=== PATIENT | female | born 1960 | race Caucasian/White ===

== ENCOUNTER 2022-06-05 22:36 | Outpatient (CLI) | payer MEDICAID, SELFPAY | END 2022-06-05 22:37 | disposition home or self-care (01) | LOC: AMB 06-06 12:00 | PROVIDERS: Visit Provider Emergency Medicine Emergency Medical Services | DX: S99.911A Unspecified injury of right ankle, initial encounter (principal); W01.0XXA Fall on same level from slipping, tripping and stumbling without subsequent striking against object, initial encounter; Y92.046 Garden or yard of boarding-house as the place of occurrence of the external cause | CPT/HCPCS: A0425; A0427 ==

== ENCOUNTER 2022-06-05 23:04 | Day surgery (SDC) | payer MEDICAID, SELFPAY ==
[2022-06-05 23:14] VITALS: BP 76/44; PULSE 55; RESP 16; TEMP 35.7; O2SAT 92; O2SAT 94; BMI 39.9
--- NOTE | 2022-06-05 23:17 | CRLHL7_ITS ---
For Patients: As a result of the Century Cures Act, medical imaging exams and procedure reports are released immediately into your electronic medical record. You may view this report before your referring provider. If you have questions, please contact your health care provider. INDICATION: Injury. COMPARISON: None. FINDINGS/IMPRESSION: Right ankle, three views. Evaluation is moderately limited by suboptimal positioning. There is an acute fracture-dislocation of the right ankle, including a transverse fracture through the medial malleolus and a comminuted fracture of the distal fibula. The distal fibular fracture fragments, medial malleolus fragment, and talus are displaced laterally with respect to the tibia and the fibular shaft. The ankle mortise is disrupted and the tibia is dislocated medially, and likely anteriorly, with respect to the talar head. There is a questionable fracture of the posterior malleolus, as well. Soft tissue swelling is present about the ankle. Dictated by Bryan Trimble MD @ 06/06/2022 12:18:07 AM Dictated by: Bryan Trimble MD @ 06/06/2022 00:18:51 (Electronically Signed)
--- NOTE | 2022-06-05 23:41 | ED_ITS ---
HPI - Extremity Injury (Lower) General Date Seen: 06/05/22 Chief Complaint: Extremity Pain/Injury, Lower Stated Complaint: Fall, ankle injury Time Seen by Provider: 06/05/22 23:16 Source: patient and EMS Mode of arrival: EMS Limitations: no limitations History of Present Illness HPI Narrative: Patient is a 61-year-old woman who presents by EMS for evaluation of her right ankle injury. She says that she stood up from a chair and her ankle just slipped out from under her. There is pain swelling or deformity. She takes oxycodone chronically and took 1 at 8:00 a.m., paramedics gave her an additional 25 mcg of fentanyl. She continues to complain of pain. She does not have numbness in the foot. Related Data Home Medications Medication Instructions Recorded Confirmed amitriptyline 50 mg tablet 50 mg PO QPM 06/05/22 06/05/22 amlodipine 10 mg tablet 10 mg PO DAILY 06/05/22 06/05/22 carbidopa ER 50 mg-levodopa 200 mg 1 tab PO QPM 06/05/22 06/05/22 tablet,extended release carvedilol 25 mg tablet 25 mg PO Q12H 06/05/22 06/06/22 carvedilol 6.25 mg tablet 6.25 mg PO Q12H 06/05/22 06/06/22 cetirizine 10 mg tablet 10 mg PO DAILY PRN allergies 06/05/22 06/05/22 cholecalciferol (vitamin D3) 25 25 mcg PO DAILY 06/05/22 06/05/22 mcg (1,000 unit) tablet cyanocobalamin (vitamin B-12) 1,000 mcg PO DAILY 06/05/22 06/05/22 1,000 mcg tablet ergocalciferol (vitamin D2) 1,250 1,250 mcg PO QWEEK 06/05/22 06/06/22 mcg (50,000 unit) capsule eszopiclone 3 mg tablet 3 mg PO QPM 06/05/22 06/05/22 famotidine 20 mg tablet 20 mg PO DAILY 06/05/22 06/05/22 ferrous sulfate 325 mg (65 mg 325 mg PO Q1D 06/05/22 06/05/22 iron) tablet (FeroSul) furosemide 40 mg tablet 40 mg PO DAILY PRN 06/05/22 06/05/22 guaifenesin 600 mg tablet, 600 mg PO BID 06/05/22 06/05/22 extended release 12 hr (Mucus Relief ER) ipratropium bromide 21 mcg (0.03 2 spray intranasal BID 06/05/22 06/05/22 %) nasal spray latanoprost 0.005 % eye drops 1 drp ophthalmic (eye) QPM 06/05/22 06/05/22 memantine 10 mg tablet 10 mg PO BID 06/05/22 06/05/22 oxycodone 5 mg tablet 7.5 mg PO Q6H PRN pain 06/05/22 06/05/22 oxycodone 5 mg/5 mL oral solution 7.5 mg PO 3XD chronic pain 06/05/22 06/05/22 pantoprazole 40 mg tablet,delayed 40 mg PO DAILY 06/05/22 06/05/22 release prazosin 2 mg capsule 2 mg PO QPM 06/05/22 06/05/22 quetiapine 100 mg tablet 100 mg PO HS 06/05/22 06/06/22 sennosides 8.6 mg-docusate sodium tab PO 06/05/22 50 mg tablet (Stool Softener-Stimulant Laxative) sertraline 100 mg tablet 100 mg PO DAILY 06/05/22 06/06/22 simvastatin 20 mg tablet 20 mg PO QPM 06/05/22 06/05/22 tizanidine 4 mg tablet 4 mg PO Q8H PRN muscle spasm 06/05/22 06/05/22 azelastine-fluticasone 137 mcg-50 1 spray intranasal BID 06/06/22 06/06/22 mcg/spray nasal spray Allergies Allergy/AdvReac Type Severity Reaction Status Date / Time losartan Allergy Severe Angioedema Verified 06/06/22 00:18 duloxetine Allergy Mild Hives, Verified 06/06/22 00:18 Nausea/Vomiting latex Allergy Mild Rash Verified 06/06/22 00:18 lisinopril Allergy Mild Rash Verified 06/06/22 00:18 phenylephrine Allergy Mild Rash, Verified 06/06/22 00:18 Swelling pregabalin Allergy Mild Rash Verified 06/06/22 00:18 tropicamide Allergy Mild Rash, Verified 06/06/22 00:18 Swelling gabapentin AdvReac Mild GI Verified 06/06/22 00:18 Intolerance, Nausea/Vomiting prednisone AdvReac Mild Agitation Verified 06/06/22 00:18 Review of Systems Status of ROS: Reports: 6 or more systems reviewed and unremarkable except as noted in History and below [facility] Medical History (Updated 06/06/22 @ 01:11 by Esperanza Bates MD) Atrial tachycardia, paroxysmal ?I47.1 - Supraventricular tachycardia (ICD-10) B12 deficiency ?E53.8 - Deficiency of other specified B group vitamins (ICD-10) Chronic diastolic (congestive) heart failure ?I50.32 - Chronic diastolic (congestive) heart failure (ICD-10) Chronic kidney disease, stage 3a ?N18.31 - Chronic kidney disease, stage 3a (ICD-10) Chronic pain syndrome ?G89.4 - Chronic pain syndrome (ICD-10) Chronic respiratory failure with hypoxia ?J96.11 - Chronic respiratory failure with hypoxia (ICD-10) Corneal epithelial basement membrane dystrophy ?H18.529 - Epithelial (juvenile) corneal dystrophy, unspecified eye (ICD-10) Dependent personality disorder ?F60.7 - Dependent personality disorder (ICD-10) Depression, major, recurrent, moderate ?F33.1 - Major depressive disorder, recurrent, moderate (ICD-10) Dermatochalasis of both eyelids ?H02.833 - Dermatochalasis of right eye, unspecified eyelid (ICD-10) ?H02.836 - Dermatochalasis of left eye, unspecified eyelid (ICD-10) Elevated serum creatinine ?R79.89 - Other specified abnormal findings of blood chemistry (ICD-10) Fatty liver ?K76.0 - Fatty (change of) liver, not elsewhere classified (ICD-10) SHREE (generalized anxiety disorder) ?F41.1 - Generalized anxiety disorder (ICD-10) GERD (gastroesophageal reflux disease) ?K21.9 - Gastro-esophageal reflux disease without esophagitis (ICD-10) Glaucoma ?H40.9 - Unspecified glaucoma (ICD-10) Globus sensation ?R09.89 - Other specified symptoms and signs involving the circulatory and respiratory systems (ICD-10) Headache, chronic migraine without aura ?G43.709 - Chronic migraine without aura, not intractable, without status migrainosus (ICD-10) History of falling ?Z91.81 - History of falling (ICD-10) Hyperhidrosis ?R61 - Generalized hyperhidrosis (ICD-10) Hyperlipidemia ?E78.5 - Hyperlipidemia, unspecified (ICD-10) Hypertensive heart disease ?I11.9 - Hypertensive heart disease without heart failure (ICD-10) Hypovitaminosis D ?E55.9 - Vitamin D deficiency, unspecified (ICD-10) Irritable bowel syndrome with diarrhea ?K58.0 - Irritable bowel syndrome with diarrhea (ICD-10) Morbid obesity ?E66.01 - Morbid (severe) obesity due to excess calories (ICD-10) Nevus of choroid of right eye ?D31.31 - Benign neoplasm of right choroid (ICD-10) EUGENIA (obstructive sleep apnea) ?G47.33 - Obstructive sleep apnea (adult) (pediatric) (ICD-10) Panic disorder with agoraphobia ?F40.01 - Agoraphobia with panic disorder (ICD-10) Paresthesia of both feet ?R20.2 - Paresthesia of skin (ICD-10) Ptosis of eyelid, bilateral ?H02.403 - Unspecified ptosis of bilateral eyelids (ICD-10) PTSD (post-traumatic stress disorder) ?F43.10 - Post-traumatic stress disorder, unspecified (ICD-10) Rectal bleed ?K62.5 - Hemorrhage of anus and rectum (ICD-10) Restless leg syndrome ?G25.81 - Restless legs syndrome (ICD-10) Rhinitis, chronic ?J31.0 - Chronic rhinitis (ICD-10) Supraventricular tachycardia ?I47.1 - Supraventricular tachycardia (ICD-10) Syncope and collapse ?R55 - Syncope and collapse (ICD-10) Tachycardia, paroxysmal ?I47.9 - Paroxysmal tachycardia, unspecified (ICD-10) Typical atrial flutter ?I48.3 - Typical atrial flutter (ICD-10) Social History How often do you have a drink containing alcohol: never AUDIT-C Alcohol total score: 0 Non-prescribed substance use: denies use Exam Narrative: Exam Narrative: Vital signs as noted above. In general, an alert, nontoxic woman. She appears slightly sedated. Head: Normocephalic, atraumatic. Eyes: Pupils are equal reactive. Extraocular movements are full. Conjunctivae are normal. ENT: Mucous membranes are moist. Throat is normal. Neck: Supple without lymphadenopathy. Heart: Regular rate and rhythm. No murmur or rub. Lungs: Clear bilaterally. No increased work of breathing, crackles or wheezes. Abdomen: Soft and nontender. No organomegaly. Extremities: On the right, the ankle is deformed with some bruising over the medial aspect. Pulses intact, sensation is normal, she is able to wiggle her toes slightly. Neurologic: Patient is alert and oriented to person and place. Speech is fluent. Face is symmetric. Moves all extremities equally. Affect: Normal. Skin: Warm and dry. Well perfused. Skin is intact over the right ankle. Const: Vital Signs, click to edit/add: Vital Signs - 24 hr 06/05/22 23:14 06/05/22 23:14 06/05/22 23:51 Temperature 96.3 F L Pulse Rate Pulse Rate [Pulse Oximeter] 55 L Respiratory Rate 16 Blood Pressure Blood Pressure [Ri ght Upper Arm] 76/44 L Pulse Oximetry 94 92 98 Oxygen Delivery Me thod Nasal Cannula Nasal Cannula Nasal Cannula Oxygen Flow Rate 3 3 06/05/22 23:47 06/06/22 00:05 06/06/22 00:17 Temperature Pulse Rate 57 L 65 60 Pulse Rate [Pulse Oximeter] Respiratory Rate 16 18 18 Blood Pressure 96/52 L 95/54 L 112/67 Blood Pressure [Ri ght Upper Arm] Pulse Oximetry 93 97 96 Oxygen Delivery Me thod Oxygen Flow Rate 06/06/22 00:21 06/06/22 00:27 06/06/22 00:32 Temperature Pulse Rate 65 69 95 Pulse Rate [Pulse Oximeter] Respiratory Rate 16 16 21 Blood Pressure 135/78 149/85 H 128/91 H Blood Pressure [Ri ght Upper Arm] Pulse Oximetry 96 98 97 Oxygen Delivery Me thod Oxygen Flow Rate 06/06/22 00:32 06/06/22 00:37 06/06/22 00:41 Temperature Pulse Rate 65 61 62 Pulse Rate [Pulse Oximeter] Respiratory Rate 21 22 20 Blood Pressure 128/91 H 129/80 129/71 Blood Pressure [Ri ght Upper Arm] Pulse Oximetry 16 L 94 95 Oxygen Delivery Me thod Oxygen Flow Rate 06/06/22 00:46 06/06/22 00:52 Temperature Pulse Rate 64 63 Pulse Rate [Pulse Oximeter] Respiratory Rate 21 18 Blood Pressure 132/80 116/51 L Blood Pressure [Ri ght Upper Arm] Pulse Oximetry 95 93 Oxygen Delivery Me thod Oxygen Flow Rate Course Course Hospital Course: On arrival, patient had x-rays of the right ankle which show a trimalleolar fracture with dislocation by my review. Final radiology report is as follows:FINDINGS/IMPRESSION: Right ankle, three views. Evaluation is moderately limited by suboptimal positioning. There is an acute fracture-dislocation of the right ankle, including a transverse fracture through the medial malleolus and a comminuted fracture of the distal fibula. The distal fibular fracture fragments, medial malleolus fragment, and talus are displaced laterally with respect to the tibia and the fibular shaft. The ankle mortise is disrupted and the tibia is dislocated medially, and likely anteriorly, with respect to the talar head. There is a questionable fracture of the posterior malleolus, as well. Soft tissue swelling is present about the ankle. I recommended sedation to reduce and splint her ankle. We reviewed risks and benefits of sedation as well as reduction and she agreed to proceed. Of note, patient's blood pressure was low on arrival in the 70s. She was not tachycardic. She does take a couple of blood pressure medications in the evening and also pain medications, then she received fentanyl in the ambulance. Unclear whether the combination of medications was responsible for her low blood pressure. She denied any other symptoms and did not have any signs of external bleeding. She is not on anticoagulation. She had a L normal saline. At the time of her sedation her blood pressure was still in the high 90s, so I opted to use ketamine rather than propofol. Procedure note: Dr. William was present to manage sedation. Patient was maintained on oximeter, end-tidal CO2 as well as blood pressure monitoring throughout the procedure. She did well from the standpoint of sedation. The ankle was reduced, splinted with a U splint and posterior splint Corey Alexandre. Initial x-rays showed the mortise to still be malpositioned in the AP. I took everything down, read did it and on subsequent images, the mortise looked good but she was no longer completely reduced anteriorly. Therefore, I did redo it a 3rd time. At this time, the mortise looks reasonably reduced in both AP and lateral views. Distal CMS remains intact. Patient does not feel she will be able to manage at home nonweightbearing on this foot and I would tend to agree with her. As a result, plan will be admission to the hospital. I did talk with Estelita Viramontes who was production drilling machine operator for Orthopedics tonight. Patient will be admitted to [facility]. Vital Signs Vital signs: Initial Vital Signs Temperature 96.3 F L 06/05/22 23:14 Temperature Source Temporal Artery Scan 06/05/22 23:14 Pulse Rate 55 L 06/05/22 23:14 Respiratory Rate 16 06/05/22 23:14 Blood Pressure 76/44 L 06/05/22 23:14 Blood Pressure Mean 54 L 06/05/22 23:14 Pulse Oximetry 94 06/05/22 23:14 Oxygen Delivery Method Nasal Cannula 06/05/22 23:14 Oxygen Flow Rate 3 06/05/22 23:14 Vital Signs Temperature 96.3 F L 06/05/22 23:14 Pulse Rate 55 L 06/05/22 23:14 Respiratory Rate 16 06/05/22 23:14 Blood Pressure 76/44 L 06/05/22 23:14 Pulse Oximetry 94 06/05/22 23:14 Oxygen Delivery Method Nasal Cannula 06/05/22 23:14 Oxygen Flow Rate 3 06/05/22 23:14 Temperature 96.3 F L 06/05/22 23:14 Pulse Rate 63 06/06/22 00:52 Respiratory Rate 18 06/06/22 00:52 Blood Pressure 116/51 L 06/06/22 00:52 Pulse Oximetry 93 06/06/22 00:52 Oxygen Delivery Method Nasal Cannula 06/05/22 23:51 Oxygen Flow Rate 3 06/05/22 23:51 MDM - Extremity Injury (Lower) Lab Data Labs: Lab Results 06/05/22 06/06/22 Range/Units 23:45 00:00 WBC 7.94 (4.50-11.00) K/uL RBC 4.00 (4.00-5.20) m/uL Hgb 11.4 L (12.0-16.0) gm/dL Hct 35.6 (33.0-51.0) % MCV 89 (80-100) fL MCH 29 (26-34) pg MCHC 32 (32-36) gm/dL RDW Coeff of Selina 14.0 (11.5-15.5) % Plt Count 272 (140-440) K/uL Neut % (Auto) 64.9 (42.0-72.0) % Lymph % (Auto) 29.0 (20-44) % Mcintosh % (Auto) 5.0 (0.0-11.0) % Eos % (Auto) 0.6 (0.0-7.0) % Baso % (Auto) 0.4 (0.0-3.0) % Neut # (Auto) 5.15 (1.7-7.0) K/uL Lymph # (Auto) 2.30 (0.90-2.90) K/uL Mcintosh # (Auto) 0.40 (0.00-0.90) K/UL Eos # (Auto) 0.05 (0.00-0.50) K/uL Baso # (Auto) 0.03 (0.00-0.30) K/uL SARS-CoV-2 (PCR) Negative SARS-CoV-2 (Negative) Discharge Plan Discharge Clinical Impression: Closed fracture dislocation of right ankle Patient Disposition: Admitted As Inpatient Condition: Improved
[2022-06-05 23:47] VITALS: BP 96/52; PULSE 57; RESP 16; O2SAT 93
[2022-06-05 23:51] VITALS: O2SAT 98
[2022-06-06] VITALS (52 sets, daily range): BP systolic 90–203; BP diastolic 47–139; PULSE 60–106; RESP 12–24; TEMP 36.2–36.7; O2SAT 90–98; BMI 39.9; BMI 39.8
[2022-06-06] MEDS: 0.9 % SODIUM CHLORIDE 1000 ml 1,000 ML IV (00:10)
[2022-06-06] MEDS: KETAMINE HCL 100 MG/ML inj IVPB (00:17)
--- NOTE | 2022-06-06 00:25 | CRLHL7_ITS ---
For Patients: As a result of the Century Cures Act, medical imaging exams and procedure reports are released immediately into your electronic medical record. You may view this report before your referring provider. If you have questions, please contact your health care provider. Indication: Postreduction Technique: Three views right ankle Comparison: June 05, 2022 at 11:39 p.m.. Findings/Impression: : Interval placing of splinting material obscures fine bony detail. Significant improvement in alignment the tibiotalar joint. Comminuted fracture of the distal fibula. Mildly displaced fractures of the medial malleolus and posterior malleoli. The medial clear space measures 9 mm. Dictated by Ashley Lopez MD @ 06/06/2022 1:21:37 AM (Electronically Signed)
[2022-06-06] MEDS: MIDAZOLAM HCL 1 MG/ML inj IVP ×2 (00:27→09:51)
--- NOTE | 2022-06-06 00:27 | CRLHL7_ITS ---
For Patients: As a result of the Century Cures Act, medical imaging exams and procedure reports are released immediately into your electronic medical record. You may view this report before your referring provider. If you have questions, please contact your health care provider. Indication: Postreduction Technique: Two views right ankle Comparison: June 05, 2022 at 11:39 p.m. Findings/impression: : Overlying splinting material obscures fine bony detail. Improved the tibiotalar joint. Medial clear space measures 6.7 mm. Mildly displaced medial malleolus fracture. Comminuted fracture of the distal fibula. Minimally displaced fracture of the posterior malleolus. There may also be a small nondisplaced intra-articular fracture of the anterior aspect of the distal tibia. Dictated by Ashley Lopez MD @ 06/06/2022 1:23:53 AM (Electronically Signed)
[2022-06-06 00:29] LABS: SARS PCR* Negative SARS-CoV-2 (Negative)
[2022-06-06 01:00] LABS: Basophils Absolute Auto 0.03 K/uL (0.00-0.30); Basophils Percent Auto 0.4 % (0.0-3.0); Eosinophils Absolute Auto 0.05 K/uL (0.00-0.50); Eosinophils Percent Auto 0.6 % (0.0-7.0); Hematocrit 35.6 % (33.0-51.0); Hemoglobin* 11.4 gm/dL (12.0-16.0); Immature Granulocytes Abs Auto 0.01 K/uL (0.00-0.30); Immature Granulocytes Pct Auto 0.1 %; Mean Corpuscular HGB Conc 32 gm/dL (32-36); Mean Corpuscular Hemoglobin 29 pg (26-34); Mean Corpuscular Volume 89 fL (80-100); Neutrophils Absolute Auto 5.15 K/uL (1.7-7.0); Neutrophils Percent Auto 64.9 % (42.0-72.0); Platelet Count* 272 K/uL (140-440); White Blood Count* 7.94 K/uL (4.50-11.00)
[2022-06-06 01:02] LABS: Slide Review Reflex No
[2022-06-06 01:11] LABS: Albumin* 3.5 g/dL (3.3-5.0); Chloride* 105 mmol/L (96-114)
[2022-06-06 01:12] LABS: Potassium* 3.1 mmol/L (3.6-5.1); Sodium* 139 mmol/L (135-149)
[2022-06-06 01:14] LABS: Aspartate Amino Transferase* 16 U/L (12-35); Bilirubin Direct* 0.2 mg/dL (0.0-0.5); Bilirubin Total* 0.3 mg/dL (0.1-1.5); Carbon Dioxide* 28 mmol/L (20-32); Creatinine* 0.9 mg/dL (0.5-1.5); Est. Creatinine Clearance* 48.25; Estimated Glomerular Filt Rate 72 ml/min; Prothrombin Time 13.8 Seconds; Total Protein* 5.9 g/dL (6.0-8.3)
[2022-06-06 01:15] LABS: Alanine Aminotransferase* 12 U/L (4-35); Alkaline Phosphatase* 75 U/L (40-150); Blood Urea Nitrogen* 15 mg/dL (7-30); Calcium* 8.3 mg/dL (8.4-10.6); Glucose* 186 mg/dL (60-115); Partial Thromboplastin Time* 29 Seconds (23-33)
--- NOTE | 2022-06-06 01:17 | ED.NURSE ---
Patient signed informed consent for conscious sedation and closed reduction of the right ankle. Airway cart placed outside of patient's room. Suction and ambu available in patient's room. Patient placed on ETCO2, NIBP q 5 minutes, continuos pulse ox and cardiac monitoring. NS infusing. MD x2 and RN x3 present with patient at time of procedure. Time out performed. 0017: 100mg of ketamine administered IVP 0020: Procedure start time. Closed reduction performed by MD and Splint applied. 0025: procedure end time. Patient tolerated well. 0027: 1 mg Versed administered IVP. 0030: Portable X-Ray performed. MD reviewed. 0032: Splint removed and MD manipulated ankle further. Splint applied. 0035: Portable X-Ray performed 0040: Splint removed and MD manipulated ankle further. Splint applied. 0047: Portable X-Ray performed. CMS intact. Patient awake and alert. Oriented x4. Continuos monitoring remains in place.
[2022-06-06] MEDS: 5 % DEX/0.45 SOD CHL+KCL20 mEq 1,000 ML 75 ML IV (04:51)
[2022-06-06] MEDS: MORPHINE 4 MG/ML INJ 2 MG IVP (04:52)
--- NOTE | 2022-06-06 05:52 | PM.IMCN1 ---
Date of Consult Consult date: 06/06/22 Primary Care Provider: Not a Local Provider Consult Narrative Narrative: Esperanza Cole is a 61 year old female [facility] Medical History (Updated 06/06/22 @ 01:11 by Esperanza Bates MD) Atrial tachycardia, paroxysmal ?I47.1 - Supraventricular tachycardia (ICD-10) B12 deficiency ?E53.8 - Deficiency of other specified B group vitamins (ICD-10) Chronic diastolic (congestive) heart failure ?I50.32 - Chronic diastolic (congestive) heart failure (ICD-10) Chronic kidney disease, stage 3a ?N18.31 - Chronic kidney disease, stage 3a (ICD-10) Chronic pain syndrome ?G89.4 - Chronic pain syndrome (ICD-10) Chronic respiratory failure with hypoxia ?J96.11 - Chronic respiratory failure with hypoxia (ICD-10) Corneal epithelial basement membrane dystrophy ?H18.529 - Epithelial (juvenile) corneal dystrophy, unspecified eye (ICD-10) Dependent personality disorder ?F60.7 - Dependent personality disorder (ICD-10) Depression, major, recurrent, moderate ?F33.1 - Major depressive disorder, recurrent, moderate (ICD-10) Dermatochalasis of both eyelids ?H02.833 - Dermatochalasis of right eye, unspecified eyelid (ICD-10) ?H02.836 - Dermatochalasis of left eye, unspecified eyelid (ICD-10) Elevated serum creatinine ?R79.89 - Other specified abnormal findings of blood chemistry (ICD-10) Fatty liver ?K76.0 - Fatty (change of) liver, not elsewhere classified (ICD-10) SHREE (generalized anxiety disorder) ?F41.1 - Generalized anxiety disorder (ICD-10) GERD (gastroesophageal reflux disease) ?K21.9 - Gastro-esophageal reflux disease without esophagitis (ICD-10) Glaucoma ?H40.9 - Unspecified glaucoma (ICD-10) Globus sensation ?R09.89 - Other specified symptoms and signs involving the circulatory and respiratory systems (ICD-10) Headache, chronic migraine without aura ?G43.709 - Chronic migraine without aura, not intractable, without status migrainosus (ICD-10) History of falling ?Z91.81 - History of falling (ICD-10) Hyperhidrosis ?R61 - Generalized hyperhidrosis (ICD-10) Hyperlipidemia ?E78.5 - Hyperlipidemia, unspecified (ICD-10) Hypertensive heart disease ?I11.9 - Hypertensive heart disease without heart failure (ICD-10) Hypovitaminosis D ?E55.9 - Vitamin D deficiency, unspecified (ICD-10) Irritable bowel syndrome with diarrhea ?K58.0 - Irritable bowel syndrome with diarrhea (ICD-10) Morbid obesity ?E66.01 - Morbid (severe) obesity due to excess calories (ICD-10) Nevus of choroid of right eye ?D31.31 - Benign neoplasm of right choroid (ICD-10) EUGENIA (obstructive sleep apnea) ?G47.33 - Obstructive sleep apnea (adult) (pediatric) (ICD-10) Panic disorder with agoraphobia ?F40.01 - Agoraphobia with panic disorder (ICD-10) Paresthesia of both feet ?R20.2 - Paresthesia of skin (ICD-10) Ptosis of eyelid, bilateral ?H02.403 - Unspecified ptosis of bilateral eyelids (ICD-10) PTSD (post-traumatic stress disorder) ?F43.10 - Post-traumatic stress disorder, unspecified (ICD-10) Rectal bleed ?K62.5 - Hemorrhage of anus and rectum (ICD-10) Restless leg syndrome ?G25.81 - Restless legs syndrome (ICD-10) Rhinitis, chronic ?J31.0 - Chronic rhinitis (ICD-10) Supraventricular tachycardia ?I47.1 - Supraventricular tachycardia (ICD-10) Syncope and collapse ?R55 - Syncope and collapse (ICD-10) Tachycardia, paroxysmal ?I47.9 - Paroxysmal tachycardia, unspecified (ICD-10) Typical atrial flutter ?I48.3 - Typical atrial flutter (ICD-10) Social History Highest level of school completed/degree received: high school graduate Smoking Status: Never smoker How often do you have a drink containing alcohol: never AUDIT-C Alcohol total score: 0 Non-prescribed substance use: denies use Caffeine: No Do you think of yourself as: straight/heterosexual Gender Identity: female service: No Meds Home Medications and Allergies Home Medications Medication Instructions Recorded Confirmed Type amitriptyline 50 mg tablet 50 mg PO QPM 06/05/22 06/05/22 History amlodipine 10 mg tablet 10 mg PO DAILY 06/05/22 06/05/22 History carbidopa ER 50 mg-levodopa 200 mg 1 tab PO QPM 06/05/22 06/05/22 History tablet,extended release carvedilol 25 mg tablet 25 mg PO Q12H 06/05/22 06/06/22 History carvedilol 6.25 mg tablet 6.25 mg PO Q12H 06/05/22 06/06/22 History cetirizine 10 mg tablet 10 mg PO DAILY PRN allergies 06/05/22 06/05/22 History cholecalciferol (vitamin D3) 25 25 mcg PO DAILY 06/05/22 06/05/22 History mcg (1,000 unit) tablet cyanocobalamin (vitamin B-12) 1,000 mcg PO DAILY 06/05/22 06/05/22 History 1,000 mcg tablet ergocalciferol (vitamin D2) 1,250 1,250 mcg PO QWEEK 06/05/22 06/06/22 History mcg (50,000 unit) capsule eszopiclone 3 mg tablet 3 mg PO QPM 06/05/22 06/05/22 History famotidine 20 mg tablet 20 mg PO DAILY 06/05/22 06/05/22 History ferrous sulfate 325 mg (65 mg 325 mg PO Q1D 06/05/22 06/05/22 History iron) tablet (FeroSul) furosemide 40 mg tablet 40 mg PO DAILY PRN 06/05/22 06/05/22 History guaifenesin 600 mg tablet, 600 mg PO BID 06/05/22 06/05/22 History extended release 12 hr (Mucus Relief ER) ipratropium bromide 21 mcg (0.03 2 spray intranasal BID 06/05/22 06/05/22 History %) nasal spray latanoprost 0.005 % eye drops 1 drp ophthalmic (eye) QPM 06/05/22 06/05/22 History memantine 10 mg tablet 10 mg PO BID 06/05/22 06/05/22 History oxycodone 5 mg tablet 7.5 mg PO Q6H PRN pain 06/05/22 06/05/22 History oxycodone 5 mg/5 mL oral solution 7.5 mg PO 3XD chronic pain 06/05/22 06/05/22 History pantoprazole 40 mg tablet,delayed 40 mg PO DAILY 06/05/22 06/05/22 History release prazosin 2 mg capsule 2 mg PO QPM 06/05/22 06/05/22 History quetiapine 100 mg tablet 100 mg PO HS 06/05/22 06/06/22 History sennosides 8.6 mg-docusate sodium tab PO 06/05/22 History 50 mg tablet (Stool Softener-Stimulant Laxative) sertraline 100 mg tablet 100 mg PO DAILY 06/05/22 06/06/22 History simvastatin 20 mg tablet 20 mg PO QPM 06/05/22 06/05/22 History tizanidine 4 mg tablet 4 mg PO Q8H PRN muscle spasm 06/05/22 06/05/22 History azelastine-fluticasone 137 mcg-50 1 spray intranasal BID 06/06/22 06/06/22 History mcg/spray nasal spray Allergies Allergy/AdvReac Type Severity Reaction Status Date / Time losartan Allergy Severe Angioedema Verified 06/06/22 00:18 duloxetine Allergy Mild Hives, Verified 06/06/22 00:18 Nausea/Vomiting latex Allergy Mild Rash Verified 06/06/22 00:18 lisinopril Allergy Mild Rash Verified 06/06/22 00:18 phenylephrine Allergy Mild Rash, Verified 06/06/22 00:18 Swelling pregabalin Allergy Mild Rash Verified 06/06/22 00:18 tropicamide Allergy Mild Rash, Verified 06/06/22 00:18 Swelling gabapentin AdvReac Mild GI Verified 06/06/22 00:18 Intolerance, Nausea/Vomiting prednisone AdvReac Mild Agitation Verified 06/06/22 00:18 Exam Const: Vital Signs, click to edit/add: Vital Signs - 24 hr 06/05/22 23:14 06/05/22 23:14 06/05/22 23:51 Temperature 96.3 F L Pulse Rate Pulse Rate [Pulse Oximeter] 55 L Respiratory Rate 16 Blood Pressure Blood Pressure [Le ft Arm] Blood Pressure [Ri ght Upper Arm] 76/44 L Pulse Oximetry 94 92 98 Oxygen Delivery Me thod Nasal Cannula Nasal Cannula Nasal Cannula Oxygen Flow Rate 3 3 06/05/22 23:47 06/06/22 00:05 06/06/22 00:17 Temperature Pulse Rate 57 L 65 60 Pulse Rate [Pulse Oximeter] Respiratory Rate 16 18 18 Blood Pressure 96/52 L 95/54 L 112/67 Blood Pressure [Le ft Arm] Blood Pressure [Ri ght Upper Arm] Pulse Oximetry 93 97 96 Oxygen Delivery Me thod Oxygen Flow Rate 06/06/22 00:21 06/06/22 00:27 06/06/22 00:32 Temperature Pulse Rate 65 69 95 Pulse Rate [Pulse Oximeter] Respiratory Rate 16 16 21 Blood Pressure 135/78 149/85 H 128/91 H Blood Pressure [Le ft Arm] Blood Pressure [Ri ght Upper Arm] Pulse Oximetry 96 98 97 Oxygen Delivery Me thod Oxygen Flow Rate 06/06/22 00:32 06/06/22 00:37 06/06/22 00:41 Temperature Pulse Rate 65 61 62 Pulse Rate [Pulse Oximeter] Respiratory Rate 21 22 20 Blood Pressure 128/91 H 129/80 129/71 Blood Pressure [Le ft Arm] Blood Pressure [Ri ght Upper Arm] Pulse Oximetry 97 94 95 Oxygen Delivery Me thod Oxygen Flow Rate 06/06/22 00:46 06/06/22 00:52 06/06/22 01:11 Temperature Pulse Rate 64 63 Pulse Rate [Pulse Oximeter] 69 Respiratory Rate 21 18 16 Blood Pressure 132/80 116/51 L Blood Pressure [Le ft Arm] Blood Pressure [Ri ght Upper Arm] 129/81 Pulse Oximetry 95 93 94 Oxygen Delivery Me thod Nasal Cannula Oxygen Flow Rate 3 06/06/22 00:21 06/06/22 00:27 06/06/22 01:33 Temperature 98.0 F Pulse Rate Pulse Rate [Pulse Oximeter] 65 69 71 Respiratory Rate 16 16 20 Blood Pressure Blood Pressure [Le ft Arm] Blood Pressure [Ri ght Upper Arm] 135/78 149/85 H 140/87 H Pulse Oximetry 98 98 96 Oxygen Delivery Me thod Nasal Cannula Nasal Cannula Nasal Cannula Oxygen Flow Rate 3 3 3 06/06/22 00:56 06/06/22 01:01 06/06/22 01:06 Temperature Pulse Rate 64 66 67 Pulse Rate [Pulse Oximeter] Respiratory Rate 17 17 16 Blood Pressure 127/83 136/83 132/84 Blood Pressure [Le ft Arm] Blood Pressure [Ri ght Upper Arm] Pulse Oximetry 95 95 94 Oxygen Delivery Me thod Oxygen Flow Rate 06/06/22 01:11 06/06/22 00:32 06/06/22 00:37 Temperature Pulse Rate 69 Pulse Rate [Pulse Oximeter] 95 61 Respiratory Rate 16 16 16 Blood Pressure 129/81 Blood Pressure [Le ft Arm] Blood Pressure [Ri ght Upper Arm] 128/91 H 129/50 L Pulse Oximetry 94 97 98 Oxygen Delivery Me thod Nasal Cannula Nasal Cannula Oxygen Flow Rate 3 3 06/06/22 01:11 06/06/22 01:17 06/06/22 01:21 Temperature Pulse Rate 68 70 Pulse Rate [Pulse Oximeter] 69 Respiratory Rate 16 19 17 Blood Pressure 137/76 140/75 H Blood Pressure [Le ft Arm] Blood Pressure [Ri ght Upper Arm] 129/81 Pulse Oximetry 94 95 96 Oxygen Delivery Me thod Nasal Cannula Oxygen Flow Rate 3 06/06/22 01:26 06/06/22 01:31 06/06/22 01:36 Temperature Pulse Rate 72 71 71 Pulse Rate [Pulse Oximeter] Respiratory Rate 17 19 14 Blood Pressure 146/83 H 140/87 H 140/82 H Blood Pressure [Le ft Arm] Blood Pressure [Ri ght Upper Arm] Pulse Oximetry 97 96 96 Oxygen Delivery Me thod Oxygen Flow Rate 06/06/22 01:41 06/06/22 01:46 06/06/22 01:51 Temperature Pulse Rate 72 73 73 Pulse Rate [Pulse Oximeter] Respiratory Rate 15 16 16 Blood Pressure 140/82 H 134/74 134/82 Blood Pressure [Le ft Arm] Blood Pressure [Ri ght Upper Arm] Pulse Oximetry 96 96 96 Oxygen Delivery Me thod Oxygen Flow Rate 06/06/22 02:01 06/06/22 02:10 06/06/22 03:49 Temperature 98.0 F 97.8 F Pulse Rate 80 Pulse Rate [Pulse Oximeter] 71 77 Respiratory Rate 18 18 12 Blood Pressure 135/80 Blood Pressure [Le ft Arm] 130/82 Blood Pressure [Ri ght Upper Arm] 140/87 H Pulse Oximetry 97 Oxygen Delivery Me thod Nasal Cannula Oxygen Flow Rate 3 06/06/22 03:49 06/06/22 04:09 Temperature 97.8 F Pulse Rate Pulse Rate [Pulse Oximeter] 77 Respiratory Rate 12 12 Blood Pressure Blood Pressure [Le ft Arm] 130/82 Blood Pressure [Ri ght Upper Arm] Pulse Oximetry 92 Oxygen Delivery Me thod Nasal Cannula Nasal Cannula Oxygen Flow Rate 3 3 Labs Labs: Short CBC 04/21/23 Range/Units 00:00 WBC 7.94 (4.50-11.00) K/uL Hgb 11.4 L (12.0-16.0) gm/dL Hct 35.6 (33.0-51.0) % Plt Count 272 (140-440) K/uL BMP 06/06/22 00:00 Sodium 139 Potassium 3.1 L Chloride 105 Carbon Dioxide 28 BUN 15 Creatinine 0.9 Glucose 186 H Calcium 8.3 L Liver Function 06/06/22 Range/Units 00:00 Total Bilirubin 0.3 (0.1-1.5) mg/dL Direct Bilirubin 0.2 (0.0-0.5) mg/dL AST 16 (12-35) U/L ALT 12 (4-35) U/L Alkaline Phosphatase 75 (40-150) U/L Albumin 3.5 (3.3-5.0) g/dL Assessment and Plan Assessment and plan (1) Closed fracture dislocation of right ankle: Status: [facility] with request of consultation for patient presenting with closed right ankle fracture History of present illness: The patient is a morbidly obese 61-year-old woman with a past medical history of chronic hypoxic respiratory failure on home oxygen 2 to 3 L/min, chronic diastolic heart failure, history of atrial tachycardia with multiple ablations, CKD stage IIIa, hypertension, depression and anxiety disorder who presents for right ankle fracture she states that she stood up from a chair and her ankle just slipped out from underneath her. There was pain, swelling and deformity of the right ankle. She denies any numbness in the foot. X-ray showed right ankle trimalleolar fracture with dislocation. The patient underwent close reduction with splinting by ER physician. The patient does not feel that she is able to manage at home not bearing on this foot given her obesity, limited ambulation and comorbid conditions. Therefore the patient was admitted for pain control and evaluation by orthopedics for possible surgery as well as PT OT. When I saw the patient on video she was relatively comfortable and rated the pain in the right ankle 5-6 out of 10. When she had first presented to the emergency room she did have some transient hypotension which resolved with hydration. Home Medications: see EMR Pertinent Medical History: Per HPI Pertinent Social History: Limited mobility and support at home Exam (performed via interactive video with assistance of bedside nurse): Afebrile pressure 140/87 mmHg heart rate 71 respirations 18 O2 sat 96% on oxygen 3 L/min General: alert, cooperative, appears in mild discomfort HEENT: oral mucosa pink and moist without erythema Lungs: clear to auscultation bilaterally without crackle or wheeze CV: regular rate and rhythm without loud murmur rub or gallop Abd: denies tenderness and does not exhibit signs of pain with palpation done by bedside nurse Ext: Right ankle noted in bandage and splint Skin: no rashes, bruises or lesions appreciated on gross visualization of exposed skin Neuro:[alert, oriented x 3. facial muscles grossly intact, moves all extremities without any significant focal deficit appreciated by nurse Pertinent labs and imaging WBC 7.94, hemoglobin 11.4, INR 1 potassium 3.1, BUN 15, creatinine 0.9, calcium 8.3 Initial x-ray of the right ankle shows acute fracture-dislocation of the right ankle, including a transverse fracture to the medial malleolus and a comminuted fracture of the distal fibula. Assessment and Plan: The patient is admitted for displaced and comminuted right ankle tibiofibular fracture s/p mechanical fall with closed reduction and splinting by ER provider. She is to be evaluated by orthopedic surgeon for possible surgery today. Labs are remarkable for mild hypokalemia. -IV acetaminophen for mild to moderate pain and IV morphine for more severe pain -N.p.o. for now. D5 half NS at 75 cc/h with 20 mEq of KCl per liter of fluids. -Give KCl 20 mEq p.o. x1 dose with sips of water. Monitor potassium and magnesium in the morning -As needed Zofran for nausea vomiting -SCDs for DVT prophylaxis -Orthopedic evaluation for ankle surgery -Any other essential oral medications can be reconciled in the morning Thank you for including Maurizio Candelario in the patients care. This service is available for further assistance as requested by your care team by calling [phone].
--- NOTE | 2022-06-06 06:07 | PC.NURSE ---
Patient up to floor from ED at 0210. She is alert and oriented x 4, vss, on 3L O2 via nc at baseline. Per Maurizio GUERRA she will remain NPO until seen by ortho doctors today. She is voiding using bedside commode and is able to stand and pivot with walker to the commode, as she is NWB on her right leg. When she arrived on the floor she rated her pain at 10/10. Following visit with Maurizio GUERRA she was prescribed IV morphine and IV acetaminophen for pain. 2mg IV morphine given around 0430. Patients leg was splinted in the ER. D5W 1/2NS + K+Cl ordered by off site running at 75l/hr.
[2022-06-06 07:00] LABS: Chloride* 108 mmol/L (96-114); Sodium* 141 mmol/L (135-149)
[2022-06-06 07:01] LABS: Potassium* 3.9 mmol/L (3.6-5.1)
[2022-06-06 07:03] LABS: Blood Urea Nitrogen* 12 mg/dL (7-30); Carbon Dioxide* 30 mmol/L (20-32); Creatinine* 0.8 mg/dL (0.5-1.5); Est. Creatinine Clearance* 48.25; Estimated Glomerular Filt Rate 83 ml/min
[2022-06-06 07:04] LABS: Calcium* 7.9 mg/dL (8.4-10.6); Glucose* 132 mg/dL (60-115)
[2022-06-06] MEDS: LACTATED RINGERS 1000 ML 1,000 ML 125 ML IV ×2 (08:10→10:58)
[2022-06-06] MEDS: fentaNYL 100 MCG/2 ML inj IVP (09:51)
--- NOTE | 2022-06-06 09:51 | SUR.PREOP ---
TIME?OUT:? PT/RN/MDA?VERIFICATION?OF?SURGICAL?SITE,?PROCEDURE,?AND?CONSENT OBTAINED?PRIOR?TO?INVASIVE?PROCEDURE.
--- NOTE | 2022-06-06 09:52 | SUR.PREOP ---
TIME?OUT:?09:50 PT/RN/MDA?VERIFICATION?OF?SURGICAL?SITE,?PROCEDURE,?AND?CONSENT OBTAINED?PRIOR?TO?INVASIVE?PROCEDURE.
--- NOTE | 2022-06-06 10:04 | REH.PT ---
Hold PT today due to pt having ORIF of ankle.
--- NOTE | 2022-06-06 10:45 | CRLHL7_ITS ---
For Patients: As a result of the Cures Act, medical imaging exams and procedure reports are released immediately into your electronic medical record. You may view this report before your referring provider. If you have questions, please contact your health care provider. Indication: INTRA OP RT ANKLE ORIF Technique: Three fluoroscopic images of the right ankle. Fluoroscopic time 185.4 seconds. IMPRESSION: Fluoroscopic guidance for open reduction internal fixation fibular fracture and distal tibial fracture. Dictated by Gaurang Gill MD @ 06/06/2022 12:44:58 PM (Electronically Signed)
[2022-06-06] MEDS: CEFAZOLIN 2 GM INJ IVP (10:55)
--- NOTE | 2022-06-06 11:34 | P.NB_ITS ---
Nerve Block Nerve Block Time Seen by Provider: 09:58 Date Seen: 06/06/22 Type of block requested by surgeon for post-operative analgesia: popliteal Side: right Time out performed: Yes Verification of patient name: Yes Verification of date of : Yes Site marking: site marked Name of person performing procedure: James Continuous monitoring Was continuous monitoring of O2 sat, B/P, assessment expert, recorded every 15 minutes?: Yes Procedure Checklist: sterile prep, needles and gloves Ultrasound guided. Images saved: Yes Medications given in 5ml increments after negative aspiration: Ropivicaine %: 0.5 mL: 20 Needle gauge: 22 Patient tolerated procedure well: Yes Additional comments: Needle noted adjacent to nerve Block Charges Block Charge (with Pro Fee): Sciatic Nerve Use of Ultrasound Machine for Block: Yes- US Guidance/pain block
--- NOTE | 2022-06-06 11:34 | P.NB_ITS ---
Nerve Block Nerve Block Time Seen by Provider: 09:58 Date Seen: 06/06/22 Type of block requested by surgeon for post-operative analgesia: femoral Side: right Time out performed: Yes Verification of patient name: Yes Verification of date of : Yes Site marking: site marked Name of person performing procedure: James Continuous monitoring Was continuous monitoring of O2 sat, B/P, environmental monitoring technician, recorded every 15 minutes?: Yes Procedure Checklist: sterile prep, needles and gloves Ultrasound guided. Images saved: Yes Medications given in 5ml increments after negative aspiration: Ropivicaine %: 0.5 mL: 20 Needle gauge: 20 Patient tolerated procedure well: Yes Additional comments: Needle noted adjacent to nerve Block Charges Block Charge (with Pro Fee): Sciatic Nerve Use of Ultrasound Machine for Block: Yes- US Guidance/pain block
--- NOTE | 2022-06-06 11:34 | W.ANESCHARGE ---
Anesthesia Charges Start Date/Time Anesthesia Start Date: 06/06/22 Anesthesia Start Time: 10:35 Stop Date/Time Anesthesia Stop Date: 06/06/22 Anesthesia Stop Time: 12:55
--- NOTE | 2022-06-06 12:27 | P.ORCN_ITS ---
History of Present Illness HPI Date Seen: 06/06/22 Requesting physician: Esperanza Bates Chief complaint: Fall, ankle injury Narrative: Dr. Bates has requested orthopedic consultation for right ankle fracture dislocation. Patient is a 61-year-old community ambulator without assist. She stood from a chair and got her ankle caught under her, sustaining a trimalleolar ankle fracture. She was admitted for treatment. She has never injured this ankle or had surgery previously. Review of Systems Narrative: The patient denies: Fever, night sweats, shaking chills, nausea, vomiting, diarrhea, chest pain, chest pressure, shortness of breath, no rash, no change in hearing or vision, no issues with bleeding or clotting [facility] Medical History Atrial tachycardia, paroxysmal ?I47.1 - Supraventricular tachycardia (ICD-10) B12 deficiency ?E53.8 - Deficiency of other specified B group vitamins (ICD-10) Chronic diastolic (congestive) heart failure ?I50.32 - Chronic diastolic (congestive) heart failure (ICD-10) Chronic kidney disease, stage 3a ?N18.31 - Chronic kidney disease, stage 3a (ICD-10) Chronic pain syndrome ?G89.4 - Chronic pain syndrome (ICD-10) Chronic respiratory failure with hypoxia ?J96.11 - Chronic respiratory failure with hypoxia (ICD-10) Corneal epithelial basement membrane dystrophy ?H18.529 - Epithelial (juvenile) corneal dystrophy, unspecified eye (ICD-10) Dependent personality disorder ?F60.7 - Dependent personality disorder (ICD-10) Depression, major, recurrent, moderate ?F33.1 - Major depressive disorder, recurrent, moderate (ICD-10) Dermatochalasis of both eyelids ?H02.833 - Dermatochalasis of right eye, unspecified eyelid (ICD-10) ?H02.836 - Dermatochalasis of left eye, unspecified eyelid (ICD-10) Elevated serum creatinine ?R79.89 - Other specified abnormal findings of blood chemistry (ICD-10) Fatty liver ?K76.0 - Fatty (change of) liver, not elsewhere classified (ICD-10) SHREE (generalized anxiety disorder) ?F41.1 - Generalized anxiety disorder (ICD-10) GERD (gastroesophageal reflux disease) ?K21.9 - Gastro-esophageal reflux disease without esophagitis (ICD-10) Glaucoma ?H40.9 - Unspecified glaucoma (ICD-10) Globus sensation ?R09.89 - Other specified symptoms and signs involving the circulatory and respiratory systems (ICD-10) Headache, chronic migraine without aura ?G43.709 - Chronic migraine without aura, not intractable, without status mi grainosus (ICD-10) History of falling ?Z91.81 - History of falling (ICD-10) Hyperhidrosis ?R61 - Generalized hyperhidrosis (ICD-10) Hyperlipidemia ?E78.5 - Hyperlipidemia, unspecified (ICD-10) Hypertensive heart disease ?I11.9 - Hypertensive heart disease without heart failure (ICD-10) Hypovitaminosis D ?E55.9 - Vitamin D deficiency, unspecified (ICD-10) Irritable bowel syndrome with diarrhea ?K58.0 - Irritable bowel syndrome with diarrhea (ICD-10) Morbid obesity ?E66.01 - Morbid (severe) obesity due to excess calories (ICD-10) Nevus of choroid of right eye ?D31.31 - Benign neoplasm of right choroid (ICD-10) EUGENIA (obstructive sleep apnea) ?G47.33 - Obstructive sleep apnea (adult) (pediatric) (ICD-10) Panic disorder with agoraphobia ?F40.01 - Agoraphobia with panic disorder (ICD-10) Paresthesia of both feet ?R20.2 - Paresthesia of skin (ICD-10) Ptosis of eyelid, bilateral ?H02.403 - Unspecified ptosis of bilateral eyelids (ICD-10) PTSD (post-traumatic stress disorder) ?F43.10 - Post-traumatic stress disorder, unspecified (ICD-10) Rectal bleed ?K62.5 - Hemorrhage of anus and rectum (ICD-10) Restless leg syndrome ?G25.81 - Restless legs syndrome (ICD-10) Rhinitis, chronic ?J31.0 - Chronic rhinitis (ICD-10) Supraventricular tachycardia ?I47.1 - Supraventricular tachycardia (ICD-10) Syncope and collapse ?R55 - Syncope and collapse (ICD-10) Tachycardia, paroxysmal ?I47.9 - Paroxysmal tachycardia, unspecified (ICD-10) Typical atrial flutter ?I48.3 - Typical atrial flutter (ICD-10) Social History Highest level of school completed/degree received: high school graduate Smoking Status: Never smoker How often do you have a drink containing alcohol: never AUDIT-C Alcohol total score: 0 Non-prescribed substance use: denies use Caffeine: No Do you think of yourself as: straight/heterosexual Gender Identity: female service: No Meds Home Medications and Allergies Home Medications Medication Instructions Recorded Confirmed Type amitriptyline 50 mg tablet 50 mg PO QPM 06/05/22 06/05/22 History amlodipine 10 mg tablet 10 mg PO DAILY 06/05/22 06/05/22 History carbidopa ER 50 mg-levodopa 200 mg 1 tab PO QPM 06/05/22 06/05/22 History tablet,extended release carvedilol 25 mg tablet 25 mg PO Q12H 06/05/22 06/06/22 History carvedilol 6.25 mg tablet 6.25 mg PO Q12H 06/05/22 06/06/22 History cetirizine 10 mg tablet 10 mg PO DAILY PRN allergies 06/05/22 06/05/22 History cholecalciferol (vitamin D3) 25 25 mcg PO DAILY 06/05/22 06/05/22 History mcg (1,000 unit) tablet cyanocobalamin (vitamin B-12) 1,000 mcg PO DAILY 06/05/22 06/05/22 History 1,000 mcg tablet eszopiclone 3 mg tablet 3 mg PO QPM 06/05/22 06/05/22 History famotidine 20 mg tablet 20 mg PO DAILY 06/05/22 06/05/22 History ferrous sulfate 325 mg (65 mg 325 mg PO Q1D 06/05/22 06/05/22 History iron) tablet (FeroSul) furosemide 40 mg tablet 40 mg PO DAILY PRN 06/05/22 06/05/22 History guaifenesin 600 mg tablet, 600 mg PO BID 06/05/22 06/05/22 History extended release 12 hr (Mucus Relief ER) ipratropium bromide 21 mcg (0.03 2 spray intranasal BID 06/05/22 06/05/22 History %) nasal spray latanoprost 0.005 % eye drops 1 drp ophthalmic (eye) QPM 06/05/22 06/05/22 History memantine 10 mg tablet 10 mg PO BID 06/05/22 06/05/22 History oxycodone 5 mg tablet 7.5 mg PO Q6H PRN pain 06/05/22 06/05/22 History oxycodone 5 mg/5 mL oral solution 7.5 mg PO 3XD chronic pain 06/05/22 06/05/22 History pantoprazole 40 mg tablet,delayed 40 mg PO DAILY 06/05/22 06/05/22 History release prazosin 2 mg capsule 2 mg PO QPM 06/05/22 06/05/22 History quetiapine 100 mg tablet 100 mg PO HS 06/05/22 06/06/22 History sennosides 8.6 mg-docusate sodium tab PO 06/05/22 History 50 mg tablet (Stool Softener-Stimulant Laxative) sertraline 100 mg tablet 100 mg PO DAILY 06/05/22 06/06/22 History simvastatin 20 mg tablet 20 mg PO QPM 06/05/22 06/05/22 History tizanidine 4 mg tablet 4 mg PO Q8H PRN muscle spasm 06/05/22 06/05/22 History azelastine-fluticasone 137 mcg-50 1 spray intranasal BID 06/06/22 06/06/22 History mcg/spray nasal spray Allergies Allergy/AdvReac Type Severity Reaction Status Date / Time losartan Allergy Severe Angioedema Verified 06/06/22 00:18 duloxetine Allergy Mild Hives, Verified 06/06/22 00:18 Nausea/Vomiting latex Allergy Mild Rash Verified 06/06/22 00:18 lisinopril Allergy Mild Rash Verified 06/06/22 00:18 phenylephrine Allergy Mild Rash, Verified 06/06/22 00:18 Swelling pregabalin Allergy Mild Rash Verified 06/06/22 00:18 tropicamide Allergy Mild Rash, Verified 06/06/22 00:18 Swelling gabapentin AdvReac Mild GI Verified 06/06/22 00:18 Intolerance, Nausea/Vomiting prednisone AdvReac Mild Agitation Verified 06/06/22 00:18 Ortho Exam Narrative Exam Narrative: The patient is alert and oriented x3, in no acute distress, they are able to converse in a normal speaking voice without obvious hearing loss and with nonlabored breathing. The patient is examined supine in the hospital bed. There is a well applied short leg Corey Alexandre splint to the right lower extremity. CMS to the toes appears intact. Const Vital Signs, click to edit/add: Vital Signs - 24 hr 06/05/22 23:14 06/05/22 23:14 06/05/22 23:51 Temperature 96.3 F L Pulse Rate Pulse Rate [Pulse Oximeter] 55 L Respiratory Rate 16 Blood Pressure Blood Pressure [Left Arm] Blood Pressure [Right Upper Arm] 76/44 L Pulse Oximetry 94 92 98 Oxygen Delivery Method Nasal Cannula Nasal Cannula Nasal Cannula Oxygen Flow Rate 3 3 06/05/22 23:47 06/06/22 00:05 06/06/22 00:17 Temperature Pulse Rate 57 L 65 60 Pulse Rate [Pulse Oximeter] Respiratory Rate 16 18 18 Blood Pressure 96/52 L 95/54 L 112/67 Blood Pressure [Left Arm] Blood Pressure [Right Upper Arm] Pulse Oximetry 93 97 96 Oxygen Delivery Method Oxygen Flow Rate 06/06/22 00:21 06/06/22 00:27 06/06/22 00:32 Temperature Pulse Rate 65 69 95 Pulse Rate [Pulse Oximeter] Respiratory Rate 16 16 21 Blood Pressure 135/78 149/85 H 128/91 H Blood Pressure [Left Arm] Blood Pressure [Right Upper Arm] Pulse Oximetry 96 98 97 Oxygen Delivery Method Oxygen Flow Rate 06/06/22 00:32 06/06/22 00:37 06/06/22 00:41 Temperature Pulse Rate 65 61 62 Pulse Rate [Pulse Oximeter] Respiratory Rate 21 22 20 Blood Pressure 128/91 H 129/80 129/71 Blood Pressure [Left Arm] Blood Pressure [Right Upper Arm] Pulse Oximetry 97 94 95 Oxygen Delivery Method Oxygen Flow Rate 06/06/22 00:46 06/06/22 00:52 06/06/22 01:11 Temperature Pulse Rate 64 63 Pulse Rate [Pulse Oximeter] 69 Respiratory Rate 21 18 16 Blood Pressure 132/80 116/51 L Blood Pressure [Left Arm] Blood Pressure [Right Upper Arm] 129/81 Pulse Oximetry 95 93 94 Oxygen Delivery Method Nasal Cannula Oxygen Flow Rate 3 06/06/22 00:21 06/06/22 00:27 06/06/22 01:33 Temperature 98.0 F Pulse Rate Pulse Rate [Pulse Oximeter] 65 69 71 Respiratory Rate 16 16 20 Blood Pressure Blood Pressure [Left Arm] Blood Pressure [Right Upper Arm] 135/78 149/85 H 140/87 H Pulse Oximetry 98 98 96 Oxygen Delivery Method Nasal Cannula Nasal Cannula Nasal Cannula Oxygen Flow Rate 3 3 3 06/06/22 00:56 06/06/22 01:01 06/06/22 01:06 Temperature Pulse Rate 64 66 67 Pulse Rate [Pulse Oximeter] Respiratory Rate 17 17 16 Blood Pressure 127/83 136/83 132/84 Blood Pressure [Left Arm] Blood Pressure [Right Upper Arm] Pulse Oximetry 95 95 94 Oxygen Delivery Method Oxygen Flow Rate 06/06/22 01:11 06/06/22 00:32 06/06/22 00:37 Temperature Pulse Rate 69 Pulse Rate [Pulse Oximeter] 95 61 Respiratory Rate 16 16 16 Blood Pressure 129/81 Blood Pressure [Left Arm] Blood Pressure [Right Upper Arm] 128/91 H 129/50 L Pulse Oximetry 94 97 98 Oxygen Delivery Method Nasal Cannula Nasal Cannula Oxygen Flow Rate 3 3 06/06/22 01:11 06/06/22 01:17 06/06/22 01:21 Temperature Pulse Rate 68 70 Pulse Rate [Pulse Oximeter] 69 Respiratory Rate 16 19 17 Blood Pressure 137/76 140/75 H Blood Pressure [Left Arm] Blood Pressure [Right Upper Arm] 129/81 Pulse Oximetry 94 95 96 Oxygen Delivery Method Nasal Cannula Oxygen Flow Rate 3 06/06/22 01:26 06/06/22 01:31 06/06/22 01:36 Temperature Pulse Rate 72 71 71 Pulse Rate [Pulse Oximeter] Respiratory Rate 17 19 14 Blood Pressure 146/83 H 140/87 H 140/82 H Blood Pressure [Left Arm] Blood Pressure [Right Upper Arm] Pulse Oximetry 97 96 96 Oxygen Delivery Method Oxygen Flow Rate 06/06/22 01:41 06/06/22 01:46 06/06/22 01:51 Temperature Pulse Rate 72 73 73 Pulse Rate [Pulse Oximeter] Respiratory Rate 15 16 16 Blood Pressure 140/82 H 134/74 134/82 Blood Pressure [Left Arm] Blood Pressure [Right Upper Arm] Pulse Oximetry 96 96 96 Oxygen Delivery Method Oxygen Flow Rate 06/06/22 02:01 06/06/22 02:10 06/06/22 03:49 Temperature 98.0 F 97.8 F Pulse Rate 80 Pulse Rate [Pulse Oximeter] 71 77 Respiratory Rate 18 18 12 Blood Pressure 135/80 Blood Pressure [Left Arm] 130/82 Blood Pressure [Right Upper Arm] 140/87 H Pulse Oximetry 97 Oxygen Delivery Method Nasal Cannula Oxygen Flow Rate 3 06/06/22 03:49 06/06/22 04:09 06/06/22 09:35 Temperature 97.8 F Pulse Rate 83 Pulse Rate [Pulse Oximeter] 77 Respiratory Rate 12 12 12 Blood Pressure 154/101 H Blood Pressure [Left Arm] 130/82 Blood Pressure [Right Upper Arm] Pulse Oximetry 92 96 Oxygen Delivery Method Nasal Cannula Nasal Cannula Nasal Cannula Oxygen Flow Rate 3 3 3 06/06/22 07:45 06/06/22 08:00 06/06/22 09:52 Temperature 97.9 F Pulse Rate 82 Pulse Rate [Pulse Oximeter] 78 Respiratory Rate 24 22 12 Blood Pressure 195/92 H Blood Pressure [Left Arm] 154/88 H Blood Pressure [Right Upper Arm] Pulse Oximetry 98 95 Oxygen Delivery Method Nasal Cannula Oxygen Flow Rate 3 06/06/22 09:57 06/06/22 10:00 Temperature Pulse Rate 79 79 Pulse Rate [Pulse Oximeter] Respiratory Rate 12 12 Blood Pressure 112/87 169/97 H Blood Pressure [Left Arm] Blood Pressure [Right Upper Arm] Pulse Oximetry 94 96 Oxygen Delivery Method Oxygen Flow Rate Results Labs Labs: Laboratory Results - last 48 hr 06/05/22 06/06/22 06/06/22 23:45 00:00 06:01 WBC 7.94 RBC 4.00 Hgb 11.4 L Hct 35.6 MCV 89 MCH 29 MCHC 32 RDW Coeff of Selina 14.0 Plt Count 272 Neut % (Auto) 64.9 Lymph % (Auto) 29.0 [place] % (Auto) 5.0 Eos % (Auto) 0.6 Baso % (Auto) 0.4 Neut # (Auto) 5.15 Lymph # (Auto) 2.30 [place] # (Auto) 0.40 Eos # (Auto) 0.05 Baso # (Auto) 0.03 INR 1.00 APTT 29 Sodium 139 141 Potassium 3.1 L 3.9 Chloride 105 108 Carbon Dioxide 28 30 BUN 15 12 Creatinine 0.9 0.8 Estimated Creat Clear 48.25 48.25 Estimated GFR 72 83 Glucose 186 H 132 H Calcium 8.3 L 7.9 L Magnesium 2.0 Total Bilirubin 0.3 Direct Bilirubin 0.2 AST 16 ALT 12 Alkaline Phosphatase 75 Total Protein 5.9 L Albumin 3.5 SARS-CoV-2 (PCR) Negative SARS-CoV-2 Diagnostic results Additional Comments: Three views of the ankle show a Meyer B trimalleolar ankle fracture dislocation. Postreduction films show the talus is nicely reduced under the tibia. Assessment and Plan Assessment and plan (1) Closed fracture dislocation of right ankle: Status: Acute Total time spent: Total time spent is greater than 50% in coordination of care (as documented) at patient's floor/unit and/or counseling patient: Plan Assessment: Meyer B trimalleolar ankle fracture dislocation right lower extremity Plan: I told the patient her injury is best treated with ORIF. She has been medically cleared for surgery. Therefore, we will plan to take her to the operating room today.
--- NOTE | 2022-06-06 12:30 | P.ORPRC_ITS ---
Procedure Note Date of procedure: 06/06/22 Procedure: PREOPERATIVE DIAGNOSIS: Right ankle Meyer B trimalleolar fracture dislocation POSTOPERATIVE DIAGNOSIS: Right ankle Meyer B trimalleolar fracture dislocation NAME OF OPERATION: ORIF SURGEON: Yeison Newberry MD PLASTER APPLICATOR: TAYA Rick ANESTHESIA: Spinal plus popliteal block ESTIMATED BLOOD LOSS: 0 mL COMPLICATIONS: None SPECIMENS: None DRAINS: None PREOPERATIVE ANTIBIOTICS: Ancef 2 g INDICATIONS: The patient is a 61-year-old who sustained a right ankle fracture. ORIF was recommended. The risks, benefits and expected outcomes were discussed in detail. These included but were not limited to: Infection, bleeding, injury to blood vessel or nerve, venous thromboembolism. All questions were answered to their satisfaction. Use of an assistant professor of english was necessary throughout the case for patient positioning and safety, soft tissue retraction and closure. PROCEDURE: A popliteal block was placed by anesthesia. Spinal anesthesia was administered. The lower extremity was prepped and draped in the usual sterile fashion. A guide pin was placed in the center of the distal fragment of the fibula, percutaneously. Its placement was confirmed with the image intensifier in multiple views. A stab incision was made around the guide pin. A percutaneous incision was placed over the anterior and posterior aspect of the distal fragment. A Meyer reduction clamp was placed. Longitudinal traction and anterior force was placed on the distal fragment to obtain an excellent reduction. The opening reamer was used. The 3.2 mm and 4.0 mm reamer were used in the proximal fragment. We placed the Arthrex 3.8 mm x 130 mm intramedullary nail. The talons were deployed. We placed 2 screws in the distal fragment. [Attention then turned to the medial side. A guide pin was placed percutaneously in the distal fragment, driven across the fracture site into the proximal fragment. Second guide pin was placed more posteriorly. Their placement was confirmed with the image intensifier. A stab incision was made around each guide pin. A 4.0 mm x 44 mm cannulated screw was placed x2. This compressed the fracture nicely. It was felt that there was still some widening through the syndesmosis. Therefore, we placed a tight rope times to through the fibula lock insertion guide. The medial buttons were confirmed flipped on the tibia. Syndesmotic reduction clamp was placed and the tight ropes were tightened. This nicely improves the widening through the syndesmosis. Implants were imaged in the AP, mortise and lateral views and were felt to be well placed with an excellent reduction. The talus is nicely reduced under the tibial plafond. The wounds were irrigated with normal saline. The assistant professor of english closed the skin with a 4-0 Vicryl in a subcuticular fashion. Glue was used to seal the skin. The assistant professor of english placed a dry dressing and short leg Corey Alexandre splint. Sponge and needle counts were correct x 2. The patient tolerated the procedure well. There were no apparent complications. They were carefully transferred to the hospital bed and taken to the postanesthesia care unit in satisfactory condition. PLAN: The patient will be discharged to home. They will remain strict nonweightbearing on the lower extremity. They will continue to work on ice and elevation. They will follow up in the office in 2 weeks for a wound check and three views of the ankle out of the splint, prior to being seen, in preparation for a short-leg nonweightbearing cast for a total of 6 weeks. We will then likely allow weight-bearing in a Cam Walker for another 6 weeks.
--- NOTE | 2022-06-06 13:00 | W.ANESCHARGE ---
Anesthesia Charges Start Date/Time Anesthesia Start Date: 06/06/22 Anesthesia Start Time: 10:35 Stop Date/Time Anesthesia Stop Date: 06/06/22 Anesthesia Stop Time: 12:55
--- NOTE | 2022-06-06 14:56 | PM.IMHP1 ---
Hospitalist- H&P: HPI History of Present Illness Date Seen: 06/06/22 Chief complaint: Fall, ankle injury Narrative: Esperanza Cole is a 61 year old female admitted to the hospital with a right ankle injury after a fall at home. The patient is a morbidly obese 61-year-old woman with a past medical history of chronic hypoxic respiratory failure on home oxygen 2 to 3 L/min, chronic diastolic heart failure, history of atrial tachycardia with multiple ablations, CKD stage IIIa, hypertension, depression and anxiety disorder who presents for right ankle fracture she states that she stood up from a chair and her ankle just slipped out from underneath her.? There was pain, swelling and deformity of the right ankle.? She denies any numbness in the foot.? X-ray showed right ankle trimalleolar fracture with dislocation.? The patient underwent close reduction with splinting by ER physician.? The patient does not feel that she is able to manage at home not bearing on this foot given her obesity, limited ambulation and comorbid conditions.? Therefore the patient was admitted for pain control and evaluation by orthopedics for possible surgery as well as PT OT. Patient reports no loss of consciousness. She did not hit her head or have any other injury. She has not been ill recently. In reviewing her records from [facility] over the past year or 2 she has had significant cardiology evaluation for frequent falls, syncope, SVT. This evaluation was quite normal. She does have a history of ablation for SVT x2 in the past. Review of Systems Narrative: No other recent illness or injury. No previous history of problems with anesthesia, bleeding or clotting disorder. [facility] Medical History (Updated 06/06/22 @ 15:14 by Balbir Pryor MD) Atrial tachycardia, paroxysmal ?I47.1 - Supraventricular tachycardia (ICD-10) B12 deficiency ?E53.8 - Deficiency of other specified B group vitamins (ICD-10) Chronic diastolic (congestive) heart failure ?I50.32 - Chronic diastolic (congestive) heart failure (ICD-10) Chronic kidney disease, stage 3a ?N18.31 - Chronic kidney disease, stage 3a (ICD-10) Chronic pain syndrome ?G89.4 - Chronic pain syndrome (ICD-10) Chronic respiratory failure with hypoxia ?J96.11 - Chronic respiratory failure with hypoxia (ICD-10) Corneal epithelial basement membrane dystrophy ?H18.529 - Epithelial (juvenile) corneal dystrophy, unspecified eye (ICD-10) Dependent personality disorder ?F60.7 - Dependent personality disorder (ICD-10) Depression, major, recurrent, moderate ?F33.1 - Major depressive disorder, recurrent, moderate (ICD-10) Dermatochalasis of both eyelids ?H02.833 - Dermatochalasis of right eye, unspecified eyelid (ICD-10) ?H02.836 - Dermatochalasis of left eye, unspecified eyelid (ICD-10) Elevated serum creatinine ?R79.89 - Other specified abnormal findings of blood chemistry (ICD-10) Fatty liver ?K76.0 - Fatty (change of) liver, not elsewhere classified (ICD-10) Frequent falls ?R29.6 - Repeated falls (ICD-10) SHREE (generalized anxiety disorder) ?F41.1 - Generalized anxiety disorder (ICD-10) GERD (gastroesophageal reflux disease) ?K21.9 - Gastro-esophageal reflux disease without esophagitis (ICD-10) Glaucoma ?H40.9 - Unspecified glaucoma (ICD-10) Globus sensation ?R09.89 - Other specified symptoms and signs involving the circulatory and respiratory systems (ICD-10) Headache, chronic migraine without aura ?G43.709 - Chronic migraine without aura, not intractable, without status migrainosus (ICD-10) History of falling ?Z91.81 - History of falling (ICD-10) Hyperhidrosis ?R61 - Generalized hyperhidrosis (ICD-10) Hyperlipidemia ?E78.5 - Hyperlipidemia, unspecified (ICD-10) Hypertensive heart disease ?I11.9 - Hypertensive heart disease without heart failure (ICD-10) Hypovitaminosis D ?E55.9 - Vitamin D deficiency, unspecified (ICD-10) Irritable bowel syndrome with diarrhea ?K58.0 - Irritable bowel syndrome with diarrhea (ICD-10) Morbid obesity ?E66.01 - Morbid (severe) obesity due to excess calories (ICD-10) Nevus of choroid of right eye ?D31.31 - Benign neoplasm of right choroid (ICD-10) EUGENIA (obstructive sleep apnea) ?G47.33 - Obstructive sleep apnea (adult) (pediatric) (ICD-10) Panic disorder with agoraphobia ?F40.01 - Agoraphobia with panic disorder (ICD-10) Paresthesia of both feet ?R20.2 - Paresthesia of skin (ICD-10) Ptosis of eyelid, bilateral ?H02.403 - Unspecified ptosis of bilateral eyelids (ICD-10) PTSD (post-traumatic stress disorder) ?F43.10 - Post-traumatic stress disorder, unspecified (ICD-10) Rectal bleed ?K62.5 - Hemorrhage of anus and rectum (ICD-10) Restless leg syndrome ?G25.81 - Restless legs syndrome (ICD-10) Rhinitis, chronic ?J31.0 - Chronic rhinitis (ICD-10) Supraventricular tachycardia ?I47.1 - Supraventricular tachycardia (ICD-10) Syncope and collapse ?R55 - Syncope and collapse (ICD-10) Tachycardia, paroxysmal ?I47.9 - Paroxysmal tachycardia, unspecified (ICD-10) Typical atrial flutter ?I48.3 - Typical atrial flutter (ICD-10) Social History (Updated 06/06/22 @ 15:10 by Balbir Pryor MD) Narrative: She lives at the [facility]. She lives alone. She does not have to climb stairs. She believes her facility has available wheelchair for her to use along with crutches or a walker to be nonweightbearing on her right lower extremity. She does not smoke. She does not drink alcohol. She occasionally uses cannabis. Code status is full. Her father is healthcare power of commercial attorney. Highest level of school completed/degree received: high school graduate Smoking Status: Never smoker How often do you have a drink containing alcohol: never AUDIT-C Alcohol total score: 0 Non-prescribed substance use: denies use Caffeine: No Do you think of yourself as: straight/heterosexual Gender Identity: female service: No Meds Home Medications and Allergies Home Medications Medication Instructions Recorded Confirmed Type amitriptyline 50 mg tablet 50 mg PO QPM 06/05/22 06/05/22 History amlodipine 10 mg tablet 10 mg PO DAILY 06/05/22 06/05/22 History carbidopa ER 50 mg-levodopa 200 mg 1 tab PO QPM 06/05/22 06/05/22 History tablet,extended release carvedilol 25 mg tablet 25 mg PO Q12H 06/05/22 06/06/22 History carvedilol 6.25 mg tablet 6.25 mg PO Q12H 06/05/22 06/06/22 History cetirizine 10 mg tablet 10 mg PO DAILY PRN allergies 06/05/22 06/05/22 History cholecalciferol (vitamin D3) 25 25 mcg PO DAILY 06/05/22 06/05/22 History mcg (1,000 unit) tablet cyanocobalamin (vitamin B-12) 1,000 mcg PO DAILY 06/05/22 06/05/22 History 1,000 mcg tablet eszopiclone 3 mg tablet 3 mg PO QPM 06/05/22 06/05/22 History famotidine 20 mg tablet 20 mg PO DAILY 06/05/22 06/05/22 History ferrous sulfate 325 mg (65 mg 325 mg PO Q1D 06/05/22 06/05/22 History iron) tablet (FeroSul) furosemide 40 mg tablet 40 mg PO DAILY PRN 06/05/22 06/05/22 History guaifenesin 600 mg tablet, 600 mg PO BID 06/05/22 06/05/22 History extended release 12 hr (Mucus Relief ER) ipratropium bromide 21 mcg (0.03 2 spray intranasal BID 06/05/22 06/05/22 History %) nasal spray latanoprost 0.005 % eye drops 1 drp ophthalmic (eye) QPM 06/05/22 06/05/22 History memantine 10 mg tablet 10 mg PO BID 06/05/22 06/05/22 History oxycodone 5 mg tablet 7.5 mg PO Q6H PRN pain 06/05/22 06/05/22 History oxycodone 5 mg/5 mL oral solution 7.5 mg PO 3XD chronic pain 06/05/22 06/05/22 History pantoprazole 40 mg tablet,delayed 40 mg PO DAILY 06/05/22 06/05/22 History release prazosin 2 mg capsule 2 mg PO QPM 06/05/22 06/05/22 History quetiapine 100 mg tablet 100 mg PO HS 06/05/22 06/06/22 History sennosides 8.6 mg-docusate sodium tab PO 06/05/22 History 50 mg tablet (Stool Softener-Stimulant Laxative) sertraline 100 mg tablet 100 mg PO DAILY 06/05/22 06/06/22 History simvastatin 20 mg tablet 20 mg PO QPM 06/05/22 06/05/22 History tizanidine 4 mg tablet 4 mg PO Q8H PRN muscle spasm 06/05/22 06/05/22 History azelastine-fluticasone 137 mcg-50 1 spray intranasal BID 06/06/22 06/06/22 History mcg/spray nasal spray Allergies Allergy/AdvReac Type Severity Reaction Status Date / Time losartan Allergy Severe Angioedema Verified 06/06/22 00:18 duloxetine Allergy Mild Hives, Verified 06/06/22 00:18 Nausea/Vomiting latex Allergy Mild Rash Verified 06/06/22 00:18 lisinopril Allergy Mild Rash Verified 06/06/22 00:18 phenylephrine Allergy Mild Rash, Verified 06/06/22 00:18 Swelling pregabalin Allergy Mild Rash Verified 06/06/22 00:18 tropicamide Allergy Mild Rash, Verified 06/06/22 00:18 Swelling gabapentin AdvReac Mild GI Verified 06/06/22 00:18 Intolerance, Nausea/Vomiting prednisone AdvReac Mild Agitation Verified 06/06/22 00:18 Exam Narrative: Exam Narrative: She is alert and appears in no distress. She is oriented to her circumstances and gives her own history. Oropharynx with small airway. Neck is supple without mass or adenopathy. Respirations are clear to auscultation. Cardiovascular: S1, S2, regular rate and rhythm. No murmur gallop or rub. Abdomen: Bowel sounds are present abdomen is soft without tenderness. Right lower extremity is in a well-padded bulky cast. She has intact sensation and good capillary refill in her toes. Left lower extremity is normal. No other signs of trauma. Const: Vital Signs, click to edit/add: Vital Signs - 24 hr 06/05/22 23:14 06/05/22 23:14 06/05/22 23:51 Temperature 96.3 F L Pulse Rate Pulse Rate [Pulse Oximeter] 55 L Respiratory Rate 16 Blood Pressure Blood Pressure [Le ft Arm] Blood Pressure [Ri ght Arm] Blood Pressure [Ri ght Upper Arm] 76/44 L Pulse Oximetry 94 92 98 Oxygen Delivery Me thod Nasal Cannula Nasal Cannula Nasal Cannula Oxygen Flow Rate 3 3 06/05/22 23:47 06/06/22 00:05 06/06/22 00:17 Temperature Pulse Rate 57 L 65 60 Pulse Rate [Pulse Oximeter] Respiratory Rate 16 18 18 Blood Pressure 96/52 L 95/54 L 112/67 Blood Pressure [Le ft Arm] Blood Pressure [Ri ght Arm] Blood Pressure [Ri ght Upper Arm] Pulse Oximetry 93 97 96 Oxygen Delivery Me thod Oxygen Flow Rate 06/06/22 00:21 06/06/22 00:27 06/06/22 00:32 Temperature Pulse Rate 65 69 95 Pulse Rate [Pulse Oximeter] Respiratory Rate 16 16 21 Blood Pressure 135/78 149/85 H 128/91 H Blood Pressure [Le ft Arm] Blood Pressure [Ri ght Arm] Blood Pressure [Ri ght Upper Arm] Pulse Oximetry 96 98 97 Oxygen Delivery Me thod Oxygen Flow Rate 06/06/22 00:32 06/06/22 00:37 06/06/22 00:41 Temperature Pulse Rate 65 61 62 Pulse Rate [Pulse Oximeter] Respiratory Rate 21 22 20 Blood Pressure 128/91 H 129/80 129/71 Blood Pressure [Le ft Arm] Blood Pressure [Ri ght Arm] Blood Pressure [Ri ght Upper Arm] Pulse Oximetry 97 94 95 Oxygen Delivery Me thod Oxygen Flow Rate 06/06/22 00:46 06/06/22 00:52 06/06/22 01:11 Temperature Pulse Rate 64 63 Pulse Rate [Pulse Oximeter] 69 Respiratory Rate 21 18 16 Blood Pressure 132/80 116/51 L Blood Pressure [Le ft Arm] Blood Pressure [Ri ght Arm] Blood Pressure [Ri ght Upper Arm] 129/81 Pulse Oximetry 95 93 94 Oxygen Delivery Me thod Nasal Cannula Oxygen Flow Rate 3 06/06/22 00:21 06/06/22 00:27 06/06/22 01:33 Temperature 98.0 F Pulse Rate Pulse Rate [Pulse Oximeter] 65 69 71 Respiratory Rate 16 16 20 Blood Pressure Blood Pressure [Le ft Arm] Blood Pressure [Ri ght Arm] Blood Pressure [Ri ght Upper Arm] 135/78 149/85 H 140/87 H Pulse Oximetry 98 98 96 Oxygen Delivery Me thod Nasal Cannula Nasal Cannula Nasal Cannula Oxygen Flow Rate 3 3 3 06/06/22 00:56 06/06/22 01:01 06/06/22 01:06 Temperature Pulse Rate 64 66 67 Pulse Rate [Pulse Oximeter] Respiratory Rate 17 17 16 Blood Pressure 127/83 136/83 132/84 Blood Pressure [Le ft Arm] Blood Pressure [Ri ght Arm] Blood Pressure [Ri ght Upper Arm] Pulse Oximetry 95 95 94 Oxygen Delivery Me thod Oxygen Flow Rate 06/06/22 01:11 06/06/22 00:32 06/06/22 00:37 Temperature Pulse Rate 69 Pulse Rate [Pulse Oximeter] 95 61 Respiratory Rate 16 16 16 Blood Pressure 129/81 Blood Pressure [Le ft Arm] Blood Pressure [Ri ght Arm] Blood Pressure [Ri ght Upper Arm] 128/91 H 129/50 L Pulse Oximetry 94 97 98 Oxygen Delivery Me thod Nasal Cannula Nasal Cannula Oxygen Flow Rate 3 3 06/06/22 01:11 06/06/22 01:17 06/06/22 01:21 Temperature Pulse Rate 68 70 Pulse Rate [Pulse Oximeter] 69 Respiratory Rate 16 19 17 Blood Pressure 137/76 140/75 H Blood Pressure [Le ft Arm] Blood Pressure [Ri ght Arm] Blood Pressure [Ri ght Upper Arm] 129/81 Pulse Oximetry 94 95 96 Oxygen Delivery Me thod Nasal Cannula Oxygen Flow Rate 3 06/06/22 01:26 06/06/22 01:31 06/06/22 01:36 Temperature Pulse Rate 72 71 71 Pulse Rate [Pulse Oximeter] Respiratory Rate 17 19 14 Blood Pressure 146/83 H 140/87 H 140/82 H Blood Pressure [Le ft Arm] Blood Pressure [Ri ght Arm] Blood Pressure [Ri ght Upper Arm] Pulse Oximetry 97 96 96 Oxygen Delivery Me thod Oxygen Flow Rate 06/06/22 01:41 06/06/22 01:46 06/06/22 01:51 Temperature Pulse Rate 72 73 73 Pulse Rate [Pulse Oximeter] Respiratory Rate 15 16 16 Blood Pressure 140/82 H 134/74 134/82 Blood Pressure [Le ft Arm] Blood Pressure [Ri ght Arm] Blood Pressure [Ri ght Upper Arm] Pulse Oximetry 96 96 96 Oxygen Delivery Me thod Oxygen Flow Rate 06/06/22 02:01 06/06/22 02:10 06/06/22 03:49 Temperature 98.0 F 97.8 F Pulse Rate 80 Pulse Rate [Pulse Oximeter] 71 77 Respiratory Rate 18 18 12 Blood Pressure 135/80 Blood Pressure [Le ft Arm] 130/82 Blood Pressure [Ri ght Arm] Blood Pressure [Ri ght Upper Arm] 140/87 H Pulse Oximetry 97 Oxygen Delivery Me thod Nasal Cannula Oxygen Flow Rate 3 06/06/22 03:49 06/06/22 04:09 06/06/22 09:35 Temperature 97.8 F Pulse Rate 83 Pulse Rate [Pulse Oximeter] 77 Respiratory Rate 12 12 12 Blood Pressure 154/101 H Blood Pressure [Le ft Arm] 130/82 Blood Pressure [Ri ght Arm] Blood Pressure [Ri ght Upper Arm] Pulse Oximetry 92 96 Oxygen Delivery Me thod Nasal Cannula Nasal Cannula Nasal Cannula Oxygen Flow Rate 3 3 3 06/06/22 07:45 06/06/22 08:00 06/06/22 09:52 Temperature 97.9 F Pulse Rate 82 Pulse Rate [Pulse Oximeter] 78 Respiratory Rate 24 22 12 Blood Pressure 195/92 H Blood Pressure [Le ft Arm] 154/88 H Blood Pressure [Ri ght Arm] Blood Pressure [Ri ght Upper Arm] Pulse Oximetry 98 95 Oxygen Delivery Me thod Nasal Cannula Oxygen Flow Rate 3 06/06/22 09:57 06/06/22 10:00 06/06/22 12:55 Temperature 97.2 F L Pulse Rate 79 79 83 Pulse Rate [Pulse Oximeter] Respiratory Rate 12 12 12 Blood Pressure 112/87 169/97 H 117/74 Blood Pressure [Le ft Arm] Blood Pressure [Ri ght Arm] Blood Pressure [Ri ght Upper Arm] Pulse Oximetry 94 96 90 Oxygen Delivery Me thod Room Air Oxygen Flow Rate 06/06/22 13:00 06/06/22 13:05 06/06/22 13:10 Temperature Pulse Rate 84 84 85 Pulse Rate [Pulse Oximeter] Respiratory Rate 12 14 14 Blood Pressure 126/70 135/91 H 121/47 L Blood Pressure [Le ft Arm] Blood Pressure [Ri ght Arm] Blood Pressure [Ri ght Upper Arm] Pulse Oximetry 96 96 93 Oxygen Delivery Me thod Nasal Cannula Room Air Room Air Oxygen Flow Rate 2 2 2 06/06/22 13:15 06/06/22 13:20 06/06/22 13:25 Temperature 97.8 F Pulse Rate 90 87 89 Pulse Rate [Pulse Oximeter] Respiratory Rate 14 14 14 Blood Pressure 90/55 L 155/100 H 140/95 H Blood Pressure [Le ft Arm] Blood Pressure [Ri ght Arm] Blood Pressure [Ri ght Upper Arm] Pulse Oximetry 96 95 96 Oxygen Delivery Me thod Room Air Room Air Room Air Oxygen Flow Rate 2 2 2 06/06/22 13:35 06/06/22 14:34 Temperature 97.8 F Pulse Rate 93 90 Pulse Rate [Pulse Oximeter] Respiratory Rate 18 Blood Pressure Blood Pressure [Le ft Arm] Blood Pressure [Ri ght Arm] 162/139 H Blood Pressure [Ri ght Upper Arm] Pulse Oximetry Oxygen Delivery Me thod Nasal Cannula Oxygen Flow Rate 3 Documenting provider has reviewed patient's vital signs: yes Hospitalist - H&P: Result Labs Labs: Short CBC 06/06/22 Range/Units 00:00 WBC 7.94 (4.50-11.00) K/uL Hgb 11.4 L (12.0-16.0) gm/dL Hct 35.6 (33.0-51.0) % Plt Count 272 (140-440) K/uL BMP 06/06/22 06/06/22 00:00 06:01 Sodium 139 141 Potassium 3.1 L 3.9 Chloride 105 108 Carbon Dioxide 28 30 BUN 15 12 Creatinine 0.9 0.8 Glucose 186 H 132 H Calcium 8.3 L 7.9 L Liver Function 06/06/22 Range/Units 00:00 Total Bilirubin 0.3 (0.1-1.5) mg/dL Direct Bilirubin 0.2 (0.0-0.5) mg/dL AST 16 (12-35) U/L ALT 12 (4-35) U/L Alkaline Phosphatase 75 (40-150) U/L Albumin 3.5 (3.3-5.0) g/dL Assessment and Plan Assessment and plan (1) Closed fracture dislocation of right ankle: Status: Acute (2) Frequent falls: Status: Acute Plan Patient be admitted for surgical repair/ORIF of her trimalleolar fracture under the care of Dr. Newberry. Postoperatively physical therapy to assess mobility with nonweightbearing status. Patient is at a history of falls prior to this injury. She is at risk for difficulties managing at home, nonweightbearing on her right lower extremity. Plan of care discussed with the patient. Total time spent today is 80 minutes, 55 minutes in coordination of care and discussing with patient other providers ongoing evaluation management of surgery, immobility and disability, chronic medical problems.
--- NOTE | 2022-06-06 15:24 | PM.DS1 ---
DS: Providers Provider Date Seen: 06/06/22 Date of admission: 06/06/22 02:00 Primary care physician: Not a Local Provider Admitting Clinician: Yeison Newberry MD Consults: Attending Physician on discharge: Yeison Newberry MD Date of Discharge: 06/06/22 DS: Diagnosis Discharge Diagnosis (1) Closed fracture dislocation of right ankle: Status: Acute (2) Frequent falls: Status: Acute DS: Summary Hospital Course Hospital Course: 61-year-old female had an accidental fall at home sustaining a right trimalleolar ankle fracture. See admission H and P for other details of presentation to the hospital and recent history. Status at Discharge Functional status at discharge: wheelchair bound (Nonweightbearing right lower extremity) Overall status at discharge: patient is progressing back to baseline Time Spent with Patient Time attestation: Total time spent providing and/or coordinating discharge services: Time spent: Greater than 30 minutes Exam Narrative: Exam Narrative: Patient doing well after surgery. See admission H&P for other details of exam Const: Vital Signs, click to edit/add: Vital Signs - 24 hr 06/05/22 23:14 06/05/22 23:14 06/05/22 23:51 Temperature 96.3 F L Pulse Rate Pulse Rate [Pulse Oximeter] 55 L Respiratory Rate 16 Blood Pressure Blood Pressure [Le ft Arm] Blood Pressure [Ri ght Arm] Blood Pressure [Ri ght Upper Arm] 76/44 L Pulse Oximetry 94 92 98 Oxygen Delivery Me thod Nasal Cannula Nasal Cannula Nasal Cannula Oxygen Flow Rate 3 3 06/05/22 23:47 06/06/22 00:05 06/06/22 00:17 Temperature Pulse Rate 57 L 65 60 Pulse Rate [Pulse Oximeter] Respiratory Rate 16 18 18 Blood Pressure 96/52 L 95/54 L 112/67 Blood Pressure [Le ft Arm] Blood Pressure [Ri ght Arm] Blood Pressure [Ri ght Upper Arm] Pulse Oximetry 93 97 96 Oxygen Delivery Me thod Oxygen Flow Rate 06/06/22 00:21 06/06/22 00:27 06/06/22 00:32 Temperature Pulse Rate 65 69 95 Pulse Rate [Pulse Oximeter] Respiratory Rate 16 16 21 Blood Pressure 135/78 149/85 H 128/91 H Blood Pressure [Le ft Arm] Blood Pressure [Ri ght Arm] Blood Pressure [Ri ght Upper Arm] Pulse Oximetry 96 98 97 Oxygen Delivery Me thod Oxygen Flow Rate 06/06/22 00:32 06/06/22 00:37 06/06/22 00:41 Temperature Pulse Rate 65 61 62 Pulse Rate [Pulse Oximeter] Respiratory Rate 21 22 20 Blood Pressure 128/91 H 129/80 129/71 Blood Pressure [Le ft Arm] Blood Pressure [Ri ght Arm] Blood Pressure [Ri ght Upper Arm] Pulse Oximetry 97 94 95 Oxygen Delivery Me thod Oxygen Flow Rate 06/06/22 00:46 06/06/22 00:52 06/06/22 01:11 Temperature Pulse Rate 64 63 Pulse Rate [Pulse Oximeter] 69 Respiratory Rate 21 18 16 Blood Pressure 132/80 116/51 L Blood Pressure [Le ft Arm] Blood Pressure [Ri ght Arm] Blood Pressure [Ri ght Upper Arm] 129/81 Pulse Oximetry 95 93 94 Oxygen Delivery Me thod Nasal Cannula Oxygen Flow Rate 3 06/06/22 00:21 06/06/22 00:27 06/06/22 01:33 Temperature 98.0 F Pulse Rate Pulse Rate [Pulse Oximeter] 65 69 71 Respiratory Rate 16 16 20 Blood Pressure Blood Pressure [Le ft Arm] Blood Pressure [Ri ght Arm] Blood Pressure [Ri ght Upper Arm] 135/78 149/85 H 140/87 H Pulse Oximetry 98 98 96 Oxygen Delivery Me thod Nasal Cannula Nasal Cannula Nasal Cannula Oxygen Flow Rate 3 3 3 06/06/22 00:56 06/06/22 01:01 06/06/22 01:06 Temperature Pulse Rate 64 66 67 Pulse Rate [Pulse Oximeter] Respiratory Rate 17 17 16 Blood Pressure 127/83 136/83 132/84 Blood Pressure [Le ft Arm] Blood Pressure [Ri ght Arm] Blood Pressure [Ri ght Upper Arm] Pulse Oximetry 95 95 94 Oxygen Delivery Me thod Oxygen Flow Rate 06/06/22 01:11 06/06/22 00:32 06/06/22 00:37 Temperature Pulse Rate 69 Pulse Rate [Pulse Oximeter] 95 61 Respiratory Rate 16 16 16 Blood Pressure 129/81 Blood Pressure [Le ft Arm] Blood Pressure [Ri ght Arm] Blood Pressure [Ri ght Upper Arm] 128/91 H 129/50 L Pulse Oximetry 94 97 98 Oxygen Delivery Me thod Nasal Cannula Nasal Cannula Oxygen Flow Rate 3 3 06/06/22 01:11 06/06/22 01:17 06/06/22 01:21 Temperature Pulse Rate 68 70 Pulse Rate [Pulse Oximeter] 69 Respiratory Rate 16 19 17 Blood Pressure 137/76 140/75 H Blood Pressure [Le ft Arm] Blood Pressure [Ri ght Arm] Blood Pressure [Ri ght Upper Arm] 129/81 Pulse Oximetry 94 95 96 Oxygen Delivery Me thod Nasal Cannula Oxygen Flow Rate 3 06/06/22 01:26 06/06/22 01:31 06/06/22 01:36 Temperature Pulse Rate 72 71 71 Pulse Rate [Pulse Oximeter] Respiratory Rate 17 19 14 Blood Pressure 146/83 H 140/87 H 140/82 H Blood Pressure [Le ft Arm] Blood Pressure [Ri ght Arm] Blood Pressure [Ri ght Upper Arm] Pulse Oximetry 97 96 96 Oxygen Delivery Me thod Oxygen Flow Rate 06/06/22 01:41 06/06/22 01:46 06/06/22 01:51 Temperature Pulse Rate 72 73 73 Pulse Rate [Pulse Oximeter] Respiratory Rate 15 16 16 Blood Pressure 140/82 H 134/74 134/82 Blood Pressure [Le ft Arm] Blood Pressure [Ri ght Arm] Blood Pressure [Ri ght Upper Arm] Pulse Oximetry 96 96 96 Oxygen Delivery Me thod Oxygen Flow Rate 06/06/22 02:01 06/06/22 02:10 06/06/22 03:49 Temperature 98.0 F 97.8 F Pulse Rate 80 Pulse Rate [Pulse Oximeter] 71 77 Respiratory Rate 18 18 12 Blood Pressure 135/80 Blood Pressure [Le ft Arm] 130/82 Blood Pressure [Ri ght Arm] Blood Pressure [Ri ght Upper Arm] 140/87 H Pulse Oximetry 97 Oxygen Delivery Me thod Nasal Cannula Oxygen Flow Rate 3 06/06/22 03:49 06/06/22 04:09 06/06/22 09:35 Temperature 97.8 F Pulse Rate 83 Pulse Rate [Pulse Oximeter] 77 Respiratory Rate 12 12 12 Blood Pressure 154/101 H Blood Pressure [Le ft Arm] 130/82 Blood Pressure [Ri ght Arm] Blood Pressure [Ri ght Upper Arm] Pulse Oximetry 92 96 Oxygen Delivery Me thod Nasal Cannula Nasal Cannula Nasal Cannula Oxygen Flow Rate 3 3 3 06/06/22 07:45 06/06/22 08:00 06/06/22 09:52 Temperature 97.9 F Pulse Rate 82 Pulse Rate [Pulse Oximeter] 78 Respiratory Rate 24 22 12 Blood Pressure 195/92 H Blood Pressure [Le ft Arm] 154/88 H Blood Pressure [Ri ght Arm] Blood Pressure [Ri ght Upper Arm] Pulse Oximetry 98 95 Oxygen Delivery Me thod Nasal Cannula Oxygen Flow Rate 3 06/06/22 09:57 06/06/22 10:00 06/06/22 12:55 Temperature 97.2 F L Pulse Rate 79 79 83 Pulse Rate [Pulse Oximeter] Respiratory Rate 12 12 12 Blood Pressure 112/87 169/97 H 117/74 Blood Pressure [Le ft Arm] Blood Pressure [Ri ght Arm] Blood Pressure [Ri ght Upper Arm] Pulse Oximetry 94 96 90 Oxygen Delivery Me thod Room Air Oxygen Flow Rate 06/06/22 13:00 06/06/22 13:05 06/06/22 13:10 Temperature Pulse Rate 84 84 85 Pulse Rate [Pulse Oximeter] Respiratory Rate 12 14 14 Blood Pressure 126/70 135/91 H 121/47 L Blood Pressure [Le ft Arm] Blood Pressure [Ri ght Arm] Blood Pressure [Ri ght Upper Arm] Pulse Oximetry 96 96 93 Oxygen Delivery Me thod Nasal Cannula Room Air Room Air Oxygen Flow Rate 2 2 2 06/06/22 13:15 06/06/22 13:20 06/06/22 13:25 Temperature 97.8 F Pulse Rate 90 87 89 Pulse Rate [Pulse Oximeter] Respiratory Rate 14 14 14 Blood Pressure 90/55 L 155/100 H 140/95 H Blood Pressure [Le ft Arm] Blood Pressure [Ri ght Arm] Blood Pressure [Ri ght Upper Arm] Pulse Oximetry 96 95 96 Oxygen Delivery Me thod Room Air Room Air Room Air Oxygen Flow Rate 2 2 2 06/06/22 13:35 06/06/22 14:34 Temperature 97.8 F Pulse Rate 93 90 Pulse Rate [Pulse Oximeter] Respiratory Rate 18 Blood Pressure Blood Pressure [Le ft Arm] Blood Pressure [Ri ght Arm] 162/139 H Blood Pressure [Ri ght Upper Arm] Pulse Oximetry Oxygen Delivery Me thod Nasal Cannula Oxygen Flow Rate 3 DS: Data Data Completed and Pending Labs on day of discharge: Labs from last 24 hours 04/21/23 04/21/23 04/20/23 06:01 00:00 23:45 WBC 7.94 RBC 4.00 Hgb 11.4 L Hct 35.6 MCV 89 MCH 29 MCHC 32 RDW Coeff of Selina 14.0 Plt Count 272 Neut % (Auto) 64.9 Lymph % (Auto) 29.0 [place] % (Auto) 5.0 Eos % (Auto) 0.6 Baso % (Auto) 0.4 Neut # (Auto) 5.15 Lymph # (Auto) 2.30 [place] # (Auto) 0.40 Eos # (Auto) 0.05 Baso # (Auto) 0.03 INR 1.00 APTT 29 Sodium 141 139 Potassium 3.9 3.1 L Chloride 108 105 Carbon Dioxide 30 28 BUN 12 15 Creatinine 0.8 0.9 Estimated Creat Clear 48.25 48.25 Estimated GFR 83 72 Glucose 132 H 186 H Calcium 7.9 L 8.3 L Magnesium 2.0 Total Bilirubin 0.3 Direct Bilirubin 0.2 AST 16 ALT 12 Alkaline Phosphatase 75 Total Protein 5.9 L Albumin 3.5 SARS-CoV-2 (PCR) Negative SARS-CoV-2 Discharge Plan Discharge Disposition: Home, Self-Care Date of Admission: 06/06/22 02:00 Attending Provider on Discharge: Balbir Pryor Consulting Providers: Yeison Newberry Primary Care Provider: Provider,Not a Local Condition: Improved Anticipated Discharge Date/Time: 06/06/22 18:00 Discharge Medications: Continued furosemide 40 mg tablet 40 mg PO DAILY PRN latanoprost 0.005 % drops 1 drp ophthalmic (eye) QPM carvedilol 25 mg tablet 25 mg PO Q12H Patient Comments: take 2 tablets by mouth twice a day carvedilol 6.25 mg tablet 6.25 mg PO Q12H Patient Comments: take 2 tabs by mouth twice a day cetirizine 10 mg tablet 10 mg PO DAILY PRN (Reason: allergies) tizanidine 4 mg tablet 4 mg PO Q8H PRN (Reason: muscle spasm) carbidopa-levodopa 50-200 mg tablet extended release 1 tab PO QPM sennosides-docusate sodium [Stool Softener-Stimulant Laxat] 8.6-50 mg tablet PO sertraline 100 mg tablet 100 mg PO DAILY Patient Comments: take 2 tabs by mouth daily cyanocobalamin (vitamin B-12) 1,000 mcg tablet 1,000 mcg PO DAILY oxycodone 5 mg/5 mL solution 7.5 mg PO 3XD quetiapine 100 mg tablet 100 mg PO HS Patient Comments: take 3 tabs by mouth at bedtime amitriptyline 50 mg tablet 50 mg PO QPM famotidine 20 mg tablet 20 mg PO DAILY amlodipine 10 mg tablet 10 mg PO DAILY pantoprazole 40 mg tablet,delayed release (DR/EC) 40 mg PO DAILY simvastatin 20 mg tablet 20 mg PO QPM ferrous sulfate [FeroSul] 325 mg (65 mg iron) tablet 325 mg PO Q1D ipratropium bromide 21 mcg (0.03 %) spray,non-aerosol 2 spray INTRANASAL BID prazosin 2 mg capsule 2 mg PO QPM oxycodone 5 mg tablet 7.5 mg PO Q6H PRN (Reason: pain) memantine 10 mg tablet 10 mg PO BID eszopiclone 3 mg tablet 3 mg PO QPM cholecalciferol (vitamin D3) 25 mcg (1,000 unit) tablet 25 mcg PO DAILY guaifenesin [Mucus Relief ER] 600 mg tablet extended release 12hr 600 mg PO BID azelastine-fluticasone 137-50 mcg/spray spray,non-aerosol 1 spray INTRANASAL BID Discharge Orders: Discharge Order (Routine); Ordered 06/06/22 Ordered By: Balbir Pryor Patient Education: Crutch Instructions (DC), Deep Sedation (DC), Peripheral Nerve Block (DC), ORIF of an Ankle Fracture (DC) Activity Level: No Weight Bearing Activity Detail: Ice and elevate right ankle. No weight-bearing right lower extremity. Keep splint clean, dry and intact. Discharge Diet: Regular Follow Up Appointments: Yeison Newberry MD [Staff Physician] - (Follow-up with Kayli HERNANDEZ in 2 weeks) Provider,Not a Local [Primary Care Provider] - Forms: [employer] Info Instructions
--- NOTE | 2022-06-06 16:34 | REH.OT ---
Initially patient not seen in am with ORIF ankle scheduled for today. Patient did not return to floor until later afternoon and PT evaluated patient, addressed transfers and DME with patient to dc, reports has DME for home use and no OT needs.
--- NOTE | 2022-06-06 16:55 | PC.SOCIAL ---
Discharge plan: RN requested social services analyst meet with pt as pt has stated she wants a group home facility for placement at discharge. Pt states she lives at the [facility] by herself and that she has been told by the doctor she can not go home without someone to help her at home, so she wants to go to a prison. Discussed that patients need to have a skilled need for prison to have insurance coverage of prison stay and to be accepted to a group home facility. Pt states she believes she has a medical need and will have insurance coverage. Informed pt there are no group home facilities in or around [place] with available beds today. Pt states she won;t go to a prison outside of [place] but believes that the [facility] will accept her on Thursday because she is at an apartment on their campus. Attempted to call [facility], but it is late in the day and was unable to reach any staff who could provide information on expectations for bed availability for next week.
--- NOTE | 2022-06-06 19:47 | PC.NURSE ---
shift note: pt to OR @ 0830 and returned from pacu @ 1355 via bed. Pt a&o x3. pt SBA/walker pivots to recliner & bsc. pt denies pain in rt l/e. cap refill intact rt toes. rt l/e elevated on 3 pillows. IV patent Lt hand. vss stable. Social svc contacted for consult. Ortho called with update on pt status. Dr. Pryor updated on pt's status.
[2022-06-06] MEDS: LATANOPROST 0.005% OPHTH 1 DROP EYE-BOTH (20:40)
[2022-06-06] MEDS: AMITRIPTYLINE 25 MG TABLET 50 MG PO (20:41)
[2022-06-06] MEDS: QUETIAPINE 100 MG TABLET PO (20:41)
[2022-06-06] MEDS: carvediloL 6.25 MG TABLET PO (20:41)
[2022-06-06] MEDS: carvediloL 25 MG TABLET PO (20:41)
[2022-06-06] MEDS: guaiFENesin 600 MG TAB.ER.12H PO (20:41)
[2022-06-06] MEDS: MEMANTINE HCL 10 MG TABLET PO (20:42)
[2022-06-06] MEDS: SIMVASTATIN 20 MG TABLET PO (20:42)
[2022-06-06] MEDS: PRAZOSIN HCL 1 MG CAPSULE 2 MG PO (20:42)
[2022-06-06] MEDS: OXYCODONE 1 MG/ML ORAL SOLN 7.5 MG PO (20:43)
--- NOTE | 2022-06-06 22:33 | PC.NURSE ---
[id number]: Patient cooperative with cares. Rates pain 03/28. Scheduled pain medications adequate at this time. NWB to R. foot. SBA w/walker. Tolerates well. CMS intact. Dressing/Lamont wrap C/D/I. Eating and voiding.
[2022-06-07 03:00] VITALS: BP 132/64; PULSE 78; RESP 20; TEMP 36.6; O2SAT 95
[2022-06-07] MEDS: OXYCODONE 5 MG TABLET 7.5 MG PO ×3 (03:04→11:44)
[2022-06-07 07:00] VITALS: BP 126/72; PULSE 73; PULSE 78; RESP 18; TEMP 36.9; O2SAT 94; O2SAT 96
--- NOTE | 2022-06-07 07:21 | PC.NURSE ---
Pt pleasaant and cooperative. Up with 1 A and walker with gait belt. Does well. Pain controlled with oxycodone 7.5mg PO.
[2022-06-07] MEDS: OMEPRAZOLE 20 MG CAPSULE DR 40 MG PO (07:55)
--- NOTE | 2022-06-07 08:10 | PM.ORPN ---
Subjective Subjective Time Seen by Provider: 08:11 Date Seen: 06/07/22 Principal diagnosis: Right ankle open reduction internal fixation, 06/06/2022 Interval history: Esperanza is comfortable this morning. She feels her block may be starting to wear off. She is able to wiggle her toes. She has some discomfort on the medial side of her ankle that she now feels. She has been moving about very well with physical therapy. She is nonweightbearing on the right lower extremity. He has a cat at home. She does not qualify for custodial and does not wish to pay for residential facility on her own. Her father will assist her as he can, however he must take care of his at his own home with dementia. She is not interested in going to her mother and father's home due to having a cat at home. Ortho Exam Narrative Exam Narrative: Alert and oriented x3. Patient is in no acute distress. Converses without labored breathing. Hearing is grossly intact. Ambulates with a walker. Examination of the right lower extremity shows splint is in place. Her toes are warm. She can wiggle her toes. Thigh is soft and nontender. She is able to range her knee. Cap refill less than 2 seconds. Const Vital Signs, click to edit/add: Vital Signs - 24 hr 06/06/22 09:35 06/06/22 09:52 06/06/22 09:57 Temperature Pulse Rate 83 82 79 Pulse Rate [Pulse Oximeter] Respiratory Rate 12 12 12 Blood Pressure 154/101 H 195/92 H 112/87 Blood Pressure [Left Arm] Blood Pressure [Right Arm] Pulse Oximetry 96 95 94 Oxygen Delivery Method Nasal Cannula Oxygen Flow Rate 3 06/06/22 10:00 06/06/22 12:55 06/06/22 13:00 Temperature 97.2 F L Pulse Rate 79 83 84 Pulse Rate [Pulse Oximeter] Respiratory Rate 12 12 12 Blood Pressure 169/97 H 117/74 126/70 Blood Pressure [Left Arm] Blood Pressure [Right Arm] Pulse Oximetry 96 90 96 Oxygen Delivery Method Room Air Nasal Cannula Oxygen Flow Rate 2 06/06/22 13:05 06/06/22 13:10 06/06/22 13:15 Temperature Pulse Rate 84 85 90 Pulse Rate [Pulse Oximeter] Respiratory Rate 14 14 14 Blood Pressure 135/91 H 121/47 L 90/55 L Blood Pressure [Left Arm] Blood Pressure [Right Arm] Pulse Oximetry 96 93 96 Oxygen Delivery Method Room Air Room Air Room Air Oxygen Flow Rate 2 2 2 06/06/22 13:20 06/06/22 13:25 06/06/22 13:35 Temperature 97.8 F 97.8 F Pulse Rate 87 89 93 Pulse Rate [Pulse Oximeter] Respiratory Rate 14 14 18 Blood Pressure 155/100 H 140/95 H Blood Pressure [Left Arm] Blood Pressure [Right Arm] 162/139 H Pulse Oximetry 95 96 Oxygen Delivery Method Room Air Room Air Nasal Cannula Oxygen Flow Rate 2 2 3 06/06/22 14:34 06/06/22 16:00 06/06/22 15:00 Temperature 97.9 F Pulse Rate 90 90 Pulse Rate [Pulse Oximeter] 78 Respiratory Rate 18 Blood Pressure Blood Pressure [Left Arm] Blood Pressure [Right Arm] 136/78 Pulse Oximetry 96 Oxygen Delivery Method Nasal Cannula Oxygen Flow Rate 3 06/06/22 13:55 06/06/22 14:10 06/06/22 14:25 Temperature 97.6 F 97.9 F 97.9 F Pulse Rate Pulse Rate [Pulse Oximeter] 93 89 88 Respiratory Rate 18 20 20 Blood Pressure Blood Pressure [Left Arm] Blood Pressure [Right Arm] 162/139 H 171/109 H 188/82 H Pulse Oximetry 98 95 96 Oxygen Delivery Method Nasal Cannula Nasal Cannula Nasal Cannula Oxygen Flow Rate 3 3 3 06/06/22 14:40 06/06/22 15:49 06/06/22 16:10 Temperature 97.9 F 97.5 F L 97.9 F Pulse Rate Pulse Rate [Pulse Oximeter] 74 95 82 Respiratory Rate 18 20 18 Blood Pressure Blood Pressure [Left Arm] Blood Pressure [Right Arm] 152/78 H 203/107 H 129/78 Pulse Oximetry 96 98 96 Oxygen Delivery Method Nasal Cannula Nasal Cannula Nasal Cannula Oxygen Flow Rate 3 3 3 06/06/22 17:00 06/06/22 19:24 06/06/22 23:31 Temperature 97.9 F 98.1 F Pulse Rate 85 Pulse Rate [Pulse Oximeter] 82 92 Respiratory Rate 18 20 Blood Pressure Blood Pressure [Left Arm] 185/67 H Blood Pressure [Right Arm] 124/72 Pulse Oximetry 97 96 Oxygen Delivery Method Nasal Cannula Room Air Oxygen Flow Rate 3 06/06/22 23:31 06/06/22 23:31 06/06/22 23:31 Temperature 97.8 F Pulse Rate Pulse Rate [Pulse Oximeter] 106 H Respiratory Rate 20 20 20 Blood Pressure Blood Pressure [Left Arm] Blood Pressure [Right Arm] 185/92 H Pulse Oximetry 96 96 Oxygen Delivery Method Nasal Cannula Room Air Oxygen Flow Rate 3 06/07/22 03:00 Temperature 97.8 F Pulse Rate Pulse Rate [Pulse Oximeter] 78 Respiratory Rate 20 Blood Pressure Blood Pressure [Left Arm] Blood Pressure [Right Arm] 132/64 Pulse Oximetry 95 Oxygen Delivery Method Room Air Oxygen Flow Rate 3 Assessment and Plan Assessment and plan (1) Closed fracture dislocation of right ankle: Problem details: Open reduction internal fixation right ankle 06/06/2022 Status: Acute Assessment and Plan: Plan for discharge is today to home . Physical therapy and nursing states she moves well with a walker. She asks about a motorized scooter. She and I spoke that I would like her to keep her strength up and using her muscle with a walker or knee scooter would be best. She is on oxygen fo sleep apnea, however she wears oxygen daily. She is not able to wear a CPAP machine. Return to clinic in 2 weeks for a wound check Return to clinic in [address] Newberry Patient has a pain contract, on chronic oxycodone. She states she does not need prescription for oxycodone for she has some at home. She does not need senna she states. I have sent prescription for Tylenol to her pharmacy. Nonweightbearing right lower extremity. use assistive device walker or knee scooter if able to maneuver a scooter safely. She may or may not qualify for home health assistance. A form is filled out. Ice and elevate the operative extremity. No restriction on ice. Occupational therapy to assess prior to discharge. (2) Frequent falls: Status: Acute
[2022-06-07] MEDS: guaiFENesin 600 MG TAB.ER.12H PO (08:44)
[2022-06-07] MEDS: FAMOTIDINE 20 MG TABLET PO (08:46)
[2022-06-07] MEDS: FERROUS SULFATE 325 MG TABLET PO (08:46)
[2022-06-07] MEDS: CYANOCOBALAMIN (VITAMIN B-12) 500 MCG TABLET 1000 MCG PO (08:48)
[2022-06-07] MEDS: AMLODIPINE 10 MG TABLET PO (08:48)
[2022-06-07] MEDS: carvediloL 25 MG TABLET PO (08:48)
[2022-06-07] MEDS: MEMANTINE HCL 10 MG TABLET PO (08:48)
[2022-06-07] MEDS: carvediloL 6.25 MG TABLET PO (08:49)
[2022-06-07] MEDS: SERTRALINE 100 MG TABLET PO (08:49)
--- NOTE | 2022-06-07 19:30 | PC.NURSE ---
shift note: vss stable. pt recieved oxycodone x1 for prn due to 4-5/10 rt foot throbbing. IV dc'd intact lt hand. pt sba/walker with nwb to rt l/e. toes to rt foot swollen but cap refill <3 seconds. pt able to wiggle toes. Dc instructions sent with pt at dc. Belonings reviewed and sent with pt at dc.
== END 2022-06-07 14:30 | disposition home or self-care (01) ==
LOC: ED 06-06 01:53 → MEDSURG 06-06 02:06 → SS 06-06 16:55 → MEDSURG 06-06 16:57
PROVIDERS: Internal Medicine; Emergency Provider Emergency Medicine; Visit Provider Orthopaedic Surgery
PROC: (CPT 27822; principal; 2022-06-06 10:45)
DX: S82.851A Displaced trimalleolar fracture of right lower leg, initial encounter for closed fracture (principal); E87.6 Hypokalemia; W01.0XXA Fall on same level from slipping, tripping and stumbling without subsequent striking against object, initial encounter; G89.4 Chronic pain syndrome; I13.0 Hypertensive heart and chronic kidney disease with heart failure and stage 1 through stage 4 chronic kidney disease, or unspecified chronic kidney disease; I50.32 Chronic diastolic (congestive) heart failure; N18.31 Chronic kidney disease, stage 3a; G47.33 Obstructive sleep apnea (adult) (pediatric); E66.01 Morbid (severe) obesity due to excess calories; F32.A Depression, unspecified; F41.9 Anxiety disorder, unspecified; J96.11 Chronic respiratory failure with hypoxia; Z99.81 Dependence on supplemental oxygen; Z79.891 Long term (current) use of opiate analgesic; Z68.39 Body mass index [BMI] 39.0-39.9, adult
CPT/HCPCS: 27822; 01480; 27788; 36415; 73600; 73610; 76000; 76942; 80048; 80076; 83735; 85025; 85610; 85730; 87635; 93005; 97116; 97161; 97165; 97530; 97535; 99284; 99291; G0378; A9270; C1713; J0690; J1100; J2250; J2270; J2405; J2704; J2795; J3010; J3480; J3490; J7030; J7120

== ENCOUNTER 2022-06-09 13:20 | Outpatient (RCR) | payer MEDICAID, SELFPAY ==
--- NOTE | 2022-06-12 12:41 | OT.HSE ---
OT Home Safety Eval OT Home Safety Eval Start: 06/09/22 19:56 Freq: Status: Active Protocol: Document 06/09/22 19:57 ALEJANDRO (Rec: 06/09/22 19:58 ALEJANDRO [id number]) E-signed By Dinora Nguyen OTR/L OT Outpatient Evaluation Details Type Type Eval Complexity Low Insurance Information Insurance Information Insurance Information Medicaid OT Home Safety History/Precautions Medical/Functional History Medical History Reviewed Yes Prior Level of Function/Mobility Pt. lives alone in senior apartment. She has been independent in ADLs and IADLs until now. She has a PMHx of Tachycardia, Depression, Anxiety, personality disorder, CKD, frequent falls, and most recently fall w/ fracture of R ankle which underwent ORIF. She is now NWB on R LE for 6- 8 weeks w/ soft cast. Current Condition Treatment Diagnosis R ORIF of ankle Date of Onset 06/05/22 Physician Authorized Visits 1 Insurance Authorized Visits 1 Recertification Due 09/08/22 Social History Type of Dwelling Apartment Number of Floors (Floors) 1 Number of Stairs to Enter (Stairs) 0 Lives With: Alone Physical Barriers in Home Environment Level, No Step Employment Status Disabled Oriented Patient Orientation Person,Place,Time,Situation Vision Vision Pt. wears glasses Upper Extremity Function Upper Extremity Function WNL Precautions General Precautions NWB R LE, impaired balance OT Home Safety Evaluation Entrance Indoor Door (Apartment) Entrance Description Stanton Lock,Elevator,Level, No Step Foyer Entrance Carpeted,Light Accessible Entrance Comments Low knap carpeting throughout apartment w/ exception of bathroom and kitchen Bathroom Main Level Toilet Accessibility Standard Toilet,Left Grab Bar Level of Assist To/From Toilet Independent Level of Assist For Clothing Management Independent Level of Assist For [facility] Independent Tub/Shower Accessibility Shower Only,Non Skid Mat/ Strips,Non Slip Rug,Standard Built In Seat,Front Vertical Grab Bar,Side Wall Horizontal Bar Level of Assist To/From Tub/Shower Independent Sink Accessible Yes Bathroom Comments Pt is completing sponge baths at this time d/t soft casting. small cupboard is blocking access to the sink. This is recommended to be moved near shower that is not currently being used. Bedroom Bedroom Accessibility Accessible Closet,Accessible Drawers,Accessible Light, Accessible Clock,Accessible Phone,Accessible Night Light, Carpeted,Double Bed,Cluttered Floor Surface Bedroom Comments Pt.'s bed is too low for safe transfers at this time. Pt. is sleeping in recliner in the living room. Bedroom is being used for clothing storage only. Living Area Favorite Chair/Couch Recliner Favorite Chair/Couch Comments oversized power recliner Living Room Access Accessible Remote Control, Accessible Light,Accessible Phone,Carpeted,Clear Floor Surface Living Area Comments Furniture has been move to the exterior of the room to provide clear pathways. O2 generator is behind furniture w/ hoses out of way to prevent fall hazard. Kitchen Table Access No: Pt. eats in recliner Captain Chair Present No Able to Access Freezer Entrees Yes Able to Access Low Refrigerator Items Yes: from seated position on 4WW Able to Reach Mid-Height Refrigerator Yes Items Kitchen Sink Accessible Yes Stove Controls Accessible Yes: Pt. not using stove. Able to Operate Controls Safely Yes Able to Open/Close Oven Yes: Pt. not using oven Microwave Available Yes: Pt. uses air fryer or microwave to heat all food. Cupboard Accessibility Able to Slide Items Level of Meal Preparation Cold Meal Preparation, Microwave Entr?e/Warming Kitchen Comments Pt. is having neighbor assist with transporting meals from kitchen to living room. All food, dishes, and utensils are at midrange where pt. is able to access them safely in standing or sitting. If items are out of reach, pt. is having neighbor's assistance. Transfer Recliner Transfer Technique Ambulatory Transfer Level of Assist Independent Transfer Comments Pt. is using pivot transfers to/from recliner/toilet/walker . She is able to maintain NWB w/ use of 4ww for ambulation but prefers to ride on 4WW backwards throughout her apartment. It was recommended to her that she walk w/ 4WW for safety since 4WW is not designed to be used as a wheelchair. Pt. declines to change this transportation method at the Independent Living Skills Able to Manage Laundry No Able to Take Out Garbage No Able to Safely Access Mail Yes Able to Shop Without Assistance No Independent Living Skills Comments Pt. needs family/neighbor assistance with all IADLs and long distance mobility. manual w/c is used for long distance mobility within her apartment building an out in the community. Safety & Quality of ADL/S Uses LifeLanguage Learning Class No Working Fire/Smoke Detector Yes ADL Safety (PASS) 2 Quality of ADL Task (PASS) 2 Safety Comments Pt. is using 4WW as a wheelchair within her apartment to conserve energy. Pt. does not want to change this method at this time. Services Used/Recommended Discharge Services Recommended Assist w/Garbage,Assist w/ Laundry,Assist w/Mail,Assist w /Shopping,[employer] Bathing Assist, Homemaking Assist, Transportation Assist Services Used Comments Pt. is setting up meals through living facility to be delivered to her apartment ready to eat. She is setting up home aid care through [facility] for bathing and homemaking assistance. Recommendations Bedroom Recommendations Remove Clutter,Sturdy Chair w/ Arms,Raise Bed Height Kitchen Recommendations Microwave Entree Only Specifications Pt. is obtaining walker tray for transporting food from kitchen to living room. Scatter rugs were removed from the bathroom floor to increase safety in transfers. Other Recommendations Assist w/Housekeeping Treatment Minutes Untimed Treatment Minutes 30 Timed Treatment Minutes 15 Total Timed & Untimed Treatment Minutes 45 I Certify That: I Certify That: Therapy Services Provided, Therapy Plan Established, Therapy Plan Reviewed Home Safety Eval Billing Units Billing Units Self Care/Home Management 1
== END 2022-06-17 16:01 | disposition home or self-care (01) ==
PROVIDERS: Visit Provider Orthopaedic Surgery
DX: M25.571 Pain in right ankle and joints of right foot (principal); Z98.890 Other specified postprocedural states; Z51.89 Encounter for other specified aftercare
CPT/HCPCS: 97165; 97535

== ENCOUNTER 2022-12-06 21:24 | Outpatient (CLI) | payer MEDICAID, SELFPAY | END 2022-12-06 21:25 | disposition home or self-care (01) | LOC: AMB 12-13 13:43 | PROVIDERS: Visit Provider Family Medicine | DX: R55 Syncope and collapse (principal) | CPT/HCPCS: A0425; A0427 ==

== ENCOUNTER 2022-12-06 22:00 | Emergency (ER) | payer MEDICAID, SELFPAY ==
[2022-12-06] VITALS (15 sets, daily range): BP systolic 85–123; BP diastolic 32–82; PULSE 59–75; RESP 18; TEMP 36.6; O2SAT 94–97; BMI 35.4
--- NOTE | 2022-12-06 22:09 | CRLHL7_ITS ---
For Patients: As a result of the Century Cures Act, medical imaging exams and procedure reports are released immediately into your electronic medical record. You may view this report before your referring provider. If you have questions, please contact your health care provider. Indication: Syncope Technique: Chest 1 view Comparison: August 12, 2019 Findings/Impression: Cardiomegaly. Mild pulmonary cephalization. Elevated left hemidiaphragm. No effusion or pneumothorax. No acute osseous abnormality. Dictated by Ashley Lopez MD @ 12/07/2022 1:54:38 AM (Electronically Signed)
--- NOTE | 2022-12-06 22:15 | ED_ITS ---
HPI - General Adult General Time Seen by Provider: 22:15 Date Seen: 12/06/22 Chief complaint: Hypotension Stated complaint: syncope, hypotension Time Seen by Provider: 12/06/22 22:07 Source: patient, EMS and RN notes reviewed Mode of arrival: EMS Limitations: no limitations History of Present Illness HPI narrative: Patient is a 62-year-old female brought in from assisted living at the [facility] for hypotension/syncope. She was brought in by EMS as a [facility]. EMS found her in her recliner awake/alert/appropiate but got blood pressures 60 palpable systolic. Patient at this time on arrival states that she is feeling fine. Denies any chest pain or shortness of breath. States she has been feeling a bit fatigued and tired but has no specific symptoms of any illness. She has not had any fevers. No cold symptoms, no chest symptomatology such as chest pain, palpitations or irregular heartbeat. She states this is the 2nd time she passed out today. Both times she was getting up from the recliner, 1 time she had sense that she was going to the other time it just happen. She states this is been happening since May for sure, maybe longer than that. She states she goes to [facility], they just her medicines and send her back out. She states they are aware that she is having these syncopal episodes. No associated GI symptoms such as nausea or vomiting, no diarrhea, no urinary symptoms. These were witnessed today, her friends talked to her and talked her into coming in. There was no reported seizure activity, she is merely out seconds. She denies any trauma, nothing hurts or is injured that she can tell. Both episodes happened on attempting to stand from a seated position. EMS did note that she had thready faint pulse. Related Data Home Medications Medication Instructions Recorded Confirmed amitriptyline 50 mg tablet 50 mg PO QPM 06/05/22 12/06/22 amlodipine 10 mg tablet 10 mg PO DAILY 06/05/22 12/06/22 carbidopa ER 50 mg-levodopa 200 mg 1 tab PO QPM 06/05/22 12/06/22 tablet,extended release carvedilol 25 mg tablet 25 mg PO Q12H 06/05/22 12/06/22 cetirizine 10 mg tablet 10 mg PO DAILY PRN allergies 06/05/22 12/06/22 cholecalciferol (vitamin D3) 25 25 mcg PO DAILY 06/05/22 12/06/22 mcg (1,000 unit) tablet cyanocobalamin (vitamin B-12) 1,000 mcg PO DAILY 06/05/22 12/06/22 1,000 mcg tablet eszopiclone 3 mg tablet 3 mg PO QPM 06/05/22 12/06/22 famotidine 20 mg tablet 20 mg PO DAILY 06/05/22 12/06/22 ferrous sulfate 325 mg (65 mg 325 mg PO Q1D 06/05/22 12/06/22 iron) tablet (FeroSul) furosemide 40 mg tablet 40 mg PO DAILY PRN 06/05/22 12/06/22 ipratropium bromide 21 mcg (0.03 2 spray intranasal BID 06/05/22 12/06/22 %) nasal spray latanoprost 0.005 % eye drops 1 drp ophthalmic (eye) QPM 06/05/22 12/06/22 memantine 10 mg tablet 10 mg PO BID 06/05/22 12/06/22 oxycodone 5 mg tablet 7.5 mg PO Q6H PRN pain 06/05/22 12/06/22 pantoprazole 40 mg tablet,delayed 40 mg PO DAILY 06/05/22 12/06/22 release prazosin 2 mg capsule 2 mg PO QPM 06/05/22 09/01/22 quetiapine 100 mg tablet 100 mg PO HS 06/05/22 12/06/22 sennosides 8.6 mg-docusate sodium 1 tab-cap PO PRN 06/05/22 09/01/22 50 mg tablet (Stool Softener-Stimulant Laxative) sertraline 100 mg tablet 100 mg PO DAILY 06/05/22 12/06/22 simvastatin 20 mg tablet 20 mg PO QPM 06/05/22 12/06/22 tizanidine 4 mg tablet 4 mg PO Q8H PRN muscle spasm 06/05/22 12/06/22 Allergies Allergy/AdvReac Type Severity Reaction Status Date / Time losartan Allergy Severe Angioedema Verified 09/01/22 14:25 duloxetine Allergy Mild Hives, Verified 09/01/22 14:25 Nausea/Vomiting latex Allergy Mild Rash Verified 09/01/22 14:25 lisinopril Allergy Mild Rash Verified 09/01/22 14:25 phenylephrine Allergy Mild Rash, Verified 09/01/22 14:25 Swelling pregabalin Allergy Mild Rash Verified 09/01/22 14:25 tropicamide Allergy Mild Rash, Verified 09/01/22 14:25 Swelling gabapentin AdvReac Mild GI Verified 09/01/22 14:25 Intolerance, Nausea/Vomiting prednisone AdvReac Mild Agitation Verified 09/01/22 14:25 Review of Systems Status of ROS: Reports: 6 or more systems reviewed and unremarkable except as noted in History and below [facility] Medical History Frequent falls ?R29.6 - Repeated falls (ICD-10) Hypertensive heart disease ?I11.9 - Hypertensive heart disease without heart failure (ICD-10) SHREE (generalized anxiety disorder) ?F41.1 - Generalized anxiety disorder (ICD-10) PTSD (post-traumatic stress disorder) ?F43.10 - Post-traumatic stress disorder, unspecified (ICD-10) Depression, major, recurrent, moderate ?F33.1 - Major depressive disorder, recurrent, moderate (ICD-10) Morbid obesity ?E66.01 - Morbid (severe) obesity due to excess calories (ICD-10) Tachycardia, paroxysmal ?I47.9 - Paroxysmal tachycardia, unspecified (ICD-10) Chronic pain syndrome ?G89.4 - Chronic pain syndrome (ICD-10) Dependent personality disorder ?F60.7 - Dependent personality disorder (ICD-10) Panic disorder with agoraphobia ?F40.01 - Agoraphobia with panic disorder (ICD-10) EUGENIA (obstructive sleep apnea) ?G47.33 - Obstructive sleep apnea (adult) (pediatric) (ICD-10) Headache, chronic migraine without aura ?G43.709 - Chronic migraine without aura, not intractable, without status migrainosus (ICD-10) Chronic respiratory failure with hypoxia ?J96.11 - Chronic respiratory failure with hypoxia (ICD-10) History of falling ?Z91.81 - History of falling (ICD-10) Irritable bowel syndrome with diarrhea ?K58.0 - Irritable bowel syndrome with diarrhea (ICD-10) B12 deficiency ?E53.8 - Deficiency of other specified B group vitamins (ICD-10) Hypovitaminosis D ?E55.9 - Vitamin D deficiency, unspecified (ICD-10) Chronic diastolic (congestive) heart failure ?I50.32 - Chronic diastolic (congestive) heart failure (ICD-10) Restless leg syndrome ?G25.81 - Restless legs syndrome (ICD-10) Glaucoma ?H40.9 - Unspecified glaucoma (ICD-10) Nevus of choroid of right eye ?D31.31 - Benign neoplasm of right choroid (ICD-10) Corneal epithelial basement membrane dystrophy ?H18.529 - Epithelial (juvenile) corneal dystrophy, unspecified eye (ICD-10) Dermatochalasis of both eyelids ?H02.833 - Dermatochalasis of right eye, unspecified eyelid (ICD-10) ?H02.836 - Dermatochalasis of left eye, unspecified eyelid (ICD-10) Ptosis of eyelid, bilateral ?H02.403 - Unspecified ptosis of bilateral eyelids (ICD-10) Fatty liver ?K76.0 - Fatty (change of) liver, not elsewhere classified (ICD-10) Supraventricular tachycardia ?I47.1 - Supraventricular tachycardia (ICD-10) Atrial tachycardia, paroxysmal ?I47.1 - Supraventricular tachycardia (ICD-10) Typical atrial flutter ?I48.3 - Typical atrial flutter (ICD-10) Elevated serum creatinine ?R79.89 - Other specified abnormal findings of blood chemistry (ICD-10) Hyperlipidemia ?E78.5 - Hyperlipidemia, unspecified (ICD-10) GERD (gastroesophageal reflux disease) ?K21.9 - Gastro-esophageal reflux disease without esophagitis (ICD-10) Paresthesia of both feet ?R20.2 - Paresthesia of skin (ICD-10) Rectal bleed ?K62.5 - Hemorrhage of anus and rectum (ICD-10) Globus sensation ?R09.89 - Other specified symptoms and signs involving the circulatory and respiratory systems (ICD-10) Rhinitis, chronic ?J31.0 - Chronic rhinitis (ICD-10) Hyperhidrosis ?R61 - Generalized hyperhidrosis (ICD-10) Syncope and collapse ?R55 - Syncope and collapse (ICD-10) Chronic kidney disease, stage 3a ?N18.31 - Chronic kidney disease, stage 3a (ICD-10) Surgical History Status post open reduction with internal fixation (ORIF) of fracture of ankle (06/06/22) ?Z98.890 - Other specified postprocedural states (ICD-10) ?Z87.81 - Personal history of (healed) traumatic fracture (ICD-10) Social History Narrative: She lives at the [facility]. She lives alone. She does not have to climb stairs. She believes her facility has available wheelchair for her to use along with crutches or a walker to be nonweightbearing on her right lower extremity. She does not smoke. She does not drink alcohol. She occasionally uses cannabis. Code status is full. Her father is healthcare power of health care attorney. Highest level of school completed/degree received: high school graduate Smoking Status: Never smoker How often do you have a drink containing alcohol: never AUDIT-C Alcohol total score: 0 Non-prescribed substance use: denies use Caffeine: No Do you think of yourself as: straight/heterosexual Gender Identity: female service: No Exam Const: Vital Signs, click to edit/add: Vital Signs - 24 hr 12/06/22 22:09 12/06/22 22:12 12/06/22 22:29 Temperature 97.9 F Pulse Rate 64 Pulse Rate [Right Pulse Oximeter] 75 Pulse Rate [orthos tatic lying Pulse Oximeter] Pulse Rate [orthos tatic sitting Puls e Oximeter] Pulse Rate [orthos tatic standing Pul se Oximeter] Respiratory Rate 18 Blood Pressure Blood Pressure [Ri ght Upper Arm] 106/82 Blood Pressure [or thostatic lying Le ft Arm] Blood Pressure [or thostatic sitting Left Arm] Blood Pressure [or thostatic standing Left Arm] Pulse Oximetry 94 96 94 Oxygen Delivery Me thod Nasal Cannula Oxygen Flow Rate 2 12/06/22 22:30 12/06/22 22:32 12/06/22 22:45 Temperature Pulse Rate 65 63 61 Pulse Rate [Right Pulse Oximeter] Pulse Rate [orthos tatic lying Pulse Oximeter] Pulse Rate [orthos tatic sitting Puls e Oximeter] Pulse Rate [orthos tatic standing Pul se Oximeter] Respiratory Rate Blood Pressure 102/62 Blood Pressure [Ri ght Upper Arm] Blood Pressure [or thostatic lying Le ft Arm] Blood Pressure [or thostatic sitting Left Arm] Blood Pressure [or thostatic standing Left Arm] Pulse Oximetry 94 95 95 Oxygen Delivery Me thod Oxygen Flow Rate 12/06/22 23:00 12/06/22 23:03 12/06/22 23:15 Temperature Pulse Rate 61 59 L 59 L Pulse Rate [Right Pulse Oximeter] Pulse Rate [orthos tatic lying Pulse Oximeter] Pulse Rate [orthos tatic sitting Puls e Oximeter] Pulse Rate [orthos tatic standing Pul se Oximeter] Respiratory Rate Blood Pressure 93/42 L Blood Pressure [Ri ght Upper Arm] Blood Pressure [or thostatic lying Le ft Arm] Blood Pressure [or thostatic sitting Left Arm] Blood Pressure [or thostatic standing Left Arm] Pulse Oximetry 95 95 96 Oxygen Delivery Me thod Oxygen Flow Rate 12/06/22 23:30 12/06/22 23:32 12/06/22 23:56 Temperature Pulse Rate 60 60 Pulse Rate [Right Pulse Oximeter] Pulse Rate [orthos tatic lying Pulse Oximeter] 61 Pulse Rate [orthos tatic sitting Puls e Oximeter] Pulse Rate [orthos tatic standing Pul se Oximeter] Respiratory Rate Blood Pressure 85/32 L Blood Pressure [Ri ght Upper Arm] Blood Pressure [or thostatic lying Le ft Arm] 123/66 Blood Pressure [or thostatic sitting Left Arm] Blood Pressure [or thostatic standing Left Arm] Pulse Oximetry 96 96 Oxygen Delivery Me thod Oxygen Flow Rate 12/07/22 00:00 12/07/22 00:04 Temperature Pulse Rate Pulse Rate [Right Pulse Oximeter] Pulse Rate [orthos tatic lying Pulse Oximeter] Pulse Rate [orthos tatic sitting Puls e Oximeter] 63 Pulse Rate [orthos tatic standing Pul se Oximeter] 65 Respiratory Rate Blood Pressure Blood Pressure [Ri ght Upper Arm] Blood Pressure [or thostatic lying Le ft Arm] Blood Pressure [or thostatic sitting Left Arm] 119/62 Blood Pressure [or thostatic standing Left Arm] 114/72 Pulse Oximetry Oxygen Delivery Me thod Oxygen Flow Rate Esperanza is a 62-year-old female that is brought in by EMS, she is alert, interactive, no apparent distress. Coloration looks good, she is conversive. Pupils equal round reactive, sclera clear, extraocular muscles intact, symmetrical facial function, speech normal. Neck without any noted jugular venous distension, no masses, no cervical adenopathy, no thyromegaly masses or nodules. Lungs are clear, good air entry, no wheezing crackles. CV is regular, sounds have normal sinus rhythm on auscultation, no murmurs, normal S1 and S2. Abdomen is soft, nontender, nondistended, no masses organomegaly. She has thickened lower extremities but no pitting edema. She is moving all extremities, no focal deficit noted. Skin visualized without rash. Initial blood pressure was 106 systolic I believe, follow-up blood pressure was 82, recheck right after that was again in the low 100s. No intervention was done in between then other than the patient was still receiving 500 mL from EMS. Documenting provider has reviewed patient's vital signs: yes Course Course ED Course: Patient will be on cardiac monitoring, pulse oximetry. This certainly sounds like orthostatic or vasovagal type syncope. She otherwise is asymptomatic. Appropriate labs will be done including troponin. Do not feel she needs a head CT, does not seem to be consistent with any type of cerebrovascular disease such as stroke. She denies any trauma. Will be monitored here, will get EKG. Will see if there is further history in her chart or may need to contact [facility]. Will obtain portable chest x-ray. Will complete the 500 mL normal saline bag from EMS and then initiate 1 L normal saline here. Will do orthostatic vitals. Reevaluation(s) Time of Reevaluation #1: 00:15 Reevaluation #1: Patient is requesting to go home, orthostatic vitals were normal. I did review with her that her QT is prolonged on her current EKG. We did discuss the arrhythmia potential for this. She certainly could be on medicines. Did review with her that [place] retail seasonal specialist I spoke with recommended observation overnight, looking at medicines. She would prefer to go home and follow up with her primary care provider outpatient. I highly doubt that the prolonged QT caused arrhythmia for her symptoms. The orthostatic hypotension/syncope is well documented prior. She does states she will follow-up. Will send a copy of her EKG with her to take to her primary care provider. Consultations Consultation #1: Did speak with Michael DAILEY at [facility]. He is going to page Cardiology on her. She is known to have a long history of syncope. Was hospitalized in September of 2022, thought to be polypharmacy and orthostatic hypotension. We will talk to Cardiology due to her QT interval this evening, will fax this EKG to them. I do wonder if the QT changes are medication mediated. Right now her labs are reassuring. 11:55 p.m. did speak with the Cardiology triage officer. Reviewed the case. At that time we did get a reading of a blood pressure of 85/32 but it was found that patient was texting on her phone arm was bent during that. Repeat blood pressures have all been normal. She is not orthostatic. Her lying blood pressure was 123/66 with a pulse of 61, sitting 119/62 with a pulse of 63, standing 114/72 with a pulse of 65. Nursing staff tells me patient is reques ting to go home. Will go talk to her about Cardiology recommendations. Time: 23:28 Vital Signs Vital signs: Initial Vital Signs Pulse Oximetry 94 12/06/22 22:09 Vital Signs Pulse Oximetry 94 12/06/22 22:09 Temperature 97.9 F 12/06/22 22:12 Pulse Rate 65 12/07/22 00:04 Respiratory Rate 18 12/06/22 22:12 Blood Pressure 114/72 12/07/22 00:04 Pulse Oximetry 96 12/06/22 23:32 Oxygen Delivery Method Nasal Cannula 12/06/22 22:12 Oxygen Flow Rate 2 12/06/22 22:12 Medical Decision Making Lab Data Labs: Lab Results 12/06/22 12/06/22 12/06/22 Range/Units 22:11 22:19 22:25 WBC 9.34 (4.50-11.00) K/uL RBC 4.32 (4.00-5.20) m/uL Hgb 12.4 (12.0-16.0) gm/dL Hct 38.3 (33.0-51.0) % MCV 89 (80-100) fL MCH 29 (26-34) pg MCHC 32 (32-36) gm/dL RDW Coeff of Selina 14.2 (11.5-15.5) % Plt Count 289 (140-440) K/uL Neut % (Auto) 63.5 (42.0-72.0) % Lymph % (Auto) 27.8 (20-44) % [place] % (Auto) 7.0 (0.0-11.0) % Eos % (Auto) 0.4 (0.0-7.0) % Baso % (Auto) 0.3 (0.0-3.0) % Neut # (Auto) 5.93 (1.7-7.0) K/uL Lymph # (Auto) 2.60 (0.90-2.90) K/uL [place] # (Auto) 0.70 (0.00-0.90) K/UL Eos # (Auto) 0.04 (0.00-0.50) K/uL Baso # (Auto) 0.03 (0.00-0.30) K/uL Abs Immat Gran (auto) 0.09 (0.00-0.30) K/uL Imm/Tot Granulo (auto) 1.0 % Sodium 137 (135-149) mmol/L Potassium 3.7 (3.6-5.1) mmol/L Chloride 109 (96-114) mmol/L Carbon Dioxide 20 (20-32) mmol/L Anion Gap 8 (7-15) mEq/L BUN 15 (7-30) mg/dL Creatinine 1.0 (0.5-1.5) mg/dL Estimated Creat Clear 47.63 Estimated GFR 63 ml/min Glucose 82 (60-115) mg/dL Lactate 1.8 (0.5-1.9) mmol/L Calcium 8.4 (8.4-10.6) mg/dL Magnesium 2.2 (1.5-2.6) mg/dL Total Bilirubin 0.4 (0.1-1.5) mg/dL AST 46 H (12-35) U/L ALT 14 (4-35) U/L Alkaline Phosphatase 72 (40-150) U/L C-Reactive Protein < 0.5 L (0.5-1.0) mg/dL NT-Pro-B Natriuret Pep 415 pg/mL Total Protein 6.6 (6.0-8.3) g/dL Albumin 3.8 (3.3-5.0) g/dL Ethyl Alcohol < 0.01 L (0.01-0.03) % SARS-CoV-2 (PCR) Negative SARS-CoV-2 (Negative) Influenza Type A (PCR) Negative PCR FLU A (Negative) Influenza Type B (PCR) Negative PCR FLU B (Negative) RSV (PCR) Negative PCR RSV (Negative) Lab Acknowledgement Test Added POC Troponin I (0.01-0.04) ng/ml 12/06/22 Range/Units 22:30 WBC (4.50-11.00) K/uL RBC (4.00-5.20) m/uL Hgb (12.0-16.0) gm/dL Hct (33.0-51.0) % MCV (80-100) fL MCH (26-34) pg MCHC (32-36) gm/dL RDW Coeff of Selina (11.5-15.5) % Plt Count (140-440) K/uL Neut % (Auto) (42.0-72.0) % Lymph % (Auto) (20-44) % [place] % (Auto) (0.0-11.0) % Eos % (Auto) (0.0-7.0) % Baso % (Auto) (0.0-3.0) % Neut # (Auto) (1.7-7.0) K/uL Lymph # (Auto) (0.90-2.90) K/uL [place] # (Auto) (0.00-0.90) K/UL Eos # (Auto) (0.00-0.50) K/uL Baso # (Auto) (0.00-0.30) K/uL Abs Immat Gran (auto) (0.00-0.30) K/uL Imm/Tot Granulo (auto) % Sodium (135-149) mmol/L Potassium (3.6-5.1) mmol/L Chloride (96-114) mmol/L Carbon Dioxide (20-32) mmol/L Anion Gap (7-15) mEq/L BUN (7-30) mg/dL Creatinine (0.5-1.5) mg/dL Estimated Creat Clear Estimated GFR ml/min Glucose (60-115) mg/dL Lactate (0.5-1.9) mmol/L Calcium (8.4-10.6) mg/dL Magnesium (1.5-2.6) mg/dL Total Bilirubin (0.1-1.5) mg/dL AST (12-35) U/L ALT (4-35) U/L Alkaline Phosphatase (40-150) U/L C-Reactive Protein (0.5-1.0) mg/dL NT-Pro-B Natriuret Pep pg/mL Total Protein (6.0-8.3) g/dL Albumin (3.3-5.0) g/dL Ethyl Alcohol (0.01-0.03) % SARS-CoV-2 (PCR) (Negative) Influenza Type A (PCR) (Negative) Influenza Type B (PCR) (Negative) RSV (PCR) (Negative) Lab Acknowledgement POC Troponin I 0.00 L (0.01-0.04) ng/ml Imaging Data Chest x-ray: Attestation: I have reviewed the pertinent imaging results. ECG Data Attestation: I personally reviewed and interpreted this ECG as follows: (Normal sinus rhythm, nonspecific T-wave changes. QT corrected 614 milliseconds. Note EKG from 06/06/2022 had QT interval of 437 milliseconds.) Prior ECG tracings: available for review Discharge Plan Discharge Clinical Impression: Prolonged Q-T interval on ECG, Syncope Patient Disposition: Home, Self-Care Condition: Stable Instructions: Syncope (ED) Additional Instructions: Need to drink adequate fluids during the day. Take position changes very slowly to help prevent syncopal episodes. You need to follow-up with your primary care provider this next week, take the copy of the EKG that shows the prolonged QT to this visit. I would recommend an EKG be redone at your next visit and if the QT interval does remain elevated, do need to look at medications that can be potentiate in this. Activity Level: Activity as Tolerated Prescriptions: No Action furosemide 40 mg tablet 40 mg PO DAILY PRN latanoprost 0.005 % drops 1 drp ophthalmic (eye) QPM carvedilol 25 mg tablet 25 mg PO Q12H Patient Comments: take 2 tablets by mouth twice a day cetirizine 10 mg tablet 10 mg PO DAILY PRN (Reason: allergies) tizanidine 4 mg tablet 4 mg PO Q8H PRN (Reason: muscle spasm) carbidopa-levodopa 50-200 mg tablet extended release 1 tab PO QPM sennosides-docusate sodium [Stool Softener-Stimulant Laxat] 8.6-50 mg tablet 1 tab-cap PO PRN sertraline 100 mg tablet 100 mg PO DAILY Patient Comments: take 2 tabs by mouth daily cyanocobalamin (vitamin B-12) 1,000 mcg tablet 1,000 mcg PO DAILY quetiapine 100 mg tablet 100 mg PO HS Patient Comments: take 3 tabs by mouth at bedtime amitriptyline 50 mg tablet 50 mg PO QPM famotidine 20 mg tablet 20 mg PO DAILY amlodipine 10 mg tablet 10 mg PO DAILY pantoprazole 40 mg tablet,delayed release (DR/EC) 40 mg PO DAILY simvastatin 20 mg tablet 20 mg PO QPM ferrous sulfate [FeroSul] 325 mg (65 mg iron) tablet 325 mg PO Q1D ipratropium bromide 21 mcg (0.03 %) spray,non-aerosol 2 spray INTRANASAL BID prazosin 2 mg capsule 2 mg PO QPM oxycodone 5 mg tablet 7.5 mg PO Q6H PRN (Reason: pain) memantine 10 mg tablet 10 mg PO BID eszopiclone 3 mg tablet 3 mg PO QPM cholecalciferol (vitamin D3) 25 mcg (1,000 unit) tablet 25 mcg PO DAILY Follow Up/Referrals: Provider,Not a Local [Primary Care Provider] - Stand Alone Forms: [facility] Info Instructions
[2022-12-06 22:30] LABS: Lactate* 1.8 mmol/L (0.5-1.9)
[2022-12-06] MEDS: 0.9 % SODIUM CHLORIDE 1000 ml 1,000 ML IV (22:50)
[2022-12-06 22:54] LABS: Albumin* 3.8 g/dL (3.3-5.0); Chloride* 109 mmol/L (96-114)
[2022-12-06 22:55] LABS: Potassium* 3.7 mmol/L (3.6-5.1); Sodium* 137 mmol/L (135-149)
[2022-12-06 22:57] LABS: Est. Creatinine Clearance* 47.63; Estimated Glomerular Filt Rate 63 ml/min
[2022-12-06 22:58] LABS: Alanine Aminotransferase* 14 U/L (4-35); Alkaline Phosphatase* 72 U/L (40-150); Anion Gap 8 mEq/L (7-15); Aspartate Amino Transferase* 46 U/L (12-35); Bilirubin Total* 0.4 mg/dL (0.1-1.5); Blood Urea Nitrogen* 15 mg/dL (7-30); Calcium* 8.4 mg/dL (8.4-10.6); Carbon Dioxide* 20 mmol/L (20-32); Glucose* 82 mg/dL (60-115); Total Protein* 6.6 g/dL (6.0-8.3)
[2022-12-06 23:07] LABS: C Reactive Protein* < 0.5 mg/dL (0.5-1.0); Ethanol* < 0.01 % (0.01-0.03); NT Pro B Type NatriureticPept* 415 pg/mL
[2022-12-06 23:08] LABS: PCR FLU A Negative PCR FLU A (Negative); PCR FLU B Negative PCR FLU B (Negative); PCR RSV Negative PCR RSV (Negative)
[2022-12-06 23:15] LABS: SARS PCR* Negative SARS-CoV-2 (Negative)
[2022-12-06 23:17] LABS: Magnesium* 2.2 mg/dL (1.5-2.6)
[2022-12-06 23:19] LABS: Basophils Absolute Auto 0.03 K/uL (0.00-0.30); Basophils Percent Auto 0.3 % (0.0-3.0); Eosinophils Absolute Auto 0.04 K/uL (0.00-0.50); Eosinophils Percent Auto 0.4 % (0.0-7.0); Hematocrit 38.3 % (33.0-51.0); Hemoglobin* 12.4 gm/dL (12.0-16.0); Immature Granulocytes Abs Auto 0.09 K/uL (0.00-0.30); Lymphocytes Percent Auto 27.8 % (20-44); Mean Corpuscular HGB Conc 32 gm/dL (32-36); Mean Corpuscular Hemoglobin 29 pg (26-34); Mean Corpuscular Volume 89 fL (80-100); Neutrophils Absolute Auto 5.93 K/uL (1.7-7.0); Neutrophils Percent Auto 63.5 % (42.0-72.0); Platelet Count* 289 K/uL (140-440); RDW Coefficient of Variation % 14.2 % (11.5-15.5); Red Blood Count 4.32 m/uL (4.00-5.20); Slide Review Reflex No; White Blood Count* 9.34 K/uL (4.50-11.00)
[2022-12-07] VITALS: BP 119/62; PULSE 62; PULSE 63; O2SAT 97
[2022-12-07 00:02] VITALS: BP 119/62; PULSE 64; O2SAT 96
[2022-12-07 00:04] VITALS: BP 114/72; PULSE 65
[2022-12-07 00:06] VITALS: BP 114/72; PULSE 66; O2SAT 96
[2022-12-07 00:15] VITALS: PULSE 65; O2SAT 97
== END 2022-12-07 00:29 | disposition home or self-care (01) ==
PROVIDERS: Emergency Provider Family Medicine
DX: R94.31 Abnormal electrocardiogram [ECG] [EKG] (principal); R55 Syncope and collapse
CPT/HCPCS: 36415; 71045; 80053; 80306; 82077; 83605; 83735; 83880; 84484; 85025; 86140; 87631; 93005; 94761; 96360; 99284; 99285; J7030

== ENCOUNTER 2023-05-22 23:40 | Outpatient (CLI) | payer MEDICAID, SELFPAY ==
--- OUTSIDE RECORDS SUMMARY | 2023-05-28 06:40 | XMS_ITS | Clinical Summary ---
Author Name Unknown Organization [facility] Address [place], [place] [address] Care Team Providers Care Systems Design Engineer Name Role Phone Neymar Noyola MD Unavailable [...] age 21-65 10/17/2018 6 (Completed outside of [facility]), 10/08/2009 Mammogram for age 45-75 05/18/2019 05/18/19 19 (Completed outside of [facility]), 02/19/2015 (Completed outside of [facility]), 12/31/2011 (Completed outside of [facility]), Additional history exists Depression screening for age 12+ 06/08/2019 06/07/2018, 06/07/2018, 11/17/2017, Additional history exists Colonoscopy through age 75 09/12/2020 09/12/2010, Lipids for age 45-75 10/17/2020 10/18/2015 [facility] 11/06/2010, 10/08/2010, Additional history exists BMI (ht [...] Routine 09/10/2010 1:40 PM CDT Screening mammogram [employer]PORATE RECRU[employer] THIN PREP PAP SCREEN IMAGED Routine 10/08/2009 2:27 PM CDT Screening for malignant neoplasm of the cervix from Last 3 Months or Most Recently Relevant to Health Maintenance Results * (ABNORMAL) LIPID PANEL W REFLEX MEASURED LDL (11/06/2010 9:12 AM CDT) CHOLESTEROL,TOTAL 132 110 - 199 mg/dL [facility] TRIGLYCERIDES 241(H) <150 mg/dL [facility] HDL CHOLESTEROL 45 >40 mg/dL [facility] CHOL/HDL RATIO 2.93 <4.51 [facility] LDL CHOLESTEROL 39 <131 mg/dL [facility] PATIENT STATUS Fasting [facility] Blood specimen (specimen) BLOOD SPECIMEN / Unknown 11/06/2010 9:12 AM CDT 11/06/2010 9:10 AM CDT Luisa De La Cruzbasiagael CHEMISTRY [facility] [address] [place] [address] * XR MAMMO BILAT SCREEN FFDM (09/10/2010 [...] pap screening (10/08/2009 2:27 PM CDT) Pathologist [facility] CYTOLOGY CYTOPATHOLOGY REPORT [facility] Status: Final Status ?[id number] CLINICAL INFORMATION Last Date of LMP ? :09/16/2009 Last Pap Date ?:unknown Last Pap Result ?:NIL ABN [place]/Bx Past 5 YRS :None Hormone Usage ?:None Menstrual Status ? :Postmenopausal [place]/Bx done today ? :No Additional Information :None given HPV Request ?:HPV if ASCUS SPECIMEN SOURCE ?:Cervical/vagina l ThinPrep Vial, screening SPECIMEN ADEQUACY ?:Satisfactory for evaluation Endocervical component ? present. INTERPRETATION/RES ULT Negative for intraepithelial lesion or malignancy (NIL) Non-Neoplastic Findings Parakeratosis Cytology 1st Screener ??:sag Signed by ?: ??Kirti Godfrey M.D. Interpreted at [facility] This specimen was screened by [...] COLLECTED:10/08/09 ? ACCESSIONED: ??10/09/09 ?? SIGNED: ??10/16/09 [facility] PAP [place] CODE NIL [facility] Cervical/Vaginal (Cervical/Vagina l) 10/08/2009 2:27 PM CDT 10/08/2009 2:[address] [facility] - 10/16/2009 9:23 AM CDT Interpreted at [facility] Luisa Harman PATHOLOGY/CYTOL OGY [facility] [place]NAL ZIP [id number] [address] from Last 3 Months or Most Recently Relevant to Health Maintenance Advance Directives * Full Code (Latest Code Status on File) Date Activated Date Inactivated Comments 05/01/2010 9:58 AM 05/01/2010 7:04 PM Care Teams Systems Design Engineer Relationship Specialty Start Date End Date Pcp, No . PCP - General 12/16/22 Neymar Noyola MD SPECIAL TECHNICAL OPERATIONS OFFICER Obstetrics and Gynecology 02/21/11
== END 2023-05-22 23:41 | disposition home or self-care (01) ==
LOC: AMB 05-28 06:37
PROVIDERS: Visit Provider Family Medicine
DX: S09.90XA Unspecified injury of head, initial encounter (principal); W18.30XA Fall on same level, unspecified, initial encounter; Y92.009 Unspecified place in unspecified non-institutional (private) residence as the place of occurrence of the external cause
CPT/HCPCS: A0425; A0427

== ENCOUNTER 2023-05-23 00:22 | Emergency (ER) | payer MEDICAID, SELFPAY ==
[2023-05-23] VITALS (16 sets, daily range): BP systolic 72–106; BP diastolic 37–90; PULSE 51–64; RESP 16–18; TEMP 36.6; O2SAT 93–98
--- NOTE | 2023-05-23 00:28 | ED.GENADULT ---
HPI - General Adult General Time Seen by Provider: 00:29 Date Seen: 05/23/23 Chief complaint: Hypotension Stated complaint: low blood pressure Time Seen by Provider: 05/23/23 00:28 Source: patient, EMS, RN notes reviewed and old records reviewed History of Present Illness HPI narrative: 62-year-old female who comes in today with syncope. Patient got up to go to the bathroom this evening and passed out, hit her head. No preceding chest pain or shortness of breath. Patient reports history of syncope in the past, says she was at [facility] and they adjusted her carvedilol from 25mg BID to 12.5mg BID Current medications Amlodipine 2.5 mg daily Carbidopa levodopa 50-200 q.h.s. Carvedilol 12.5 mg twice a day Zyrtec 5 mg twice a day Lunesta 3 mg at bedtime as needed Pepcid 20 mg daily Lasix 40 mg daily as needed Namendia 10 mg twice a day Oxycodone 7.5 mg 3 times a day as needed Protonix 40 mg twice a day Seroquel 200 mg at bedtime Zoloft 200 mg daily Zocor 20 mg daily Zanaflex 4 mg every 8 hours as needed Related Data Home Medications Medication Instructions Recorded Confirmed amitriptyline 50 mg tablet 50 mg PO QPM 06/05/22 12/24/22 amlodipine 10 mg tablet 10 mg PO DAILY 06/05/22 12/24/22 carbidopa ER 50 mg-levodopa 200 mg 1 tab PO QPM 06/05/22 12/24/22 tablet,extended release carvedilol 25 mg tablet 25 mg PO Q12H 06/05/22 12/24/22 cetirizine 10 mg tablet 10 mg PO DAILY PRN allergies 06/05/22 12/24/22 cholecalciferol (vitamin D3) 25 25 mcg PO DAILY 06/05/22 12/24/22 mcg (1,000 unit) tablet cyanocobalamin (vitamin B-12) 1,000 mcg PO DAILY 06/05/22 12/24/22 1,000 mcg tablet eszopiclone 3 mg tablet 3 mg PO QPM 06/05/22 12/24/22 famotidine 20 mg tablet 20 mg PO DAILY 06/05/22 12/24/22 ferrous sulfate 325 mg (65 mg 325 mg PO Q1D 06/05/22 12/24/22 iron) tablet (FeroSul) furosemide 40 mg tablet 40 mg PO DAILY PRN 06/05/22 12/24/22 ipratropium bromide 21 mcg (0.03 2 spray intranasal BID 06/05/22 12/24/22 %) nasal spray latanoprost 0.005 % eye drops 1 drp ophthalmic (eye) QPM 06/05/22 12/24/22 memantine 10 mg tablet 10 mg PO BID 06/05/22 12/24/22 oxycodone 5 mg tablet 7.5 mg PO Q6H PRN pain 06/05/22 12/24/22 pantoprazole 40 mg tablet,delayed 40 mg PO DAILY 06/05/22 12/24/22 release prazosin 2 mg capsule 2 mg PO QPM 06/05/22 12/24/22 quetiapine 100 mg tablet 100 mg PO HS 06/05/22 12/24/22 sennosides 8.6 mg-docusate sodium 1 tab-cap PO PRN 06/05/22 12/24/22 50 mg tablet (Stool Softener-Stimulant Laxative) sertraline 100 mg tablet 100 mg PO DAILY 06/05/22 12/24/22 simvastatin 20 mg tablet 20 mg PO QPM 06/05/22 12/24/22 tizanidine 4 mg tablet 4 mg PO Q8H PRN muscle spasm 06/05/22 12/24/22 Allergies Allergy/AdvReac Type Severity Reaction Status Date / Time losartan Allergy Severe Angioedema Verified 12/24/22 10:51 duloxetine Allergy Mild Hives, Verified 12/24/22 10:51 Nausea/Vomiting latex Allergy Mild Rash Verified 12/24/22 10:51 lisinopril Allergy Mild Rash Verified 12/24/22 10:51 phenylephrine Allergy Mild Rash, Verified 12/24/22 10:51 Swelling pregabalin Allergy Mild Rash Verified 12/24/22 10:51 tropicamide Allergy Mild Rash, Verified 12/24/22 10:51 Swelling gabapentin AdvReac Mild GI Verified 12/24/22 10:51 Intolerance, Nausea/Vomiting prednisone AdvReac Mild Agitation Verified 12/24/22 10:51 PFSH PFSH Medical History Frequent falls ?R29.6 - Repeated falls (ICD-10) Hypertensive heart disease ?I11.9 - Hypertensive heart disease without heart failure (ICD-10) SHREE (generalized anxiety disorder) ?F41.1 - Generalized anxiety disorder (ICD-10) PTSD (post-traumatic stress disorder) ?F43.10 - Post-traumatic stress disorder, unspecified (ICD-10) Depression, major, recurrent, moderate ?F33.1 - Major depressive disorder, recurrent, moderate (ICD-10) Morbid obesity ?E66.01 - Morbid (severe) obesity due to excess calories (ICD-10) Tachycardia, paroxysmal ?I47.9 - Paroxysmal tachycardia, unspecified (ICD-10) Chronic pain syndrome ?G89.4 - Chronic pain syndrome (ICD-10) Dependent personality disorder ?F60.7 - Dependent personality disorder (ICD-10) Panic disorder with agoraphobia ?F40.01 - Agoraphobia with panic disorder (ICD-10) EUGENIA (obstructive sleep apnea) ?G47.33 - Obstructive sleep apnea (adult) (pediatric) (ICD-10) Headache, chronic migraine without aura ?G43.709 - Chronic migraine without aura, not intractable, without status migrainosus (ICD-10) Chronic respiratory failure with hypoxia ?J96.11 - Chronic respiratory failure with hypoxia (ICD-10) History of falling ?Z91.81 - History of falling (ICD-10) Irritable bowel syndrome with diarrhea ?K58.0 - Irritable bowel syndrome with diarrhea (ICD-10) B12 deficiency ?E53.8 - Deficiency of other specified B group vitamins (ICD-10) Hypovitaminosis D ?E55.9 - Vitamin D deficiency, unspecified (ICD-10) Chronic diastolic (congestive) heart failure ?I50.32 - Chronic diastolic (congestive) heart failure (ICD-10) Restless leg syndrome ?G25.81 - Restless legs syndrome (ICD-10) Glaucoma ?H40.9 - Unspecified glaucoma (ICD-10) Nevus of choroid of right eye ?D31.31 - Benign neoplasm of right choroid (ICD-10) Corneal epithelial basement membrane dystrophy ?H18.529 - Epithelial (juvenile) corneal dystrophy, unspecified eye (ICD-10) Dermatochalasis of both eyelids ?H02.833 - Dermatochalasis of right eye, unspecified eyelid (ICD-10) ?H02.836 - Dermatochalasis of left eye, unspecified eyelid (ICD-10) Ptosis of eyelid, bilateral ?H02.403 - Unspecified ptosis of bilateral eyelids (ICD-10) Fatty liver ?K76.0 - Fatty (change of) liver, not elsewhere classified (ICD-10) Supraventricular tachycardia ?I47.1 - Supraventricular tachycardia (ICD-10) Atrial tachycardia, paroxysmal ?I47.1 - Supraventricular tachycardia (ICD-10) Typical atrial flutter ?I48.3 - Typical atrial flutter (ICD-10) Elevated serum creatinine ?R79.89 - Other specified abnormal findings of blood chemistry (ICD-10) Hyperlipidemia ?E78.5 - Hyperlipidemia, unspecified (ICD-10) GERD (gastroesophageal reflux disease) ?K21.9 - Gastro-esophageal reflux disease without esophagitis (ICD-10) Paresthesia of both feet ?R20.2 - Paresthesia of skin (ICD-10) Rectal bleed ?K62.5 - Hemorrhage of anus and rectum (ICD-10) Globus sensation ?R09.89 - Other specified symptoms and signs involving the circulatory and respiratory systems (ICD-10) Rhinitis, chronic ?J31.0 - Chronic rhinitis (ICD-10) Hyperhidrosis ?R61 - Generalized hyperhidrosis (ICD-10) Syncope and collapse ?R55 - Syncope and collapse (ICD-10) Chronic kidney disease, stage 3a ?N18.31 - Chronic kidney disease, stage 3a (ICD-10) Surgical History Status post open reduction with internal fixation (ORIF) of fracture of ankle (06/06/22) ?Z98.890 - Other specified postprocedural states (ICD-10) ?Z87.81 - Personal history of (healed) traumatic fracture (ICD-10) Social History Narrative: She lives at the [facility]. She lives alone. She does not have to climb stairs. She believes her facility has available wheelchair for her to use along with crutches or a walker to be nonweightbearing on her right lower extremity. She does not smoke. She does not drink alcohol. She occasionally uses cannabis. Code status is full. Her father is healthcare power of owner [employer]. Highest level of school completed/degree received: high school graduate Smoking Status: Never smoker How often do you have a drink containing alcohol: never AUDIT-C Alcohol total score: 0 Non-prescribed substance use: denies use Caffeine: No Do you think of yourself as: straight/heterosexual Gender Identity: female service: No Exam Narrative: Exam Narrative: General: Well-developed and well-nourished, no acute distress Head: Contusion and swelling of the forehead Eyes: Pupils are equal reactive, extraocular motions intact, conjunctiva clear ENT: External nose and ears are normal, posterior pharynx without erythema or exudate Neck: No midline cervical tenderness, full spontaneous range of motion the neck, trachea midline, no adenopathy Heart: Regular rate and rhythm no murmurs or thrills Lungs: Clear to auscultation bilaterally without wheezes or crackles Abdomen: Soft, nontender, nondistended with active bowel sounds Musculoskeletal: No tenderness, deformity, or edema Neurologic: Awake, alert, and oriented x3, no gross focal neurologic deficits, cranial nerves intact as tested Psych: Mood and affect are appropriate Skin: No rashes Const: Vital Signs, click to edit/add: Vital Signs - 24 hr 05/23/23 00:38 05/23/23 00:40 05/23/23 00:42 Temperature 97.8 F Pulse Rate 55 L 56 L Pulse Rate [Pulse Oximeter] 51 L Respiratory Rate 18 Blood Pressure 106/37 L Blood Pressure [Ri ght Upper Arm] 72/38 L Pulse Oximetry 95 96 95 Oxygen Delivery Me thod Room Air Oxygen Flow Rate 05/23/23 00:45 05/23/23 00:52 05/23/23 01:12 Temperature Pulse Rate 57 L 60 Pulse Rate [Pulse Oximeter] Respiratory Rate Blood Pressure 89/55 L Blood Pressure [Ri ght Upper Arm] Pulse Oximetry 96 93 Oxygen Delivery Me thod Oxygen Flow Rate 05/23/23 01:15 05/23/23 01:16 05/23/23 01:21 Temperature Pulse Rate 61 61 60 Pulse Rate [Pulse Oximeter] Respiratory Rate Blood Pressure 85/44 L 95/45 L Blood Pressure [Ri ght Upper Arm] Pulse Oximetry 95 95 95 Oxygen Delivery Me thod Oxygen Flow Rate 05/23/23 01:24 05/23/23 01:24 05/23/23 01:30 Temperature Pulse Rate 58 L Pulse Rate [Pulse Oximeter] Respiratory Rate Blood Pressure Blood Pressure [Ri ght Upper Arm] Pulse Oximetry 96 96 96 Oxygen Delivery Me thod Nasal Cannula Oxygen Flow Rate 2 05/23/23 01:31 05/23/23 01:42 05/23/23 01:52 Temperature Pulse Rate 59 L 61 63 Pulse Rate [Pulse Oximeter] Respiratory Rate Blood Pressure 92/52 L 84/51 L 99/56 L Blood Pressure [Ri ght Upper Arm] Pulse Oximetry 95 96 97 Oxygen Delivery Me thod Oxygen Flow Rate 05/23/23 02:02 Temperature Pulse Rate 62 Pulse Rate [Pulse Oximeter] Respiratory Rate 16 Blood Pressure 99/53 L Blood Pressure [Ri ght Upper Arm] Pulse Oximetry 97 Oxygen Delivery Me thod Oxygen Flow Rate Course Course ED Course: Patient seen and examined, reviewed most recent emergency department visit from 12/08/2022 when patient was seen with a syncopal episode, negative evaluation other than prolonged QT syndrome, and was discharged. Patient presents today with a syncopal episode, no preceding symptoms. She did here head and head CT is ordered. No midline neck pain in full spontaneous range of the neck, no indication for cervical spine CT at this time. Labs ordered, EKG demonstrates sinus rhythm a normal intervals. Reevaluation(s) Time of Reevaluation #1: 01:06 Reevaluation #1: Labs ordered and independently interpreted by me with mild anemia which is been seen previously for the patient, negative troponin. Time of Reevaluation #2: 02:07 Reevaluation #2: Head CT independently interpreted by me negative for acute findings. Basic metabolic panel with mild hypokalemia which is replaced orally, lactate slightly elevated at 2 which likely represents hypoperfusion from with medication induced hypotension and not sepsis. Blood pressure a little bit better after fluids. I reviewed patient's blood pressures from prior episode of syncope which were also in the 80-120/50-60, although it subsequent urgent care visit she was quite hypertensive. Time of Reevaluation #3: 02:16 Reevaluation #3: Patient recheck, pressure is a little bit better, patient feels better. Discussed findings of evaluation with no acute abnormalities other than hypokalemia. Discussed admission for medication adjustments versus discharge. Patient would prefer to go home, friend who is with her can keep an eye on your. Will have her stop her amlodipine and follow-up with [facility] next week. Vital Signs Vital signs: Initial Vital Signs Pulse Rate 55 L 05/23/23 00:38 Pulse Oximetry 95 05/23/23 00:38 Vital Signs Pulse Rate 55 L 05/23/23 00:38 Pulse Oximetry 95 05/23/23 00:38 Temperature 97.8 F 05/23/23 00:40 Pulse Rate 62 05/23/23 02:02 Respiratory Rate 16 05/23/23 02:02 Blood Pressure 99/53 L 05/23/23 02:02 Pulse Oximetry 97 05/23/23 02:02 Oxygen Delivery Method Nasal Cannula 05/23/23 01:24 Oxygen Flow Rate 2 05/23/23 01:24 Medications Administered Medications: Generic Name Dose Route Start Last Admin Trade Name Freq PRN Reason Stop Dose Admin Potassium Bicarbonate 25 meq 05/23/23 01:25 05/23/23 02:09 Potassium Bicarb 25 Meq Effervescent Tab PO 05/23/23 01:26 25 meq ONCE ONE Administration Discontinued Medications Generic Name Dose Route Start Last Admin Trade Name Freq PRN Reason Stop Dose Admin Sodium Chloride 1,000 mls @ 1,000 mls/hr 05/23/23 00:45 05/23/23 01:23 0.9 % Sodium Chloride 1000 Ml IV 05/23/23 01:44 Infused .Q1H NANCI Infusion Medical Decision Making Lab Data Labs: Lab Results 05/23/23 Range/Units 00:30 WBC 8.56 (4.50-11.00) K/uL RBC 3.97 L (4.00-5.20) m/uL Hgb 11.7 L (12.0-16.0) gm/dL Hct 36.0 (33.0-51.0) % MCV 91 (80-100) fL MCH 30 (26-34) pg MCHC 33 (32-36) gm/dL RDW Coeff of Selina 13.6 (11.5-15.5) % Plt Count 261 (140-440) K/uL Neut % (Auto) 65.0 (42.0-72.0) % Lymph % (Auto) 26.3 (20-44) % [place] % (Auto) 7.8 (0.0-11.0) % Eos % (Auto) 0.7 (0.0-7.0) % Baso % (Auto) 0.1 (0.0-3.0) % Neut # (Auto) 5.56 (1.7-7.0) K/uL Lymph # (Auto) 2.25 (0.90-2.90) K/uL [place] # (Auto) 0.70 (0.00-0.90) K/UL Eos # (Auto) 0.06 (0.00-0.50) K/uL Baso # (Auto) 0.01 (0.00-0.30) K/uL Abs Immat Gran (auto) 0.01 (0.00-0.30) K/uL Imm/Tot Granulo (auto) 0.1 % Sodium 137 (135-149) mmol/L Potassium 3.2 L (3.6-5.1) mmol/L Chloride 107 (96-114) mmol/L Carbon Dioxide 23 (20-32) mmol/L Anion Gap 7 (7-15) mEq/L BUN 22 (7-30) mg/dL Creatinine 1.4 (0.5-1.5) mg/dL Estimated GFR 42 ml/min Glucose 136 H (60-115) mg/dL Lactate 2.0 H (0.5-1.9) mmol/L Calcium 8.5 (8.4-10.6) mg/dL Magnesium 1.9 (1.5-2.6) mg/dL POC Troponin I 0.01 (0.01-0.04) ng/ml ECG Data Attestation: I personally reviewed and interpreted this ECG as follows: Prior ECG tracings: not available for review Interpretation: EKG ordered in panel interpreted by me performed at 12:45 a.m. demonstrates sinus bradycardia rate 56, ST depression and T-wave inversion in 2, 3, AVF, V2 through V6, normal axis, QTC 463, DC 140. Compared to prior of November 2022 T-wave inversions in V2 through V6 are more prominent Discharge Plan Discharge Clinical Impression: Autonomic instability, Traumatic hematoma of forehead, Syncope, Hypotension Patient Disposition: Home w/ Parent or Adult Condition: Stable Instructions: Syncope (DC), Hypotension (DC), Hematoma (ED) Additional Instructions: Stopped taking amlodipine for now Follow-up with [facility] Activity Level: Activity as Tolerated Prescriptions: No Action furosemide 40 mg tablet 40 mg PO DAILY PRN latanoprost 0.005 % drops 1 drp ophthalmic (eye) QPM carvedilol 25 mg tablet 25 mg PO Q12H Patient Comments: take 2 tablets by mouth twice a day cetirizine 10 mg tablet 10 mg PO DAILY PRN (Reason: allergies) tizanidine 4 mg tablet 4 mg PO Q8H PRN (Reason: muscle spasm) carbidopa-levodopa 50-200 mg tablet extended release 1 tab PO QPM sennosides-docusate sodium [Stool Softener-Stimulant Laxat] 8.6-50 mg tablet 1 tab-cap PO PRN sertraline 100 mg tablet 100 mg PO DAILY Patient Comments: take 2 tabs by mouth daily cyanocobalamin (vitamin B-12) 1,000 mcg tablet 1,000 mcg PO DAILY quetiapine 100 mg tablet 100 mg PO HS Patient Comments: take 3 tabs by mouth at bedtime amitriptyline 50 mg tablet 50 mg PO QPM famotidine 20 mg tablet 20 mg PO DAILY amlodipine 10 mg tablet 10 mg PO DAILY pantoprazole 40 mg tablet,delayed release (DR/EC) 40 mg PO DAILY simvastatin 20 mg tablet 20 mg PO QPM ferrous sulfate [FeroSul] 325 mg (65 mg iron) tablet 325 mg PO Q1D ipratropium bromide 21 mcg (0.03 %) spray,non-aerosol 2 spray INTRANASAL BID prazosin 2 mg capsule 2 mg PO QPM oxycodone 5 mg tablet 7.5 mg PO Q6H PRN (Reason: pain) memantine 10 mg tablet 10 mg PO BID eszopiclone 3 mg tablet 3 mg PO QPM cholecalciferol (vitamin D3) 25 mcg (1,000 unit) tablet 25 mcg PO DAILY Follow Up/Referrals: Provider,Not a Local [Primary Care Provider] - Stand Alone Forms: [facility] Info Instructions
[2023-05-23] MEDS: 0.9 % SODIUM CHLORIDE 1000 ml 1,000 ML IV (00:30)
--- NOTE | 2023-05-23 00:41 | CT_ITS ---
Patient: PAOLA BLACKWELL Facility:?[facility] Patient ID:?[id number] Site Patient ID:?[id number] Site :?[id number] Study:?CT-Head W/O-05/23/2023 1:13:15 AM Ordering Physician:TOM Final Report: INDICATION: SYNCOPE, FALL HEAD TRAUMA. TECHNIQUE: CT head without contrast. COMPARISON: 11/11/2018. FINDINGS: CSF spaces: Within normal limits for age. Brain parenchyma and extra-axial spaces: The brandt-white differentiation is normal. No sign of mass, hemorrhage, or midline shift. No extra-axial fluid collection. Skull base and calvarium: The visualized paranasal sinuses and mastoid air cells demonstrate no acute or significant findings. The visualized orbits are grossly unremarkable. No skull fractures. Small left frontal scalp contusion. IMPRESSION: No intracranial hemorrhage identified. No skull fractures. Please note that all CT scans at this facility use dose modulation, iterative reconstruction, and/or weight-based dosing when appropriate to reduce radiation dose to as low as reasonably achievable. Dictated by Yvonne Ervin MD @ 05/23/2023 2:03:16 AM Signed by:?Yvonne Ervin MD @05/23/2023 2:03:16 AM (Electronic Signature)
[2023-05-23 00:52] LABS: Basophils Absolute Auto 0.01 K/uL (0.00-0.30); Basophils Percent Auto 0.1 % (0.0-3.0); Eosinophils Absolute Auto 0.06 K/uL (0.00-0.50); Eosinophils Percent Auto 0.7 % (0.0-7.0); Hemoglobin* 11.7 gm/dL (12.0-16.0); Immature Granulocytes Abs Auto 0.01 K/uL (0.00-0.30); Immature Granulocytes Pct Auto 0.1 %; Lymphocytes Absolute Auto 2.25 K/uL (0.90-2.90); Lymphocytes Percent Auto 26.3 % (20-44); Mean Corpuscular HGB Conc 33 gm/dL (32-36); Mean Corpuscular Hemoglobin 30 pg (26-34); Mean Corpuscular Volume 91 fL (80-100); Monocytes Percent Auto 7.8 % (0.0-11.0); Neutrophils Absolute Auto 5.56 K/uL (1.7-7.0); Platelet Count* 261 K/uL (140-440); RDW Coefficient of Variation % 13.6 % (11.5-15.5); Red Blood Count 3.97 m/uL (4.00-5.20); White Blood Count* 8.56 K/uL (4.50-11.00)
[2023-05-23 00:57] LABS: Troponin, Point-of-Care* 0.01 ng/ml (0.01-0.04)
[2023-05-23 01:02] LABS: Slide Review Reflex No
[2023-05-23 01:11] LABS: Chloride* 107 mmol/L (96-114); Sodium* 137 mmol/L (135-149)
[2023-05-23 01:12] LABS: Potassium* 3.2 mmol/L (3.6-5.1)
[2023-05-23 01:14] LABS: Creatinine* 1.4 mg/dL (0.5-1.5); Estimated Glomerular Filt Rate 42 ml/min
[2023-05-23 01:15] LABS: Anion Gap 7 mEq/L (7-15); Blood Urea Nitrogen* 22 mg/dL (7-30); Calcium* 8.5 mg/dL (8.4-10.6); Carbon Dioxide* 23 mmol/L (20-32); Glucose* 136 mg/dL (60-115); Magnesium* 1.9 mg/dL (1.5-2.6)
--- OUTSIDE RECORDS SUMMARY | 2023-05-23 01:33 | XMS_ITS | Clinical Summary ---
Author Name Unknown Organization [facility] Address [place], [place] [address] Care Team Providers Care Filling Station Laborer Name Role Phone Neymar Noyola MD Unavailable Unavailable Pcp, No Primary Care Provider Unavailabl e Allergies Active Allergy Reactions Criticality Noted Date Comments Adhesive Rash 07/28/2013 Duloxetine Nausea And Vomiting 03/05/2010 Nausea and vomiting, hives (Cymbalta) Gabapentin Nausea And Vomiting 07/07/2012 Lisinopril Rash 11/16/2017 Losartan Shortness Of Breath High 11/16/2017 Pregabalin Rash 02/01/2016 Prednisone Other - Describe In Comment Field 02/22/2016 agitation Medications Medication Sig Dispensed Refills Start Date End Date Status ketoconazole 2% topical (NIZORAL) 2 % creamIndications:Chavez h and other nonspecific skin eruption Apply topically to affected area(s) once daily. 1 Tube 1 03/07/2011 Active eszopiclone (LUNESTA) 3 mg tablet Take 1 tablet by mouth at bedtime. 0 07/07/2012 Active clonazePAM (KLONOPIN) 1 mg tablet Take 1 tablet by mouth 2 times daily if needed. 0 12/24/2012 Active simvastatin (ZOCOR) 40 mg tablet Take 1 tablet by mouth at bedtime. 0 07/04/2013 Active carbidopa-levodopa controlled release, 50-200 mg, (SINEMET CR 50-200) 50-200 mg tablet Take 1 tablet by mouth at bedtime. 3 09/16/2017 Active latanoprost (XALATAN) 0.005 % ophthalmic solution ADMINISTER 1 DROP INTO BOTH EYES AT BEDTIME. 3 08/31/2017 Active SUMAtriptan (IMITREX) 50 mg tabletIndications:Mi graine syndrome Take one upon onset of migraine. Then another in 2 hours. Max Dose: 200mg per 24hrs. 30 tablet 06/03/2018 Active tiZANidine (ZANAFLEX) 2 mg tablet Take 2 mg by mouth. 05/25/2018 Active sertraline (ZOLOFT) 50 mg tabletIndications:Dy sthymic disorder Take 3 tablets by mouth every morning. 0 06/09/2018 Active furosemide (LASIX) 40 mg tabletIndications:He art failure with preserved ejection fraction, unspecified HF chronicity (HC) TAKE ONE TABLET BY MOUTH DAILY 90 tablet 3 09/08/2019 Active amLODIPine (NORVASC) 5 mg tablet 09/05/2019 Active amitriptyline (ELAVIL) 50 mg tablet 09/05/2019 Active acetaminophen-caffei ne-butalbital (FIORICET) 325-40-50 mg tablet 09/05/2019 Active memantine (NAMENDA) 10 mg tablet 09/05/2019 Active carvediloL (COREG) 25 mg tablet TAKE 1 AND ONE-HALF TABLETS BY MOUTH 2 (TWO) TIMES A DAY WITH MEALS. 11/02/2020 Active QUEtiapine (SEROqueL) 200 mg tablet Take 1 Tablet (200 mg) by mouth 2 times daily. 0 11/15/2020 Active cyclobenzaprine (FLEXERIL) 5 mg tabletIndications:Sa cral back pain Take 1 Tablet (5 mg) by mouth 3 times daily. 30 Tablet 11/15/2020 Active oxyCODONE (ROXICODONE) 5 mg immediate release tabletIndications:Sa cral back pain Take 1 Tablet (5 mg) by mouth every 4 hours if needed for Pain. 10 Tablet 11/15/2020 Active Active Problems Problem Noted Date Diagnosed Date Heart failure with preserved ejection fraction 0 08/23/2019 Palpitations 08/23/2019 Atypical chest pain 08/23/2019 Adjustment disorder with mixed anxiety and depre ssed mood 09/30/2011 S/P prosthetic total arthroplasty of the hip 05/2011 Pain medication agreement 04/27/2011 Overview: Controlled substance contract signed 12/06/2010, see scanned document VANESSA MULLINS RN 04/27/2011 4:57 AM Spondylolisthesis of lumbar region 04/02/2011 Overview: Moderate L4-5 degenerative disease on mri 01/2011 DJD (degenerative joint disease) of hip 04/02/19 12 Overview: Left hip Vitamin B12 deficiency 04/02/2011 Obesity, unspecified 09/06/2010 IBS (irritable bowel syndrome) 10/08/2009 Esophageal reflux 10/08/2009 Restless legs syndrome (RLS) 05/22/2007 Dysthymic disorder 05/22/2007 Unspecified essential hypertension 05/21/2007 Resolved Problems Problem Noted Date Diagnosed Date Resolved Date Adjustment disorder with mix ed anxiety and depressed mood 10/28/2010 01/08/2011 Knee pain 09/06/2010 11/06/2010 Ulnar nerve neuropathy 03/07/201011/06 Type II or unspecified type diabetes mellitus without mention of complication, not stated as uncontrolled 05/21/2007 09/17/2009 Immunizations Name Administration Dates Next Due AMB Influenza, IIV3 (Age >=3 years)(Flu Clinic Only) 12/04/2010 Hep B (Hepatitis B (Adult) R ecombinant Adjuvanted) 11/07/2019,08/03/2019 Influenza Virus, Unspecified 11/16/2017,12/23/19 17 Influenza, High-dose Inactivated 12/01/2018 Influenza, IIV3 (Age >=3 years) 11/17/2015,02/05 Influenza, IIV4 12/03/2016,12/12/2015,12/13/2014 Influenza,CCIIV4 PRESERV FREE 12/03/2017 Pneumococcal Poly,23-Valent (Pneumovax) 01/27/20 12 Tdap 10/24/2020,10/03/2011,05/21/2007 Tuberculin (PPD) 09/12/2009,09/10/2009 Zoster (Shingrix-RZV, recombinant) 09/07/2017, Zoster (Zostavax-ZVL, live) 04/29/2012 Social History Tobacco Use Types Packs/Day Years Used Date Smoking Tobacco: Never Cigarettes Qu it: 02/16/1979 Smokeless Tobacco: Never Tobacco Cessation:Counseling Given: Yes Alcohol Use Standard Drinks/Week Comments No 0 (1 standard drink = 0.6 oz pur e alcohol) PHQ-2 Answer Date Recorded PHQ-2 Score 5 06/07/2018 Social Connections Answer Date Recorded Frequency of Communication with Friends and Fami ly Not on file 02/12/2021 Financial Resource Strain Answer Date R ecorded Difficulty of Paying Living Expenses Not on file 02/12/2021 Difficulty of Paying Living Expenses Not on file 02/12/2021 Sex and Gender Information Value Date Recorded Sex Assigned at Not on file Gender Identity Not on file Sexual Orientation Not on file Obstetrics History Para Term AB IAB SAB Ectopic Multiple Livin g Live Births 2 1 0 0 1 1 0 0 0 1 1 Date Outcome GA Total Labor Labor/2nd/3rd Weight Sex Delivery Anes PTL Kasia A1 A5 Name Cl in Para Rosanne ng IAB Last Filed Vital Signs Vital Sign Reading Time Taken Comments Blood Pressure 148/85 11/15/2020 12:56 PM CDT Pulse 90 11/15/2020 12:56 PM CDT Temperature 37.6 ??C (99.6 ??F) 11/15/2020 1 2:56 PM CDT Respiratory Rate 20 09/20/2019 10:0 5 AM CDT Oxygen Saturation 94% 11/15/2020 12: 56 PM CDT Inhaled Oxygen Concentration - - Weight 116.2 kg (256 lb 3.2 oz) 021 12:56 PM CDT Height 158.4 cm (5' 2.36) 11/15/2020 1 2:56 PM CDT Body Mass Index 46.32 11/15/2020 12:56 PM CDT Plan of Treatment Health Maintenance Due Date Last Done Comments HIV for age 15-65 06/15/1974 Hepatitis C screening for age 18-79 06/15/1977 Pap test for age 21-65 10/17/2018 6 (Completed outside of [facility]), 10/08/2009 Mammogram for age 45-75 05/18/2019 05/18/19 19 (Completed outside of [facility]), 02/19/2015 (Completed outside of [facility]), 12/31/2011 (Completed outside of [facility]), Additional history exists Depression screening for age 12+ 06/08/2019 06/07/2018, 06/07/2018, 11/17/2017, Additional history exists Colonoscopy through age 75 09/12/2020 09/12/2010, Lipids for age 45-75 10/17/2020 10/18/2015 ([facility] 11/06/2010, 10/08/2010, Additional history exists BMI (ht and wt on same day) for age 18+ 11/15/2021 11/15/2020, 09/26/2019, 08/23/2019, Additional history exists COVID-19 vaccine series (2022-24 season) 2022 11/15/2021, 06/05/2020, 05/02/2020 Influenza for age 50-64 10/18/2023 12/04/19 18, 11/16/2017, 12/22/2016, Additional history exists Tetanus booster 10/24/2030 10/24/2020, 09/16, 05/21/2007 Pneumococcal series for age 6-64 Aged Out 01/27/2012 No longer eligible based on patient's age to complete this topic Zoster (shingles) series for age 50+ Completed 09/07/2017, 07/07/2017, 04/29/2012 Tdap Completed 10/24/2020, 09/16, 05/21/2007 Procedures Procedure Name Priority Date/Time Associated Diagnosis Comments LIPID PANEL W REFLEX MEASURED LDL Routine 11/06/2010 9:12 AM CDT Mixed hyperlipidemia XR MAMMO BILAT SCREEN FFDM (IA) Routine 09/10/2010 1:40 PM CDT Screening mammogram HIDE CURER THIN PREP PAP SCREEN IMAGED Routine 10/08/2009 2:27 PM CDT Screening for malignant neoplasm of the cervix from Last 3 Months or Most Recently Relevant to Health Maintenance Results * (ABNORMAL) LIPID PANEL W REFLEX MEASURED LDL (11/06/2010 9:12 AM CDT) CHOLESTEROL,TOTAL 132 110 - 199 mg/dL [facility] TRIGLYCERIDES 241(H) <150 mg/dL [facility] HDL CHOLESTEROL 45 >40 mg/dL [facility] CHOL/HDL RATIO 2.93 <[address].51 [facility] LDL CHOLESTEROL 39 <131 mg/dL [facility] PATIENT STATUS Fasting [facility] Blood specimen (specimen) BLOOD SPECIMEN / Unknown 11/06/2010 9:12 AM CDT 11/06/2010 9:10 AM CDT Luisa De La Cruzbasiagael CHEMISTRY [facility] [address] [place] [address] * XR MAMMO BILAT SCREEN FFDM (09/10/2010 1:40 PM CDT) Anatomical Region Laterality Modality BREASTS, Breast Left, Breast Right Bilateral Mammography Impressions 09/17/2010 12:20 PM CDT ??There is no radiographic evidence for malignancy. ??Recommend annual mammograms. A lay language report of this examination will be provided to the patient. MAMMOGRAM ASSESSMENT: ??ACR 2 Benign Narrative 09/17/2010 12:20 PM CDT XR MAMMO BILAT SCREEN FFDM [G0202.0] CLINICAL HISTORY: ??This is an asymptomatic 50 y.o. patient. INDICATION FOR EXAM: Mammogram Screening. TECHNIQUE: CC & MLO views were obtained. ??This digital study was evaluated with the assistance of Computer-Aided Detection. ?? COMPARISON FILMS: Yes 01/03/03 OTHER FACILITY FINDINGS: ??Mammographically, the breast tissue has scattered fibroglandular densities (approximately 25% - 50% glandular). ??No suspicious masses or microcalcifications. ??Benign appearing mass(es) within left breast. Procedure Note Adonay Scott DO - 09/17/2010 XR MAMMO BILAT SCREEN FFDM [G0202.0] CLINICAL HISTORY: This is an asymptomatic 50 y.o. patient. INDICATION FOR EXAM: Mammogram Screening. TECHNIQUE: CC & MLO views were obtained. This digital study was evaluatedwith the assistance of Computer-Aided Detection. COMPARISON FILMS: Yes 01/03/03 OTHER FACILITY FINDINGS: Mammographically, the breast tissue has scatteredfibroglandular densities (approximately 25% - 50% glandular). Nosuspicious masses or microcalcifications. Benign appearing mass(es)within left breast. IMPRESSION: There is no radiographic evidence for malignancy. Recommendannual mammograms. A lay language report of this examination will be provided to the patient. MAMMOGRAM ASSESSMENT: ACR 2 Benign Luisa Harman MAMMO * pap screening (10/08/2009 2:27 PM CDT) Pathologist [facility] CYTOLOGY CYTOPATHOLOGY REPORT [facility] Status: Final Status ?[id number] CLINICAL INFORMATION Last Date of LMP ? :09/16/2009 Last Pap Date ?:unknown Last Pap Result ?:NIL ABN [place]/Bx Past 5 YRS :None Hormone Usage ?:None Menstrual Status ? :Postmenopausal [place]/Bx done today ? :No Additional Information :None given HPV Request ?:HPV if ASCUS SPECIMEN SOURCE ?:Cervical/vagina l ThinPrep Vial, screening SPECIMEN ADEQUACY ?:Satisfactory for evaluation Endocervical component ? present. INTERPRETATION/RES ULT Negative for intraepithelial lesion or malignancy (NIL) Non-Neoplastic Findings Parakeratosis Cytology 1st Screener ??:sag Signed by ?: ??Kirti Godfrey M.D. Interpreted at [facility] This specimen was screened by the FDA approved ThinPrep Imaging System and manually reviewed. NOTE: ??The Pap test is a screening technique, not a diagnostic procedure. ??It is used ??primarily to screen for squamous cancers and precursor lesions. ??Published studies have shown that it is subject to both false negative and false positive results. ??The pap test should not be used as the sole means to diagnose or exclude pre-malignant and malignant lesions. COLLECTED:10/08/09 ? ACCESSIONED: ??10/09/09 ?? SIGNED: ??10/16/09 [facility] PAP [place] CODE NIL [facility] Cervical/Vaginal (Cervical/Vagina l) 10/08/2009 2:27 PM CDT 10/08/2009 2:23 PM CDT Narrative [facility] - 10/16/2009 9:23 AM CDT Interpreted at [facility] Luisa Harman PATHOLOGY/CYTOL OGY [facility] [place] ZIP [id number] [address] from Last 3 Months or Most Recently Relevant to Health Maintenance Advance Directives * Full Code (Latest Code Status on File) Date Activated Date Inactivated Comments 05/01/2010 9:58 AM 05/01/2010 7:04 PM Care Teams Filling Station Laborer Relationship Specialty Start Date End Date Pcp, No . PCP - General 12/16/22 Neymar Noyola MD LINK TRAINER TEACHER Obstetrics and Gynecology 02/21/11
[2023-05-23] MEDS: POTASSIUM BICARB 25 MEQ EFFERVESCENT TAB PO (02:09)
== END 2023-05-23 02:35 | disposition home or self-care (01) ==
PROVIDERS: Emergency Provider Family Medicine
DX: G90.8 Other disorders of autonomic nervous system (principal); S00.83XA Contusion of other part of head, initial encounter; R55 Syncope and collapse; I95.9 Hypotension, unspecified
CPT/HCPCS: 36415; 70450; 80048; 81001; 83605; 83735; 84484; 85025; 93005; 94761; 99284; 99285; A9270; J7030

== ENCOUNTER 2023-10-06 10:40 | Outpatient (CLI) | payer MEDICAID, SELFPAY ==
--- NOTE | 2023-10-06 11:00 | CRLHL7_ITS ---
For Patients: As a result of the Century Cures Act, medical imaging exams and procedure reports are released immediately into your electronic medical record. You may view this report before your referring provider. If you have questions, please contact your health care provider. Indication: PAIN IN LEFT FOOT. PROXIMAL 4TH/5TH Technique: Noncontrast CT left foot Please note that all CT scans at this facility use dose modulation, iterative reconstruction, and/or weight-based dosing when appropriate to reduce radiation dose to as low as reasonably achievable. Comparison: X-rays 09/23/2023 Findings: Linear lucency through the volar base of the lateral cuneiform. Mildly displaced fractures involving the lateral aspect of lateral 2nd metatarsal base. Additional mildly displaced fractures associated with the lateral aspect of the medial cuneiform at the plantar aspect. Small densities are located adjacent to the 5th tarsometatarsal joint which appear to represent chronic ossicles. Subcutaneous edema noted and there is a focal collection of probable blood within the dorsal soft tissues measuring 12 millimeters. Displaced intra-articular fractures involving the proximal phalanges of the 4th toe and 5th toe again noted. The remaining phalanges are intact. Impression: Displaced intra-articular fractures involving the bases of the 4th and 5th toe proximal phalanges extending to the 4th and 5th MTP joints. The fractures are present at the medial aspects. Additional fractures including a nondisplaced fracture of the lateral cuneiform at the plantar aspect, fracture at the lateral base of the 2nd metatarsal and fracture at the lateral basilar medial cuneiform. No midfoot subluxation. Subcutaneous edema with probable dorsal subcutaneous hematoma measuring 12 millimeters. Please note that all CT scans at this facility use dose modulation, iterative reconstruction, and/or weight-based dosing when appropriate to reduce radiation dose to as low as reasonably achievable. Dictated by Gaurang Gill MD @ 10/06/2023 12:00:52 PM (Electronically Signed)
== END 2023-10-06 10:41 | disposition home or self-care (01) ==
LOC: CT 10:41
PROVIDERS: Visit Provider Physician Assistant
DX: M79.672 Pain in left foot (principal); S92.912A Unspecified fracture of left toe(s), initial encounter for closed fracture; S92.222A Displaced fracture of lateral cuneiform of left foot, initial encounter for closed fracture; S92.322A Displaced fracture of second metatarsal bone, left foot, initial encounter for closed fracture; S99.922A Unspecified injury of left foot, initial encounter
CPT/HCPCS: 73700

== ENCOUNTER 2024-07-06 00:49 | Outpatient (CLI) | payer MEDICAID, SELFPAY | END 2024-07-06 00:50 | disposition home or self-care (01) | LOC: AMB 07-07 11:04 | PROVIDERS: Visit Provider Family Medicine | DX: R53.1 Weakness (principal); R20.0 Anesthesia of skin | CPT/HCPCS: A0425; A0427 ==

== ENCOUNTER 2024-07-06 01:15 | Emergency (ER) | payer OTHER, SELFPAY ==
[2024-07-06 01:27] VITALS: BP 113/93; PULSE 60; RESP 16; TEMP 35.9; O2SAT 91; BMI 36.6
--- NOTE | 2024-07-06 01:27 | CRLHL7_ITS ---
For Patients: As a result of the Century Cures Act, medical imaging exams and procedure reports are released immediately into your electronic medical record. You may view this report before your referring provider. If you have questions, please contact your health care provider. INDICATION: Fall, back pain. TECHNIQUE: CT thoracic spine without contrast. COMPARISON: None. FINDINGS: Vertebrae: Alignment is normal. No acute fracture or traumatic subluxation. T9 hemangioma.. Discs and facet joints: Mild degenerative changes of the disc spaces from T6-T10. Mild multilevel bilateral facet arthrosis. No significant osseous spinal canal or neural narrowing visualized. Extraspinal findings: Mild dependent lower lobe atelectasis. Possible cardiomegaly. 3 mm nonobstructing right nephrolith IMPRESSION: No evidence of an acute bony abnormality within the thoracic spine. Please note that all CT scans at this facility use dose modulation, iterative reconstruction, and/or weight-based dosing when appropriate to reduce radiation dose to as low as reasonably achievable. Dictated by Gerald Lee MD @ 07/06/2024 1:56:52 AM (Electronically Signed)
--- NOTE | 2024-07-06 02:09 | ED.GENADULT ---
HPI - General Adult General Chief complaint: Weakness Stated complaint: Weakness Time Seen by Provider: 07/06/24 01:16 Source: patient and EMS Mode of arrival: EMS History of Present Illness HPI narrative: 64-year-old female arrives from assisted living facility reporting generalized malaise for the past 4 days. Had a fall on Thursday which is 4 days ago, not uncommon for her. She reports that she is prone to orthostatic hypotension and position changes causing fairly frequent falls. She states that she gets these about monthly. No specific fever or localizing symptoms of illness. No shortness of breath, no chest pain, no vomiting, no diarrhea. She reports 3/10 thoracic back pain since the fall and she did hit the back of her head. She has no history of seizures. No fall tonight. She just has continued to feel malaise and calls EMS for assistance. No focal weakness, it is global and diffuse. Denies injury to other parts of the body. No recent primary care visits. Reports that she gets most of her care through [facility]. No hip or knee pain. No open skin or sores. Symptoms are quite vague. EMS did not have any additional information either. Symptoms were reported is quite vague to them as well. Denies history of coronary artery disease, arrhythmias or heart problems. No anticoagulation. But admittedly, she does not or medications nor can she lists her medical problems for me. Review of the records shows that she has a history of chronic pain disorder, hypertension and Parkinson's disease. Does take chronic narcotics, sleep medications, medications for dementia, mental health, muscle relaxants. Many medications that could be contributing to global weakness, falls and also underlying conditions that would worsen this as well. Reports that she has a walker that she does not regularly use. Denies any specific chest pain, severe shortness of breath or prodromal symptoms prior to her fall on Thursday but does reassure me that this is quite common for her. Denies tobacco or alcohol intake, illicit drug use. No recent surgery. ROS is notable for the global symptoms and back pain as stated above, otherwise denies times 12 systems. Related Data Home Medications ?Medication ?Instructions ?Recorded ?Confirmed amitriptyline 50 mg tablet 50 mg PO QPM 06/05/22 06/16/24 amlodipine 10 mg tablet 10 mg PO DAILY 06/05/22 06/16/24 carbidopa ER 50 mg-levodopa 200 mg 1 tab PO QPM 06/05/22 06/16/24 tablet,extended release carvedilol 25 mg tablet 25 mg PO Q12H 06/05/22 06/16/24 cetirizine 10 mg tablet 10 mg PO DAILY PRN allergies 06/05/22 06/16/24 cholecalciferol (vitamin D3) 25 25 mcg PO DAILY 06/05/22 06/16/24 mcg (1,000 unit) tablet cyanocobalamin (vitamin B-12) 1,000 mcg PO DAILY 06/05/22 06/16/24 1,000 mcg tablet eszopiclone 3 mg tablet 3 mg PO QPM 06/05/22 06/16/24 famotidine 20 mg tablet 20 mg PO DAILY 06/05/22 06/16/24 ferrous sulfate 325 mg (65 mg 325 mg PO Q1D 06/05/22 06/16/24 iron) tablet (FeroSul) furosemide 40 mg tablet 40 mg PO DAILY PRN 06/05/22 06/16/24 ipratropium bromide 21 mcg (0.03 2 spray intranasal BID 06/05/22 06/16/24 %) nasal spray latanoprost 0.005 % eye drops 1 drp ophthalmic (eye) QPM 06/05/22 06/16/24 memantine 10 mg tablet 10 mg PO BID 06/05/22 06/16/24 oxycodone 5 mg tablet 7.5 mg PO Q6H PRN pain 06/05/22 06/16/24 pantoprazole 40 mg tablet,delayed 40 mg PO DAILY 06/05/22 06/16/24 release prazosin 2 mg capsule 2 mg PO QPM 06/05/22 06/16/24 quetiapine 100 mg tablet 100 mg PO HS 06/05/22 06/16/24 sennosides 8.6 mg-docusate sodium 1 tab-cap PO PRN 06/05/22 06/16/24 50 mg tablet (Stool Softener-Stimulant Laxative) sertraline 100 mg tablet 100 mg PO DAILY 06/05/22 06/16/24 simvastatin 20 mg tablet 20 mg PO QPM 06/05/22 06/16/24 tizanidine 4 mg tablet 4 mg PO Q8H PRN muscle spasm 06/05/22 06/16/24 Previous Rx's ?Medication ?Instructions ?Recorded pregabalin 50 mg capsule (Lyrica) 50 mg PO TID #90 caps 12/23/23 ciprofloxacin HCl 250 mg tablet 250 mg PO BID #6 tabs 07/06/24 Allergies Allergy/AdvReac Type Severity Reaction Status Date / Time losartan Allergy Severe Angioedema Verified 06/16/24 16:00 duloxetine Allergy Mild Hives, Verified 06/16/24 16:00 Nausea/Vomiting latex Allergy Mild Rash Verified 06/16/24 16:00 lisinopril Allergy Mild Rash Verified 06/16/24 16:00 phenylephrine Allergy Mild Rash, Verified 06/16/24 16:00 Swelling pregabalin Allergy Mild Rash Verified 06/16/24 16:00 tropicamide Allergy Mild Rash, Verified 06/16/24 16:00 Swelling gabapentin AdvReac Mild GI Verified 06/16/24 16:00 Intolerance, Nausea/Vomiting prednisone AdvReac Mild Agitation Verified 06/16/24 16:00 [facility] Medical History Frequent falls ?R29.6 - Repeated falls (ICD-10) Hypertensive heart disease ?I11.9 - Hypertensive heart disease without heart failure (ICD-10) SHREE (generalized anxiety disorder) ?F41.1 - Generalized anxiety disorder (ICD-10) PTSD (post-traumatic stress disorder) ?F43.10 - Post-traumatic stress disorder, unspecified (ICD-10) Depression, major, recurrent, moderate ?F33.1 - Major depressive disorder, recurrent, moderate (ICD-10) Morbid obesity ?E66.01 - Morbid (severe) obesity due to excess calories (ICD-10) Tachycardia, paroxysmal ?I47.9 - Paroxysmal tachycardia, unspecified (ICD-10) Chronic pain syndrome ?G89.4 - Chronic pain syndrome (ICD-10) Dependent personality disorder ?F60.7 - Dependent personality disorder (ICD-10) Panic disorder with agoraphobia ?F40.01 - Agoraphobia with panic disorder (ICD-10) EUGENIA (obstructive sleep apnea) ?G47.33 - Obstructive sleep apnea (adult) (pediatric) (ICD-10) Headache, chronic migraine without aura ?G43.709 - Chronic migraine without aura, not intractable, without status migrainosus (ICD-10) Chronic respiratory failure with hypoxia ?J96.11 - Chronic respiratory failure with hypoxia (ICD-10) History of falling ?Z91.81 - History of falling (ICD-10) Irritable bowel syndrome with diarrhea ?K58.0 - Irritable bowel syndrome with diarrhea (ICD-10) B12 deficiency ?E53.8 - Deficiency of other specified B group vitamins (ICD-10) Hypovitaminosis D ?E55.9 - Vitamin D deficiency, unspecified (ICD-10) Chronic diastolic (congestive) heart failure ?I50.32 - Chronic diastolic (congestive) heart failure (ICD-10) Restless leg syndrome ?G25.81 - Restless legs syndrome (ICD-10) Glaucoma ?H40.9 - Unspecified glaucoma (ICD-10) Nevus of choroid of right eye ?D31.31 - Benign neoplasm of right choroid (ICD-10) Corneal epithelial basement membrane dystrophy ?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 - Epithelial (juvenile) corneal dystrophy, unspecified eye (ICD-10) Dermatochalasis of both eyelids ?H02.833 - Dermatochalasis of right eye, unspecified eyelid (ICD-10) ?H02.836 - Dermatochalasis of left eye, unspecified eyelid (ICD-10) Ptosis of eyelid, bilateral ?H02.403 - Unspecified ptosis of bilateral eyelids (ICD-10) Fatty liver ?K76.0 - Fatty (change of) liver, not elsewhere classified (ICD-10) Supraventricular tachycardia ?I47.1 - Supraventricular tachycardia (ICD-10) Atrial tachycardia, paroxysmal ?I47.1 - Supraventricular tachycardia (ICD-10) Typical atrial flutter ?I48.3 - Typical atrial flutter (ICD-10) Elevated serum creatinine ?R79.89 - Other specified abnormal findings of blood chemistry (ICD-10) Hyperlipidemia ?E78.5 - Hyperlipidemia, unspecified (ICD-10) GERD (gastroesophageal reflux disease) ?K21.9 - Gastro-esophageal reflux disease without esophagitis (ICD-10) Paresthesia of both feet ?R20.2 - Paresthesia of skin (ICD-10) Rectal bleed ?K62.5 - Hemorrhage of anus and rectum (ICD-10) Globus sensation ?R09.89 - Other specified symptoms and signs involving the circulatory and respiratory systems (ICD-10) Rhinitis, chronic ?J31.0 - Chronic rhinitis (ICD-10) Hyperhidrosis ?R61 - Generalized hyperhidrosis (ICD-10) Syncope and collapse ?R55 - Syncope and collapse (ICD-10) Chronic kidney disease, stage 3a ?N18.31 - Chronic kidney disease, stage 3a (ICD-10) Surgical History Status post open reduction with internal fixation (ORIF) of fracture of ankle (06/06/22) ?Z98.890 - Other specified postprocedural states (ICD-10) ?Z87.81 - Personal history of (healed) traumatic fracture (ICD-10) Social History Narrative: She lives at the [facility]. She lives alone. She does not have to climb stairs. She believes her facility has available wheelchair for her to use along with crutches or a walker to be nonweightbearing on her right lower extremity. She does not smoke. She does not drink alcohol. She occasionally uses cannabis. Code status is full. Her father is healthcare power of environmental attorney. Highest level of school completed/degree received: high school graduate Smoking Status: Never smoker Do you use any of these nicotine containing products: None Second hand tobacco smoke exposure: No How often do you have a drink containing alcohol: monthly or less How many standard drinks containing alcohol do you have on a typical day: 1 or 2 AUDIT-C Alcohol total score: 1 Non-prescribed substance use: denies use Caffeine: No Do you think of yourself as: straight/heterosexual Gender Identity: female service: No Exam Const: Vital Signs, click to edit/add: Vital Signs - 24 hr 07/06/24 01:27 Temperature 96.6 F L Pulse Rate [Right Pulse Oximeter] 60 Respiratory Rate 16 Blood Pressure [Le ft Upper Arm] 113/93 H Pulse Oximetry 91 Oxygen Delivery Me thod Room Air Documenting provider has reviewed patient's vital signs: yes Common normals: no apparent distress General appearance: cooperative and comfortable Other: Moderate historian at best. Fair insight. HENMT: Common normals: normocephalic, moist oral mucous membranes, oropharynx normal and dentition normal Head and scalp: normocephalic Mouth: oral and palatal mucosa normal Eye: Common normals: conjunctivae normal General eye: normal appearance of both eyes Conjunctiva: conjunctiva(e) normal Neck & C-Spine: Common normals: full ROM and no lymphadenopathy Resp: Common normals: normal respiratory effort, no use of accessory muscles and clear to auscultation bilaterally Effort & inspection: able to speak in complete sentences Auscultation: clear to auscultation bilaterally Cardio: Common normals: regular rate, regular rhythm, S1 normal heart sound, S2 normal heart sound and no murmurs Rate: regular rate Rhythm: regular rhythm Heart sounds: S1 normal and S2 normal GI: Common normals: Normal to inspection, nondistended, normoactive bowel sounds present, soft to palpation, non-tender, no hepatosplenomegaly and no masses Palpation: soft and no hepatosplenomegaly Back & Pelvis: Other: Thoracolumbar spine with chronic appearing kyphosis, tenderness to palpation in the T8/T9 area. No obvious deformity. Extremity: Common normals: normal to inspection and normal capillary refill Other: No tenderness to palpation of knees, hips or ankles today. No deformity. Neuro: Common normals: moves all extremities and no focal motor deficits Speech: speech normal Motor exam: strength 5/5 throughout Psych: Appearance: grossly normal Attitude: calm Insight: fair Judgement: fair Skin: Common normals: no rashes or lesions noted Narrative: Small abrasion on bridge of nose, 1 small bruise on right knee area. All at least a few days old, no active bleeding. General skin exam: no rashes or lesions noted Course Course ED Course: 64-year-old female with a history of frequent falls presenting 5 days after a fall with back pain and generalized global weakness. No obvious signs of stroke or focal change. She is mildly bradycardic but does take carvedilol. Review of the record shows that this does tend to be fairly consistent for her. I think the patient is probably near her baseline. Will order chest x-ray, CT of the thoracic spine, basic labs. Re-evaluate once those are available, consider trial of ambulation. Reevaluation(s) Time of Reevaluation #1: 02:50 Reevaluation #1: Counseled patient on the lab, imaging findings. Mild bladder infection seems to be present. Culture pending. Will start ciprofloxacin 500 mg p.o. x1 in the ED and then continue on 250 b.i.d. for 3 days. Counseled patient that I am not certain that this is contributing to her symptoms but does warrant treatment. I do think that the generalized weakness that she has is multifactorial. I unfortunately do think that this will be chronic for her. She has underlying neuromuscular conditions that will make her fall more likely, have poor balance and weak in general and she is on many medications that will contribute to this. I do not think that the bradycardia is symptomatic. I do think it is safe for her to continue her beta-anita. I stressed the importance of use of her walker. Recommend primary care follow-up at least every 6 months to re-evaluate safety verses efficacy of her medications. Alarm symptoms reviewed that would warrant ED presentation. Written instructions provided. Vital Signs Vital signs: Initial Vital Signs Temperature 96.6 F L 07/06/24 01:27 Temperature Source Temporal Artery Scan 07/06/24 01:27 Pulse Rate 60 07/06/24 01:27 Respiratory Rate 16 07/06/24 01:27 Blood Pressure 113/93 H 07/06/24 01:27 Blood Pressure Mean 99 07/06/24 01:27 Blood Pressure Position Semi-Fowlers 07/06/24 01:27 Pulse Oximetry 91 07/06/24 01:27 Oxygen Delivery Method Room Air 07/06/24 01:27 Vital Signs Temperature 96.6 F L 07/06/24 01:27 Pulse Rate 60 07/06/24 01:27 Respiratory Rate 16 07/06/24 01:27 Blood Pressure 113/93 H 07/06/24 01:27 Pulse Oximetry 91 07/06/24 01:27 Oxygen Delivery Method Room Air 07/06/24 01:27 Temperature 96.6 F L 07/06/24 01:27 Pulse Rate 60 07/06/24 01:27 Respiratory Rate 16 07/06/24 01:27 Blood Pressure 113/93 H 07/06/24 01:27 Pulse Oximetry 91 07/06/24 01:27 Oxygen Delivery Method Room Air 07/06/24 01:27 Medical Decision Making Lab Data Lab results reviewed: Yes I reviewed the patient's lab results Lab results narrative: Urinalysis is suspicious for urinary tract infection, remainder of labs are quite reassuring. There are no signs of sepsis, cardiac process, electrolyte abnormality, renal failure, severe anemia or other abnormality. Labs: Lab Results 07/06/24 07/06/24 07/06/24 Range/Units 01:15 02:00 02:20 WBC 6.88 (4.50-11.00) K/uL RBC 4.20 (4.00-5.20) m/uL Hgb 12.2 (12.0-16.0) gm/dL Hct 38.1 (33.0-51.0) % MCV 91 (80-100) fL MCH 29 (26-34) pg MCHC 32 (32-36) gm/dL RDW Coeff of Selina 14.4 (11.5-15.5) % Plt Count 237 (140-440) K/uL Neut % (Auto) 64.9 (42.0-72.0) % Lymph % (Auto) 25.9 (20-44) % [place] % (Auto) 8.0 (0.0-11.0) % Eos % (Auto) 0.7 (0.0-7.0) % Baso % (Auto) 0.4 (0.0-3.0) % Neut # (Auto) 4.46 (1.7-7.0) K/uL Lymph # (Auto) 1.78 (0.90-2.90) K/uL [place] # (Auto) 0.60 (0.00-0.90) K/UL Eos # (Auto) 0.05 (0.00-0.50) K/uL Baso # (Auto) 0.03 (0.00-0.30) K/uL Abs Immat Gran (auto) 0.01 (0.00-0.30) K/uL Imm/Tot Granulo (auto) 0.1 % Sodium 143 (135-149) mmol/L Potassium 3.9 (3.6-5.1) mmol/L Chloride 110 (96-114) mmol/L Carbon Dioxide 26 (20-32) mmol/L Anion Gap 7 (7-15) mEq/L BUN 13 (7-30) mg/dL Creatinine 1.0 (0.5-1.5) mg/dL Estimated Creat Clear 44.36 Estimated GFR 63 ml/min Glucose 86 (60-115) mg/dL Calcium 8.7 (8.4-10.6) mg/dL Magnesium 2.1 (1.5-2.6) mg/dL Total Bilirubin 0.3 (0.1-1.5) mg/dL AST 18 (12-35) U/L ALT 14 (4-35) U/L Alkaline Phosphatase 101 (40-150) U/L C-Reactive Protein < 0.5 L (0.5-1.0) mg/dL NT-Pro-B Natriuret Pep 471 pg/mL Total Protein 6.2 (6.0-8.3) g/dL Albumin 3.6 (3.3-5.0) g/dL Urine Color Yellow (Yellow) Urine Appearance Slightly Cloudy A (Clear) Urine pH 6.0 (5.0-8.5) Ur Specific [place] 1.020 (1.000-1.030) Urine Protein 1+ A (Negative) Urine Glucose (UA) 2+ A (Negative) Urine Ketones Negative (Negative) Urine Blood Negative (Negative) Urine Nitrite Negative (Negative) Urine Bilirubin Negative (Negative) Urine Urobilinogen 0.2 (0.2-1.0) Ur Leukocyte Esterase 1+ A (Negative) Urine RBC 0-2 (0-2) Urine WBC 10-25 A (0-5) Ur Squamous Epith Cells Moderate A (None-Few) Urine Bacteria Moderate A (None) Urine Opiates Screen Negative (Negative) Ur Oxycodone Screen POSITIVE A (Negative) Urine Methadone Screen Negative (Negative) Ur Barbiturates Screen Negative (Negative) U Tricyclic Antidepress POSITIVE A (Negative) Ur Phencyclidine Scrn Negative (Negative) Ur Amphetamines Screen Negative (Negative) U Methamphetamines Scrn Negative (Negative) U Benzodiazepines Scrn Negative (Negative) Urine Cocaine Screen Negative (Negative) U Marijuana (THC) Screen Negative (Negative) Ur Drug Screen Comment See Note SARS-CoV-2 (PCR) Negative SARS-CoV-2 (Negative) Influenza Type A (PCR) Negative PCR FLU A (Negative) Influenza Type B (PCR) Negative PCR FLU B (Negative) RSV (PCR) Negative PCR RSV (Negative) POC Troponin I 0.00 L (0.01-0.04) ng/ml Imaging Data CT thoracic spine: Attestation: I have reviewed the pertinent imaging results. My impression: Degenerative changes but no acute fracture. Visualized chest does not show any signs of infiltrate, pleural effusion or other abnormality. Radiologist's impression: IMPRESSION: No evidence of an acute bony abnormality within the thoracic spine. Please note that all CT scans at this facility use dose modulation, iterative reconstruction, and/or weight-based dosing when appropriate to reduce radiation dose to as low as reasonably achievable. Dictated by Gerald Lee MD @ 07/06/2024 1:56:52 AM ECG Data Attestation: I personally reviewed and interpreted this ECG as follows: Prior ECG tracings: available for review (Comparison EKG 05/23/2023) Interpretation: Sinus rhythm with a rate of 56. T-waves are fairly flattened and a little inverted in the lateral leads which is unchanged from 05/23/2023. Otherwise normal intervals and axis. Stable EKG. Discharge Plan Discharge Clinical Impression: Urinary tract infection, Generalized weakness, Frequent falls Patient Disposition: Home w/ Parent or Adult Condition: Stable Instructions: Urinary Tract Infection in Older Adults (ED) Additional Instructions: As we discussed, your tests do not show any major infections, inflammatory conditions, heart abnormalities or problems with the other organs today. Your urine test does show a mild infection which certainly could be contributing to your weakness. I do recommend that we treat this and see if that helps you feel better. You were started on ciprofloxacin here in the emergency department. This will count as your Thursday morning dose. Will continue taking 1 pill 2 times daily for 3 days. Unfortunately, as we discussed, you are on many medications and have underlying musculoskeletal conditions which do make you more likely to fall. Unfortunately because of your chronic pain you are not moving as much as someone who needs to build strength and improve their balance. Therefore you are continuing to weak in. I trust the judgment of your primary care doctor that your medicines are more beneficial than harmful, but many of then do contribute to fatigue, balance issues and weakness. I would recommend you follow-up at least every 6 months to check in with your provider regarding these medications in terms of safety versus benefit. I do think that the generalized weakness, numbness in your legs and other symptoms are going to continue. Because of this I think it is important that you continue use of your walker and take all safety measures necessary to help prevent dangerous falls. Activity Level: Activity as Tolerated and Use Walker Discharge Diet: Regular Prescriptions: New ciprofloxacin HCl 250 mg tablet 250 mg PO BID Qty: 6 0RF No Action furosemide 40 mg tablet 40 mg PO DAILY PRN latanoprost 0.005 % drops 1 drp ophthalmic (eye) QPM carvedilol 25 mg tablet 25 mg PO Q12H Patient Comments: take 2 tablets by mouth twice a day cetirizine 10 mg tablet 10 mg PO DAILY PRN (Reason: allergies) tizanidine 4 mg tablet 4 mg PO Q8H PRN (Reason: muscle spasm) carbidopa-levodopa 50-200 mg tablet extended release 1 tab PO QPM sennosides-docusate sodium [Stool Softener-Stimulant Laxat] 8.6-50 mg tablet 1 tab-cap PO PRN sertraline 100 mg tablet 100 mg PO DAILY Patient Comments: take 2 tabs by mouth daily cyanocobalamin (vitamin B-12) 1,000 mcg tablet 1,000 mcg PO DAILY quetiapine 100 mg tablet 100 mg PO HS Patient Comments: take 3 tabs by mouth at bedtime amitriptyline 50 mg tablet 50 mg PO QPM famotidine 20 mg tablet 20 mg PO DAILY amlodipine 10 mg tablet 10 mg PO DAILY pantoprazole 40 mg tablet,delayed release (DR/EC) 40 mg PO DAILY simvastatin 20 mg tablet 20 mg PO QPM ferrous sulfate [FeroSul] 325 mg (65 mg iron) tablet 325 mg PO Q1D ipratropium bromide 21 mcg (0.03 %) spray,non-aerosol 2 spray INTRANASAL BID prazosin 2 mg capsule 2 mg PO QPM oxycodone 5 mg tablet 7.5 mg PO Q6H PRN (Reason: pain) memantine 10 mg tablet 10 mg PO BID eszopiclone 3 mg tablet 3 mg PO QPM cholecalciferol (vitamin D3) 25 mcg (1,000 unit) tablet 25 mcg PO DAILY pregabalin [Lyrica] 50 mg capsule 50 mg PO TID Qty: 90 2RF Rx Instructions: Listed as a current allergy, however patient would like to retry this Rx. Take one capsule by mouth three times a day. Follow Up/Referrals: Provider,Not a Local [Primary Care Provider, Family Practice] Stand Alone Forms: [facility] Info Instructions
--- OUTSIDE RECORDS SUMMARY | 2024-07-06 02:09 | XMS_ITS | Encounter Summary ---
Author Organization [facility] Address [address] [place] [address] Care Team Providers Care Identification Officer Name Role Phone Susana Rowe M.D. Primary Care Provider Encounter Details Date Type Department Care Team (Late st Contact Info) Description 03/26/2016 Historical Ophthalmology RST OPH Beba Trotter O.D. 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 - 03/26/2016 12:25 PM CST Eye General CHIEF COMPLAINT Blurred vision HISTORY OF PRESENT ILLNESS Patient is here today for an updated eye exam. Patient has noticed a gradual decrease in near, intermediate and distance vision in both eyes most of the time. When wearing her glasses, her vision is better. Patient states she will get a headache after wearing her glasses. To note patient had an allergy test on February 06 in which she was off all of her normal medications for 5 days prior. She states when off her medications her vision was blurry and her body was out of control. She was put back on her medications that same day. The same day patient was given 15shots of Botox for migraines. She states her eyelids went droopy after that. Patient states her eyelids are starting to be less droopy, the past couple of days have been the best. Denies pain, flashes, and new floaters. Denies diplopia. IMPRESSION / REPORT / PLAN #1 Refractive error (hyperopic astigmatism, presbyopia). Plan: spectacle prescription (Refraction 1) given. #2 Choroidal nevus, right eye stable undilated exam due to past reaction to dilation drops discussed DIAGNOSIS #1 Refractive error (hyperopic astigmatism, presbyopia). #2 Choroidal nevus, right eye CDM Reports - EYEGEN Id: [id number] Status: Fnl documented in this encounter Plan of Treatment Upcoming Encounters Date Type Department Care Team (Late st Contact Info) Description 07/18/2024 1:30 PM CDT Appointment Department of Neurology in [address] [phone] Stiven Zavaleta M.D. [address] [place] [phone] Geovanna Navarrete M.D. [address] [place] [phone] Discharge Disposition: Home or Self Care 08/15/2024 1:00 PM CDT Office Visit Department of Neurology in [place], [place] [address] [place] [phone] Ashley Webster APRN, C.N.P., M.S.N. 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 [address] [place] [phone] PCP - General Internal Medicine 08/21/23 documented as of this encounter
--- OUTSIDE RECORDS SUMMARY | 2024-07-06 02:09 | XMS_ITS | Encounter Summary ---
Author Organization [facility] Address [address] [place] [address] Care Team Providers Care Char Filter Tank Tender Name Role Phone Susana Rowe M.D. Primary Care Provider [phone] Encounter Details Date Type Department Care Team (Late st Contact Info) Description 01/31/2014 Historical Ophthalmology RST OPH Dion Bridges O.D. 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 - 01/31/2014 1:18 PM CST Eye General CHIEF COMPLAINT blurry vision HISTORY OF PRESENT ILLNESS Blurry vision; past 6 months;consistent; both eyes;moderate; both near and distance. Photophobic; over the past year; especially with approaching cars at night; both eyes. Headaches; past 2-3 months; come and go; moderate; no pattern noted. Denies flashing lights,change in floaters, diplopia, or eye pain. IMPRESSION / REPORT / PLAN #1 Refractive error (hyperopic astigmatism, presbyopia). Plan: spectacle prescription (Refraction 1) given. #2 Choroidal nevus, right eye Plan: monitor, get baseline photos Return every 1 year for vision, tonometry, and dilation. DIAGNOSIS #1 Refractive error (hyperopic astigmatism, presbyopia). #2 Choroidal nevus, right eye CDM Reports - EYEGEN Id: [id number] Status: Fnl documented in this encounter Plan of Treatment Upcoming Encounters Date Type Department Care Team (Late st Contact Info) Description 07/18/2024 1:30 PM CDT Appointment Department of Neurology in [place], [place] [address] [place] [phone] Stiven Zavaleta M.D. [address] [place] [phone] Geovanna Navarrete M.D. [address] [place] [phone] Discharge Disposition: Home or Self Care 08/15/2024 1:00 PM CDT Office Visit Department of Neurology in [place], [place] [address] [place] [phone] Ashley Webster APRN, C.N.P., M.S.N. [address] [place] [phone] documented as of this encounter Visit Diagnoses Not on filedocumented in this encounter Additional Health Concerns Infection Onset Date Last Indicated Resolved Time COVID19 Pending 12/20/2019 12/20/2019 12/21/2019 8 :08 AM MACHINE TOOL MECHANIC COVID19 Pending 02/24/2020 02/24/2020 02/24/2020 6 :13 PM MACHINE TOOL MECHANIC COVID19 Pending 04/09/2020 04/09/202004/0904/09/2020 9 :39 PM MACHINE TOOL MECHANIC COVID19 Pending 05/26/2020 05/26/2020 05/26/2020 1 0:01 PM CDT COVID19 Pending 10/14/2022 10/14/2022 10/14/2022 3 :44 PM CDT COVID19 Pending 10/14/2022 10/14/2022 10/14/2022 6 :55 PM CDT COVID19 Pending 10/14/2022 10/14/2022 10/14/2022 8 :02 PM CDT Assessment Noted Time PHQ-9 Depression Total Score: 25 014 2:48 PM MACHINE TOOL MECHANIC documented as of this encounter Care Teams Char Filter Tank Tender Relationship Specialty Start Date End Date Susana Rowe M.D. [address] [place] [phone] PCP - General Internal Medicine 08/21/23 documented as of this encounter
--- OUTSIDE RECORDS SUMMARY | 2024-07-06 02:09 | XMS_ITS | Clinical Summary ---
Author Organization [facility] Address [address] [place] [id number] Care Team Providers Care Concrete Layer Name Role Phone Neymar Noyola MD Unavailable Unavailable Pcp, No Primary Care Provider Unavailabl e Allergies Active Allergy Reactions Criticality Noted Date Comments Adhesive Rash 07/28/2013 Duloxetine Nausea And Vomiting 03/05/2010 Nausea and vomiting, hives (Cymbalta) Gabapentin Nausea And Vomiting 07/07/2012 Lisinopril Rash 11/16/2017 Losartan Shortness Of Breath High 11/16/2017 Pregabalin Rash 02/01/2016 Prednisone Other - Describe In Comment Field 02/22/2016 agitation Medications ketoconazole 2% topical (NIZORAL) 2 % creamIndications :Rash and other nonspecific skin eruption Apply topically to affected area(s) once daily. 1 Tube 1 2 Active eszopiclone (LUNESTA) 3 mg tablet Take 1 tablet by mouth at bedtime. 0 3 Active clonazePAM (KLONOPIN) 1 mg tablet Take 1 tablet by mouth 2 times daily if needed. 0 3 Active simvastatin (ZOCOR) 40 mg tablet Take 1 tablet by mouth at bedtime. 0 4 Active carbidopa-levodo pa controlled release, 50-200 mg, (SINEMET CR 50-200) 50-200 mg tablet Take 1 tablet by mouth at bedtime. 3 8 Active latanoprost (XALATAN) 0.005 % ophthalmic solution ADMINISTER 1 DROP INTO BOTH EYES AT BEDTIME. 3 8 Active SUMAtriptan (IMITREX) 50 mg tabletIndication s:Migraine syndrome Take one upon onset of migraine. Then another in 2 hours. Max Dose: 200mg per 24hrs. 30 tablet 9 Active tiZANidine (ZANAFLEX) 2 mg tablet Take 2 mg by mouth. 9 Active sertraline (ZOLOFT) 50 mg tabletIndication s:Dysthymic disorder Take 3 tablets by mouth every morning. 0 9 Active furosemide (LASIX) 40 mg tabletIndication s:Heart failure with preserved ejection fraction, unspecified HF chronicity (HC) TAKE ONE TABLET BY MOUTH DAILY 90 tablet 3 0 Active amLODIPine (NORVASC) 5 mg tablet 0 Active amitriptyline (ELAVIL) 50 mg tablet 0 Active acetaminophen-ca ffeine-butalbita l (FIORICET) 325-40-50 mg tablet 0 Active memantine (NAMENDA) 10 mg tablet 0 Active carvediloL (COREG) 25 mg tablet TAKE 1 AND ONE-HALF TABLETS BY MOUTH 2 (TWO) TIMES A DAY WITH MEALS. 1 Active QUEtiapine (SEROqueL) 200 mg tablet Take 1 Tablet (200 mg) by mouth 2 times daily. 0 1 Active cyclobenzaprine (FLEXERIL) 5 mg tabletIndication s:Sacral back pain Take 1 Tablet (5 mg) by mouth 3 times daily. 30 Tablet 1 Active oxyCODONE (ROXICODONE) 5 mg immediate release tabletIndication s:Sacral back pain Take 1 Tablet (5 mg) by mouth every 4 hours if needed for Pain. 10 Tablet 1 Active Active Problems Problem Noted Date Diagnosed Date Heart failure with preserved ejection fraction 0 08/23/2019 Palpitations 08/23/2019 Atypical chest pain 08/23/2019 Adjustment disorder with mixed anxiety and depre ssed mood 09/30/2011 S/P prosthetic total arthroplasty of the hip 05/2011 Pain medication agreement 04/27/2011 Overview (04/27/2011): Controlled substance contract signed 12/06/2010, see scanned document NG, BABAK, RN 04/27/2011 4:57 AM Spondylolisthesis of lumbar region 04/02/2011 Overview (04/02/2011): Moderate L4-5 degenerative disease on mri 01/2011 DJD (degenerative joint disease) of hip 04/02/19 12 Overview (04/02/2011): Left hip Vitamin B12 deficiency 04/02/2011 Obesity, [...] not stated as uncontrolled 05/21/2007 09/17/2009 Immunizations Immunization Administration Dates Next Due AMB Influenza, IIV3 [...] Paying Living Expenses Not on file 02/12/2021 Comments No Sex and Gender Information Value Date Recorded Sex Assigned at Not on file 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 Gender Identity Not on file Sexual Orientation Not on file Obstetrics History Para Term AB IAB SAB Ectopic Multiple Livin g Live Births 2 1 0 0 1 1 0 0 0 1 1 Date Outcome GA Total Labor Labor/2nd/3rd Weight Sex Type Anes PTL Kasia A1 A5 Name Clin Para Living IAB Last Filed Vital Signs Vital Sign Reading Time Taken Comments Blood Pressure 148/85 11/15/2020 12:56 PM CDT Pulse 90 11/15/2020 12:56 PM CDT Temperature 37.6 C (99.6 F) 11/15/2020 12:56 PM CDT Respiratory Rate 20 09/20/2019 10:0 5 AM CDT Oxygen Saturation 94% 11/15/2020 12: 56 PM CDT Inhaled Oxygen Concentration - - Weight 116.2 kg (256 lb 3.2 oz) 021 12:56 PM CDT Height 158.4 cm (5' 2.36) 11/15/2020 1 2:56 PM CDT Body Mass Index 46.32 11/15/2020 12:56 PM CDT Plan of Treatment Health Maintenance Due Date Last Done Comments Depression screening for age 12+ 1971 HIV for age 15-65 06/15/1974 Hepatitis C screening for ag e 18-79 06/15/1977 Pneumococcal series for age 50+ (2 of 2 - PCV) 01/26/2013 01/27/2012 Pap test for age 21-65 10/17/2018 6 (Completed outside of [facility]), 10/08/2009 Mammogram for age 45-75 05/18/2019 05/18/19 19 (Completed outside of [facility]), 02/19/2015 (Completed outside of [facility]), 12/31/2011 (Completed outside of [facility]?), Additional history exists Colonoscopy through age 75 09/12/2020 09/12/2010, Lipids for age 45-75 10/17/2020 10/18/2015 (Completed outside of [facility]), 11/06/2010, 10/08/2010, Additional history exists BMI (ht and wt on same day) for age 18+ 11/15/2021 11/15/2020, 09/26/2019, 08/23/2019, Additional history exists COVID-19 vaccine series ( season) 2023 11/15/2021, 06/05/2020, 05/02/2020 DEXA/DXA scan for age 65+ 06/15/2024 Influenza Vaccine (Season Ended) 2024 12/01/2018, 12/03/2017, 11/16/2017, Additional history exists Tetanus booster 10/24/2030 10/24/2020, 09/16, 05/21/2007 RSV vaccine for adults or (1 - 1-dose 75+ series) 06/15/2034 Zoster (shingles) series for age 50+ Completed 09/07/2017, 07/07/2017, 04/29/2012 Tdap Completed 10/24/2020, 09/16, 05/21/2007 Procedures Procedure Name Priority Date/Time Associated Diagnosis Comments LIPID PANEL W REFLEX MEASURED LDL Routine 11/06/2010 9:12 AM CDT Mixed hyperlipidemia XR MAMMO BILAT SCREEN FFDM (IA) Routine 09/10/2010 1:40 PM CDT Screening mammogram 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 TRIGLYCERIDES 241(H) <150 mg/dL [facility] HDL CHOLESTEROL 45 >40 mg/dL [facility] CHOL/HDL RATIO 2.93 <4.51 [facility] LDL CHOLESTEROL 39 <131 mg/dL [facility] PATIENT STATUS Fasting [facility] Blood specimen (specimen) BLOOD SPECIMEN / Unknown 11/06/2010 9:12 AM CDT 11/06/2010 9:10 AM CDT us Luisa Harman CHEMISTRY Final R esult [facility] [address] [place] [address] * XR MAMMO BILAT SCREEN FFDM (09/10/2010 1:40 PM CDT) Anatomical Region Laterality Modality BREASTS, Breast Left, Breast Right Bilateral Mammography Impressions 09/17/2010 12:20 PM CDT There is no radiographic evidence for malignancy. Recommend annual mammograms. A lay language report of this examination will be provided to the patient. MAMMOGRAM ASSESSMENT: ACR 2 Benign Narrative 09/17/2010 12:20 PM CDT XR MAMMO BILAT SCREEN FFDM [G0202.0] CLINICAL HISTORY: This is an asymptomatic 50 y.o. patient. INDICATION FOR EXAM: Mammogram Screening. TECHNIQUE: CC & MLO views were obtained. This digital study was evaluated with the assistance of Computer-Aided Detection. COMPARISON FILMS: Yes 01/03/03 OTHER FACILITY FINDINGS: Mammographically, the breast tissue has scattered fibroglandular densities (approximately 25% - 50% glandular). No suspicious masses or microcalcifications. Benign appearing mass(es) within left breast. Procedure Note [...] ASSESSMENT: ACR 2 Benign Luisa Harman MAMMO Final R esult * pap screening (10/08/2009 2:27 PM CDT) CYTOLOGY CYTOPATHOLOGY REPORT [facility] Status: Final Status [id number] CLINICAL INFORMATION Last Date of LMP :09/16/2009 Last Pap Date :unknown Last Pap Result :NIL ABN [place]/Bx Past 5 YRS :None Hormone Usage :None Menstrual Status :Postmenopausal [place]/Bx done today :No Additional Information :None given HPV Request :HPV if ASCUS SPECIMEN SOURCE :Cervical/vaginal ThinPrep Vial, screening SPECIMEN ADEQUACY :Satisfactory for evaluation Endocervical component present. INTERPRETATION/RES ULT Negative for intraepithelial lesion or malignancy (NIL) Non-Neoplastic Findings Parakeratosis Cytology 1st Screener :sag Signed by : Kirti Godfrey M.D. Interpreted at [facility] This specimen was screened by the FDA approved ThinPrep Imaging System and manually reviewed. NOTE: The Pap test is a screening technique, not a diagnostic procedure. It is used primarily to screen for squamous cancers and precursor lesions. Published studies have shown that it is subject to both false negative and false positive results. The pap test should not be used as the sole means to diagnose or exclude pre-malignant and malignant lesions. COLLECTED:10/08/09 ACCESSIONED: 10/09/09 SIGNED: 10/16/09 [facility] PAP [place] CODE NIL [facility] Cervical/Vaginal (Cervical/Vagina l) 10/08/2009 2:27 PM CDT 10/08/2009 2:23 PM CDT Narrative [facility] - 10/16/2009 9:23 AM CDT Interpreted at [facility] Luisa Harman PATHOLOGY/CYTOLOGY Ashlie l Result [facility] [place]IP [phone] [phone] from Last 3 Months or Most Recently Relevant to Health Maintenance Insurance [facility] Advance Directives * Full Code (Latest Code Status on File) Date Activated Date Inactivated Comments 05/01/2010 9:58 AM 05/01/2010 7:04 PM Care Teams Concrete Layer Relationship Specialty Start Date End Date Pcp, No . PCP - General 12/16/22 eNymar Noyola MD PUTTY REMOVER Obstetrics and Gynecology 02/21/11
--- OUTSIDE RECORDS SUMMARY | 2024-07-06 02:09 | XMS_ITS | Encounter Summary ---
Author Organization [facility] Address [address] [place] [address] Care Team Providers Care Correspondent Name Role Phone Susana Rowe M.D. Primary Care Provider Encounter Details Date Type Department Care Team (Late st Contact Info) Description 02/03/2014 Historical Ophthalmology RST OPH Dion Bridges O.D. 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 - 02/03/2014 8:57 AM CST Eye Subsequent Visit HISTORY OF PRESENT ILLNESS Patient is here for photos only. Patient noted swelling, redness, irritation and itching of her eyes after her visit on 01/31. Allergies: Medication : CYMBALTA - Hives; GABAPENTIN - GI Upset Other : ADHESIVE TAPE - Rash; BAND-AID - Rash IMPRESSION / REPORT / PLAN #1 Choroidal nevus, right eye Photo Interpretation: Photos confirm and document clinical findings of diagnosis and are of sufficient quality to permit their use to follow disease progression. Plan: monitor annually DIAGNOSIS #1 Choroidal nevus, right eye CDM Reports - EYESV Id: [id number] Status: Fnl documented in this encounter Plan of Treatment Upcoming Encounters Date Type Department Care Team (Late st Contact Info) Description 07/18/2024 1:30 PM CDT Appointment Department of Neurology in [place], [place] [address] [place] [phone] Stiven Zavaleta M.D. [address] [place] [phone] Geovanna Navarrete M.D. [address] [place] [phone] Discharge Disposition: Home or Self Care 08/15/2024 1:00 PM CDT Office Visit Department of Neurology in [place], [place] [address] [place] [phone] Ashley Webster APRN, C.N.P., M.S.N. 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 COVID19 Pending 02/24/2020 02/24/2020 02/24/2020 6 :13 PM MANAGER PROGRESSIVE CARE COVID19 Pending 04/09/2020 04/09/2020 04/09/2020 9 :39 PM MANAGER PROGRESSIVE CARE COVID19 Pending 05/26/2020 05/26/2020 05/26/2020 1 0:01 PM CDT COVID19 Pending 10/14/2022 10/14/2022 10/14/2022 3 :44 PM CDT COVID19 Pending 10/14/2022 10/14/2022 10/14/2022 6 :55 PM CDT COVID19 Pending 10/14/2022 10/14/2022 10/14/2022 8 :02 PM CDT Assessment Noted Time PHQ-9 Depression Total Score: 25 014 2:48 PM MANAGER PROGRESSIVE CARE documented as of this encounter Care Teams Correspondent Relationship Specialty Start Date End Date Susana Rowe M.D. [address] [place] [phone] PCP - General Internal Medicine 08/21/23 documented as of this encounter
--- OUTSIDE RECORDS SUMMARY | 2024-07-06 02:10 | XMS_ITS | Encounter Summary ---
Author Organization [facility] Address [address] [place] [id number] Care Team Providers Care Hcc Coders Name Role Phone Susana Rowe M.D. Primary Care Provider Reason for Visit * Reason Onset Date Comments Med Refill 06/26/2024 Encounter Details Date Type Department Care Team (Late st Contact Info) Description 06/26/2024 Refill Division of Community Internal Medicine, [facility] in [place], [place] [address] [place] [phone] Susana Rowe M.D. [address] [place] [phone] Med Refill Social History Tobacco Use Types Packs/Day Years Used Date Smoking Tobacco: Never Passive Smoke Exposure: Past Smokeless Tobacco: Never Alcohol Use Standard Drinks/Week Comments No 0 (1 standard drink = 0.6 oz pur e alcohol) [facility] Utilities Answer Date Recorded In the past 12 months has e electric, gas, oil, or water company threatened to shut off services in your home? No 03/10/2023 Humiliation, Afraid, Rape, and Kick questionnair e Answer Date Recorded Within the last year, have y ou been afraid of your partner or ex-partner? No 02/11/2022 Within the last year, have y ou been humiliated or emotionally abused in other ways by your partner or ex-partner? No Within the last year, have y ou been kicked, hit, slapped, or otherwise physically hurt by your partner or ex-partner? No 02/11/2022 Within the last year, have y ou been raped or forced to have any kind of sexual activity by your partner or ex-partner? No 02/11/2022 Social Connection and Isolat ion Panel [NHANES] Answer Date Recorded In a typical week, how many times do you talk on the phone with family, friends, or neighbors? More than three times a week 02/11/2022 How often do you get togethe r with friends or relatives? Three times a week 02/11/2022 How often do you attend chur or pentecostalism services? Never 02/11/2022 Do you belong to any clubs o r organizations such as muslim groups, unions, fraternal or athletic groups, or school groups? No 02/11/2022 How often do you attend meet ings of the clubs or organizations you belong to? Patient declined 02/11/2022 Are you , , di vorced, , never , or living with a partner? 02/11/2022 AUDIT-C Answer Date Recorded Q1: How often do you have a drink containing alc ohol? Never 02/11/2022 Average Number of Drinks Not on file 022 Frequency of Binge Drinking Not on file 01/17 Overall Financial Resource Strain (CARDIA) Answe r Date Recorded How hard is it for you to pa y for the very basics like food, housing, medical care, and heating? Somewhat hard 02/11/2022 PHQ-2 Answer Date Recorded PHQ-2 Score 2 04/19/2024 [facility] [place] [facility] - Occupational Stress Questionnaire Answer Date Recorded Do you feel stress - tense, restless, nervous, or anxious, or unable to sleep at night because your mind is troubled all the time - these days? To some extent 02/11/2022 Exercise Vital Sign Answer Date Recorde d On average, how many days pe r week do you engage in moderate to strenuous exercise (like a brisk walk)? 0 days 03/09/2023 On average, how many minutes do you engage in exercise at this level? 0 min 03/09/2023 Hunger Vital Sign Answer Date Recorded Within the past 12 months, y ou worried that your food would run out before you got the money to buy more. Often true 03/10/19 24 Within the past 12 months, t he food you bought just didn't last and you didn't have money to get more. Often true 03/10/2023 PRAPARE - Transportation Answer Date Re corded In the past 12 months, has l ack of transportation kept you from medical appointments or from getting medications? No 02/17 In the past 12 months, has l ack of transportation kept you from meetings, work, or from getting things needed for daily living? No 03/10/2023 Depression Answer Date Recor ded PHQ-9 Total Score (max 27) 6 04/19 Nutrition Answer Date Recorded On average, how many serving s of fruits and vegetables do you eat per day (serving size is equal to 1 cup or approximately the size of a tennis ball)? 0-2 03/09/2023 Dental Answer Date Recorded Dental: Regular Dentist Yes 04/06/19 Employment Answer Date Recorded Employment status Permanently disabled Housing Stability Answer Date Recorded What is your living situation today? I have a [facility] place to live 03/10/2023 Education Answer Date Recorded What is the highest level of school you have completed or the highest degree you have received? 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 - 06/30/2024 8:40 AM CDT Controlled substance renewal for Oxycodone IR 5 mg: No nursing alert. Renewal is pended per the controlled substance prescribing plan located in Synopsis Controlled Substances Date last prescribed (First fill date if included in last Rx): 06/08/2024 Last provider visit: care team 04/19/2024 Urine Drug Screen last resulted on: 08/06/2023; Next due: 08/02/[address] Screenings due: current Next provider visit due: 10/20/2024 Controlled substance agreement last reviewed/signed 01/19/2024 This prescription may be filled on 07/06/2024, and next renewal may be on or after 08/03/2024 * Telephone Encounter - Elizabeth Blake - 06/27/2024 6:50 AM CDT Needs Review: Med Refill Team is unable to forward request to provider. Controlled Substance Primary Provider: Agata Rowe M.D. Requested Prescriptions Pending Prescriptions Disp Refills oxyCODONE (Roxicodone) 5 mg immediate release tablet 126 tablet 0 Sig: Take 1.5 tablets (7.5 mg total) by mouth 3 (three) times a day as needed for pain Indication: Chronic Pain/Nonacute Pain. documented in this encounter Plan of Treatment Upcoming Encounters Date Type Department Care Team (Late st Contact Info) Description 07/18/2024 1:30 PM CDT Appointment Department of Neurology in [place], [place] [address] [place] [phone] Stiven Zavaleta M.D. [address] [place] [phone] Geovanna Navarrete M.D. [address] [place] [phone] Discharge Disposition: Home or Self Care 08/15/2024 1:00 PM CDT Office Visit Department of Neurology in [place], [place] [address] [place] [phone] Ashley Webster APRN CJhonNJhonP., M.S.N. 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 [address] [place] [phone] PCP - General Internal Medicine 08/21/23 documented as of this encounter
--- OUTSIDE RECORDS SUMMARY | 2024-07-06 02:10 | XMS_ITS | Clinical Summary ---
Author Organization [facility] Address [address] [place] [address] Care Team Providers Care Home Care Specialist Name Role Phone Susana Rowe M.D. Primary Care Provider [phone] Source Comments Patient records contain information from all sites at [facility]. For routine questions regarding patient records, call [phone] during business hours, M-F 8:00 AM - 5:00 PM Central Time. Record requests for emergency care only can be directed to [phone] at any time.[facility] Allergies Active Allergy Reactions Criticality Noted Date Comments Adhesive Rash 07/28/2013 Adhesive Tape-Silicones Rash 05/24/2013 Duloxetine Hives (Reselect Reaction),Nausea And Vomiting 03/05/2010 Nausea and vomiting, hives (Cymbalta) Gabapentin GI intolerance,Nausea And Vomiting 06/10/2012 Latex Rash 07/27/2015 Escitalopram Oxalate Shortness of breath (Reselect Reaction),Itching,Ra sh High 11/15/2021 Lisinopril Other (see comments),Rash 02/07/2016 facial angioedema told to stop lamont inhib Losartan Angioedema (Reselect Reaction),Shortness of breath (Reselect Reaction) High 11/02/2017 Phenylephrine Other (see comments) 02/06/2014 Drops-BURNING, SWELLING EYELIDS, RASH Prednisone Other (see comments) 02/22/2016 agitation Pregabalin Other (see comments),Rash 03/06/2015 Tropicamide Other (see comments) 02/06/2014 Drops-BURNING, SWELLING OF EYELIDS, RASH Medications * This document contains information received from the source organization and may not represent a complete record from that organization. dorzolamide-gonzález oloL (COSOPT) 22.3-6.8 mg/mL ophthalmic solution Administer 1 drop into both eyes 2 (two) times a day. 10 mL 5 02/13/20 22 Active naloxone (NARCAN) 4 mg/actuation nasal spray Administer 1 spray (4 mg total) into one nostril as needed for reversal. Use 1 spray in 1 nostril. Repeat with second device in other nostril after 2-3 minutes if no or minimal response. 2 each 11/15/19 23 Active clotrimazole (LOTRIMIN) 1 % cream Apply 1 Application topically 2 (two) times a day. Apply to affected areas. 30 g 1 12/11/19 23 Active latanoprost (Xalatan) 0.005 % ophthalmic solution instill 1 drop in both eyes at bedtime 2.5 mL 11 10/28/19 24 Active simvastatin (Zocor) 20 mg tablet TAKE ONE TABLET (20MG) BY MOUTH AT BEDTIME 90 tablet 3 11/23/19 24 Active DME OxygenIndicatio ns:Chronic Respiratory Failure With Hypoxia (HCC) DME Order - for details see Order Report 1 each 01/19/20 24 Active cholecalciferol , vitamin D3, 25 mcg (1,000 Unit) tablet Take 1 tablet (25 mcg total) by mouth daily. 90 tablet 3 01/19/20 24 Active lidocaine (LMX) 4 % cream Apply 1 Application topically 3 (three) times a day as needed for pain. Apply to back. 30 g 3 01/19/20 24 Active Additional Information Patient not taking.Reported on 04/19/2024 amLODIPine (Norvasc) 10 mg tablet Take 1 tablet (10 mg total) by mouth daily. 30 tablet 5 01/19/20 24 Active cetirizine (ZyrTEC) 10 mg tablet Take 1 tablet (10 mg total) by mouth daily as needed for allergies. 30 tablet 11 01/19/20 24 Active cyanocobalamin (Vitamin B-12) 1,000 mcg tablet Take 1 tablet (1,000 mcg total) by mouth daily. 30 tablet 11 01/20/20 24 2024 Active sennosides (senna) 8.6 mg tablet Take 1 tablet (8.6 mg total) by mouth daily. 90 tablet 3 01/26/20 24 Active Additional Information Patient taking differently:8.6 mg oralAs needed, constipation, Informant: Self, Reported on 04/19/2024 polyethylene glycol (Miralax) 17 gram powder packetIndicatio ns:Drug Induced Constipation Take 1 packet (17 g total) by mouth 3 (three) times a day. Dissolve each 17 g dose in 240 mLs (8 ounces) of beverage. 270 packet 3 01/26/20 24 Active tirzepatide (Zepbound) 2.5 mg/0.5 mL injection penIndications: Morbid Obesity Body Mass Index 40.0-44.9 Adult (HCC) Inject 2.5 mg under the skin every 7 (seven) days. 2 mL 02/14/20 24 Active Additional Information Patient not taking.Reported on 04/19/2024 tirzepatide (Zepbound) 5 mg/0.5 mL injection penIndications: Morbid Obesity Body Mass Index 40.0-44.9 Adult (HCC) Inject 5 mg under the skin every 7 (seven) days. 2 mL 02/14/20 24 Active Additional Information Patient not taking.Reported on 04/19/2024 tirzepatide (Zepbound) 7.5 mg/0.5 mL injection penIndications: Morbid Obesity Body Mass Index 40.0-44.9 Adult (HCC) Inject 7.5 mg under the skin every 7 (seven) days. 2 mL 02/14/20 24 Active Additional Information Patient not taking.Reported on 04/19/2024 memantine (Namenda) 10 mg tablet TAKE ONE TABLET (10MG) BY MOUTH TWICE A DAY 180 tablet 3 02/21/19 25 Active semaglutide (Wegovy) 0.25 mg/0.5 mL pen injector injectionIndica tions:Morbid Obesity Body Mass Index 40.0-44.9 Adult (HCC) Inject 0.25 mg under the skin every 7 (seven) days. 2 mL 02/19/19 25 Active semaglutide (Wegovy) 0.5 mg/0.5 mL pen injector injectionIndica tions:Morbid Obesity Body Mass Index 40.0-44.9 Adult (HCC) Inject 0.5 mg under the skin every 7 (seven) days. 2 mL 02/19/19 25 Active semaglutide (Wegovy) 1 mg/0.5 mL pen injector injectionIndica tions:Morbid Obesity Body Mass Index 40.0-44.9 Adult (HCC) Inject 1 mg under the skin every 7 (seven) days. 2 mL 02/19/19 25 Active vitamin B-12 1,000 mcg tablet Take 1,000 mcg by mouth daily. 02/18/19 25 Active Vitamin D3 25 mcg (1,000 unit) capsule Take 25 mcg by mouth daily. 02/18/19 25 Active sertraline (Zoloft) 100 mg tablet Take 2 tablets (200 mg total) by mouth daily. 90 tablet 3 03/09/19 25 Active furosemide (Lasix) 40 mg tablet Take 1 tablet (40 mg total) by mouth daily. 90 tablet 1 03/14/19 25 Active Additional Information Patient taking differently:40 mg oralAs needed, Informant: Self, Reported on 04/19/2024 vitamin B-12 1,000 mcg tablet Take 1 tablet by mouth daily. 03/22/19 25 Active Vitamin D3 25 mcg (1,000 unit) capsule Take 1 tablet by mouth daily. 03/22/19 25 Active azelastine (Astepro) 205.5 mcg/spray (0.15 %) nasal spray Administer 1 spray into each nostril 2 (two) times a day. 4 mL 1 04/20/19 25 Active eszopiclone (Lunesta) 3 mg tablet Take 1 tablet (3 mg total) by mouth at bedtime. 30 tablet 5 04/23/19 25 Active carbidopa-levod opa (Sinemet CR) 50-200 mg per ER tablet Take 1 tablet by mouth at bedtime. 90 tablet 3 04/23/19 25 Active ipratropium (Atrovent) 42 mcg (0.06 %) nasal sprayIndication s:Rhinitis Chronic Administer 2 sprays into each nostril 2 (two) times a day. 30 mL 3 04/23/19 25 Active Farxiga 10 mg tablet TAKE 1 TABLET (10 MG TOTAL) BY MOUTH DAILY. 30 tablet 4 05/17/19 25 Active QUEtiapine (SEROqueL) 200 mg tablet TAKE 1 TABLET (200 MG TOTAL) BY MOUTH AT BEDTIME. 30 tablet 3 5 12:19 PM CDT 05/21/19 25 Active tiZANidine (Zanaflex) 4 mg tablet TAKE 1 TABLET (4 MG) BY MOUTH EVERY 8 HOURS NEEDED FOR MUSCLE SPASMS. 90 tablet 3 5 5:11 PM CDT 06/22/19 25 Active pregabalin (Lyrica) 75 mg capsule TAKE 1 CAPSULE (75 MG) BY MOUTH 3 TIMES A DAY. 90 capsule 3 5 5:09 PM CDT 06/22/19 25 Active oxyCODONE (Roxicodone) 5 mg immediate release tabletIndicatio ns:Chronic Pain/Nonacute Pain Take 1.5 tablets (7.5 mg total) by mouth 3 (three) times a day as needed for pain Indication: Chronic Pain/Nonacute Pain. 126 tablet 07/07/19 25 Active tiZANidine (Zanaflex) 4 mg tablet TAKE 1 TABLET (4 MG) BY MOUTH EVERY 8 HOURS NEEDED FOR MUSCLE SPASMS. 90 tablet 2 03/17/19 25 2024 Discontinued pregabalin (Lyrica) 75 mg capsule Take 1 capsule (75 mg total) by mouth 3 (three) times a day. 90 capsule 2 04/20/19 25 2024 Discontinued oxyCODONE (Roxicodone) 5 mg immediate release tabletIndicatio ns:Chronic Pain/Nonacute Pain Take 1.5 tablets (7.5 mg total) by mouth 3 (three) times a day as needed for pain Indication: Chronic Pain/Nonacute Pain. 126 tablet 5 9:43 AM CDT 06/09/19 25 2024 Discontinued(R stacy) Active Problems Problem Noted Date Diagnosed Date Dizziness 04/19/2024 Overview (04/21/2024): Patient reports episodes of vertigo/dizziness over the last 1-2 months. These occur primarily when she goes from laying down to sitting up, and occasionally when she turns her head fast. Denies having dizziness or vertigo when she rolls in bed. Symptoms feel different from her syncopal episodes. No hearing changes or ringing in ears. Assessment & Plan (04/21/2024 10:21 AM DOOR MACHINE OPERATOR): Symptoms sound consistent with orthostatic hypotension. Patient was started on Farxiga in January which could be contributing. Offered to check orthostatic vitals however patient had car appointment after this visit and did not have time to wait. Recommended she trial knee high compression stockings to see if this helps with symptoms. Also counseled her that she could try decreasing her furosemide dose from 40 mg to 20 mg as needed (patient is taking this intermittently, on average twice a week) PreDiabetes 01/19/2024 Hypotension Orthostatic 02/03/2023 Overview (02/03/2023): See hypertension Polypharmacy 09/22/2022 Overview (01/19/2024): She has significant polypharmacy, that has likely contributed to her fall risk. Previous medication changes since 2022 due to polypharmacy: Discontinued amitriptyline Decreased SEROquel from 300mg to 200mg daily Discontinued prazosin Discontinued carvedilol Discontinued famotidine Decreased tizandine Potential options for further changes: Decrease SEROquel Switch to buprenorphine Assessment & Plan (02/03/2023 9:58 PM DOOR MACHINE OPERATOR): She continues to have polypharmacy and we have made very minimal progress due to her multitude of symptoms which seem to be exacerbated by any medication taper. Fortunately, we have been able to come off of the amitriptyline as this was a significant contributing to her orthostatic hypotension resulting in multiple falls over the past 12 months. We will plan to continue to discuss polypharmacy and further follow-up visits and will discontinue medications as possible pending her symptomatic evaluation with multispecialty individuals including hypertension and chronic rhinitis clinic. Fracture Lower Leg Closed [place] bsequent With Routine Healing Right 09/16/2022 Overview (09/16/2022): May 2022, fell during syncopal event in fractured right ankle. Status post open reduction internal fixation at outside hospital. X-ray (09/16) with good bony apposition and hardware in place. Currently utilizing brace for swelling with pain which has improved since the fracture. Assessment & Plan (09/16/2022 5:29 PM CDT): Today, we discussed the patient's fracture with x-ray demonstrates hardware appropriately in place. I recommended continuing to use the brace as instructed by her surgeon with a plan to follow-up with physical therapy. She is recently had difficulty bending her toes to pain of the right foot, but is hopeful this will improve. With regards to the ankle injury, there was concern this may be a pathologic fracture with possible osteoporosis in the setting of fall from standing height. However, given this was a syncopal event with no recollection of the fall or the subsequent events, it is unclear whether this technically qualifies for a pathologic fracture. She certainly warrants getting a DEXA scan in the future, however I would be extremely hesitant to initiate bisphosphonate therapy at this time due to her recent difficulty with globus sensation and the high-risk of esophagitis from bisphosphonate therapy. Following are completed workup for syncope, it would be reasonable to obtain DEXA scan and consider bisphosphonate therapy (likely was zoledronic acid). Plan: - continue to follow with physical therapy and treat conservatively Syncope And Collapse 06/04/2022 Overview (03/14/2024): Timeline of symptoms Initial syncope events noted July 2021, was asymptomatic thereafter until April 2022. April 2022, recurrent syncope. May 2022, syncope complicated by broken ankle resulting in surgical repair of right ankle. May-July 2022, several episodes of syncope without complications. August 2022, 4 episodes of syncope, 1 observed. Observed syncope described as flaccid body collapse with word slurring and confusion upon return of consciousness (< 30 minutes). No eye rolling, no urinary/fecal incontinence. Intermittent lower lip bite moreno without tongue lesions. Returned to normal within 30 minutes. No prodromal symptoms. Syncopal events have always occurred in the afternoon and evening while ambulating or while rising from a sitting position. Never has occurred while driving. Hospital 09/18/22-09/22/2022: Cardiac monitoring without evidence of arrhythmia. Concern for orthostatic hypotension with weaning antihypertensives. Cardiology consult suspected polypharmacy as underlying etiology. Heart monitor discharge with follow-up EEG and brain MRI. [facility] (09/30/2022): No further episodes of syncope with significant reduction in dizziness after reduction in carvedilol, amlodipine, and amitriptyline. Plan to discontinue amitriptyline today. Encouraged to monitor her blood pressure at home. [facility] (02/03/2023): Since last visit, the patient has discontinued amitriptyline with no further episodes of syncope. On 2 occasions she experienced orthostatic symptoms of lightheadedness while attempting to stand. These symptoms improved with sitting in are better if she changes positions slowly. She continues to hydrate well in his currently taking Lasix 40 mg p.r.n. based upon feeling bloated as a proxy of volume overload. [facility] 03/12/2023: Had 3 additional syncopal episodes which were all preceded by standing up. She had trivial lightheadedness with each of these events. Agreeable to having autonomic screen performed. [facility] (04/20/2023) telephone visit: Additional episodes of syncope shortly after standing. One episode witnessed by neighbor and patient did not have recollection of event. Described with lightheadedness, dizziness, vision changes after taking several steps. [facility] (01/19/2024): Went 8 months without any episodes. Week prior to appointment, had 4 syncopal episodes. One episode involved fall with trauma to head and abdomen. [facility] (03/14/2024): On KHADAR, has another episode. Was in the bathroom and passed out without any prodromal symptoms or symptoms after. Hit her head on the sink and broke her glasses. No episodes since Previous Workup: - Some positive orthostatic blood pressures during hospitalization (2022) - Holter monitor 11/2021, 01/2022, 09/2022 with no significant arhythmia - Echo 09/2022 with limited windows, no dynamic LVOT obstruction or significant valvular heart disease. Focal area of apical hypokinesis - Tilt table 03/2023 negative for orthostasis; done while patient on beta anita - thermoregulatory sweat testing ordered, not completed - CTA head and neck 09/2022 with no concerning findings - MRI 11/2022 with no findings to explain syncope - Short term EEG 11/2022 with no significant findings - Orthostatics 01/2024 Negative Assessment Prior, her symptoms were felt to be orthostatic hypotension. However, she often has episodes where she passes out with no prodromal symptoms and recent orthostatics negative in clinic. Alternative differentials for syncope would include arrhythmia, seizure, and drop spells. Given the absence of incontinence, tongue biting, and tonic-clonic movement I have low suspicion for seizure activity. Additionally, given the presence of injury with ankle fracture and recurrent head injury with falls, drop spells are less likely. Assessment & Plan (04/21/2024 10:12 AM DOOR MACHINE OPERATOR): Patient was prescribed a Holter monitor at last visit 1 month ago, however she has been unable to pick this up and expresses some concern about the feasibility of wearing the Holter monitor for the entire 30 days. Given that she has gone multiple months in between syncopal episodes in the past, and prior Holter monitors have failed to capture these episodes, I think it would be helpful to have her revisit with cardiology to discuss loop recorder implantation. Patient is open to this, and says she will schedule [facility] cardiology return visit when able. Patient does have her neurology follow up appointment scheduled next month where they discuss need for EEG +/- other testing Assessment & Plan (03/14/2024 6:08 PM DOOR MACHINE OPERATOR): Continue appropriate precautions; she does not take baths or swimming unsupervised. She has friends with access to her apartment and has a fall detector. She has significant complications of these neurologic spells, with often no preceding symptoms and multiple injuries, including hitting her head multiple times. Repeat cardiac monitoring as she has a history of ablation with prolonged monitoring; plan to obtain a 30 day Holter which hopefully will capture a spell. Discussed with patient if not affordable, to reach out Neurology consultation to ensure she does not need further EEG testing or any other neurologic testing Continue to monitor for polypharmacy Assessment & Plan (01/19/2024 1:58 PM DOOR MACHINE OPERATOR): Neurologic exam reassuring. Gave return precautions for ED evaluation if any concerning symptoms develop CXR to evaluate for rib fracture Orthostatics: Lying 162/105, Stand one minute 145/86, Stand 3 min 163/103. Overall, exact etiology of syncopal episodes with falls still felt to be most likely orthostatic with polypharmacy contributing to autonomic dysfunction. She does need better BP control, and we will continue to slowly uptitrate/initiate appropriate pharmacology Assessment & Plan (04/20/2023 12:43 PM DOOR MACHINE OPERATOR): Etiology of the patient's recurrent syncope is currently unclear. We have done an extensive previous workup including multiple Holter monitors over the past 24 months which have always been negative for arrhythmia. Cardiology most recently evaluated the patient in fall 2022 and did not feel it arrhythmia was contributing to the patient's syncope and felt that it may be related to orthostatic hypotension and polypharmacy. Additionally, I had directly admitted the patient to [facility] in September 2022 for further evaluation where she was, again, found to have orthostatic hypotension on evaluation. Recently, however, the patient has blood pressures have remained significantly elevated with systolic blood pressure> 190 and tilt-table testing was negative for orthostatic hypotension. Tilt-table testing did, however, note chronotropic incontinence (consistent with carvedilol dosing). Her syncopal episodes are intermittently described as without prodromal symptoms and with prodromal symptoms of lightheadedness, dizziness, and vision changes that are consistent with orthostatic hypotension. However, I find difficult to believe that the patient has significant orthostatic hypotension when blood pressures are consistently > 190. If she does have orthostatic hypotension, she has some sort of medication or central autonomic dysregulation which would be incongruent with her tilt-table testing. Alternative differentials for syncope would include arrhythmia, seizure, and drop spells. Given the absence of incontinence, tongue biting, and tonic-clonic movement I have low suspicion for seizure activity. Additionally, given the presence of injury with ankle fracture and recurrent head injury with falls, drop spells are less likely. Notably, we have never directly observe the patient's cardiac rhythm during a episode of syncope and all previous Holter monitors had demonstrated no arrhythmia, but we will without syncope. I believe it is essential that we are able to observe a syncopal event and compared this to cardiac rhythm at the time event. Although orthostatic hypotension fits her presentation, I do not fully understand why this is become such a permanent concern over the past several months. I wonder whether or not the patient's increased dose of carvedilol has contributing to her syncopal episodes due to chronotropic incompetence. As such, we will plan to slightly decrease her carvedilol to 25 mg b.i.d. and will plan to start hydrochlorothiazide 12.5 mg daily. If the patient tolerates hydrochlorothiazide without increased episodes of syncope/presyncope, then I would consider transition to chlorothiazide for increased blood pressure management. Given the prolonged duration of hypertension, movement to be very careful with the speed at which would decreased blood pressure as her cardiovascular system has likely compensated for chronic hypertension. In summary, I believe the patient requires further evaluation with repeat Holter monitoring and will plan to discuss the case with [facility] Cardiology to determine whether or not an implantable physician non invasive cardiologist x3 months would be a more appropriate next step. Additionally, we will work on blood pressure management by starting hydrochlorothiazide 12.5, decreasing Coreg to 25 mg b.i.d., and will obtain a BMP in 1 week for further evaluation. I will plan to have the patient follow-up in clinic for further discussion of hypertension management and syncope. We also discussed behavioral modifications which could alleviate risk of syncope and head trauma. I have provided a prescription for a wheeled walker with a chair so the patient can stop and sit should she experience any of her presyncopal symptoms. I have also encouraged her to sit on the ground at 1st sign of presyncope to decrease the risk of head trauma. We reviewed standing technique and the patient is staining slowly and waiting several seconds before taking her 1st step. Plan: - start hydrochlorothiazide 12.5 mg - decreased carvedilol to 25 mg b.i.d. - BMP in 1 week - cardiac event monitor Assessment & Plan (03/12/2023 5:25 PM DOOR MACHINE OPERATOR): Anabell was agreeable to have any autonomic screen performed. Unfortunately, she has had significant cardiology and Neurology workup which has not been remarkable. It has been felt that polypharmacy and possibly an autonomic cause may be responsible. We will schedule autonomic testing which has been previously ordered and she will perform this. Additionally, she is having some pain in her lumbar spine and her left knee for which we will obtain x-rays which she will have completed when she returns to [place] next week. I will communicate with her PCP and have her follow up with him after the autonomic screen is completed. I do have concerns that additional polypharmacy may be contributing to these episodes. She remains on multiple medications that could continue to be responsible for these episodes and possible orthostasis. It may be beneficial to have a meeting with the pharmacist to determine which she is actually taking consistently and which medications may be peeled off for additional benefit and decrease of orthostasis. She does note that she has a mild headache related to her syncopal episode on Thursday. She noted 1 episode of nausea on Thursday and continued headache since then, however [place] rule indicating that she does not need further CT imaging of her head at this time. Discussed that if her symptoms were to worsen, we would want to have her let us know and would schedule likely head CT at that time. She is agreeable with this plan. Assessment & Plan (02/03/2023 10:02 PM DOOR MACHINE OPERATOR): More recently, the patient's symptoms are most consistent with orthostatic hypotension including prodrome of dizziness which resolves with sitting. I suspect that amitriptyline was a significant contributor to the patient's orthostatic hypotension result in syncope. This has since been discontinued with resolution of syncopal episodes. If she has recurrent episodes of syncope, we will discuss in further detail. In the meantime, we will plan to optimize her blood pressure management and reduce likelihood of orthostatic symptoms in the future. These efforts will likely include reducing polypharmacy. Please see hypertension for further discussion of orthostatic symptoms. Plan: - continue to reduce polypharmacy as able Assessment & Plan (12/10/2022 1:44 PM CDT): Ms. Cole continues to experience episodes of syncope. Extensive evaluation to date has been unrevealing for any arrhythmogenic or neurologic explanation for the spells. Interestingly, her QTC during this recent episode was found to be elevated near 600, and we will seek to update this today with an EKG. Her description of these most recent episodes would suggest an orthostatic syncope, but her home blood pressure measurements and measurement in clinic today actually show predominant hypertension. She has been gradually titrated up on carvedilol in recent months. We will try to arrange a 24 hour ambulatory blood pressure monitor study to see if she truly is hypertensive. Another possibility to consider would be autonomic dysfunction. She is on several medications that could cause this, chief among them being amitriptyline. On review of her prior Psychiatry notes and Neurology notes, recommendations have been given to discontinue amitriptyline, and Ms. Cole is open to this. We discussed starting a slow taper today by 1st decreasing her current dose of amitriptyline to 12.5 mg daily. She will then be following up with her PCP next month, at which time that could discuss further taper to 10 mg, then 5 mg, then off as tolerated. I do think autonomic reflex testing could be of use, but the validity of this test may be questionable should she remain on amitriptyline. I have also ordered serum cortisol and metanephrine levels as suggested by her PCP, which we will try to arrange prior to her next visit. Assessment & Plan (09/30/2022 8:25 PM CDT): Ms. Cole was recently hospitalized for rapid assessment of syncope resulting in injury p.r.n. during hospitalization, she remained on a physician non invasive cardiologist with no further episodes of syncope and signs of orthostatic hypotension while hospitalized. Her blood pressure medications were decreased and she was ultimately discharged with plans to follow up with PCP, EEG, brain MRI, and Holter monitor. After she was discharge, we spoke on the phone regarding persistent dizziness with ambulation and decreased her amitriptyline from 50 mg to 25 mg. She subsequently quickly decreased her medication to 12.5 mg. Today, she reports no further episodes of syncope and since our reduction in amitriptyline, she has only had 1 single episode of dizziness with no concerns for fall. She is not currently checking her blood pressures at home but feels significantly improved from hospital presentation. Plan: - discontinue amitriptyline - finish Holter monitor - follow-up with cardiology - EEG and brain MRI (11/18/2022) Assessment & Plan (09/16/2022 1:40 PM CDT): At this time, I am severely worried about the patient's syncope of unknown etiology. Several of her falls have resulted in significant injury including fracture of her right ankle. Differential diagnosis includes cardiogenic versus neurologic syncope. Her symptoms of confusion upon waking with slurred speech and lip biting his concerning for possible seizure etiology. However, her confusion last <30 minutes with a rapid returned to normal sensorium. Additionally, the flaccid etiology of her collapse is less consistent with seizure. I will request a Neurology consultation for further assistance with evaluating her syncopal episodes and determining whether or not EEG would be of benefit. She has a history of paroxysmal atrial tachycardia and had several episodes of SVT on event monitoring in fall 2021 with no evidence of arrhythmia. Cardiology previously evaluated with low suspicion for underlying arrhythmic event. However, given the flaccid collapse, rapid returned to normal sensorium, lack of prodromal symptoms, and history of arrhythmias I am most concerned about cardiac arrhythmia. At this time, I would recommend the patient return to Cardiology for further evaluation and start a continuous monitoring device. If she has a recurrent syncopal episode, we can rapidly review the monitoring device to evaluate for arrhythmia. If arrhythmia is present, she may require presentation to the hospital for rapid pacemaker placement. One additional possibility would be conversion syncope. She has a history of globus sensation which has spontaneously resolved over the past several months and significant anxiety without ability to obtain CBT due to cost barriers. As such, if workup of cardiogenic and neurologic etiology is nonrevealing and she continues to have syncopal episodes, she may benefit from further psychiatric evaluation in the future. Plan: - cardiac event monitor - return to Cardiology for follow-up - neurology consultation for assistance with syncope and consideration of EEG Assessment & Plan (06/04/2022 3:30 PM CDT): This has been a recurrent issue for the patient. She is had extensive workup with Cardiology is currently followed by Dr. Blackman with the. She had an unremarkable 30 day event recorder. I do think that getting a updated EKG may not be a bad way to go to see if anything has changed. She does have an appointment with Cardiology that was scheduled at the end of last year for follow-up on this issue, but the patient did not scheduled due to her feeling unwell. I will have her schedule a follow-up appointment with Cardiology in for the soonest available appointment. The patient reports that her blood pressure has been elevated when she would wake up from these syncopal episodes. She reported that her blood pressure was 200/100 with her most recent syncope and collapse episode on Thursday this weekend. I think that in the absence of chest pain, acute visual disruptions, and that this is an incorrect blood pressure reading. Regardless, I will get a 6 hour blood pressure monitor to see if there is any blood pressure lability. Offered other laboratory work such as checking a glucose level, but the patient defers further laboratory testing as she and her father have other appointments that the need to attend to. I reached out to her primary care provider, Dr. Sears, to discuss this and he agreed. Hyperhidrosis 04/22/2022 Overview (04/22/2022): 61 yo female with multiple comorbidities is here for hyperhidrosis. She is excessively sweating all the time. She finds that at least 5-6 times a day she is sweating and soaking her clothes. This has been happening for a couple months. She hasn't anything that triggers it. She has no other associated symptoms, no changes in bowel habits. She says she has intentionally lost 30 pounds in the past couple months by changing her diet and not eating any sweets and only eating if she is hungry. She has been told the hyperhidrosis could be from polypharmacy. She says she has had a hysterectomy but still has ovaries. She doesn't feel more anxious. She feels like she is losing so much water that she needs to drink a lot more water. Assessment & Plan (04/22/2022 3:59 PM DOOR MACHINE OPERATOR): I will do a generalized workup for hyperhidrosis. Less likely due to menopause given that she is 61 although she has her ovaries in tact. We will start with CBC, TSH, UA, HIV, TB, CRP, LFTs, blood cultures to see if anything comes as abnormal. I have a suspicion that this could be polypharmacy related she is taking lots of medications that could cause sweating. Although she reports that she hasn't had any new medications added in the past couple months. We will schedule a pharmacy appointment for polypharmacy. Rhinitis Chronic 01/07/2022 Overview (03/14/2024): CIM (02/03/2023): Multiple months of persistent chronic rhinitis described as chronic runny nose and postnasal drip. This has been refractory to nasal steroids, ipratropium, Neti pot, and antihistamine therapy. Allergy (03/10/2023): Recommended starting ipratropium 0.6% b.i.d. and continuing cetirizine. Plan for IgE antibody testing given the lack of tolerance for skin testing. CIM (04/20/2023): Persistent rhinitis despite trial of ipratropium 0.6 % b.i.d.. Currently using cetirizine 30 mg t.i.d. compared to prescribed 5 mg b.i.d.. Current regimen: - Cetrizine 10mg daily - Benadryl at night - Brandy pot - ipratropium nasal spray Assessment & Plan (04/21/2024 10:13 AM DOOR MACHINE OPERATOR): Will trial Astepro nasal spray (prescription provided) Assessment & Plan (03/14/2024 6:04 PM DOOR MACHINE OPERATOR): Offered returning to allergy clinic; she is not interested at this time Her current living environment is full of mold and dust, with little cleaning by the company running the building. Discussed this is likely contributing, as her symptoms started after moving into her current building. Information about dust mite and mold allergies provided Assessment & Plan (04/20/2023 12:46 PM DOOR MACHINE OPERATOR): I have counseled the patient regarding the danger of such a dosing of cetirizine with side effect noted to be headache, sedation, somnolence, and xerostomia. Given the concern for medication overuse, I will plan to transition to loratadine 10 mg daily to trial alternative therapy and evaluate whether or not this has improved control of her chronic rhinitis symptoms. Plan: - discontinue cetirizine - start loratadine 10 mg daily Assessment & Plan (02/03/2023 9:59 PM DOOR MACHINE OPERATOR): Due to her persistent concerns about chronic rhinitis which has been refractory to multimodal therapy including steroids, anti muscular neck therapy, Neti pot, and antihistamines it would be reasonable to refer the patient to the chronic rhinitis clinic. I have placed a consultation with allergies chronic rhinitis clinic, but have chosen not to order skin testing due to cost related concerns. If allergy believes that skin testing will add additional benefit for concerns of chronic rhinitis, I would leave this up to their expertise for ordering the appropriate skin testing panel. Plan: - chronic rhinitis Clinic consult Assessment & Plan (01/07/2022 10:19 AM DOOR MACHINE OPERATOR): Please see globus sensation. Bleeding Rectal 11/15/2021 Overview (01/07/2022): CIM (11/15/2021): 5 days of bleeding mixed with stool and on toilet paper associated with painful white being, associated with constipation. Physical exam with evidence of skin tag but no evidence of bleeding. CIM (12/03/2021): Constipation has improved with MiraLax and senna b.i.d. currently 1 bowel movement every 1-2 days. Continued rectal bleeding with sharp pains during wiping. No blood present with stool or in toilet bowl; bleeding limited to toilet paper. CIM (01/07/2022): Constipation continues to be improved and has resolved. Assessment & Plan (03/10/2022 4:16 PM DOOR MACHINE OPERATOR): Today, she reports that her rectal bleeding has been completely resolve for several months with no recurrence. She had previously planned on performing a colonoscopy at the time of her EGD, but she was unable to tolerate the prep due to her sensation of choking. As such, she would like to complete her workup for the esophageal concerns prior to further workup and management with colonoscopy. I have reinforced the importance of colonoscopy given the history of rectal bleeding and the lack of colon cancer screening during the appropriate follow-up time and the patient is willing to perform colonoscopy as soon as her esophageal symptoms have improved. Plan: - colonoscopy when patient is able to tolerate prep Assessment & Plan (01/07/2022 10:07 AM DOOR MACHINE OPERATOR): Since her last visit, the patient has had resolution of her rectal bleeding. At this time, she is more concerned about the phlegm than her history of rectal bleeding and prefer to continue working up the cause of her globus sensation and phlegm production. We will plan to schedule colonoscopy when she has her EGD performed. Plan: - colonoscopy with EGD Assessment & Plan (12/03/2021 6:21 PM CDT): Given the finding of skin tag on previous physical exam and symptoms of pain with wiping and blood present on toilet paper, suspect this is likely an anal fissure versus skin tag with superficial bleeding. However, the patient is overdue for a colonoscopy and plans to schedule this as soon as she can. She does not wish to schedule a colonoscopy until after she has finalized her cardiology workup. Plan: - continue monitor - schedule colonoscopy - if colonoscopy negative, could consider surgical consult for skin tag removal. Paresthesias Feet 07/12/2021 Overview (04/21/2024): Lower extremity paresthesias developed spring 2021. June 2021 EMG negative 12/03/2021: Continued paresthesias x6 weeks with no focal neurologic deficits. 01/07/2022: Continue paresthesias of feet (left worse than right) with difficulty feeling items in her toes and radiating pins and needles electrical shock sensation up her legs with contact. 01/19/2024: Continued sensation in feet. Normal sensory foot exam 04/21/2024: Patient continues to aching plus tingling in her feet bilaterally Medications: Lyrica 75 mg TID Oxycodone 7.5 mg TID Lab Results Component Value Date HGBA1C 5.4 01/19/2024 [id number] 680 04/19/2024 TSH 1.4 06/04/2022 ELPIMPRESS 02/03/2023 No apparent monoclonal protein on serum electrophoresis. See Isotype. AST 15 01/19/2024 ALT <7 (L) 01/19/2024 ALKPHOS 118 (H) 01/19/2024 Assessment & Plan (04/21/2024 10:01 AM DOOR MACHINE OPERATOR): Lab work and prior EMG has been unrevealing for cause of paresthesias. Her vitamin B12 has been low in the past, but most recent check is in normal range after she was started on B12 oral tablets. She reports some relief with the Lyrica so we will trial increasing her dose form 50 mg TID to 75 mg TID. She has an appointment with neurology next month so will defer further testing such as repeat EMG at this time. Assessment & Plan (03/14/2024 5:57 PM DOOR MACHINE OPERATOR): Obtain outside health records of prior broken feet Plan for dedicated visit to discuss paraesthesias further. Limited foot exam without any skin breakdown or ulceration Assessment & Plan (01/19/2024 1:51 PM DOOR MACHINE OPERATOR): Continue lyrica Continue lidocaine Discuss options such as capscain or triple cream for local pain control Assessment & Plan (03/10/2022 4:40 PM DOOR MACHINE OPERATOR): Today, the patient's paresthesias in her feet are similar to baseline. Her primary concern is regarding the dysphagia and globus sensation. We will plan to follow up paresthesias in the future and plan to recheck her hemoglobin A1c to ensure absence of diabetes. Assessment & Plan (01/07/2022 10:11 AM DOOR MACHINE OPERATOR): At this time, the paresthesias have persisted, but appear to be stable. EMG was negative in June 2021 and would likely have no significant change since that time, therefore we will not repeat. Fortunately, her symptoms have been constant without rapid progression. Differential diagnosis include small fiber neuropathy versus large fiber neuropathy which has not fully become appreciated on EMG. She has no evidence of vitamin B12 deficiency or alcohol use which would contribute to neuropathy. At this time, we would recommend could continue observing we evaluate her globus sensation and phlegm production. Plan: - continue to monitor symptoms - no repeat EMG Assessment & Plan (12/03/2021 6:03 PM CDT): Given the normal EMG in June 2021 with similar symptoms experienced in spring 2021, I am not concerned for acute neuropathy at this time. She does have a history of restless leg syndrome which is currently being well treated with Sinemet, however this can also be associated with subjective paresthesias in the lower extremities. At this time, I think it would be reasonable to continue to monitor for 1 month as her symptoms spontaneously resolved earlier this year. Everted symptoms have persisted or have worsened over the course of the next month to 6 weeks, it would be reasonable to follow-up her ferritin and consider a repeat EMG to assess for neuropathy. Fortunately, physical exam is without any objective evidence of focal neurologic deficit or decreased sensation at this time. Prior to her next visit in 1 month, I will plan to obtain a ferritin to ensure appropriate treatment of restless leg syndrome. Her other symptoms of restless legs including bilateral leg cramping are currently well controlled on Sinemet. Plan: - ferritin in 1 month - clinic follow-up in 1 month Assessment & Plan (07/12/2021 6:14 PM CDT): She has had a several month history of paresthesias. She was seen here in our clinic last month for this. She also presented to a local emergency department after there was concern about lack of pulses. If she does not have dorsalis pedis pulses but she clearly has well-perfused extremities. I suspect the paresthesias likely represent a small fiber neuropathy. However, I would not recommend any workup for this such as with autonomic reflex can unless things began worsening. Certainly, some additional workup could be considered such as celiac testing, SPEP, etcetera. We did not have time to do a deep dive on this so this should be revisited at a future visit Gastroesophageal Reflux Disease 07/12/2021 Overview (03/10/2022): Meds: Pantoprazole 40 mg, famotidine 20 mg 01/07/2022: Patient currently taking pantoprazole 3 times daily, once in the morning for breakfast and then before meals. She denies any concern of heartburn or reflux symptoms, but has persistent globus sensation and phlegm protection. EGD (03/03/2022): Mild stenosis found at the cricopharyngeus with subsequent dilation. Evidence of gastritis. Biopsies: Mild reactive gastropathy of stomach with antral reactive foveolar hyperplasia and negative inflammation. Negative H pylori. Indicate chemical injury such as NSAID and bile reflux. No abnormalities of the esophagus. Assessment & Plan (03/10/2022 4:31 PM DOOR MACHINE OPERATOR): Today, we discussed the patient's finding of gastritis which is concerning for chemical injury such as NSAID in bile reflux. She has been on long-term PPI for gastroesophageal reflux disease and we have previously discussed dosing of PPI. Unfortunately, she has been taking the pantoprazole at night before bed and taking her famotidine in the morning. We discussed the utility of pantoprazole in the morning 30 minutes prior to any food or drink and she was agreeable to transitioning her pantoprazole to a.m. and famotidine to p.m.. Overall, the patient denies any reflux symptoms concerning for active reflux disease, but biopsies were concerning for chemical injury. In the absence of NSAID use (she is not taking any NSAIDs), suspect that she may have slightly insufficient maintenance of her reflux given the accidental ineffective medication use. Plan: - take pantoprazole 40 mg in the morning 30 minutes before breakfast - take famotidine before bed for symptoms Assessment & Plan (01/07/2022 10:09 AM DOOR MACHINE OPERATOR): The patient was started on pantoprazole in June 2021 with rapid resolution of her heartburn symptoms. Her most recent EGD was in 2018 which demonstrated no evidence of gastritis at that time. There is no comment regarding a possible hiatal hernia at that time either. At this time, I do not believe she has active GERD symptoms as her heartburn has resolved, however the persistent globus sensation could be secondary to persistent GERD or secondary to a pathology such as hiatal hernia. Given she has persistent symptoms despite being on PPI for 6 months, it would be appropriate to pursue an EGD for evaluation. We will also add famotidine 20 mg daily to her medication regimen to assist with symptoms of globus sensation. She was encouraged to decrease her pantoprazole usage from 3 times daily to twice daily. She is a follow-up with ENT (see globus sensation). Plan: - pantoprazole b.i.d. - start famotidine 20 mg daily - EGD with colonoscopy Assessment & Plan (12/03/2021 6:10 PM CDT): Today, the patient reports significant improvement in her GERD symptoms and she does not have any concerns regarding heartburn. We will continue her pantoprazole at this time, but will plan to discuss a taper at her next visit. Plan: - continue pantoprazole 40 mg daily Assessment & Plan (07/12/2021 6:16 PM CDT): 1-2 times per week at bedtime she will have some GERD. We will do an 8 week trial the PPI. I explained that if her symptoms recur afterwards, we should consider an EGD Hyperlipidemia 08/08/2020 Overview (09/26/2020): Last T cholesterol 272 with LDL 148. On simvastatin, tolerating well. Assessment & Plan (08/08/2020 2:09 PM CDT): Simvastatin 20mg was stopped previously, unclear why. I have restarted this medicine and she will let us know if she is having issues tolerating it. Elevated Creatinine 06/07/2020 Overview (06/07/2020): While in the hospital creatinine elevated slightly. Assessment & Plan (06/07/2020 4:42 PM CDT): We are going to repeat BMP as this was elevated in the setting of hospitalization and her catheter ablation. Her electrolytes including calcium and phos were abnormal. If this continues, we will need to initiate a workup for chronic kidney disease. Typical Atrial Flutter 05/29/2020 Overview (05/29/2020): Status post ablation performed by Dr. Torres on 05/29/2020 Assessment & Plan (03/10/2022 4:46 PM DOOR MACHINE OPERATOR): Per paroxysmal atrial tachycardia. Tachycardia Atrial Paroxysmal 02/28/2020 Overview (02/28/2020): Status post catheter ablation, February 2020 Supraventricular Tachycardia, Unspecified 2020 Overview (05/29/2020): Status post repeat catheter ablation for AVNRT on 05/29/[address] Torres Status post catheter ablation, February 2020 Assessment & Plan (03/10/2022 4:46 PM DOOR MACHINE OPERATOR): The patient had Holter workup that demonstrated evidence of supraventricular tachycardia and has a follow-up appointment with Cardiology in March 2022. Fortunately, the patient has no further episodes of syncope since this summer with no recorded episodes of dangerous heart rhythm on Holter monitoring x2 last fall. I am very reassured by the cardiology workup done thus far and in clinic today, she denies any cardiac symptoms and has had no further episodes of syncope. Plan: - follow-up with cardiology Assessment & Plan (12/03/2021 6:16 PM CDT): Earlier today, she had a stress test which is normal and she has started her Holter monitor. She met with cardiology who by no evidence of ischemic etiology for the patient's chest pains, but are concerned about a possible a rhythmic given the underlying her syncopal episodes. She continues to endorse multiple episodes of syncope with no clear trigger and no postictal symptoms. She has previously undergone multiple ablations and the cardiology service will evaluate her Holter monitor will consider a repeat intervention if warranted. If there is nothing on the Holter monitor, they will also consider placing a loop recorder for better evaluation of her possible arrhythmias. Plan: - follow-up Holter monitor Fatty Liver 01/03/2020 Overview (01/19/2024): Diagnosed incidentally on ultrasound 12/2019 Assessment & Plan (01/19/2024 1:45 PM DOOR MACHINE OPERATOR): Monitor LFTs today Assessment & Plan (01/03/2020 3:10 PM DOOR MACHINE OPERATOR): As above, weight loss may help with this. 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 Assessment & Plan (01/07/2022 10:13 AM DOOR MACHINE OPERATOR): Today, the patient's ferritin was in the 70s and could be supplemented for further assistance with restless leg syndrome. We will plan to start iron supplementation every other day in the morning in attempt to improve her restless leg symptoms. Plan: - start iron supplementation every other day (taking care to take iron in the morning as to not interfere with Sinemet in the evening) Chronic Diastolic (Congestive) Heart Failure 11/2019 Overview (09/30/2022): Lasix 40mg QD M/W/. Cardiac PET (12/03/2021): Normal perfusion imaging with LVEF 73%, no regional, and normal myocardial flow reserve TTE (09/19/2022): LVEF 64% with very small focal hypokinesis of uncertain significance with unchanged respirophasic septal shift likely due to increased respiratory effort, mildly enlarged RV with borderline and move large IVC with reduced inspiratory collapse. Assessment & Plan (09/30/2022 8:39 PM CDT): Today, the patient inquired regarding the focal area of hypokinesis identified on echocardiogram from her most recent hospitalization. Etiology of the hypokinesis is currently unclear as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 her move has improved greatly. She has been on the 200mg for a few weeks Follow-up as planned with psychiatry Assessment & Plan (01/19/2024 2:03 PM DOOR MACHINE OPERATOR): Appointment with psychiatry 02/23/2024 Last PHQ9 07/2023 11 and SHREE-7 11 Continue to discuss polypharmacy and optimization of medications at next appointment Assessment & Plan (09/30/2022 8:44 PM CDT): Today, the patient met with Dr. Leon for the 1st time with Psychiatry and plans to follow-up with Psychiatry on a regular basis. I am very grateful for this psychiatry reducing the patient's current burden of polypharmacy as we are reducing her Seroquel to 200 mg daily and discontinuing the prazosin given lack of efficacy. I will plan to follow up with the patient during her next visit to ensure symptoms are improving after his medication changes. Plan: - per psychiatry: Seroquel 200 mg daily, discontinue prazosin Assessment & Plan (03/10/2022 4:23 PM DOOR MACHINE OPERATOR): Overall, the patient's depression appears to be at baseline with recent worsening of her PTSD. She has been in communication with her psychiatrist here at [facility] and has recently restarted the prazosin which she reports a minimal improvement in her nightmares. I think would be beneficial to have a follow-up with her and proximally 6 weeks to further discuss her anxiety and depression and she would benefit from ongoing psychiatric care for optimization of her medications as she did not tolerate transition from sertraline to escitalopram. Plan: - follow up with Psychiatry April 2022 - prazosin per her Dr. Mary Assessment & Plan (06/07/2020 4:41 PM CDT): We are going to decrease her Prazosin to 5mg QD from 10mg QD. Ms. Cole is in agreement with this plan Posttraumatic Stress Disorder Prolonged 11/27/19 12 Anxiety Generalized Disorder 07/22/2011 Overview (02/03/2023): - bupropion SR up to 200 mg twice daily - ineffective. - bupropion augmented with quetiapine - ineffective - fluoxetine in 2017 for a few months up to 30 mg daily - ineffective - escitalopram up to 5 mg daily unknown duration - ineffective - venlafaxine up to 225 mg daily for a few months - ineffective - duloxetine - caused hives, nausea, and vomiting - mirtazapine up to 45 mg for mood- ineffective. - prazosin up to 15 mg daily at bedtime for PTSD related nightmares - ineffective - citalopram 20 mg unknown duration - brief trial with side effects of leg cramping, facial swelling, and sleep walking. - clonazepam on off with multiple medication regimens - partial benefit for anxiety. - nortriptyline - caused QTC prolongation and dizziness and was discontinued. - gabapentin and pregabalin; GI intolerance, nausea, vomiting - amitriptyline 50 mg daily: Currently taking - managed by Neurology for migraine prevention. - Escitalopram 5 mg; GI and neurology intolerance Meds: Seroquel 100 b.i.d., sertraline 200 daily, amitriptyline 50 mg at bedtime - Clonazepam discontinued March 2021 Psychiatry (August 2021): No clonazepam in the setting of obesity hypoventilation/untreated EUGENIA. Recommended CBT at [facility]. Consider switch from sertraline to escitalopram. Psychiatry (10/10/2021): Plan to cost taper off of sertraline and start escitalopram. Consider referral to mood clinic for neuromodulation. Recommend follow-up in 4-6 weeks (none currently scheduled). CIM (10/11/2021): Pruritus, pins and needles sensation and sweating which began last night after taking her 1st dose of 5 mg Lexapro. Lexapro discontinued. CIM (02/03/2023): Concerned about insufficient coverage of anxiety with the current regimen. Does not want to follow up with her [facility] psychiatrist. Assessment & Plan (02/03/2023 9:46 PM DOOR MACHINE OPERATOR): Today we do not have an in-depth discussion regarding the patient's psychiatric history due to conversations regarding blood pressure syncope, and sinus concerns. However, she did note that her anxiety has been all-consuming over the past several months related to her medical illness and social factors including her son being arrested and currently in rehab and a sister who does not get along well with the patient. She is uninterested in meeting with the psychiatrist she had previously seen at [facility]. As such, I have encouraged her to seek care within the community using Psychology today as a means of finding a local provider which would be approved by her insurance. Plan: - continue current regimen which includes sertraline 200 mg and quetiapine 200 mg at bedtime - seek a community psychiatrist for further medication optimization Assessment & Plan (03/10/2022 4:20 PM DOOR MACHINE OPERATOR): Today, the patient continues on Seroquel 100 b.i.d., sertraline 200 daily, and amitriptyline 50 mg at bedtime. PHQ-9 today was 24 points and the patient's subjectively reports that she feels extremely anxious and with depression, however her depression and anxiety is at her subjective baseline with no acute decompensation at this time. She does not have any active suicidal ideation and reports limited passive suicidal ideation when she has her panic attacks of feeling like she is choking. We have previously tried switching to escitalopram in 2021 with significant side effects that precluded this transition and she remains on sertraline. She is a follow-up planned with Psychiatry in April of this year and will plan to have a clinic appointment following this visit to discuss her ongoing antidepressants and anxiety medications. Unfortunately, she would likely benefit from CBT but she is unable to afford this intervention would not be able to drive to [facility] on a daily basis. Her insurance would only pay for CBT in the setting of inpatient care which she does not yet have a qualifying diagnosis for this. In the future, I think it would be beneficial to consider a referral to the mood Clinic for possible ECT versus [facility]. Plan: - continue sertraline 200, Seroquel 100 b.i.d., amitriptyline 50 - follow-up with psychiatry in April - consider follow-up in mood clinic Assessment & Plan (12/03/2021 6:06 PM CDT): Today, the patient reports her depression/anxiety symptoms are fairly well controlled on current regimen of sertraline, Seroquel, sertraline she recently failed to transition attempt to escitalopram due to pruritus, pins and needle sensation, and diaphoresis. She is hoping to follow-up with her psychiatrist in the future, but plans to complete her cardiac and gastrointestinal workup prior to establishing this visit. At this time, I would not recommend any changes to her medical therapy. Plan: - continue current care with sertraline to 100, Seroquel 100 b.i.d., amitriptyline 50 Hypertensive Heart Disease With Heart Failure Overview (03/14/2024): Medications: simvastatin 20 mg daily, amlodipine 10 mg daily, Lasix 40 mg daily, and dapagliflozin 10mg. Carvedilol stopped 05/2023 due to syncopal episodes Workup: Most recent physician non invasive cardiologist with PVC <1% and PAC 2.86%. 33 runs of supraventricular tachycardia PET-CT cardiac perfusion study 11/2021: Normal findings. LVEF 73%. No regionals. Echo 09/2022: EF 64%, very small and focal area of apical hypokinesis Renal artery ultrasound (01/03/2020): No significant stenosis Hypertension: Complicated history of recurrent syncope requiring hospitalization September 2022 with positive orthostatics. Multiple changes have occurred to hypertensive regimen. However, outpatient ambulatory blood pressure monitoring with notable hypertension (SBP often >170). BP cuff prescribed 01/2024; with readings recently closer to 130s/80s Assessment & Plan (03/14/2024 5:54 PM DOOR MACHINE OPERATOR): With our change at last visit increasing amlodipine slightly and starting SGLT2, she has had symptomatic improvement in addition to much better control of her BP at home. I am happy with her BP in 130s/80s, especially as she is at risk for orthostatic hypotension. She has also increased her exercise greatly, going from 500 steps per day to 2,000 since we last talked. She is planning on swimming soon (with supervision as she does have blackout spells) Assessment & Plan (01/19/2024 2:01 PM DOOR MACHINE OPERATOR): She last saw [facility] cardiology 10/2022 and recommended to work on BP control, weight loss and sleep apnea treatment. At that time did not feel as if she needed further arrhythmia workup. Today she continues to have uncontrolled hypertension. This is complicated by previous intolerance to anti-hypertensive, with angioedema with losartan and syncopal episodes with carvedilol and HCTZ. Managing her BP is of high importance, but we will need to make small changes to medicines at a time. Will increase amLODIPine from 7.5mg to 10mg today. Will also prescribe DME BP cuff so she can do at home monitoring. I also think she would benefit from starting an SGLT2 inhibitor. I encouraged her to reschedule her nephrology visit. Treatment of obesity outlined below. Discussed EUGENIA today and its likely contribution; she does not wish for any type of CPAP/BiPAP due to previous history of intolerance. Follow-up in 1-2 months to touch base on BP and make further adjustments as tolerated. Assessment & Plan (03/12/2023 5:27 PM DOOR MACHINE OPERATOR): Hypertensive on exam today. Unfortunately, given her previous experiences she has not interested in any treatment for obstructive sleep apnea which is known. This is likely contributing significantly to her underlying hypertension. She does have a follow up visit with Nephrology for possible further hypertension control. It will likely be challenging to control her hypertension without treating her underlying sleep apnea. Assessment & Plan (02/03/2023 10:13 PM DOOR MACHINE OPERATOR): Managing her hypertension has been extremely challenging over the past 6 months. Given her recurrent syncope with suspected orthostatic hypotension as underlying etiology, we have tried to reduce her polypharmacy to reduce likelihood of recurrent orthostasis. However, our antihypertensive medications have been limited due to this orthostatic hypotension. She is currently on carvedilol 50 mg b.i.d. and amlodipine 2.5 mg daily. On this regimen, her blood pressure has been drastically under treated with systolic blood pressures remaining> 200 at times. Previous antihypertensive workup included a normal renin in 2011 and normal renal artery ultrasound in 2019. Unfortunately, she has intolerance to Lamont/Arb due to a history of angioedema (reported) to both Lamont, Arb, and spironolactone. As such, we have been limited in our antihypertensive regimens to beta-blockers, calcium channel blockers, and (possibly in the future) nitrates, thiazides, or hydralazine. However, I am significantly concerned about starting any of these afterload reducing medications given the patient's current orthostatic burden with recurrent syncope. Differential diagnosis includes pulmonary artery stenosis, elevated renin/angiotensin, autonomic dysfunction, pheochromocytoma, or adrenal insufficiency. Based on cortisol testing this morning which was normal, adrenal insufficiency is highly unlikely. Based on absence of symptoms and the consistent elevated blood pressure, pheochromocytoma is highly unlikely. To further evaluate her hypertensive trend, it would be reasonable to obtain a 24 hour blood pressure monitor which will give an average blood pressure and will evaluate for trends while sleeping. If evidence of nocturnal hypertension, this would indicate a significant pathologic explanation for persistent hypertension despite dual therapy. I also think she would greatly benefit from discussion with a dedicated hypertension expert to optimize blood pressure control without sacrificing orthostatic hypotension. As such, I have placed a consult with our hypertension Clinic. I have also recheck renin/aldosterone to evaluate for any changes over the past 10 years. Will also increase her amlodipine to 5 mg daily. Plan: - hypertension Clinic consult - 24 hour blood pressure monitor - renin/aldosterone level - BMP - increase amlodipine to 5 mg daily Assessment & Plan (03/10/2022 4:39 PM DOOR MACHINE OPERATOR): Today, the patient's blood pressure is slightly elevated at 148/86 and she reports taking all of her medications appropriately. Today, she has a significant amount of pain and is feeling extremely anxious regarding her sensation of choking which likely explain the worsened hypertension. I would not make any changes to the patient's hypertension management based on this office visit due to her pain and anxiety at this time. I would, however, recommend repeating blood pressure at next office visit in approximately 1 month to evaluate for continued hypertensive. If the patient has worsened hypertension, we would consider additional antihypertensive medications. Of note, she is currently on Lasix 40 mg daily for heart failure and may benefit from a thiazide diuretic for the dual effect of blood pressure and diuresis. Plan: - recheck blood pressure at next office visit - no changes to medication at this time Assessment & Plan (12/03/2021 6:18 PM CDT): During the patient's episodes of palpitations and syncope, she takes her blood pressure notes that her blood pressure is consistently elevated. Today in clinic, her blood pressure was 139/85. After speaking with Cardiology, she may benefit from additional blood pressure control and they recommend trial of spironolactone given her history of HFpEF. For further evaluation, we will plan to obtain a ambulatory blood pressure monitor after she completes the current Holter monitor. We will also consider initiation of spironolactone and her blood pressures remained elevated on ambulatory blood pressure monitor. Plan: - ambulatory blood pressure monitor following completion of Holter - medication changes at this time, we will consider spironolactone in the future. Assessment & Plan (07/12/2021 6:11 PM CDT): Blood pressure very high today, it even higher than it was a month ago. She says this is similar to what it was at home. She is under a lot of stress. She is agreeable to increasing amlodipine to 10 mg. She has follow-up in 3 weeks here Assessment & Plan (09/26/2020 4:27 PM CDT): Increase Coreg to 25mg BID, currently on 12.5mg BID and still has high pulse rate and BP at home > 160 systolic. Will have her check her blood pressures after the increase and let me know if they are still high, could continue to increase beyond 25mg BID after that. Assessment & Plan (08/08/2020 2:05 PM CDT): 24 hour BP monitor performed (was only 6 hours due to intolerance) which demonstrated average BP 168/97 (max 208/124) while on metoprolol 200 and Amlodipine 10. I changed her BP meds from metoprolol to Coreg and continued her Amlodipine. She is on 6.25mg BID Coreg and continues to have high pulse rates and blood pressures. I will increase her Coreg to 12.5mg BID and she will call within one week with her blood pressures and heart rates and we can make adjustments from there. Assessment & Plan (06/07/2020 4:37 PM CDT): Mrs. Cole says her blood pressures have been high at home in the SBP 180s. However, her BP here have not been this high. I encourage her to get the 24 hour blood pressure monitor but she has been unable to do this because of how far away she lives. I told her this is very important to get this done before making adjustments to her blood pressure medications given her multiple medication intolerances and difficulty with medication changes. I told her if she cannot do it here with [facility] she could consider seeing another physician closer to home to have this done as this is essential for treatment of her hypertension. Assessment & Plan (01/03/2020 12:39 PM DOOR MACHINE OPERATOR): Her metoprolol is now at 200mg BID per cardiology. She is on amlodipine 10. She continues to have elevated blood pressures despite an aggressive regimen. Renal ultrasound was largely unremarkable except for mild thinning of the parenchyma. No renal artery stenosis. She had slightly elevated normetanephrines at 1.5, although this likely due to her Elavil. Untreated EUGENIA could also lead to that. Assessment & Plan (10/28/2019 3:17 PM CDT): She brought in an extensive blood pressure record that showed systolic pressures ranging from 200's down to 80's. She is seeing cardiology who is titrating her metoprolol. Although this does not have as much blood pressure effect. I would wonder about starting carvedilol as her blood pressures are quite high. Resolved Problems Problem Noted Date Diagnosed Date Resolved Date Syncope 09/18/2022 09/30/2022 Chronic Kidney Disease (CKD) , Stage 3a Glomerular Filtration Rate (GFR) 45 To 59 06/04/2022 10/29/2022 Assessment & Plan (06/04/2022 3:23 PM CDT): Most recent blood pressures taking the office today are acceptable. We will continue current blood pressure regimen. 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 ENT (09/06/2021): Consider increase pantoprazole for possible GERD sensation. Alternatively, could consider a CT sinogram and video swallow. CIM (01/07/2022): Globus sensation is currently her primary concern with progression from previous visit. Currently she feels like food is stuck in her throat and has lost weight as a result of food avoidance for fear of choking. She finds drinking beverages to help reduce the phlegm, but any solid food seems to increase her phlegm and difficulty with globus sensation. At night, she frequently wakes up feeling like she was choking and over the past 4 days has experienced blood streaking in her sputum and phlegm production as result of frequent coughing. She currently has an oxygen concentrator with a humidifiers she uses every other day and her phlegm is described as clear to light green color. She currently takes cetirizine t.i.d. and had started using her pantoprazole t.i.d. (from prescribed daily dosing) in attempts to reduce the phlegm production. She continues to use a Neti pot and flonase daily which has not helped with her symptoms. ENT (01/07/2022): Flexible laryngoscopy with no findings to explain dysphagia and globus sensation. 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 Esophagram (02/24/2022): Normal esophagus with no stricture, intact peristalsis, no hernia, no reflux witnessed, prominent cricopharyngeus muscle narrowing the lumen proximally 50%. Overall normal esophagram. 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 Mildly prominent cricopharyngeus of questionable significance. ENT patient message (02/26/2022): Consider GI consult and possible soils engineer EGD (03/03/2022): Mild stenosis at the cricopharyngeus, proceeded with dilation. Biopsies of lower esophagus, duodenum, and stomach. Biopsies: Mild reactive gastropathy of stomach with antral reactive foveolar hyperplasia and negative inflammation. Negative H pylori. Indicate chemical injury such as NSAID and bile reflux. No abnormalities of the esophagus. Recommended esophageal clinic follow-up CIM (09/16/2022): Resolution of globus sensation with normal swallowing. Continues to cut food into small, biceps basis. No sensation of choking. Assessment & Plan (09/16/2022 1:41 PM CDT): Today, globus sensation has almost entirely resolved and she is currently chewing solid foods (with cutting into small pieces). No for the sensation of choking. Plan: - continue to monitor Assessment & Plan (03/10/2022 4:45 PM DOOR MACHINE OPERATOR): Today, the patient reports that her symptoms had slightly improved after her dilation during the EGD but have since returned to her baseline with significant globus sensation. She is afraid to eat any solid foods due to feeling of them being stuck in her throat. Sensation is at the level of the sternal notch and therefore his distal to the cricopharyngeus and the larynx. At this time, she eats a primarily liquid and soft diet and reports subjective weight loss due to food avoidance. She is sleeping upright in bed and reports intermittent difficulty swallowing her medications. Upon reviewing the patient's recent workup, there is no evidence of dysphagia on swallow study and EGD was without any evidence of diverticulum or achalasia and esophagram demonstrated normal esophageal muscle function. Taken together, this testing is all very reassuring that the patient does not have a structural abnormality resulting in an elevated risk of choking. I suspect there is a large component of food avoidance and illness driven anxiety underlying the patient's food hesitancy. However, there was note of an enlarged cricopharyngeus muscle which could be contributing the patient's subjective globus sensation. Additionally, the slight improvement after dilation of the esophagus could be the result of pathologic improvement versus placebo effect from intervention. I believe she would benefit from evaluation with our colleagues in GI for further discussion regarding the role of cricopharyngeal muscle in the patient's dysphagia and other online etiologies that could present as a choking sensation versus dysphagia. If our colleagues in Gastroenterology are unable to determine exact pathology for the patient's dysphagia, globus sensation, and subjective anxiety regarding possible choking, then I we will plan to pursue a psychogenic approach to result in the patient's symptoms. Prior to attributing dysphagia and globus sensation to a psychiatric etiology, I would want to ensure there is no structural abnormality. I greatly appreciate the insight from our colleagues in Gastroenterology. I will also plan to call the provider in ENT to further discuss next steps and additional imaging versus consultation that could be helpful in determining the patient's ongoing symptom burden. Plan: - okay for full diet - GI consult Assessment & Plan (01/07/2022 10:18 AM DOOR MACHINE OPERATOR): Given the progression of her globus sensation, differential diagnosis includes fibromyalgia with muscle tension dysphonia, diverticulum, chronic postnasal drip, hiatal hernia, or primary esophageal muscle pathology. She has a follow-up with ENT today and I will make sure to follow-up with their recommendations for further evaluation and cares of her ongoing globus sensation. Overall, however, I have low suspicion that her globus sensation is secondary to insufficiently treated GERD symptoms. If ENT is unable to identify a discrete pathology for her continue globus sensation and increased phlegm production, it may be worth referring to speech language pathology for evaluation of possible muscle tension dysphonia in the setting of chronic fibromyalgia. To address the patient's symptoms of increased phlegm production, we will plan to add ipratropium spray to the patient's medication regimen and will start famotidine daily. She is already taking azelastine spray, Neti pot, and Flonase. Plan: - follow-up ENT - start ipratropium nasal spray - continue Neti pot, Flonase, azelastine spray. Assessment & Plan (12/03/2021 6:14 PM CDT): She continues to experience a globus sensation in her throat that she attributes to phlegm production. She describes a feeling of c hoking but has significant improvement with cetirizine which she is taking t.i.d.. She would like to visit with ENT again for further evaluation, but is hoping to meet with a different provider. We will attempt to assist with arrangement with ENT follow-up. 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 Date Type Department Care Team Description 07/01/2024 Clinical Communication Division of [facility] Internal Medicine, [facility], in [place], [place] [address] [place] [address] Susana Rowe M.D. [facility] Form ([facility]) 06/26/2024 Refill Division of [facility] Internal Medicine, [facility], in [place], [place] [address] [place] [address] Susana Rowe M.D. Med Refill 06/20/2024 Refill Division of [facility] Internal Medicine, [facility], in [place], [place] [address] [place] [address] Nikunj Kendall M.D. Med Refill 06/20/2024 Refill Division of [facility] Internal Medicine, [facility], in [place], [place] [address] [place] [address] Susana Rowe M.D. Med Refill 05/31/2024 Refill Division of [facility] Internal Medicine, [facility], in [place], [place] [address] [place] [address] Susana Rowe M.D. Med Refill 05/14/2024 Refill Division of [facility] Internal [facility], [facility], in [place], [place] [address] [place] [address] Susana Rowe M.D. Med Refill 05/04/2024 Clinical Communication Division of [facility] Internal [facility], [facility], in [place], [place] [address] [place] [address] Susana Rowe M.D. 05/01/2024 Refill Division of [facility] Internal [facility], [facility], in [place], [place] [address] [place] [address] Susana oRwe M.D. Med Refill 04/20/2024 Refill Division of [facility] Internal [facility], [facility], in [place], [place] [address] [place] [address] Mic Sears M.D. Med Refill 04/20/2024 Refill Division of [facility] Internal Medicine, [facility] in [place], [place] [address] [place] [address] Susana Rowe M.D. Med Refill 04/20/2024 Results Follow-Up Division of [facility] Internal Medicine, [facility] in [place], [place] [address] [place] [address] Susana Rowe M.D. Vitamin B12 Assay, Lipid Panel 04/19/2024 2:50 PM DOOR MACHINE OPERATOR Office Visit Division of [facility] Internal Medicine, [facility] in [place], [place] [address] [place] [address] Nikunj Kendall M.D. Paresthesias Feet (Primary Dx); Syncope And Collapse; Dizziness; Rhinitis Chronic 04/19/2024 11:20 AM DOOR MACHINE OPERATOR - 04/19/2024 11:59 PM DOOR MACHINE OPERATOR Hospital Encounter Department of Laboratory Medicine and Pathology, [facility] in [place], [place] [address] [place] [address] Susana Rowe M.D. Deficiency Vitamin B12; Hyperlipidemia Discharge Disposition: Home or Self Care 04/19/2024 9:13 AM DOOR MACHINE OPERATOR - 04/19/2024 9:37 AM DOOR MACHINE OPERATOR Hospital Encounter Department of Neurology in [place], [place] [address] [place] [address] Stiven Zavaleta M.D. Whealy, Mark A, M.D. Chronic Migraine Discharge Disposition: Home or Self Care from Last 3 Months Immunizations Immunization Administration Dates Next Due HZV (ZOSTAVAX) 04/29/2012 HepB Adult (HEPLISAV-B) 11/07/2019,08/03/2019 Influenza TIV (IM) 02/05/2010 Influenza, Injectable, Mdck, Preservative Free, Quadrivalent 10/28/2019,12/03/2017 Influenza, Injectable, Mdck, Quadrivalent 10/28/2019,12/03/2017 Influenza, Seasonal, Injectable 11/23/2023 Influenza, Unspecified 11/16/2017 PCV20 08/05/2021 PPSV23 01/27/2012 Pneumococcal, Unspecified 08/05/2021(Def erred: Other),08/05/2021(Deferred: Other) RSV: respiratory syncytial v irus (AREXVY) recombinant vaccine 11/14/2022 RZV (SHINGRIX) 09/07/2017,07/07/2017 SARS-COV-2 (COVID-19) - MODERNA(Discontinued) 05/27/2021,06/05/2020,05/02/2020 SARS-COV-2 (COVID-19) - PFIZ ER BIVALENT TS(Discontinued)(12 YEARS OR OLDER) 11/15/2021 Tdap 10/24/2020,10/03/2011,05/21/2007 influenza trivalent high dos e (HD)(PF) 12/01/2018 influenza trivalent vaccine (6 months and older)(PF) 12/10/2012,11/29/2011 influenza vaccine quad (FLUZONE/FLUARIX) (6 months and older)(PF) 12/09/2022,11/12/2021,11/27/2020,2016,12/12/2015,12/13/2014,12/14/2013 Family History * Patient is adopted Medical History Relation Name Comments Glaucoma Neg Hx Macular degeneration Neg Hx Social History Tobacco Use Types Packs/Day Years Used Date Smoking Tobacco: Never Passive Smoke Exposure: Past Smokeless Tobacco: Never Tobacco Cessation:Counseling Given: Not Answered Alcohol Use Standard Drinks/Week Comments No 0 (1 standard drink = 0.6 oz pur e alcohol) [facility] Utilities Answer Date Recorded In the past 12 months has [facility], oil, or water [employer] threatened to shut off services in your [...] 02/11/2022 How often do you attend chur ch or anabaptism services? Never 02/11/2022 Do you belong to any clubs o r organizations such as buddhist groups, unions, fraternal or athletic groups, or [...] Answer Date Recorded PHQ-2 Score 2 04/19/2024 [facility] - Occupational Stress Questionnaire Answer Date [...] Date Recorded Dental: Regular Dentist Yes 04/06/19 21 Employment Answer Date Recorded Employment status Permanently disabled Housing Stability Answer Date Recorded What is your living situation today? I have a [facility] place to live 03/10/2023 Education Answer Date Recorded What is the highest level of school you have completed or the highest degree you have received? GED or equivalent 01/2019 Comments No Sex and Gender Information Value Date Recorded Sex Assigned at Female 07/29/2017 9:59 AM CDT Legal Sex Female 3:46 PM DOOR MACHINE OPERATOR Gender Identity Female 09/22/2020 3:19 PM CDT Sexual Orientation Straight 07/29/2017 9: 59 AM CDT Last Filed Vital Signs Vital Sign Reading Time Taken Comments Blood Pressure 130/85 04/19/2024 9:43 AM DOOR MACHINE OPERATOR Pulse 99 04/19/2024 9:43 AM DOOR MACHINE OPERATOR Temperature 36.6 C (97.9 F) 09/22/2022 8:08 AM CDT Respiratory Rate 17 09/22/2022 8:08 AM CDT Oxygen Saturation 94% 10/14/2022 2:32 PM CDT Inhaled Oxygen Concentration - - Weight 93.6 kg (206 lb 5.6 oz) 04/19/2024 9:43 A M DOOR MACHINE OPERATOR Height 159.5 cm (5' 2.8) 04/19/2024 9:43 AM DOOR MACHINE OPERATOR Body Mass Index 36.79 04/19/2024 9:43 AM DOOR MACHINE OPERATOR Plan of Treatment Upcoming Encounters Date Type Department Care Team (Late st Contact Info) Description 07/18/2024 1:30 PM CDT Appointment Department of Neurology in [place], [place] [address] [place] [phone] Stiven Zavaleta M.D. [address] [place] [phone] Geovanna Navarrete M.D. [address] [place] [phone] Discharge Disposition: Home or Self Care 08/15/2024 1:00 PM CDT Office Visit Department of Neurology in [place], [place] [address] [place] [phone] Ashley Webster APRN, C.N.P., M.S.N. [address] [place] [phone] Health Maintenance Due Date Last Done Comments Bone Density Scan (Osteoporosis Screen) 1959 CT Colonography 1959 Cologuard 1959 FIT 1959 Visit: Medicare Annual Wellness 1960 Colonoscopy 10/12/2021 10/13/2011, 02/2009 (Performed elsewhere) COVID-19 Vaccine ( season) 2024 11/23/2023, 11/25/2022, 11/15/2021, Additional history exists Fall Risk Screen (Annual) 06/15/2024 PEG assessment for Opioid therapy 08/04/2024 05/04/2024 Controlled Substance Monitoring (UDS) 08/05/2024 08/06/2023 Mammogram 10/27/2024 08/28/2021, 07/17, 05/06/2018, Additional history exists Postponed from 08/28/2022 (Patient Refused) Controlled Substance Agreement 01/18/2025 01/19/2024, 02/04/2023 Creatinine Level (Kidney Function Test) 01/18/2025 01/19/2024, 08/03/2023, 09/21/2022, Additional history exists Fasting Glucose for Diabetes Screening 01/18/2025 01/19/2024, 01/19/2024, 08/03/2023, Additional history exists Potassium Level 01/18/2025 01/19/2024, 07/17, 09/21/2022, Additional history exists Sodium Level 01/18/2025 01/19/2024, 07/17, 09/21/2022, Additional history exists Visit: Chronic Disease, age 18+ 03/14/2025 03/14/2024 Controlled Substance Monitoring (PHQ-9) 04/19/2025 04/19/2024 Generalized Anxiety (SHREE-7) 04/19/2025 04/19/2024 Office Visit for Blood Pressure Check / Re-check 04/19/2025 04/19/2024 Opioid Use Disorder (OUD) Screening 05/19/2025 03/14/2024 Lipid (Cholesterol) Screening 04/19/2029 04/19/2024, 12/03/2021, 07/04/2020, Additional history exists DTaP,Tdap,and Td Vaccines (4 - Td or Tdap) 10/24/2030 10/24/2020, 10/03/2011, 05/21/2007 Hepatitis C Screening Completed 01/05/2015 , 01/04/2014, 06/25/2013, Additional history exists Zoster Vaccines Completed 09/07/2017, 06/17, 04/29/2012 Hepatitis B Vaccines Completed 11/07/2019, 08/03/19 Pneumococcal vaccine (50+ years) Completed 08/05/2021, 01/27/2012 RSV vaccine - (32-36 weeks) or 60+ years Completed 11/14/2022 Influenza Vaccine Completed 11/23/2023, , 11/12/2021, Additional history exists Opioid Risk Tool (ORT) Completed 01/19/2024 Depression Screening (Annual PHQ-2) Completed 04/19/2024, 04/19/2024 Colorectal Cancer Screening Discontinued IPV Vaccines Aged Out No longer eligi ble based on patient's age to complete this topic Medical Devices Implanted Type Area Principal Statistical Scientist Device Identifier Shelf Expiration Date Model / Serial / Lot Hardware E.G. Pins/Screws/Rosalio s Hardware e.g. pins/screws /rods Right: Ankle Hardware E.G. Pins/Screws/Rosalio s Hardware e.g. pins/screws /rods Right: Foot Trilogy-Screw 6.5x20 - Alvarez [id number] Implanted:Qty: 1 on 06/09/2011 Hardware e.g. pins/screws /rods [employer] Description:Device Manufactu rer - Rui. Device Status Text - [id number]. Guide Wire-Ball Tip 3 X 800 - Alvarez [id number] Implanted:Qty: 1 on 06/09/2011 Hardware e.g. pins/screws /rods Katharine Description:Device Manufactu rer - Katharine Tim.. Device Status Text - HARDWARE- 93151. [employer] Data - [id number]. Trilogy-Screw 6.5x40 - Alvarez [id number] Implanted:Qty: 1 on 06/09/2011 Hardware e.g. pins/screws /rods [employer] Description:Device Manufactu rer - Rui. Device Status Text - [id number]-81771. [place] Screw 2 Canc 6.5 X 45 - Alvarez [id number] Implanted:Qty: 1 on 06/24/2013 Hardware e.g. pins/screws /rods [employer] Description:Device Manufactu rer - [employer]. Device Status Text - HARDWARE-[id number]. [place] Screw 2 Canc 6.5 X 8 - Alvarez [id number] Implanted:Qty: 1 on 06/24/2013 Hardware e.g. pins/screws /rods [employer] Description:Device Manufactu rer - [employer]. Device Status Text - HARDWARE-35263. Stem [place] 4x Std 140 - Alvarez [id number] Implanted:Qty: 1 on 06/09/2011 Hip Implant Other/Legacy - See Implant Description [employer] Description:Device Manufactu rer - [employer]. Body Location - Other. Left. Device Status Text - [id number] [id number]. Dep. Head Prodigy 32 + 5.0 - Alvarez [id number] Implanted:Qty: 1 on 06/09/2011 Hip Implant Other/Legacy - See Implant Description [employer] Description:Device Manufactu rer - [employer]. Body Location - Other. Left. Device Status Text - [id number] [id number]. Zim Insert Longevity 0 Deg 32x50 - Alvarez [id number] Implanted:Qty: 1 on 06/09/2011 Hip Implant Other/Legacy - See Implant Description [employer] Description:Device Manufactu rer - Rui. Body Location - Other. Left. Device Status Text - [id number]. Zim. Shell Tril W Holes 52 - Alvarez [id number] Implanted:Qty: 1 on 06/09/2011 Hip Implant Other/Legacy - See Implant Description [employer] Description:Device Manufactu rer - Rui. Body Location - Other. Left. Device Status Text - [id number] [id number]. Delta-Head Ceramic 32mm +1 - Alvarez [id number] Implanted:Qty: 1 on 06/24/2013 Hip Implant Right: Other/Legacy - See Implant Description [employer] Description:Device Manufactu rer - [employer]. Body Location - Right. Device Status Text - [id number] [id number]. [place] Liner Altrx Neut 32x50 - Alvarez [id number] Implanted:Qty: 1 on 06/24/2013 Hip Implant Right: Other/Legacy - See Implant Description [employer] Description:Device Manufactu rer - [employer]. Body Location - Right. Device Status Text - [id number] [id number]. [place] Shell Porocoat Lamont 50mm - Alvarez [id number] Implanted:Qty: 1 on 06/24/2013 Hip Implant Right: Other/Legacy - See Implant Description [employer] Description:Device Manufactu rer - [employer]. Body Location - Right. Device Status Text - HIP [id number]. Stem [place] 4x Std 140 - Alvarez [id number] Implanted:Qty: 1 on 06/24/2013 Hip Implant Right: Other/Legacy - See Implant Description [employer] Description:Device Manufactu rer - [employer]. Body Location - Right. Device Status Text - HIP IMP-[id number]. Procedures Procedure Name Priority Date/Time Associated Diagnosis Comments LIPID PANEL, S Routine 04/19/2024 11:53 AM DOOR MACHINE OPERATOR Hyperlipidemia VITAMIN B12 ASSAY, S Routine 04/19/2024 11:53 AM DOOR MACHINE OPERATOR Deficiency Vitamin B12 NE CHEMODENERV FACIAL TRIGEM WOODROW Routine 04/19/2024 9:45 AM DOOR MACHINE OPERATOR Chronic Migraine HEMOGLOBIN A1C, B Routine 01/19/2024 12: 51 PM DOOR MACHINE OPERATOR PreDiabetes BASIC METABOLIC PANEL, S/P Routine 01/19/2024 12:51 PM DOOR MACHINE OPERATOR Elevated Creatinine BI BREAST SCREENING BILATERAL WITH TOMOSYNTHESIS RAD - Routine (most inpatients and all outpatients) 08/28/2021 12:20 PM CDT Screening Mammogram Breast Cancer HCV AB SCRN W/REFLEX TO HCV PCR, S Routine 01/05/2015 10:08 AM DOOR MACHINE OPERATOR from Last 3 Months or Most Recently Relevant to Health Maintenance Results * (ABNORMAL) Lipid Panel (04/19/2024 11:53 AM DOOR MACHINE OPERATOR) Triglycerides 229(H) mg/dL 04/19/2024 1:25 PM DOOR MACHINE OPERATOR DTL Comment: ----REFERENCE VALUE---- Normal: <150 mg/dL Borderline High: 150-199 mg/dL High: 200-499 mg/dL Very High: > or =500 mg/dL Cholesterol, Total 166 mg/dL 2024 1:25 PM DOOR MACHINE OPERATOR DTL Comment: ----REFERENCE VALUE---- Desirable: < 200 mg/dL Borderline High: 200 - 239 mg/dL High: > or = 240 mg/dL Cholesterol, LDL, Calculated 74 mg/dL 04/19/2024 1:25 PM DOOR MACHINE OPERATOR DTL Comment: ----REFERENCE VALUE---- Desirable: <100 mg/dL Above Desirable: 100-129 mg/dL Borderline High: 130-159 mg/dL High: 160-189 mg/dL Very High: >=190 mg/dL ----ADDITIONAL INFORMATION---- LDL cholesterol calculated using the Coe/NIH equation. Cholesterol, HDL, S 55 >=50 mg/dL 04/19/2024 1:25 PM DOOR MACHINE OPERATOR DTL Cholesterol, Non-HDL, Calculated 111 mg/dL 04/19/2024 1:25 PM DOOR MACHINE OPERATOR DTL Comment: ----REFERENCE VALUE---- Desirable: <130 mg/dL Above Desirable: 130-159 mg/dL Borderline High: 160-189 mg/dL High: 190-219 mg/dL Very High: > or =220 mg/dL Fasting (8 HR or more) Yes 04/19/2024 11:53 AM DOOR MACHINE OPERATOR DTL Blood (Blood, Venous) 04/19/2024 11:53 AM DOOR MACHINE OPERATOR 04/19/2024 12:30 PM DOOR MACHINE OPERATOR Susana Rowe M.D. LAB BLOOD ADD-ON Final Resul t Performing Organization Address [facility] Co de Phone Number [address] [place] [address] * Vitamin B12 Assay (04/19/2024 11:53 AM DOOR MACHINE OPERATOR) Pathologist [facility] [place] Vitamin B12 Assay, S 680 180 - 914 ng/L 04/20/2024 8:44 AM DOOR MACHINE OPERATOR DTL Comment: ----ADDITIONAL INFORMATION---- In patients being evaluated for vitamin B12 deficiency who have intrinsic factor blocking antibodies (IFBA), false elevations of B12 may occur due to IFBA interference thus potentially obscuring a physiological deficiency of B12. If observed B12 concentrations are discordant with clinical presentation, measurement of methylmalonic acid (MMA) should be considered. Blood (Blood, Venous) 04/19/2024 11:53 AM DOOR MACHINE OPERATOR 04/19/2024 12:30 PM DOOR MACHINE OPERATOR Susana Rowe M.D. LAB BLOOD ADD-ON Final Resul t Performing Organization Address [facility] Co de Phone Number [address] [place] [address] * NE CHEMODENERV FACIAL TRIGEM WOODROW (04/19/2024 9:45 AM DOOR MACHINE OPERATOR) Narrative MMODAL - 04/19/2024 9:45 AM DOOR MACHINE OPERATOR Evaristo Nelson M.D. 04/19/2024 9:37 AM Botox for Chronic Migraine Performed by: Evaristo Nelson M.D. Authorized by: Stiven Zavaleta M.D. Care team members present 1. Mike Katz L.P.N. 2. Yesy Meng M.D. PROCEDURE DETAILS Pre-procedure pain score: 2/10 Injection of: 100 Units onabotulinumtoxinA 100 unit; 100 Units onabotulinumtoxinA 100 unit Needle gauge: 30 Needle length: 0.5 in Injection site details Registered Dental Hygienist / Procerus muscle(s): 5 units into the left costumed character entertainer muscle, 5 units into the right costumed character entertainer muscle and 5 units into the procerus muscle (15 units total). Superior Frontalis muscle(s): 5 units into the left superior frontalis muscle and 5 units into the right superior frontalis muscle (2 injection sites per muscle) (10 units total). Temporalis muscle(s): 25 units into the left temporalis muscle and 25 units into the right temporalis muscle (4 injection sites per muscle) (50 units total). Splenius Capitis muscle(s): 12.5 units into the left splenius capitis muscle and 12.5 units into the right splenius capitis muscle (2 injection sites per muscle) (25 units total). Occipitalis muscle(s): 25 units into the left occipitalis muscle and 25 units into the right occipitalis muscle (4 injection sites per muscle) (50 units total). Trapezius muscle(s): 25 units into the left trapezius muscle and 25 units into the right trapezius muscle (3 injection sites per muscle) (50 units total). Total units wasted: 0 Total units injected: 200 CONSENT Consent obtained: written (Risks, benefits and alternatives were discussed and a written Informed Consent was obtained. Please see Informed Consent form for further details.) UNIVERSAL PROTOCOL All relevant documentation and testing were reviewed and available. All required blood products, implants, devices and or special equipment were made available as applicable. Pre-procedure verification was conducted and the correct site was marked if required. A fire risk and smoke assessment were done as applicable. The procedural time-out to verify correct patient, correct side/site, and procedure was conducted prior to performing the procedure and confirmed in a procedural pause. PRE-PROCEDURE DETAILS Reason for injections: chronic migraine Appropriate hand hygiene, gown, cap, mask, protective eyewear, sterile gloves, skin preparation, sterile drape, and strict aseptic technique were utilized as applicable for the procedure: yes Site preparation: alcohol Clinical history: Patient was made aware that they may be responsible for any and all costs associated with injection of Botulinum Toxin Type A that is not covered by a third libertarian. Prior to treatment with Botox, the frequency of headaches was greater than 28 days per month and with significant impairment in the quality of life. Please see the initial Botox injection note and Headache consultation note regarding specific details of the headache history prior to the start of treatment. Daily migraine prophylactic treatments: memantine (Namenda) Headache frequency when Botox is most effective (middle month in between rounds). Current headache days per month: 0 days Current severe headache days per month: 0 days Wearing off phenomenon prior to this round of Botox: yes Duration: 2 weeks Patient finds Botox treatment helpful and wants to repeat the treatment? yes Patient had migraine headache frequency reduction by at least 26 days per month compared to pretreatment level. POST-PROCEDURE DETAILS Procedure completed successfully: yes Complications: no apparent complications Comments Medications tried prior to Botox treatment: Propranolol, Amitriptyline, Nortriptyline, Metoprolol, verapamil, Zoloft, gabapentin, Tizanidine and Topiramate. Prior to Botox how many days per month did you miss work/school due to migraines? None - not working prior to Botox treatment. Prior to Botox how many days per month did you miss out on family functions or home activities due to migraines? 14. Prior to Botox did severe migraines cause symptoms that impacted your quality of life and ability to care for yourself? If yes, what symptoms? Yes. Severe headaches, nausea and sensitivity to light and sound. With Botox how many days per month do you miss work/school due to migraines? None - Still not working. With Botox how many days per month do you miss out on family functions or home activities due to migraines? None. How has Botox impacted your quality of life; are you able to do more at work/school or home? It made life better for me. Botox has been wonderful . What migraine symptoms have you noted an improvement on since starting Botox? All symptoms have improved. ATTESTATION STATEMENT A resident or fellow participated in the procedure, and the accounting policy consultant was present for the entire procedure. us Stiven aZvaleta M.D. NEUROLOGY ORDERABLES Final Resul t Performing Organization Address City/[facility]/ZIP Co de Phone Number MMODAL NA * Hemoglobin A1c (01/19/2024 12:51 PM DOOR MACHINE OPERATOR) Hemoglobin A1c, B 5.4 4.0 - 5.6 % 01/19/2024 1:47 PM DOOR MACHINE OPERATOR DTL Blood (Blood, Venous) 01/19/2024 12:51 PM DOOR MACHINE OPERATOR 01/19/2024 1:04 PM DOOR MACHINE OPERATOR us Susana Rowe M.D. LAB BLOOD ADD-ON Final Resul t Performing Organization Address City/[facility] Co de Phone Number [facility] [address] [place] [address], [facility] DTL [facility] [address] [place] [address] * Basic Metabolic Panel (01/19/2024 12:51 PM DOOR MACHINE OPERATOR) Potassium, S 3.9 3.6 - 5.2 mmol/L 01/19/2024 1:42 PM DOOR MACHINE OPERATOR DTL Sodium, S 145 135 - 145 mmol/L 01/19/2024 1:42 PM DOOR MACHINE OPERATOR DTL Chloride, S 105 98 - 107 mmol/L 01/19/2024 1:42 PM DOOR MACHINE OPERATOR DTL Bicarbonate, S 26 22 - 29 mmol/L 01/19/2024 1:42 PM DOOR MACHINE OPERATOR DTL Anion Gap 14 7 - 15 01/19/2024 1:42 PM DOOR MACHINE OPERATOR DTL BUN (Blood Urea Nitrogen), S 14 6 - 21 mg/dL 01/19/2024 1:42 PM DOOR MACHINE OPERATOR DTL Creatinine 0.78 0.59 - 1.04 mg/dL 01/19/2024 1:42 PM DOOR MACHINE OPERATOR DTL Estimated GFR (eGFR) 85 >=60 mL/min/BSA 01/19/2024 1:42 PM DOOR MACHINE OPERATOR DTL Comment: Estimated GFR calculated using the 2020 CKD_EPI creatinine equation. Calcium, Total, S 9.5 8.8 - 10.2 mg/dL 01/19/2024 1:42 PM DOOR MACHINE OPERATOR DTL Glucose, S 101 70 - 140 mg/dL 01/19/2024 1:42 PM DOOR MACHINE OPERATOR DTL Blood (Blood, Venous) 01/19/2024 12:51 PM DOOR MACHINE OPERATOR 01/19/2024 1:14 PM DOOR MACHINE OPERATOR us Susana Rowe M.D. LAB BLOOD ADD-ON Final Resul t [facility] [address] [place] [address], [facility] DTL [facility] [address] [place] [address] * BI Breast Screening Bilateral with Tomosynthesis (08/28/2021 12:20 PM CDT) Anatomical Region Laterality Modality Breast, Breast Imaging RST L OS, Breast Imaging [facility] LOS, Breast Imaging FLA LOS Bilateral Mammography 08/28/2021 4:10 PM CDT Impressions 08/28/2021 4:11 PM CDT Negative. RECOMMENDATION: Annual Screening Mammogram ASSESSMENT: BI-RADS: 1: Negative. Narrative 08/28/2021 4:11 PM CDT EXAM: BI BREAST SCREENING BILATERAL WITH TOMOSYNTHESIS Current study was evaluated with a Computer Aided Detection (CAD) system. INDICATION: Screening mammogram. COMPARISON: Prior exam(s) were available and reviewed for comparison. DENSITY: a. The breast(s) are almost entirely fatty. FINDINGS: No mammographic findings of malignancy. Procedure Note Pina Flaherty M.D. - 08/28/2021 EXAM: BI BREAST SCREENING BILATERAL WITH TOMOSYNTHESIS Current study was evaluated with a Computer Aided Detection (CAD) system. INDICATION: Screening mammogram. COMPARISON: Prior exam(s) were available and reviewed for comparison. DENSITY: a. The breast(s) are almost entirely fatty. FINDINGS: No mammographic findings of malignancy. IMPRESSION: Negative. RECOMMENDATION: Annual Screening Mammogram ASSESSMENT: BI-RADS: 1: Negative. Esperanza Vera M.D. IMG BI PROCEDURES Final Res ult * HCV AB Scrn w/Reflex to HCV PCR, S (01/05/2015 10:08 AM DOOR MACHINE OPERATOR) HCV Ab Screen, S Negative Negative [facility] Comment:Vzhdmw-nf-bkfcoi rat io is <1.00. 01/05/2015 10:0 8 AM DOOR MACHINE OPERATOR 01/05/2015 10:08 AM DOOR MACHINE OPERATOR us Jodie Quigley M.D. LAB MICROBIOLOGY - BLOOD OR DERABLES Final Result [facility] [address] [place], [place] [address] from Last 3 Months or Most Recently Relevant to Health Maintenance Insurance [facility] Advance Directives For more information, please contact: [phone] Documents on File Type Date Recorded Patient Income Tax Investigator Expl anation Advance Directives 02/27/2020 3:22 PM Heal th Care Directive Advance Directives 05/10/2012 12:00 AM Leg acy document. See document viewer. * Full Code (Latest Code Status on File) Date Activated Date Inactivated Comments 09/18/2022 4:36 PM 09/22/2022 3:07 PM Question Answer Comments Full Code: Discussed * Full Code Date Activated Date Inactivated Comments 05/29/2020 1:25 PM 05/30/2020 2:37 PM Question Answer Comments Full Code: Not Discussed Due to: Patient not available * Full Code Date Activated Date Inactivated Comments 10/30/2017 10:10 PM 11/02/2017 1:51 PM Question Answer Comments Full Code: Discussed Healthcare Agents on File Name Relationship Healthcare Agent Relationshi p Communication Caleb Cole Parent Health Care Agent Evaristo Cole Brother First Alternate Health Care Agent Care Teams Home Care Specialist Relationship Specialty Start Date End Date Susana Rowe M.D. NPMalcom: [phone] [address] [place] [phone] PCP - General Internal Medicine 08/21/23
--- OUTSIDE RECORDS SUMMARY | 2024-07-06 02:10 | XMS_ITS | Encounter Summary ---
Author Organization [facility] Address [address] [place] [address] Care Team Providers Care Customer Account Administrator Name Role Phone Susana Rowe M.D. Primary Care Provider Reason for Visit * Reason Comments Med Refill Encounter Details Date Type Department Care Team (Late st Contact Info) Description 06/20/2024 Refill Division of Community Internal Medicine, [facility], in [place], [place] [address] [place] [phone] Susana Rowe M.D. [address] [place] [phone] Med Refill Social History Tobacco Use Types Packs/Day Years Used Date Smoking Tobacco: Never Passive Smoke Exposure: Past Smokeless Tobacco: Never Alcohol Use Standard Drinks/Week Comments No 0 (1 standard drink = 0.6 oz pur e alcohol) [facility] Utilities Answer Date Recorded In the past 12 months has e [employer], gas, oil, or water jaey[employer] threatened to shut off services in your [...] How often do you attend chur or yazidism services? Never 02/11/2022 Do you belong to any clubs o r organizations such as anabaptist groups, unions, fraternal or athletic groups, or [...] Answer Date Recorded PHQ-2 Score 2 04/19/2024 [facility] [place] of Occupat ional Health - Occupational Stress [...] your living situation today? I have a [facility] place to live 03/10/2023 Education Answer Date Recorded What is the highest level of school you have completed or the highest degree you have received? 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 [address] [place] [address] Geovanna Navarrete M.D. [address] [place] [phone] Discharge Disposition: Home or Self Care 08/15/2024 1:00 PM CDT Office Visit Department of Neurology in [place], [place] [address] [place] [phone] Ashley Webster APRN, C.N.P., M.S.N. [address] [place] [phone] documented as of this encounter Visit Diagnoses Not on filedocumented in this encounter Additional Health Concerns Assessment Noted Time PHQ-9 Depression Total Score: 6 04/20/19 25 9:50 AM CHECKOUT SUPERVISOR documented as of this encounter Care Teams Customer Account Administrator Relationship Specialty Start Date End Date Susana Rowe M.D. [address] [place] [phone] PCP - General Internal Medicine 08/21/23 documented as of this encounter
--- OUTSIDE RECORDS SUMMARY | 2024-07-06 02:10 | XMS_ITS | Encounter Summary ---
Author Organization [facility] Address [address] [place] [address] Care Team Providers Care Draw Bench Operator Helper Name Role Phone Susana Rowe M.D. Primary Care Provider Encounter Details Date Type Department Care Team (Late st Contact Info) Description 11/24/2011 Historical Ophthalmology [facility] Alin Burch O.D. 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 - 11/24/2011 1:19 PM CDT Eye General CHIEF COMPLAINT general exam HISTORY OF PRESENT ILLNESS Patient complains of blurriness in vision in both eyes with her current pair of glasses that are 2-3 years old. She notices blurring in the distance and up close. She does have migraine headaches. She has had diplopia about a month ago while reading with the words being on top of each other. Night driving is diffcult because of the bright light. No flashe sor floaters. IMPRESSION / REPORT / PLAN #1 Refractive error (mixed astigmatism, presbyopia). Plan: spectacle prescription (Refraction 1) given. 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 [address] [place] [phone] Geovanna Navarrete M.D. [address] [place] [phone] Discharge Disposition: Home or Self Care 08/15/2024 1:00 PM CDT Office Visit Department of Neurology in [place], [place] [address] [place] [phone] Ashley Webster APRN, C.N.P., M.S.N. [address] [place] [phone] documented as of this encounter Visit Diagnoses Not on filedocumented in this encounter Additional Health Concerns Infection Onset Date Last Indicated Resolved Time COVID19 Pending 12/20/2019 12/20/2019 12/21/2019 8 :08 AM CHANNEL WORKER COVID19 Pending 02/24/2020 02/24/2020 02/24/2020 6 :13 PM CHANNEL WORKER COVID19 Pending 04/09/2020 04/09/2020 04/09/2020 9 :39 PM CHANNEL WORKER COVID19 Pending 05/26/2020 05/26/2020 05/26/2020 1 0:01 PM CDT COVID19 Pending 10/14/2022 10/14/2022 10/14/2022 3 :44 PM CDT COVID19 Pending 10/14/2022 10/14/2022 10/14/2022 6 :55 PM CDT COVID19 Pending 10/14/2022 10/14/2022 10/14/2022 8 :02 PM CDT Assessment Noted Time PHQ-9 Depression Total Score: 23 012 1:54 PM CDT documented as of this encounter Care Teams Draw Bench Operator Helper Relationship Specialty Start Date End Date Susana Rowe M.D. [address] [place] [phone] PCP - General Internal Medicine 08/21/23 documented as of this encounter
--- OUTSIDE RECORDS SUMMARY | 2024-07-06 02:10 | XMS_ITS | Encounter Summary ---
Author Organization [facility] Address [address] [place] [address] Care Team Providers Care Management Professionals Name Role Phone Susana Rowe M.D. Primary Care Provider Reason for Visit * Reason Onset Date Comments Med Refill 05/31/2024 Encounter Details Date Type Department Care Team (Late st Contact Info) Description 05/31/2024 Refill Division of Community Internal Medicine, [facility] in [place], [place] [address] [place] [phone] Susana Rowe M.D. [address] [place] [phone] Med Refill Social History Tobacco Use Types Packs/Day Years Used Date Smoking Tobacco: Never Passive Smoke Exposure: Past Smokeless Tobacco: Never Alcohol Use Standard Drinks/Week Comments No 0 (1 standard drink = 0.6 oz pur e alcohol) [facility] Utilities Answer Date Recorded In the past [...] How often do you attend chur or alevism services? Never 02/11/2022 Do you belong to any clubs o r organizations such as roman catholic groups, unions, fraternal or athletic groups, or [...] Answer Date Recorded PHQ-2 Score 2 04/19/2024 [facility] [place] of Occupat ional Health - Occupational Stress [...] your living situation today? I have a [facility] place to live 03/10/2023 Education Answer Date Recorded What is the highest level of school you have completed or the highest degree you have received? 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 - 06/03/2024 11:56 AM CDTAddended by: WANDA ROQUE on: 06/03/2024 11:56 AM Modules accepted: Orders * Telephone Encounter - Shelley Lopez L.P.N. - 06/02/2024 10:26 AM CDT Controlled substance renewal for Oxycodone 5 mg: No nursing alert. Renewal is pended per the controlled substance prescribing plan located in synopsis Date last prescribed (First fill date if included in last Rx): 05/11/24 #126 tablets Last provider visit: 04/19/24 Urine Drug Screen last resulted on: 08/06/2023; Next due: 08/02/24, order in place, calendar not available Screenings due: current Next provider visit due: 10/20/24 Controlled substance agreement last reviewed/signed 01/19/2024 This prescription may be filled on 06/08/24, and next renewal may be on or after 07/06/24 documented in this encounter Plan of Treatment Upcoming Encounters Date Type Department Care Team (Late st Contact Info) Description 07/18/2024 1:30 PM CDT Appointment Department of Neurology in [place], [place] [address] [place] [phone] Stiven Zavaleta M.D. [address] [place] [phone] Geovanna Navarrete M.D. [address] [place] [phone] Discharge Disposition: Home or Self Care 08/15/2024 1:00 PM CDT Office Visit Department of Neurology in [place], [place] [address] [place] [phone] Ashley Webster APRN, C.N.P., M.S.N. [address] [place] [phone] documented as of this encounter Visit Diagnoses Diagnosis Chronic Pain Syndrome documented in this encounter Additional Health Concerns Assessment Noted Time PHQ-9 Depression Total Score: 6 03/04/20 25 9:50 AM WALNUT DEHYDRATOR OPERATOR documented as of this encounter Care Teams Management Professionals Relationship Specialty Start Date End Date Susana Rowe M.D. 200 [place] [phone] PCP - General Internal Medicine 08/21/23 documented as of this encounter
--- OUTSIDE RECORDS SUMMARY | 2024-07-06 02:10 | XMS_ITS | Encounter Summary ---
Author Organization [facility] Address [address] [place] [address] Care Team Providers Care Wound Specialist Name Role Phone Susana Rowe M.D. Primary Care Provider [phone] Reason for Visit * Reason Comments Med Refill Encounter Details Date Type Department Care Team (Late st Contact Info) Description 06/20/2024 Refill Division of Community Internal Medicine, [facility], in [place], [place] [address] [place] [phone] Nikunj Kendall M.D. [address] [place] [phone] Med Refill Social History Tobacco Use Types Packs/Day Years Used Date Smoking Tobacco: Never Passive Smoke Exposure: Past Smokeless Tobacco: Never Alcohol Use Standard Drinks/Week Comments No 0 (1 standard drink = 0.6 oz pur e alcohol) [facility] Utilities Answer Date Recorded In the past 12 months has e [employer], gas, oil, or water company threatened to [...] How often do you attend chur or orthodoxy services? Never 02/11/2022 Do you belong to any clubs o r organizations such as mandaeism groups, unions, fraternal or athletic groups, or [...] Answer Date Recorded PHQ-2 Score 2 04/19/2024 [facility] [place] of Occupat ional Health - Occupational Stress [...] your living situation today? I have a [facility] place to live 03/10/2023 Education Answer Date Recorded What is the highest level of school you have completed or the highest degree you have received? 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 [address] [place] [phone] Geovanna Navarrete M.D. [address] [place] [phone] Discharge Disposition: Home or Self Care 08/15/2024 1:00 PM CDT Office Visit Department of Neurology in [place], [place] [address] [place] [phone] Ashley Webster, ALLEGRA, C.N.P., M.S.N. [address] [place] [phone] documented as of this encounter Visit Diagnoses Not on filedocumented in this encounter Additional Health Concerns Assessment Noted Time PHQ-9 Depression Total Score: 6 04/20/19 25 9:50 AM SCOUT PROFESSIONAL SPORTS documented as of this encounter Care Teams Wound Specialist Relationship Specialty Start Date End Date Susana Rowe M.D. [address] [place] [phone] PCP - General Internal Medicine 08/21/23 documented as of this encounter
--- OUTSIDE RECORDS SUMMARY | 2024-07-06 02:10 | XMS_ITS | Encounter Summary ---
Author Organization [facility] Address [address] [place] [address] Care Team Providers Care Kelp Cutter Name Role Phone Susana Rowe M.D. Primary Care Provider Reason for Visit * Reason Onset Date Comments PandaDoc Form 07/01/2024 [facility] Encounter Details Date Type Department Care Team (Latest Contact Info) Description 07/01/2024 Clinical Communication Division of Community Internal Medicine, [facility] in [place], [place] [address] [place] [phone] Susana Rowe M.D. [address] [place] [phone] PandaDoc Form ([facility]) Social History Tobacco Use Types Packs/Day Years Used Date Smoking Tobacco: Never Passive Smoke Exposure: Past Smokeless Tobacco: Never Alcohol Use Standard Drinks/Week Comments No 0 (1 standard drink = 0.6 oz pur e alcohol) [facility] Utilities Answer Date Recorded In the past 12 months has th e electric, gas, oil, or water company [...] How often do you attend chur or restorationist services? Never 02/11/2022 Do you belong to any clubs o r organizations such as sabianist groups, unions, fraternal or athletic groups, or [...] Answer Date Recorded PHQ-2 Score 2 04/19/2024 [facility] [place] of Occupat ional Health - Occupational Stress [...] your living situation today? I have a [facility] place to live 03/10/2023 Education Answer Date Recorded What is the highest level of school you have completed or the highest degree you have received? 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 [address] [place] [phone] Geovanna Navarrete M.D. [address] [place] [phone] Discharge Disposition: Home or Self Care 08/15/2024 1:00 PM CDT Office Visit Department of Neurology in [place], [place] [address] [place] [phone] Ashley Webster APRN, C.N.P., M.S.N. [address] [place] [phone] documented as of this encounter Visit Diagnoses Not on filedocumented in this encounter Additional Health Concerns Assessment Noted Time PHQ-9 Depression Total Score: 6 04/20/19 25 9:50 AM BROOMCORN SCRAPER documented as of this encounter Care Teams Kelp Cutter Relationship Specialty Start Date End Date Susana Rowe M.D. [address] [place] [phone] PCP - General Internal Medicine 08/21/23 documented as of this encounter
[2024-07-06 02:11] LABS: Basophils Absolute Auto 0.03 K/uL (0.00-0.30); Basophils Percent Auto 0.4 % (0.0-3.0); Eosinophils Absolute Auto 0.05 K/uL (0.00-0.50); Eosinophils Percent Auto 0.7 % (0.0-7.0); Hematocrit 38.1 % (33.0-51.0); Hemoglobin* 12.2 gm/dL (12.0-16.0); Immature Granulocytes Abs Auto 0.01 K/uL (0.00-0.30); Immature Granulocytes Pct Auto 0.1 %; Lymphocytes Absolute Auto 1.78 K/uL (0.90-2.90); Lymphocytes Percent Auto 25.9 % (20-44); Mean Corpuscular HGB Conc 32 gm/dL (32-36); Mean Corpuscular Hemoglobin 29 pg (26-34); Mean Corpuscular Volume 91 fL (80-100); Neutrophils Absolute Auto 4.46 K/uL (1.7-7.0); Neutrophils Percent Auto 64.9 % (42.0-72.0); Platelet Count* 237 K/uL (140-440); RDW Coefficient of Variation % 14.4 % (11.5-15.5); White Blood Count* 6.88 K/uL (4.50-11.00)
[2024-07-06 02:14] LABS: Slide Review Reflex No
[2024-07-06 02:23] VITALS: RESP 16
[2024-07-06 02:25] LABS: Albumin* 3.6 g/dL (3.3-5.0); Chloride* 110 mmol/L (96-114); Potassium* 3.9 mmol/L (3.6-5.1); Sodium* 143 mmol/L (135-149)
[2024-07-06 02:26] LABS: Appearance Urine Slightly Cloudy (Clear); Bilirubin Urine Negative (Negative); Blood Urine Negative (Negative); Color Urine Yellow (Yellow); Glucose Urine 2+ (Negative); Ketones Urine Negative (Negative); Leukocyte Esterase Urine 1+ (Negative); Nitrite Urine Negative (Negative); Protein Urine 1+ (Negative); Urobilinogen Urine 0.2 (0.2-1.0)
[2024-07-06 02:27] LABS: Alanine Aminotransferase* 14 U/L (4-35); Aspartate Amino Transferase* 18 U/L (12-35); Blood Urea Nitrogen* 13 mg/dL (7-30); Est. Creatinine Clearance* 44.36; Estimated Glomerular Filt Rate 63 ml/min
[2024-07-06 02:28] LABS: Alkaline Phosphatase* 101 U/L (40-150); Anion Gap 7 mEq/L (7-15); Bilirubin Total* 0.3 mg/dL (0.1-1.5); Calcium* 8.7 mg/dL (8.4-10.6); Carbon Dioxide* 26 mmol/L (20-32); Glucose* 86 mg/dL (60-115); Magnesium* 2.1 mg/dL (1.5-2.6); Total Protein* 6.2 g/dL (6.0-8.3)
[2024-07-06 02:30] VITALS: RESP 13
[2024-07-06 02:31] LABS: C Reactive Protein* < 0.5 mg/dL (0.5-1.0)
[2024-07-06 02:34] LABS: Amphetamine Screen Urine Negative (Negative); Barbiturate Screen Urine Negative (Negative); Benzodiazepines Screen Urine Negative (Negative); Cannabinoid Screen Urine Negative (Negative); Cocaine Screen Urine Negative (Negative); Methadone Screen Urine Negative (Negative); Methamphetamines Screen Urine Negative (Negative); Opiate Screen Urine Negative (Negative); Oxycodone Screen Urine POSITIVE (Negative); Phencyclidine Screen Urine Negative (Negative); Tricyclic Antidepressant Urine POSITIVE (Negative)
[2024-07-06 02:37] LABS: Bacteria Urine Moderate; RBC Urine 0-2 (0-2); Squamous Epithelial Cell Urine Moderate (None-Few)
[2024-07-06 02:38] LABS: NT Pro B Type NatriureticPept* 471 pg/mL
[2024-07-06 02:45] VITALS: RESP 17
[2024-07-06 02:48] LABS: PCR FLU A Negative PCR FLU A (Negative); PCR FLU B Negative PCR FLU B (Negative); PCR RSV Negative PCR RSV (Negative); SARS PCR* Negative SARS-CoV-2 (Negative)
[2024-07-06 02:51] VITALS: BP 101/64; RESP 14
[2024-07-06] MEDS: CIPROFLOXACIN 500 MG TABLET PO (02:57)
--- OUTSIDE RECORDS SUMMARY | 2024-07-06 03:09 | XMS_ITS | CCD ---
Author Organization Unknown Care Team Providers Care Compressor Stations Superintendent Name Role Phone Manager Mail, [place] Primary Care Provider Unava ilable Unavailable Chronic Care Management Unavaila ble Summary Purpose DataExchange Insurance Providers Payer name Policy type / Coverage type Covered republican ID Effective Begin Date Effective End Date [employer] Commercial Insurance [id number] Unknown Unkn own Family History Family History data not found Medication Administered No Medication Administered data Reason For Visit No Reason For Visit data
--- OUTSIDE RECORDS SUMMARY | 2024-07-06 03:09 | XMS_ITS | CCD ---
Author Organization Unknown Care Team Providers Care Eyelet Punch Operator Name Role Phone Unload Associate, [place] Primary Care Provider Unava ilable Unavailable Chronic Care Management Unavaila ble Summary Purpose DataExchange Insurance Providers Payer name Policy type / Coverage type Covered libertarian ID Effective Begin Date Effective End Date [employer] Commercial Insurance [id number] Unknown Unkn own Family History Family History data not found Medication Administered No Medication Administered data Reason For Visit No Reason For Visit data
== END 2024-07-06 03:07 | disposition home or self-care (01) ==
PROVIDERS: Emergency Provider Family Medicine
DX: N39.0 Urinary tract infection, site not specified (principal); R53.81 Other malaise; M54.6 Pain in thoracic spine; R00.1 Bradycardia, unspecified; F11.90 Opioid use, unspecified, uncomplicated
CPT/HCPCS: 36415; 72128; 80053; 80306; 81001; 81003; 83735; 83880; 84484; 85025; 86140; 87086; 87631; 93005; 99284; 99285; A9270

== ENCOUNTER 2024-09-08 19:36 | Emergency (ER) | payer OTHER, SELFPAY ==
--- OUTSIDE RECORDS SUMMARY | 2024-09-08 19:39 | XMS_ITS | Clinical Summary ---
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 DISMANTLER Gender Identity Not on file Sexual Orientation [...] outside of [facility]), 02/19/2015 (Completed outside of [facility]), 12/31/2011 (Completed outside of [facility]), Additional history exists Colonoscopy through age 75 09/12/2020 09/12/2010, Lipids for age 45-75 10/17/2020 10/18/2015 (Completed outside of [facility]), 11/06/2010, 10/08/2010, Additional history exists BMI (ht and wt on same day) for age 18+ 11/15/2021 11/15/2020, 09/26/2019, 08/23/2019, Additional history exists COVID-19 vaccine series ( season) 2023 11/15/2021, 06/05/2020, 05/02/2020 DEXA/DXA scan for age 65+ 06/15/2024 Influenza Vaccine (#1) 2024 9, 12/03/2017, 11/16/2017, Additional history exists Tetanus booster 10/24/2030 10/24/2020, 09/16, 05/21/2007 RSV vaccine for adults or (1 - 1-dose 75+ series) 06/15/2034 Zoster (shingles) series for age 50+ Completed 09/07/2017, 07/07/2017, 04/29/2012 Hepatitis B series for 19+ Completed 11/07/2019, Procedures Procedure Name Priority Date/Time Associated Diagnosis Comments LIPID PANEL W REFLEX MEASURED LDL Routine 11/06/2010 9:12 AM CDT Mixed hyperlipidemia XR MAMMO BILAT SCREEN FFDM (IA) Routine 09/10/2010 1:40 PM CDT Screening mammogram CLIENT TECHNICAL SPECIALIST THIN PREP PAP SCREEN IMAGED Routine 10/08/2009 2:27 PM CDT Screening for malignant neoplasm of the cervix from Last 3 Months or Most Recently Relevant to Health Maintenance Results * (ABNORMAL) LIPID PANEL W REFLEX MEASURED LDL (11/06/2010 9:12 AM CDT) CHOLESTEROL,TOTAL 132 110 - 199 mg/dL [facility] TRIGLYCERIDES 241(H) <150 mg/dL [facility] HDL CHOLESTEROL 45 >40 mg/dL [facility] CHOL/HDL RATIO 2.93 <4.51 [facility] LDL CHOLESTEROL 39 <131 mg/dL [facility] PATIENT STATUS Fasting [facility] Blood specimen (specimen) BLOOD SPECIMEN / Unknown 11/06/2010 9:12 AM CDT 11/06/2010 9:10 AM CDT us Luisa Harman CHEMISTRY Final R esult [facility] [address] [place] [address] * XR MAMMO BILAT SCREEN FFDM (09/10/2010 [...] (10/08/2009 2:27 PM CDT) CYTOLOGY CYTOPATHOLOGY REPORT [facility] Status: Final Status [id number] CLINICAL INFORMATION Last Date of LMP :09/16/2009 Last Pap Date :unknown Last Pap Result :NIL ABN High View/Bx Past 5 YRS :None Hormone Usage :None Menstrual Status :Postmenopausal High View/Bx done today :No Additional Information :None given HPV Request :HPV if ASCUS SPECIMEN SOURCE :Cervical/vaginal ThinPrep Vial, screening SPECIMEN ADEQUACY :Satisfactory for evaluation Endocervical component present. INTERPRETATION/RES ULT Negative for intraepithelial lesion or malignancy (NIL) Non-Neoplastic Findings Parakeratosis Cytology 1st Screener :sag Signed by : Kirti Godfrey M.D. Interpreted at [facility] This specimen was screened by [...] malignant lesions. COLLECTED:10/08/09 ACCESSIONED: 10/09/09 SIGNED: 10/16/09 [facility] PAP [place] CODE NIL [facility] Cervical/Vaginal (Cervical/Vagina l) 10/08/2009 2:27 PM CDT 10/08/2009 2:23 PM CDT Narrative [facility] - 10/16/2009 9:23 AM CDT Interpreted at [facility] us Luisa Harman PATHOLOGY/CYTOLOGY Ashlie l Result [facility] INTERNAL ZIP [id number] [address] from Last 3 Months or Most Recently Relevant to Health Maintenance Insurance [facility] Advance Directives * Full Code (Latest Code Status on File) Date Activated Date Inactivated Comments 05/01/2010 9:58 AM 05/01/2010 7:04 PM Care Teams Structural Test Engineer Relationship Specialty Start Date End Date Pcp, No . PCP - General 12/16/22 Neymar Noyola MD SOCIAL SCIENCES LECTURER Obstetrics and Gynecology 02/21/11
[2024-09-08 19:40] VITALS: BP 164/98; PULSE 90; RESP 16; TEMP 36.4; O2SAT 95; BMI 29.6
--- NOTE | 2024-09-08 20:01 | CRLHL7_ITS ---
For Patients: As a result of the Century Cures Act, medical imaging exams and procedure reports are released immediately into your electronic medical record. You may view this report before your referring provider. If you have questions, please contact your health care provider. INDICATION: Trauma. TECHNIQUE: CT head without contrast. COMPARISON: None. FINDINGS: CSF spaces: Within normal limits for age. Brain parenchyma and extra-axial spaces: The brandt-white differentiation is normal. No sign of mass, hemorrhage, or midline shift. No extra-axial fluid collection. Skull base and calvarium: The visualized paranasal sinuses and mastoid air cells demonstrate no acute or significant findings. The visualized orbits are grossly unremarkable. No skull fractures. IMPRESSION: No acute intracranial abnormality on this noncontrast study. Please note that all CT scans at this facility use dose modulation, iterative reconstruction, and/or weight-based dosing when appropriate to reduce radiation dose to as low as reasonably achievable. Dictated by Jerel Wilkins MD @ 09/08/2024 8:33:23 PM (Electronically Signed)
--- NOTE | 2024-09-08 20:01 | CRLHL7_ITS ---
For Patients: As a result of the Cures Act, medical imaging exams and procedure reports are released immediately into your electronic medical record. You may view this report before your referring provider. If you have questions, please contact your health care provider. INDICATION: Trauma. TECHNIQUE: CT cervical spine without contrast. COMPARISON: None. FINDINGS: Vertebrae: Alignment is normal. There are no fractures or suspicious bony lesions. Discs and facet joints: There are mild diffuse degenerative changes in the disc spaces and facet joints. Extraspinal findings: Paraspinous soft tissues are unremarkable. IMPRESSION: 1. No sign of acute injury. 2. Mild multilevel degenerative spondylosis. Please note that all CT scans at this facility use dose modulation, iterative reconstruction, and/or weight-based dosing when appropriate to reduce radiation dose to as low as reasonably achievable. Dictated by Jerel Wilkins MD @ 09/08/2024 8:34:59 PM (Electronically Signed)
--- NOTE | 2024-09-08 20:02 | ED.HEATRA ---
HPI - Head Injury General Chief complaint: Head Injury/Pain Stated complaint: hit head, pain in head/neck Time Seen by Provider: 09/08/24 19:53 History of Present Illness HPI Narrative: This 64-year-old female went to urgent care today because of a fall that occurred last evening. She was sent here because of headache and neck pain. She also reports some vertigo symptoms. The vertigo is absent if she remains still but reproduced when moving. She does state that she thinks she lost consciousness briefly last night when she fell. She did have a couple lacerations in her scalp that are healing properly with wound edges sufficiently approximated. Related Data Home Medications ?Medication ?Instructions ?Recorded ?Confirmed amitriptyline 50 mg tablet 50 mg PO QPM 06/05/22 06/16/24 amlodipine 10 mg tablet 10 mg PO DAILY 06/05/22 06/16/24 carbidopa ER 50 mg-levodopa 200 mg 1 tab PO QPM 06/05/22 06/16/24 tablet,extended release carvedilol 25 mg tablet 25 mg PO Q12H 06/05/22 06/16/24 cetirizine 10 mg tablet 10 mg PO DAILY PRN allergies 06/05/22 06/16/24 cholecalciferol (vitamin D3) 25 25 mcg PO DAILY 06/05/22 06/16/24 mcg (1,000 unit) tablet cyanocobalamin (vitamin B-12) 1,000 mcg PO DAILY 06/05/22 06/16/24 1,000 mcg tablet eszopiclone 3 mg tablet 3 mg PO QPM 06/05/22 06/16/24 famotidine 20 mg tablet 20 mg PO DAILY 06/05/22 06/16/24 ferrous sulfate 325 mg (65 mg 325 mg PO Q1D 06/05/22 06/16/24 iron) tablet (FeroSul) furosemide 40 mg tablet 40 mg PO DAILY PRN 06/05/22 06/16/24 ipratropium bromide 21 mcg (0.03 2 spray intranasal BID 06/05/22 06/16/24 %) nasal spray latanoprost 0.005 % eye drops 1 drp ophthalmic (eye) QPM 06/05/22 06/16/24 memantine 10 mg tablet 10 mg PO BID 06/05/22 06/16/24 oxycodone 5 mg tablet 7.5 mg PO Q6H PRN pain 06/05/22 06/16/24 pantoprazole 40 mg tablet,delayed 40 mg PO DAILY 06/05/22 06/16/24 release prazosin 2 mg capsule 2 mg PO QPM 06/05/22 06/16/24 quetiapine 100 mg tablet 100 mg PO HS 06/05/22 06/16/24 sennosides 8.6 mg-docusate sodium 1 tab-cap PO PRN 06/05/22 06/16/24 50 mg tablet (Stool Softener-Stimulant Laxative) sertraline 100 mg tablet 100 mg PO DAILY 06/05/22 06/16/24 simvastatin 20 mg tablet 20 mg PO QPM 06/05/22 06/16/24 tizanidine 4 mg tablet 4 mg PO Q8H PRN muscle spasm 06/05/22 06/16/24 Previous Rx's ?Medication ?Instructions ?Recorded pregabalin 50 mg capsule (Lyrica) 50 mg PO TID #90 caps 12/23/23 ciprofloxacin HCl 250 mg tablet 250 mg PO BID #6 tabs 07/06/24 ciprofloxacin HCl 250 mg tablet 250 mg PO BID #6 tabs 07/06/24 meclizine 25 mg tablet 25 mg PO QID #20 tabs 09/08/24 Allergies Allergy/AdvReac Type Severity Reaction Status Date / Time losartan Allergy Severe Angioedema Verified 06/16/24 16:00 duloxetine Allergy Mild Hives, Verified 06/16/24 16:00 Nausea/Vomiting latex Allergy Mild Rash Verified 06/16/24 16:00 lisinopril Allergy Mild Rash Verified 06/16/24 16:00 phenylephrine Allergy Mild Rash, Verified 06/16/24 16:00 Swelling pregabalin Allergy Mild Rash Verified 06/16/24 16:00 tropicamide Allergy Mild Rash, Verified 06/16/24 16:00 Swelling gabapentin AdvReac Mild GI Verified 06/16/24 16:00 Intolerance, Nausea/Vomiting prednisone AdvReac Mild Agitation Verified 06/16/24 16:00 Review of Systems Status of ROS: Reports: 10 or more systems reviewed and unremarkable except as noted in History and below Narrative: Constitutional: No fevers, no weight gain or loss. Eyes: No discharge. No vision changes. HENT: No congestion, no sore throat, no ear pain. Cardiovascular: No chest pain, no palpitations. Respiratory: No shortness of breath, no wheezes, no cough. Gastrointestinal: No abdominal pain, no vomiting, no diarrhea. Genitourinary: No dysuria, no hematuria. Musculoskeletal: Normal range of motion. Skin: No rashes, no pruritis. Neurological: No weakness, sensory change, speech change. Vertigo symptoms as reported above. Endo/Heme/Allergies: No bruising or bleeding. No polydipsia. Pysch: no suicidality, no anxiety, no insomnia. All other systems reviewed and are negative. [facility] Medical History Frequent falls ?R29.6 - Repeated falls (ICD-10) Hypertensive heart disease ?I11.9 - Hypertensive heart disease without heart failure (ICD-10) SHREE (generalized anxiety disorder) ?F41.1 - Generalized anxiety disorder (ICD-10) PTSD (post-traumatic stress disorder) ?F43.10 - Post-traumatic stress disorder, unspecified (ICD-10) Depression, major, recurrent, moderate ?F33.1 - Major depressive disorder, recurrent, moderate (ICD-10) Morbid obesity ?E66.01 - Morbid (severe) obesity due to excess calories (ICD-10) Tachycardia, paroxysmal ?I47.9 - Paroxysmal tachycardia, unspecified (ICD-10) Chronic pain syndrome ?G89.4 - Chronic pain syndrome (ICD-10) Dependent personality disorder ?F60.7 - Dependent personality disorder (ICD-10) Panic disorder with agoraphobia ?F40.01 - Agoraphobia with panic disorder (ICD-10) EUGENIA (obstructive sleep apnea) ?G47.33 - Obstructive sleep apnea (adult) (pediatric) (ICD-10) Headache, chronic migraine without aura ?G43.709 - Chronic migraine without aura, not intractable, without status migrainosus (ICD-10) Chronic respiratory failure with hypoxia ?J96.11 - Chronic respiratory failure with hypoxia (ICD-10) History of falling ?Z91.81 - History of falling (ICD-10) Irritable bowel syndrome with diarrhea ?K58.0 - Irritable bowel syndrome with diarrhea (ICD-10) B12 deficiency ?E53.8 - Deficiency of other specified B group vitamins (ICD-10) Hypovitaminosis D ?E55.9 - Vitamin D deficiency, unspecified (ICD-10) Chronic diastolic (congestive) heart failure ?I50.32 - Chronic diastolic (congestive) heart failure (ICD-10) Restless leg syndrome ?G25.81 - Restless legs syndrome (ICD-10) Glaucoma ?H40.9 - Unspecified glaucoma (ICD-10) Nevus of choroid of right eye ?D31.31 - Benign neoplasm of right choroid (ICD-10) Corneal epithelial basement membrane dystrophy ?H18.529 - Epithelial (juvenile) corneal dystrophy, unspecified eye (ICD-10) Dermatochalasis of both eyelids ?H02.833 - Dermatochalasis of right eye, unspecified eyelid (ICD-10) ?H02.836 - Dermatochalasis of left eye, unspecified eyelid (ICD-10) Ptosis of eyelid, bilateral ?H02.403 - Unspecified ptosis of bilateral eyelids (ICD-10) Fatty liver ?K76.0 - Fatty (change of) liver, not elsewhere classified (ICD-10) Supraventricular tachycardia ?I47.1 - Supraventricular tachycardia (ICD-10) Atrial tachycardia, paroxysmal ?I47.1 - Supraventricular tachycardia (ICD-10) Typical atrial flutter ?I48.3 - Typical atrial flutter (ICD-10) Elevated serum creatinine ?R79.89 - Other specified abnormal findings of blood chemistry (ICD-10) Hyperlipidemia ?E78.5 - Hyperlipidemia, unspecified (ICD-10) GERD (gastroesophageal reflux disease) ?K21.9 - Gastro-esophageal reflux disease without esophagitis (ICD-10) Paresthesia of both feet ?R20.2 - Paresthesia of skin (ICD-10) Rectal bleed ?K62.5 - Hemorrhage of anus and rectum (ICD-10) Globus sensation ?R09.89 - Other specified symptoms and signs involving the circulatory and respiratory systems (ICD-10) Rhinitis, chronic ?J31.0 - Chronic rhinitis (ICD-10) Hyperhidrosis ?R61 - Generalized hyperhidrosis (ICD-10) Syncope and collapse ?R55 - Syncope and collapse (ICD-10) Chronic kidney disease, stage 3a ?N18.31 - Chronic kidney disease, stage 3a (ICD-10) Surgical History Status post open reduction with internal fixation (ORIF) of fracture of ankle (06/06/22) ?Z98.890 - Other specified postprocedural states (ICD-10) ?Z87.81 - Personal history of (healed) traumatic fracture (ICD-10) Social History Narrative: She lives at the [facility]. She lives alone. She does not have to climb stairs. She believes her facility has available wheelchair for her to use along with crutches or a walker to be nonweightbearing on her right lower extremity. She does not smoke. She does not drink alcohol. She occasionally uses cannabis. Code status is full. Her father is healthcare power of antisubmarine weapons officer. Highest level of school completed/degree received: high school graduate Smoking Status: Never smoker Do you use any of these nicotine containing products: None Second hand tobacco smoke exposure: No How often do you have a drink containing alcohol: monthly or less How many standard drinks containing alcohol do you have on a typical day: 1 or 2 AUDIT-C Alcohol total score: 1 Non-prescribed substance use: denies use Caffeine: No Do you think of yourself as: straight/heterosexual Gender Identity: female service: No Exam Narrative: Exam Narrative: Constitutional: Well-developed, well-nourished, no acute distress. HEENT: Normocephalic, atraumatic. Neck: Normal range of motion. Nontender. Supple. Heart: Regular. No murmurs. Normal rate. Intact distal pulses. Lungs: Clear to auscultation. No chest discomfort. No wheezes, rhonchi, or rales. Abdomen: Normal bowel sounds. Nontender. No rebound tenderness. Genitalia: Deferred. Back: No midline tenderness. Normal range of motion. Extremities: Normal range of motion. Some bruising in the left 2nd and 4th toes. Skin: Intact. No rash. Warm. No erythema or pallor. Neurologic: No altered sensation. No weakness. Alert and oriented. No facial asymmetry. Tongue is midline. 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 Able to raise each leg from the bed. Psychiatric: No suicidality. No anxiety or depression. No insomnia. Nursing notes and vitals signs are reviewed. Const: Vital Signs, click to edit/add: Vital Signs - 24 hr 09/08/24 19:40 09/08/24 20:33 Temperature 97.6 F Pulse Rate [Pulse Oximeter] 90 77 Respiratory Rate 16 16 Blood Pressure [Ri ght Upper Arm] 164/98 H 191/88 H Pulse Oximetry 95 96 Oxygen Delivery Me thod Room Air Room Air Course Vital Signs Vital signs: Initial Vital Signs Temperature 97.6 F 09/08/24 19:40 Temperature Source Temporal Artery Scan 09/08/24 19:40 Pulse Rate 90 09/08/24 19:40 Respiratory Rate 16 09/08/24 19:40 Blood Pressure 164/98 H 09/08/24 19:40 Blood Pressure Mean 120 H 09/08/24 19:40 Blood Pressure Position Sitting 09/08/24 19:40 Pulse Oximetry 95 09/08/24 19:40 Oxygen Delivery Method Room Air 09/08/24 19:40 Vital Signs Temperature 97.6 F 09/08/24 19:40 Pulse Rate 90 09/08/24 19:40 Respiratory Rate 16 09/08/24 19:40 Blood Pressure 164/98 H 09/08/24 19:40 Pulse Oximetry 95 09/08/24 19:40 Oxygen Delivery Method Room Air 09/08/24 19:40 Temperature 97.6 F 09/08/24 19:40 Pulse Rate 77 09/08/24 20:33 Respiratory Rate 16 09/08/24 20:33 Blood Pressure 191/88 H 09/08/24 20:33 Pulse Oximetry 96 09/08/24 20:33 Oxygen Delivery Method Room Air 09/08/24 20:33 Medications Administered Medications: Discontinued Medications Generic Name Dose Route Start Last Admin Trade Name Freq PRN Reason Stop Dose Admin Meclizine HCl 25 mg 09/08/24 20:30 09/08/24 20:31 Meclizine Hcl 25 Mg Tablet PO 09/08/24 20:31 25 mg ONCE ONE Administration MDM - Head Injury MDM Narrative Medical decision making narrative: This patient comes in for evaluation of injuries from a fall that occurred last night. She does have laceration on her scalp that is well-approximated and healing without any need for intervention. She states that she may have lost consciousness. She is not on any anticoagulants. I did obtain CT scan of her head and C-spine and these show no acute findings. Patient did receive an oral dose of Tylenol. She is okay to be discharged home. Her tetanus status is up-to-date. I did provide [facility] prescription for Toradol. The patient also reported vertigo symptoms so she did receive an oral dose of meclizine and I provided a prescription for the same from her pharmacy. Imaging Data CT scan - head: Radiologist's impression: No acute intracranial abnormality on this noncontrast study. Discharge Plan Discharge Clinical Impression: Laceration of scalp, Vertigo Patient Disposition: Home, Self-Care Condition: Stable Additional Instructions: Take medication as needed and indicated. Activity as tolerated. Follow up with MD return if worsening. Prescriptions: New meclizine 25 mg tablet 25 mg PO QID Qty: 20 0RF No Action furosemide 40 mg tablet 40 mg PO DAILY PRN latanoprost 0.005 % drops 1 drp ophthalmic (eye) QPM carvedilol 25 mg tablet 25 mg PO Q12H Patient Comments: take 2 tablets by mouth twice a day cetirizine 10 mg tablet 10 mg PO DAILY PRN (Reason: allergies) tizanidine 4 mg tablet 4 mg PO Q8H PRN (Reason: muscle spasm) carbidopa-levodopa 50-200 mg tablet extended release 1 tab PO QPM sennosides-docusate sodium [Stool Softener-Stimulant Laxat] 8.6-50 mg tablet 1 tab-cap PO PRN sertraline 100 mg tablet 100 mg PO DAILY Patient Comments: take 2 tabs by mouth daily cyanocobalamin (vitamin B-12) 1,000 mcg tablet 1,000 mcg PO DAILY quetiapine 100 mg tablet 100 mg PO HS Patient Comments: take 3 tabs by mouth at bedtime amitriptyline 50 mg tablet 50 mg PO QPM famotidine 20 mg tablet 20 mg PO DAILY amlodipine 10 mg tablet 10 mg PO DAILY pantoprazole 40 mg tablet,delayed release (DR/EC) 40 mg PO DAILY simvastatin 20 mg tablet 20 mg PO QPM ferrous sulfate [FeroSul] 325 mg (65 mg iron) tablet 325 mg PO Q1D ipratropium bromide 21 mcg (0.03 %) spray,non-aerosol 2 spray INTRANASAL BID prazosin 2 mg capsule 2 mg PO QPM oxycodone 5 mg tablet 7.5 mg PO Q6H PRN (Reason: pain) memantine 10 mg tablet 10 mg PO BID eszopiclone 3 mg tablet 3 mg PO QPM cholecalciferol (vitamin D3) 25 mcg (1,000 unit) tablet 25 mcg PO DAILY ciprofloxacin HCl 250 mg tablet 250 mg PO BID Qty: 6 0RF ciprofloxacin HCl 250 mg tablet 250 mg PO BID Qty: 6 0RF pregabalin [Lyrica] 50 mg capsule 50 mg PO TID Qty: 90 2RF Rx Instructions: Listed as a current allergy, however patient would like to retry this Rx. Take one capsule by mouth three times a day. Follow Up/Referrals: Provider,Not a Local [Primary Care Provider, Family Practice] [facility]one [facility]: [facility] Inst[facility]
--- OUTSIDE RECORDS SUMMARY | 2024-09-08 20:22 | XMS_ITS | Clinical Summary ---
Author Organization [facility] Address [address] [place] [address] Care Team Providers Care Vascular Manager Name Role Phone Susana Rowe M.D. Primary Care Provider Source Comments Patient records contain information from all sites at [facility]. For routine questions regarding patient records, call [phone] during business hours, M-F 8:00 AM - 5:00 PM Central Time. Record requests for emergency care only can be directed to [phone] at any time.[facility] Allergies Active Allergy Reactions Criticality Noted Date [...] minimal response. 2 each 11/15/19 23 Active latanoprost (Xalatan) 0.005 % ophthalmic [...] Additional Information Patient not taking.Reported on 04/19/2024 cetirizine (ZyrTEC) 10 mg tablet Take 1 [...] tions:Morbid Obesity Body Mass Index 40.0-44.9 Adult ([facility]) Inject 1 mg under the skin every 7 (seven) days. 2 mL 02/19/19 25 Active vitamin B-12 1,000 mcg tablet Take 1,000 mcg by mouth daily. 02/18/19 25 Active Vitamin D3 25 mcg (1,000 unit) capsule Take 25 mcg by mouth daily. 02/18/19 25 Active furosemide (Lasix) 40 mg tablet [...] 5 5:09 PM CDT 06/22/19 25 Active amLODIPine (Norvasc) 10 mg tablet TAKE ONE TABLET (10MG) BY MOUTH DAILY 30 tablet 2 5 9:35 AM CDT 07/20/19 25 Active AntifungaL, clotrimazole, 1 % cream APPLY TO AFFECTED AREA 1 APPLICATION TWICE A DAY 30 g 2 5 9:51 AM CDT 08/18/19 25 Active oxyCODONE (Roxicodone) 5 mg immediate release tabletIndicatio ns:Chronic Pain/Nonacute Pain Take 1.5 tablets (7.5 mg total) by mouth 3 (three) times a day as needed for pain Indication: Chronic Pain/Nonacute Pain. 126 tablet 5 8:22 AM CDT 09/01/19 25 Active sertraline (Zoloft) 100 mg tablet Take 2 tablets (200 mg total) by mouth daily. 90 tablet 3 5 4:18 PM CDT 08/26/19 25 Active clotrimazole (LOTRIMIN) 1 % cream Apply 1 Application topically 2 (two) times a day. Apply to affected areas. 30 g 1 12/11/19 23 2024 Discontinued sertraline (Zoloft) 100 mg tablet Take 2 tablets (200 mg total) by mouth daily. 90 tablet 3 03/09/19 25 2024 Discontinued(R eorder) oxyCODONE (Roxicodone) 5 mg immediate release tabletIndicatio ns:Chronic Pain/Nonacute Pain Take 1.5 tablets (7.5 mg total) by mouth 3 (three) times a day as needed for pain Indication: Chronic Pain/Nonacute Pain. 126 tablet 08/04/19 25 2024 Discontinued(R eorder) Active Problems Problem Noted Date Diagnosed Date [...] ears. Assessment & Plan (04/21/2024 10:21 AM MILIEU COORDINATOR): Symptoms sound consistent with orthostatic hypotension. Patient [...] buprenorphine Assessment & Plan (02/03/2023 9:58 PM MILIEU COORDINATOR): She continues to have polypharmacy and we [...] discharge with follow-up EEG and brain MRI. [facility] (09/30/2022): No further episodes of syncope with significant reduction in dizziness after reduction in carvedilol, amlodipine, and amitriptyline. Plan to discontinue amitriptyline today. Encouraged to monitor her blood pressure at home. [facility] (02/03/2023): Since last visit, the patient has [...] bloated as a proxy of volume overload. [facility] 03/12/2023: Had 3 additional syncopal episodes which were all preceded by standing up. She had trivial lightheadedness with each of these events. Agreeable to having autonomic screen performed. [facility] (04/20/2023) telephone visit: Additional episodes of syncope shortly after standing. One episode witnessed by neighbor and patient did not have recollection of event. Described with lightheadedness, dizziness, vision changes after taking several steps. [facility] (01/19/2024): Went 8 months without any episodes. Week prior to appointment, had 4 syncopal episodes. One episode involved fall with trauma to head and abdomen. [facility] (03/14/2024): On KHADAR, has another episode. Was [...] likely. Assessment & Plan (04/21/2024 10:12 AM MILIEU COORDINATOR): Patient was prescribed a Holter monitor at [...] testing Assessment & Plan (03/14/2024 6:08 PM MILIEU COORDINATOR): Continue appropriate precautions; she does not take [...] polypharmacy Assessment & Plan (01/19/2024 1:58 PM MILIEU COORDINATOR): Neurologic exam reassuring. Gave return precautions for [...] pharmacology Assessment & Plan (04/20/2023 12:43 PM MILIEU COORDINATOR): Etiology of the patient's recurrent syncope is [...] I had directly admitted the patient to [facility] in September 2022 for further evaluation where [...] will plan to discuss the case with [facility] Cardiology to determine whether or not an implantable vp scientific x3 months would be a more appropriate [...] monitor Assessment & Plan (03/12/2023 5:25 PM MILIEU COORDINATOR): Anabell was agreeable to have any autonomic [...] will have completed when she returns to [place] next week. I will communicate with her [...] Thursday and continued headache since then, however [place] CT rule indicating that she does not need further CT imaging of her head at this time. Discussed that if her symptoms were to worsen, we would want to have her let us know and would schedule likely head CT at that time. She is agreeable with this plan. Assessment & Plan (02/03/2023 10:02 PM MILIEU COORDINATOR): More recently, the patient's symptoms are most [...] & Plan (12/10/2022 1:44 PM CDT): Ms. Cloe continues to experience episodes of syncope. Extensive [...] p.r.n. during hospitalization, she remained on a vp scientific with no further episodes of syncope and [...] water. Assessment & Plan (04/22/2022 3:59 PM MILIEU COORDINATOR): I will do a generalized workup for [...] spray Assessment & Plan (04/21/2024 10:13 AM MILIEU COORDINATOR): Will trial Astepro nasal spray (prescription provided) Assessment & Plan (03/14/2024 6:04 PM MILIEU COORDINATOR): Offered returning to allergy clinic; she is not interested at this time Her current living environment is full of mold and dust, with little cleaning by the company running the building. Discussed this is likely contributing, as her symptoms started after moving into her current building. Information about dust mite and mold allergies provided Assessment & Plan (04/20/2023 12:46 PM MILIEU COORDINATOR): I have counseled the patient regarding the [...] daily Assessment & Plan (02/03/2023 9:59 PM MILIEU COORDINATOR): Due to her persistent concerns about chronic [...] consult Assessment & Plan (01/07/2022 10:19 AM MILIEU COORDINATOR): Please see globus sensation. Bleeding Rectal 11/15/2021 [...] resolved. Assessment & Plan (03/10/2022 4:16 PM MILIEU COORDINATOR): Today, she reports that her rectal bleeding [...] prep Assessment & Plan (01/07/2022 10:07 AM MILIEU COORDINATOR): Since her last visit, the patient has [...] Results Component Value Date HGBA1C 5.4 01/19/2024 [id number] 680 04/19/2024 TSH 1.4 06/04/2022 ELPIMPRESS 02/03/2023 No apparent monoclonal protein on serum electrophoresis. See Isotype. AST 15 01/19/2024 ALT <7 (L) 01/19/2024 ALKPHOS 118 (H) 01/19/2024 Assessment & Plan (04/21/2024 10:01 AM MILIEU COORDINATOR): Lab work and prior EMG has been [...] time. Assessment & Plan (03/14/2024 5:57 PM MILIEU COORDINATOR): Obtain outside health records of prior broken feet Plan for dedicated visit to discuss paraesthesias further. Limited foot exam without any skin breakdown or ulceration Assessment & Plan (01/19/2024 1:51 PM MILIEU COORDINATOR): Continue lyrica Continue lidocaine Discuss options such as capscain or triple cream for local pain control Assessment & Plan (03/10/2022 4:40 PM MILIEU COORDINATOR): Today, the patient's paresthesias in her feet are similar to baseline. Her primary concern is regarding the dysphagia and globus sensation. We will plan to follow up paresthesias in the future and plan to recheck her hemoglobin A1c to ensure absence of diabetes. Assessment & Plan (01/07/2022 10:11 AM MILIEU COORDINATOR): At this time, the paresthesias have persisted, [...] esophagus. Assessment & Plan (03/10/2022 4:31 PM MILIEU COORDINATOR): Today, we discussed the patient's finding of [...] symptoms Assessment & Plan (01/07/2022 10:09 AM MILIEU COORDINATOR): The patient was started on pantoprazole in [...] 05/29/2020 Assessment & Plan (03/10/2022 4:46 PM MILIEU COORDINATOR): Per paroxysmal atrial tachycardia. Tachycardia Atrial Paroxysmal 02/28/2020 Overview (02/28/2020): Status post catheter ablation, February 2020 Supraventricular Tachycardia, Unspecified 2020 Overview (05/29/2020): Status post repeat catheter ablation for AVNRT on 05/29/[address] Torres Status post catheter ablation, February 2020 Assessment & Plan (03/10/2022 4:46 PM MILIEU COORDINATOR): The patient had Holter workup that demonstrated [...] 12/2019 Assessment & Plan (01/19/2024 1:45 PM MILIEU COORDINATOR): Monitor LFTs today Assessment & Plan (01/03/2020 3:10 PM MILIEU COORDINATOR): As above, weight loss may help with this. 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 Assessment & Plan (01/07/2022 10:13 AM MILIEU COORDINATOR): Today, the patient's ferritin was in the [...] She is agreeable to supplementation. I prescribed 59595 units weekly for 8 weeks to be followed by 1000 units daily indefinitely Assessment & Plan (06/07/2020 4:40 PM CDT): Start Vitamin D 6278-9394 IU/Day. Likely these are fat soluble vitamin deficiencies due to her ongoing chronic diarrhea. Assessment & Plan (01/03/2020 3:10 PM MILIEU COORDINATOR): Will need to recheck with her next lab draws. I suspect this will improve with improvement of her diarrhea. Deficiency Vitamin B12 12/01/2018 Overview (01/19/2024): B12 07/2023 130. She stopped taking B12 supplements several months ago. Previous intrinsic factor antibody negative Assessment & Plan (01/19/2024 1:44 PM MILIEU COORDINATOR): Repeat Vitamin B12 levels May require injections going forward Assessment & Plan (03/12/2023 5:28 PM MILIEU COORDINATOR): Noted to have vitamin B12 deficiency despite [...] replacement. Assessment & Plan (01/03/2020 3:10 PM MILIEU COORDINATOR): Will need to recheck with her next [...] at least a year has been 9-10 Emmons 6 BM's per day. She occasionally sees some oily substances. Assessment & Plan (01/03/2020 3:11 PM MILIEU COORDINATOR): This is now greatly improved since I [...] apnea. Assessment & Plan (01/19/2024 2:02 PM MILIEU COORDINATOR): Sent updated DME O2 order Discussed EUGENIA; not interested in PAP going forward Assessment & Plan (02/03/2023 9:54 PM MILIEU COORDINATOR): Today, we discussed whether or not to [...] sleep. Assessment & Plan (03/10/2022 4:19 PM MILIEU COORDINATOR): Today, she reports she continues to use [...] study. Assessment & Plan (02/03/2023 9:56 PM MILIEU COORDINATOR): I am concerned with the patient has [...] a discussion with her again regarding the watermaster effect of untreated sleep apnea including pulmonary hypertension and heart failure. She is losing weight and has lost 9 pounds. Assessment & Plan (01/03/2020 3:09 PM MILIEU COORDINATOR): Planned to see Dr. 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 Kar Jones Tapering plan needed: no Monitoring Frequency of visits with PCP: 6 month Urine drug screening requested?: yes Urine screening frequency:12 month Other screening and frequency (e.g. PHQ-9, SHREE 7): Annually MNPMP review/documentation:yes Assessment & Plan (01/19/2024 1:52 PM MILIEU COORDINATOR): CSPP renewed ORT screening updated. TAPS 2 [...] feet Assessment & Plan (02/03/2023 9:50 PM MILIEU COORDINATOR): Earlier this year, the patient reported insufficient [...] mg t.i.d. p.r.n. - re-register with medical [employer] [place] Assessment & Plan (03/10/2022 4:19 PM MILIEU COORDINATOR): Today, she reports pain 7-8/10 at all [...] follow up with the e-mail from the [employer]. Unfortunately, medical cannabis is quite expensive and [...] I provided a brief overview of the [place] medical cannabis program. I informed the patient [...] to advise and work with their primary [place] care provider. 7. I mentioned that this [...] medication. Assessment & Plan (01/03/2020 12:40 PM MILIEU COORDINATOR): Plans to see Dr. Trores January 2020. 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 Assessment & Plan (03/14/2024 5:56 PM MILIEU COORDINATOR): She has already lost about 8 pounds on low dose wegovy Continue appropriate wegovy dose as tolerated Nutrition consult Assessment & Plan (01/19/2024 1:43 PM MILIEU COORDINATOR): Will hold off on GLP1 today due to other changes in medicines. If other medications well tolerated, will plan to start Zep Bound. Assessment & Plan (02/03/2023 9:55 PM MILIEU COORDINATOR): At this time, she is doing her best to manage weight with diet and I have encouraged her to continue with her excellent progress towards maintaining a stable weight at this time. Assessment & Plan (03/10/2022 4:39 PM MILIEU COORDINATOR): Due to review of other comorbidities, we [...] 200mg Assessment & Plan (03/14/2024 6:05 PM MILIEU COORDINATOR): Since increased sertraline, her move has improved greatly. She has been on the 200mg for a few weeks Follow-up as planned with psychiatry Assessment & Plan (01/19/2024 2:03 PM MILIEU COORDINATOR): Appointment with psychiatry 02/23/2024 Last PHQ9 07/2023 [...] prazosin Assessment & Plan (03/10/2022 4:23 PM MILIEU COORDINATOR): Overall, the patient's depression appears to be at baseline with recent worsening of her PTSD. She has been in communication with her psychiatrist here at [facility] and has recently restarted the prazosin which [...] of obesity hypoventilation/untreated EUGENIA. Recommended CBT at [facility]. Consider switch from sertraline to escitalopram. [...] not want to follow up with her [facility] psychiatrist. Assessment & Plan (02/03/2023 9:46 PM MILIEU COORDINATOR): Today we do not have an in-depth [...] the psychiatrist she had previously seen at [facility]. As such, I have encouraged her to seek care within the community using Psychology today as a means of finding a local provider which would be approved by her insurance. Plan: - continue current regimen which includes sertraline 200 mg and quetiapine 200 mg at bedtime - seek a community psychiatrist for further medication optimization Assessment & Plan (03/10/2022 4:20 PM MILIEU COORDINATOR): Today, the patient continues on Seroquel 100 [...] would not be able to drive to [facility] on a daily basis. Her insurance would [...] due to syncopal episodes Workup: Most recent vp scientific with PVC <1% and PAC 2.86%. 33 [...] 130s/80s Assessment & Plan (03/14/2024 5:54 PM MILIEU COORDINATOR): With our change at last visit increasing [...] spells) Assessment & Plan (01/19/2024 2:01 PM MILIEU COORDINATOR): She last saw [facility] cardiology 10/2022 and recommended to work [...] tolerated. Assessment & Plan (03/12/2023 5:27 PM MILIEU COORDINATOR): Hypertensive on exam today. Unfortunately, given her [...] apnea. Assessment & Plan (02/03/2023 10:13 PM MILIEU COORDINATOR): Managing her hypertension has been extremely challenging [...] daily Assessment & Plan (03/10/2022 4:39 PM MILIEU COORDINATOR): Today, the patient's blood pressure is slightly [...] if she cannot do it here with [facility] she could consider seeing another physician closer to home to have this done as this is essential for treatment of her hypertension. Assessment & Plan (01/03/2020 12:39 PM MILIEU COORDINATOR): Her metoprolol is now at 200mg BID [...] the lumen proximally 50%. Overall normal esophagram. PRODUCT TRAINER (02/24/2022): Normal oropharyngeal swallow. Mildly prominent cricopharyngeus of questionable significance. 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 Date Type Department Care Team Description 08/22/2024 Refill Division of [facility] Internal [facility], [facility], [place], [place] [address] [place] [address] Susana Rowe M.D. Med Refill 08/16/2024 Refill Division of [facility] Internal [facility], [facility], in [place], [place] [address] [place] [phone] Susana Rowe M.D. Med Refill 07/26/2024 Orders Only RST PCP HLTH MNT Susana Rowe M.D. Deficiency Estrogen Post Menopausal 07/25/2024 Refill Division of [facility], [facility], in [place], [place] [address] [place] [address] Susana Roew M.D. Med Refill 07/18/2024 Refill Division of [facility] Internal [facility], in [place], [place] [address] [place] [address] Susana Rowe M.D. Med Refill 07/01/2024 Clinical Communication Division of [facility] Internal [facility], in [place], [place] [address] [place] [address] Susana Rowe M.D. [facility] 06/26/2024 Refill Division of [facility] Internal [facility], in [place], [place] [address] [place] [address] Susana Rowe M.D. Med Refill 06/20/2024 Refill Division of [facility] Internal [facility], [facility], in [place], [place] [address] [place] [phone] Nikunj Kendall M.D. Med Refill 06/20/2024 Refill Division of [facility] Internal [facility], in [place], [place] [address] [place] [address] Susana Rowe M.D. Med Refill from Last 3 Months Immunizations Immunization Administration [...] drink = 0.6 oz pur e alcohol) [facility] Utilities Answer Date Recorded In the past 12 months has th e electric, gas, oil, or water [employer] threatened to shut off services in your [...] by your partner or ex-partner? No 02/11/2022 Hunger Vital Sign Answer Date Recorded Within [...] PHQ-9 Total Score (max 27) 6 04/19 Housing Stability Answer Date Recorded What is your living situation today? I have a [facility] place to live 03/10/2023 Education Answer Date Recorded What is the highest level of school you have completed or the highest degree you have received? GED or equivalent 01/2019 Comments No Sex and Gender Information Value Date Recorded Sex Assigned at Female 07/29/2017 9:59 AM CDT Legal Sex Female 3:46 PM MILIEU COORDINATOR Gender Identity Female 09/22/2020 3:19 PM CDT Sexual Orientation Straight 07/29/2017 9: 59 AM CDT Last Filed Vital Signs Vital Sign Reading Time Taken Comments Blood Pressure 130/85 04/19/2024 9:43 AM MILIEU COORDINATOR Pulse 99 04/19/2024 9:43 AM MILIEU COORDINATOR Temperature 36.6 C (97.9 F) 09/22/2022 8:08 AM CDT Respiratory Rate 17 09/22/2022 8:08 AM CDT Oxygen Saturation 94% 10/14/2022 2:32 PM CDT Inhaled Oxygen Concentration - - Weight 93.6 kg (206 lb 5.6 oz) 04/19/2024 9:43 A M MILIEU COORDINATOR Height 159.5 cm (5' 2.8) 04/19/2024 9:43 AM MILIEU COORDINATOR Body Mass Index 36.79 04/19/2024 9:43 AM MILIEU COORDINATOR Plan of Treatment Upcoming Encounters Date Type Department Care Team (Late st Contact Info) Description 09/20/2024 3:30 PM CDT Office Visit Division of [facility], [facility], in [place], [place] [address] [place] [address] Susana Rowe M.D. [address] [place] [address] Health Maintenance Due Date Last Done Comments Bone Density Scan (Osteoporosis Screen) 1959 CT Colonography 1959 Cologuard 1959 FIT 1959 Colonoscopy 10/12/2021 10/13/2011, 02/2009 (Performed elsewhere) COVID-19 Vaccine ( season) 2024 11/23/2023, 11/25/2022, 11/15/2021, Additional history exists Fall Risk Screen (Annual) 06/15/2024 PEG assessment for Opioid therapy 08/04/2024 05/04/2024 Controlled Substance Monitoring (UDS) 08/05/2024 08/06/2023 Mammogram 10/27/2024 08/28/2021, 07/17, 05/06/2018, Additional history exists Postponed from 08/28/2022 (Patient Refused) Influenza Vaccine (#1) 2024 , 12/09/2022, 11/12/2021, Additional history exists Controlled Substance Agreement 01/18/2025 01/19/2024, 02/04/2023 Creatinine [...] (32-36 weeks) or 60+ years Completed 11/14/2022 Opioid Risk Tool (ORT) Completed 01/19/2024 Depression Screening (Annual PHQ-2) Completed 04/19/2024, 04/19/2024 Colorectal Cancer Screening Discontinued IPV Vaccines Aged Out No longer eligi ble based on patient's age to complete this topic Medical Devices Implanted Type Area Chemical Technician Device Identifier Shelf Expiration Date Model / Serial / Lot Hardware E.G. Pins/Screws/Rosalio s Hardware e.g. pins/screws /rods Right: Ankle Hardware E.G. Pins/Screws/Rosalio s Hardware e.g. pins/screws /rods Right: Foot Trilogy-Screw 6.5x20 - Alvarez [id number] Implanted:Qty: 1 on 06/09/2011 Hardware e.g. pins/screws /rods [employer] Description:Device Manufactu rer - Rui. Device Status Text - [id number]. Guide Wire-Ball Tip 3 X 800 - [place] [id number] Implanted:Qty: 1 on 06/09/2011 Hardware e.g. pins/screws /rods Katharine Description:Device Manufactu rer - Katharine Tim.. Device Status Text - HARDWARE- 76157. [facility] Data - [id number]. Trilogy-Screw 6.5x40 - Alvarez [id number] Implanted:Qty: 1 on 06/09/2011 Hardware e.g. pins/screws /rods [employer] Description:Device Manufactu rer - Rui. Device Status Text - [id number]. [place] Screw 2 Canc 6.5 X 45 - [place]varez [id number] Implanted:Qty: 1 on 06/24/2013 Hardware e.g. pins/screws /rods [employer] Description:Device Manufactu rer - [employer]. Device Status Text - [id number]. [place] Screw 2 Canc 6.5 X 8 - [place] [id number] Implanted:Qty: 1 on 06/24/2013 Hardware e.g. pins/screws /rods [employer] Description:Device Manufactu rer - [employer]. Device Status Text - [id number]. Stem [place] 4x Std 140 - Alvarez [id number] Implanted:Qty: 1 on 06/09/2011 Hip Implant Other/Legacy - See Implant Description [employer] Description:Device Manufactu rer - [employer]. Body Location - Other. Left. Device Status Text - [id number] [id number]. Dep. Head Prodigy 32 + 5.0 - Alvarez [id number] Implanted:Qty: 1 on 06/09/2011 Hip Implant Other/Legacy - See Implant Description [employer] Description:Device Manufactu rer - [employer]. Body Location - Other. Left. Device Status Text - [id number] [id number]. Zim Insert Longevity 0 Deg 32x50 - Alvarez [id number] Implanted:Qty: 1 on 06/09/2011 Hip Implant Other/Legacy - See Implant Description [employer] Description:Device Manufactu rer - Rui. Body Location - Other. Left. Device Status Text - [id number] [id number]. Zim. Shell Tril W Holes 52 - Alvarez [id number] Implanted:Qty: 1 on 06/09/2011 Hip Implant Other/Legacy - See Implant Description [employer] Description:Device Manufactu rer - Rui. Body Location - Other. Left. Device Status Text - [id number] [id number]. Delta-Head Ceramic 32mm +1 - Alvarez [id number] Implanted:Qty: 1 on 06/24/2013 Hip Implant Right: Other/Legacy - See Implant Description [employer] Description:Device Manufactu rer - [employer]. Body Location - Right. Device Status Text - [id number] [id number]. [place] Liner Altrx Neut 32x50 - Alvarez [id number] Implanted:Qty: 1 on 06/24/2013 Hip Implant Right: Other/Legacy - See Implant Description [employer] Description:Device Manufactu rer - [employer]. Body Location - Right. Device Status Text - [id number] [id number]. [place] Shell Porocoat Lamont 50mm - Alvarez [id number] Implanted:Qty: 1 on 06/24/2013 Hip Implant Right: Other/Legacy - See Implant Description [employer] Description:Device Manufactu rer - [employer]. Body Location - Right. Device Status Text - [id number] [id number]. Stem [place] 4x Std 140 - Alvarez [id number] Implanted:Qty: 1 on 06/24/2013 Hip Implant Right: Other/Legacy - See Implant Description [employer] Description:Device Manufactu rer - [employer]. Body Location - Right. Device Status Text - [id number] [id number]. Procedures Procedure Name Priority Date/Time Associated Diagnosis Comments LIPID PANEL, S Routine 04/19/2024 11:53 AM MILIEU COORDINATOR Hyperlipidemia HEMOGLOBIN A1C, B Routine 01/19/2024 12: 51 PM MILIEU COORDINATOR PreDiabetes BASIC METABOLIC PANEL, S/P Routine 01/19/2024 12:51 PM MILIEU COORDINATOR Elevated Creatinine BI BREAST SCREENING BILATERAL WITH TOMOSYNTHESIS RAD - Routine (most inpatients and all outpatients) 08/28/2021 12:20 PM CDT Screening Mammogram Breast Cancer HCV AB SCRN W/REFLEX TO HCV PCR, S Routine 01/05/2015 10:08 AM MILIEU COORDINATOR from Last 3 Months or Most Recently Relevant to Health Maintenance Results * (ABNORMAL) Lipid Panel (04/19/2024 11:53 AM MILIEU COORDINATOR) Triglycerides 229(H) mg/dL 04/19/2024 1:25 PM MILIEU COORDINATOR DTL Comment: ----REFERENCE VALUE---- Normal: <150 mg/dL Borderline High: 150-199 mg/dL High: 200-499 mg/dL Very High: > or =500 mg/dL Cholesterol, Total 166 mg/dL 2024 1:25 PM MILIEU COORDINATOR DTL Comment: ----REFERENCE VALUE---- Desirable: < 200 mg/dL Borderline High: 200 - 239 mg/dL High: > or = 240 mg/dL Cholesterol, LDL, Calculated 74 mg/dL 04/19/2024 1:25 PM MILIEU COORDINATOR DTL Comment: ----REFERENCE VALUE---- Desirable: <100 mg/dL Above Desirable: 100-129 mg/dL Borderline High: 130-159 mg/dL High: 160-189 mg/dL Very High: >=190 mg/dL ----ADDITIONAL INFORMATION---- LDL cholesterol calculated using the Coe/NIH equation. Cholesterol, HDL, S 55 >=50 mg/dL 04/19/2024 1:25 PM MILIEU COORDINATOR DTL Cholesterol, Non-HDL, Calculated 111 mg/dL 04/19/2024 1:25 PM MILIEU COORDINATOR DTL Comment: ----REFERENCE VALUE---- Desirable: <130 mg/dL Above Desirable: 130-159 mg/dL Borderline High: 160-189 mg/dL High: 190-219 mg/dL Very High: > or =220 mg/dL Fasting (8 HR or more) Yes 04/19/2024 11:53 AM MILIEU COORDINATOR DTL Blood (Blood, Venous) 04/19/2024 11:53 AM MILIEU COORDINATOR 04/19/2024 12:30 PM MILIEU COORDINATOR Susana Rowe M.D. LAB BLOOD ADD-ON Final Resul t Performing Organization Address City/[facility] Co de Phone Number [facility] [address] [place] [address], [facility] 200 [place] [address] * Hemoglobin A1c (01/19/2024 12:51 PM MILIEU COORDINATOR) Pathologist [facility] Hemoglobin A1c, B 5.4 4.0 - 5.6 % 01/19/2024 1:47 PM MILIEU COORDINATOR DTL Blood (Blood, Venous) 01/19/2024 12:51 PM MILIEU COORDINATOR 01/19/2024 1:04 PM MILIEU COORDINATOR Susana Rowe M.D. LAB BLOOD ADD-ON Final Resul t Performing Organization Address [facility] Co de Phone Number [facility] [address] [place] [address], [facility] 200 [place] [address] * Basic Metabolic Panel (01/19/2024 12:51 PM MILIEU COORDINATOR) Pathologist [facility] Potassium, S 3.9 3.6 - 5.2 mmol/L 01/19/2024 1:42 PM MILIEU COORDINATOR DTL Sodium, S 145 135 - 145 mmol/L 01/19/2024 1:42 PM MILIEU COORDINATOR DTL Chloride, S 105 98 - 107 mmol/L 01/19/2024 1:42 PM MILIEU COORDINATOR DTL Bicarbonate, S 26 22 - 29 mmol/L 01/19/2024 1:42 PM MILIEU COORDINATOR DTL Anion Gap 14 7 - 15 01/19/2024 1:42 PM MILIEU COORDINATOR DTL BUN (Blood Urea Nitrogen), S 14 6 - 21 mg/dL 01/19/2024 1:42 PM MILIEU COORDINATOR DTL Creatinine 0.78 0.59 - 1.04 mg/dL 01/19/2024 1:42 PM MILIEU COORDINATOR DTL Estimated GFR (eGFR) 85 >=60 mL/min/BSA 01/19/2024 1:42 PM MILIEU COORDINATOR DTL Comment: Estimated GFR calculated using the 2020 CKD_EPI creatinine equation. Calcium, Total, S 9.5 8.8 - 10.2 mg/dL 01/19/2024 1:42 PM MILIEU COORDINATOR DTL Glucose, S 101 70 - 140 mg/dL 01/19/2024 1:42 PM MILIEU COORDINATOR DTL Blood (Blood, Venous) 01/19/2024 12:51 PM MILIEU COORDINATOR 01/19/2024 1:14 PM MILIEU COORDINATOR us Susana Rowe M.D. LAB BLOOD ADD-ON Final Resul t [facility] [address] [place] [address], [facility] [address] [place] [address] * BI Breast Screening Bilateral with Tomosynthesis [...] Annual Screening Mammogram ASSESSMENT: BI-RADS: 1: Negative. us Esperanza Vera M.D. IMG BI PROCEDURES Final Res ult * HCV AB Scrn w/Reflex to HCV PCR, S (01/05/2015 10:08 AM MILIEU COORDINATOR) HCV Ab Screen, S Negative Negative [facility] Comment:Yvuxsv-mm-jjpope rat io is <1.00. 01/05/2015 10:0 8 AM MILIEU COORDINATOR 01/05/2015 10:08 AM MILIEU COORDINATOR us Jodie Quigley M.D. LAB MICROBIOLOGY - BLOOD OR DERABLES Final Result Performing Organization Address City/State/[facility] Co de Phone Number [facility] [address] [address] from Last 3 Months or Most Recently Relevant to Health Maintenance Insurance [facility] Advance Directives For more information, please contact: [phone] Documents on File Type Date Recorded Patient Fixed Capital Clerk Expl anation Advance Directives 02/27/2020 3:22 PM [...] First Alternate Health Care Agent Care Teams Vascular Manager Relationship Specialty Start Date End Date Susana Rowe M.D. [address] [place] [phone] PCP - General Internal Medicine 08/21/23
--- OUTSIDE RECORDS SUMMARY | 2024-09-08 20:22 | XMS_ITS | Encounter Summary ---
Author Organization [facility] Address [address] [place] [address] Care Team Providers Care Medical Physicist Name Role Phone Susana Rowe M.D. Primary Care Provider Encounter Details Date Type Department Care Team (Late st Contact Info) Description 11/24/2011 Historical Ophthalmology RST OPH Alin Burch O.D. 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 [address] [place] [address] documented as of this encounter Visit Diagnoses Not on filedocumented in this encounter Additional Health Concerns Infection Onset Date Last Indicated Resolved Time COVID19 Pending 12/20/2019 12/20/2019 12/21/2019 8 :08 AM PLACEMENT OFFICER COVID19 Pending 02/24/2020 02/24/2020 02/24/2020 6 :13 PM PLACEMENT OFFICER COVID19 Pending 04/09/2020 04/09/2020 04/09/2020 9 :39 PM PLACEMENT OFFICER COVID19 Pending 05/26/2020 05/26/2020 05/26/2020 1 0:01 PM CDT COVID19 Pending 10/14/2022 10/14/2022 10/14/2022 3 :44 PM CDT COVID19 Pending 10/14/2022 10/14/2022 10/14/2022 6 :55 PM CDT COVID19 Pending 10/14/2022 10/14/2022 10/14/2022 8 :02 PM CDT Assessment Noted Time PHQ-9 Depression Total Score: 23 012 1:54 PM CDT documented as of this encounter Care Teams Medical Physicist Relationship Specialty Start Date End Date Susana Rowe M.D. [address] [place] [phone] PCP - General Internal Medicine 08/21/23 documented as of this encounter
--- OUTSIDE RECORDS SUMMARY | 2024-09-08 20:22 | XMS_ITS | Encounter Summary ---
Author Organization [facility] Address [address] [place] [address] Care Team Providers Care Environmental Technician Name Role Phone Susana Rowe M.D. Primary Care Provider Encounter Details Date Type Department Care Team (Late st Contact Info) Description 01/31/2014 Historical Ophthalmology RST OPH Dion Bridges O.D. 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 [address] [place] [address] documented as of this encounter Visit Diagnoses Not on filedocumented in this encounter Additional Health Concerns Infection Onset Date Last Indicated Resolved Time COVID19 Pending 12/20/2019 12/20/2019 12/21/2019 8 :08 AM ASSEMBLER STEAM AND G[employer] TURBINE COVID19 Pending 02/24/2020 02/24/2020 02/24/2020 6 :13 PM ASSEMBLER STEAM AND G[employer] TURBINE COVID19 Pending 04/09/2020 04/09/2020 04/09/2020 9 :39 PM ASSEMBLER STEAM [employer] G[employer] TURBINE COVID19 Pending 05/26/2020 05/26/2020 05/26/2020 1 0:01 PM CDT COVID19 Pending 10/14/2022 10/14/2022 10/14/2022 3 :44 PM CDT COVID19 Pending 10/14/2022 10/14/2022 10/14/2022 6 :55 PM CDT COVID19 Pending 10/14/2022 10/14/2022 10/14/2022 8 :02 PM CDT Assessment Noted Time PHQ-9 Depression Total Score: 25 014 2:48 PM ASSEMBLER STEAM [employer] G[employer] TURBINE documented as of this encounter Care Teams Environmental Technician Relationship Specialty Start Date End Date Susana Rowe M.D. 200 [place] [address] PCP - General Internal Medicine 08/21/23 documented as of this encounter
--- OUTSIDE RECORDS SUMMARY | 2024-09-08 20:22 | XMS_ITS | Encounter Summary ---
Author Organization [facility] Address [address] [place] [address] Care Team Providers Care Director Of Instrumental Music Name Role Phone Susana Rowe M.D. Primary Care Provider Reason for Visit * Reason Comments Med Refill Encounter Details Date Type Department Care Team (Late st Contact Info) Description 08/16/2024 Refill Division of Community Internal Medicine, [facility], in [place], [place] [address] [place] [phone] Susana Rowe M.D. [address] [place] [phone] Med Refill Social History Tobacco Use Types Packs/Day Years Used Date Smoking Tobacco: Never Passive Smoke Exposure: Past Smokeless Tobacco: Never Alcohol Use Standard Drinks/Week Comments No 0 (1 standard drink = 0.6 oz pur e alcohol) [facility] Utilities Answer Date Recorded In the past 12 months has e [employer], gas, oil, or water [employer] threatened to shut off services in your [...] your living situation today? I have a [facility] place to live 03/10/2023 Education Answer Date Recorded What is the highest level of school you have completed or the highest degree you have received? GED or equivalent 01/2019 Comments No Sex and Gender Information Value Date Recorded Sex Assigned at Female 07/29/2017 9:59 AM CDT Legal Sex Female 3:46 PM NATURAL RESOURCE OFFICER Gender Identity Female 09/22/2020 3:19 PM CDT Sexual Orientation Straight 07/29/2017 9: 59 AM CDT documented as of this encounter Plan of Treatment Upcoming Encounters Date Type Department Care Team (Late st Contact Info) Description 09/20/2024 3:30 PM CDT Office Visit Division of Community Internal Medicine, [facility], in [place], [place] [address] [place] [address] Susana Rowe M.D. [address] [place] [address] documented as of this encounter Visit Diagnoses Not on filedocumented in this encounter Additional Health Concerns Assessment Noted Time PHQ-9 Depression Total Score: 6 04/20/19 25 9:50 AM NATURAL RESOURCE OFFICER documented as of this encounter Care Teams Director Of Instrumental Music Relationship Specialty Start Date End Date Susana Rowe M.D. [address] [place] [address] PCP - General Internal Medicine 08/21/23 documented as of this encounter
--- OUTSIDE RECORDS SUMMARY | 2024-09-08 20:22 | XMS_ITS | Encounter Summary ---
Author Organization [facility] Address [address] [place] [address] Care Team Providers Care Rehab Nurse Name Role Phone Susana Rowe M.D. Primary Care Provider Encounter Details Date Type Department Care Team (Late st Contact Info) Description 03/26/2016 Historical Ophthalmology RST OPH Beba Trotter O.D. 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 [address] [place] [address] documented as of this encounter Visit Diagnoses Not on filedocumented in this encounter Additional Health Concerns Infection Onset Date Last Indicated Resolved Time COVID19 Pending 12/20/2019 12/20/2019 12/21/2019 8 :08 AM MOLD TOOLING TECHNICIAN COVID19 Pending 02/24/2020 02/24/2020 02/24/2020 6 :13 PM MOLD TOOLING TECHNICIAN COVID19 Pending 04/09/2020 04/09/2020 04/09/2020 9 :39 PM MOLD TOOLING TECHNICIAN COVID19 Pending 05/26/2020 05/26/2020 05/26/2020 1 0:01 PM CDT COVID19 Pending 10/14/2022 10/14/2022 10/14/2022 3 :44 PM CDT COVID19 Pending 10/14/2022 10/14/2022 10/14/2022 6 :55 PM CDT COVID19 Pending 10/14/2022 10/14/2022 10/14/2022 8 :02 PM CDT Assessment Noted Time PHQ-9 Depression Total Score: 22 017 10:25 AM MOLD TOOLING TECHNICIAN documented as of this encounter Care Teams Rehab Nurse Relationship Specialty Start Date End Date Susana Rowe M.D. [address] [place] [address] PCP - General Internal Medicine 08/21/23 documented as of this encounter
--- OUTSIDE RECORDS SUMMARY | 2024-09-08 20:22 | XMS_ITS | Encounter Summary ---
Author Organization [facility] Address [address] [place] [address] Care Team Providers Care Labor Relations Analyst Name Role Phone Susana Rowe M.D. Primary Care Provider Reason for Referral * Outpatient (Routine) - Authorized Specialty Diagnoses / Procedures Referred By Contac t Referred To Contact Diagnoses Deficiency Estrogen Post Menopausal Procedures BMD Bone Density Spine Hips Susana Rowe M.D. [address] [place] [phone] Phone: tel: fax: [facility] Referral ID Status Reason Start Date Expiration Date V isits Requested Visits Authorized [id number] Authorized 07/26/2024 10/26/2025 1 1 Encounter Details Date Type Department Care Team (Late st Contact Info) Description 07/26/2024 Orders Only RST PCP [facility] Susana Roew M.D. [address] [place] [phone] Deficiency Estrogen Post Menopausal Social History Tobacco Use Types Packs/Day Years Used Date Smoking Tobacco: Never Passive Smoke Exposure: Past Smokeless Tobacco: Never Alcohol Use Standard Drinks/Week Comments No 0 (1 standard drink = 0.6 oz pur e alcohol) [facility] Utilities Answer Date Recorded In the past [...] your [facility] situation today[facility] 03/10/2023 Education Answer Date Recorded What is the highest level of school you have completed or the highest degree you have received? 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 [address] [place] [phone] Scheduled Orders Name Type Priority Associated Diagnoses Orde r Schedule BMD Bone Density Spine Hips Imaging RAD - Routine (most inpatients and all outpatients) Deficiency Estrogen Post Menopausal Expected: 08/09/2024, Expires: 01/12/2025 documented as of this encounter Visit Diagnoses Diagnosis Deficiency Estrogen Post Menopausal documented in this encounter Additional Health Concerns Assessment Noted Time PHQ-9 Depression Total Score: 6 04/20/19 25 9:50 AM AIRCRAFT STRUCTURAL REPAIRER documented as of this encounter Care Teams Labor Relations Analyst Relationship Specialty Start Date End Date Susana Rowe M.D. [address] [place] [phone] PCP - General Internal Medicine 08/21/23 documented as of this encounter
--- OUTSIDE RECORDS SUMMARY | 2024-09-08 20:22 | XMS_ITS | Encounter Summary ---
Author Organization [facility] Address [address] [place] [address] Care Team Providers Care Solar Energy Systems Designer Name Role Phone Susana Rowe M.D. Primary Care Provider Reason for Referral * Outpatient (Routine) - Authorized Specialty Diagnoses / Procedures Referred By Contveda t Referred To Contact Community Internal Medicine Diagnoses Chronic Pain Syndrome Susana Rowe M.D. [address] [place] [phone] Phone: tel: fax: [facility] Referral ID Status Reason Start Date Expiration Date V isits Requested Visits Authorized [id number] Authorized 08/25/2024 02/24/2026 1 1 Reason for Visit * Reason Onset Date Comments Med Refill 08/22/2024 Encounter Details Date Type Department Care Team (Late st Contact Info) Description 08/22/2024 Refill Division of Community Internal Medicine, [facility], in [place], [place] [address] [place] [phone] Susana Rowe M.D. [address] [place] [phone] Med Refill Social History Tobacco Use Types Packs/Day Years Used Date Smoking Tobacco: Never Passive Smoke Exposure: Past Smokeless Tobacco: Never Alcohol Use Standard Drinks/Week Comments No 0 (1 standard drink = 0.6 oz pur e alcohol) [facility] Utilities Answer Date Recorded In the [...] your living situation today? I have a [facility] place to live 03/10/2023 Education Answer Date Recorded What is the highest level of school you have completed or the highest degree you have received? 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 Renewal is pended per the controlled substance prescribing plan located in Synopsis Date last prescribed (First fill date if included in last Rx): 08/03/2024 Last provider visit: 04/19/2024 Urine Drug Screen last resulted on: 08/06/2023; Next due: overdue, active order Screenings due: PEG, nursing will send at wrap up Next provider visit due: 10/20/2024 Controlled substance agreement last reviewed/signed 01/19/2024 This prescription may be filled on 08/31/2024, and next renewal may be on or after 09/28/2024 * Telephone Encounter - Zara Treviño - 08/23/2024 6:20 AM CDT Needs Review: Med Refill Team is unable to forward request to provider. Controlled Substance, CSA Primary Provider: Agata Rowe M.D. Requested Prescriptions [...] Office Visit Division of Community Internal Medicine, [facility], in [place], [place] [address] [place] [address] Susana Rowe M.D. [address] [place] [address] Scheduled Referrals Name Type Priority Associated Diagnoses Orde r Schedule Community Internal Medicine office visit (clinic) Outpatient Referral Routine Chronic Pain Syndrome Expected: 10/20/2024, Expires: 11/24/2025 documented as of this encounter Visit Diagnoses Diagnosis Chronic Pain Syndrome documented in this encounter Additional Health Concerns Assessment Noted Time PHQ-9 Depression Total Score: 6 04/20/19 25 9:50 AM STUD DAIRY CATTLE FARMER documented as of this encounter Care Teams Solar Energy Systems Designer Relationship Specialty Start Date End Date Susana Rowe M.D. [address] [place] [phone] PCP - General Internal Medicine 08/21/23 documented as of this encounter
--- OUTSIDE RECORDS SUMMARY | 2024-09-08 20:22 | XMS_ITS | Encounter Summary ---
Author Organization [facility] Address [address] [place] [id number] Care Team Providers Care Fisher Trawl Line Name Role Phone Susana Rowe M.D. Primary Care Provider [phone] Reason for Visit * Reason Onset Date Comments Med Refill 07/25/2024 Encounter Details Date Type Department Care Team (Late st Contact Info) Description 07/25/2024 Refill Division of Community Internal Medicine, [facility] in [place], [place] [address] [place] [phone] Susana Rowe M.D. [address] [place] [phone] Med Refill Social History Tobacco Use Types Packs/Day Years Used Date Smoking Tobacco: Never Passive Smoke Exposure: Past Smokeless Tobacco: Never Alcohol Use Standard Drinks/Week Comments No 0 (1 standard drink = 0.6 oz pur e alcohol) [facility] Utilities Answer Date Recorded In the past [...] your living situation today? I have a [facility] place to live 03/10/2023 Education Answer Date Recorded What is the highest level of school you have completed or the highest degree you have received? 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 - 07/27/2024 4:32 PM CDT Controlled substance renewal for Oxycodone 5 mg: No nursing alert. Renewal is pended per the controlled substance prescribing plan located in the synopsis Date last prescribed (First fill date if included in last Rx): 07/06/2024 Last provider visit: 03/14/2024 with PCP & 04/19/2024 with colleague Urine Drug Screen last resulted on: 08/06/2023; Next due: 07/2024, needs to be scheduled Screenings due: current Next provider visit due: every 6 months, 08/2024 needs to schedule Controlled substance agreement last reviewed/signed 01/19/2024 This prescription may be filled on 08/03, and next renewal may be on or after 08/31 * Telephone Encounter - Zara Trevioñ - 07/26/2024 7:02 AM CDT Needs Review: Med Refill Team [...] Community Internal Medicine, [facility] in [place], [place] [address] [place] [phone] Susana Rowe M.D. [address] [place] [phone] documented as of this encounter Visit Diagnoses Diagnosis Chronic Pain Syndrome documented in this encounter Additional Health Concerns Assessment Noted Time PHQ-9 Depression Total Score: 6 04/20/19 25 9:50 AM FIELD ARTILLERY SENIOR SERGEANT documented as of this encounter Care Teams Fisher Trawl Line Relationship Specialty Start Date End Date Susana Rowe M.D. [address] [place] [phone] PCP - General Internal Medicine 08/21/23 documented as of this encounter
--- OUTSIDE RECORDS SUMMARY | 2024-09-08 20:22 | XMS_ITS | Encounter Summary ---
Author Organization [facility] Address [address] [place] [address] Care Team Providers Care Medical Dir Name Role Phone Susana Rowe M.D. Primary Care Provider Encounter Details Date Type Department Care Team (Late st Contact Info) Description 02/03/2014 Historical Ophthalmology [facility] Dion Bridges O.D. [address] [place] [phone] Social History Tobacco Use Types Packs/Day Years Used Date Smoking Tobacco: Never Assessed Comments Unknown Sex and Gender Information Value Date Recorded Sex Assigned at Female 07/29/2017 9:59 AM CDT Legal Sex Female 3:46 PM ENDS BREAKAGE CLERK Gender Identity Female 09/22/2020 3:19 PM CDT [...] right eye CDM Reports - EYESV Id: [id number] Status: Fnl documented in this encounter Plan of Treatment Upcoming Encounters Date Type Department Care Team (Late st Contact Info) Description 09/20/2024 3:30 PM CDT Office Visit Division of Community Internal Medicine, [facility], in [place], [place] [address] [place] [phone] Susana Rowe M.D. [address] [place] [phone] documented as of this encounter Visit Diagnoses Not on filedocumented in this encounter Additional Health Concerns Infection Onset Date Last Indicated Resolved Time COVID19 Pending 12/20/2019 12/20/2019 12/21/2019 8 :08 AM ENDS BREAKAGE CLERK COVID19 Pending 02/24/2020 02/24/2020 02/24/2020 6 :13 PM ENDS BREAKAGE CLERK COVID19 Pending 04/09/2020 04/09/2020 04/09/2020 9 :39 PM ENDS BREAKAGE CLERK COVID19 Pending 05/26/2020 05/26/2020 05/26/2020 1 0:01 PM CDT COVID19 Pending 10/14/2022 10/14/2022 10/14/2022 3 :44 PM CDT COVID19 Pending 10/14/2022 10/14/2022 10/14/2022 6 :55 PM CDT COVID19 Pending 10/14/2022 10/14/2022 10/14/2022 8 :02 PM CDT Assessment Noted Time PHQ-9 Depression Total Score: 25 014 2:48 PM ENDS BREAKAGE CLERK documented as of this encounter Care Teams Medical Dir Relationship Specialty Start Date End Date Susana Rowe M.D. [address] [place] [address] [place] [phone] PCP - General Internal Medicine 08/21/23 documented as of this encounter
[2024-09-08] MEDS: MECLIZINE HCL 25 MG TABLET PO (20:31)
[2024-09-08 20:33] VITALS: BP 191/88; PULSE 77; RESP 16; O2SAT 96
--- OUTSIDE RECORDS SUMMARY | 2024-09-08 20:38 | XMS_ITS | CCD ---
Author Organization Unknown Care Team Providers Care Silhouette Artist Name Role Phone Vending Machine Operator, [place] Primary Care Provider Unava ilable Unavailable Chronic Care Management Unavaila ble Summary Purpose DataExchange Insurance Providers Payer name Policy type / Coverage type Covered libertarian ID Effective Begin Date Effective End Date [employer] [id number] Unknown Unkn own Family History Family History data not found Medication Administered No Medication Administered data Reason For Visit No Reason For Visit data
--- OUTSIDE RECORDS SUMMARY | 2024-09-08 20:38 | XMS_ITS | CCD ---
Author Organization Unknown Care Team Providers Care Radio Journalist Name Role Phone Transportation Officer, [place] Primary Care Provider Unava ilable Unavailable Chronic Care Management Unavaila ble Summary Purpose DataExchange Insurance Providers Payer name Policy type / Coverage type Covered democrat ID Effective Begin Date Effective End Date [employer] [id number] Unknown Unkn own Family History Family History data not found Medication Administered No Medication Administered data Reason For Visit No Reason For Visit data
--- OUTSIDE RECORDS SUMMARY | 2024-09-08 21:21 | XMS_ITS | CCD ---
Author Organization Unknown Care Team Providers Care Corporate Manager Name Role Phone Shredded Filler Cutter Operator, [place] Primary Care Provider Unava ilable Unavailable Chronic Care Management Unavaila ble Summary Purpose DataExchange Insurance Providers Payer name Policy type / Coverage type Covered alliance party ID Effective Begin Date Effective End Date [employer] [id number] Unknown Unkn own Family History Family History data not found Medication Administered No Medication Administered data Reason For Visit No Reason For Visit data
--- OUTSIDE RECORDS SUMMARY | 2024-09-08 21:22 | XMS_ITS | CCD ---
Author Organization Unknown Care Team Providers Care Dyed Yarn Operator Name Role Phone Housing Director, [place] Primary Care Provider Unava ilable Unavailable Chronic Care Management Unavaila ble Summary Purpose DataExchange Insurance Providers Payer name Policy type / Coverage type Covered constitution party ID Effective Begin Date Effective End Date [employer] [id number] Unknown Unkn own Family History Family History data not found Medication Administered No Medication Administered data Reason For Visit No Reason For Visit data
== END 2024-09-08 21:01 | disposition home or self-care (01) ==
PROVIDERS: Emergency Provider Emergency Medicine Emergency Medical Services
DX: S01.01XA Laceration without foreign body of scalp, initial encounter (principal); R42 Dizziness and giddiness; W19.XXXA Unspecified fall, initial encounter
CPT/HCPCS: 70450; 72125; 99284; A9270

== ENCOUNTER 2024-10-01 12:49 | Emergency (ER) | payer OTHER, SELFPAY ==
--- OUTSIDE RECORDS SUMMARY | 2024-09-20 15:30 | XMS_ITS | Encounter Summary ---
Author Organization [facility] Address [address] [place] [address] Care Team Providers Care Hay Rake Operator Name Role Phone Susana Rowe M.D. Primary Care Provider [phone] Reason for Referral * Outpatient (Routine) - Authorized Specialty Diagnoses / Procedures Referred By Pasquale blum Referred To Contact [facility] Susana Rowe M.D. [address] [place] [address] Phone: tel: fax: [facility] Referral ID Status Reason Start Date Expiration Date V isits Requested Visits Authorized [id number] Authorized 09/20/2024 03/22/2026 1 1 * Medication Prior Authorization - Authorized Specialty Diagnoses / Procedures Referred By Pasquale blum Referred To Contact Diagnoses Morbid Obesity Body Mass Index 40.0-44.9 Adult (HCC) Susana Rowe M.D. [address] [place] [address] Phone: tel: fax: Referral ID Status Reason Start Date Expiration Date V isits Requested Visits Authorized [id number] Authorized 09/27/2024 09/27/2025 1 1 * Outpatient (Routine) - Authorized Specialty Diagnoses / Procedures Referred By Contac t Referred To Contact Diagnoses Pain Chest Procedures DX Chest AP or PA and Lateral 2 Views Susana Rowe M.D. [address] [place] [phone] Phone: tel: fax: [facility] Referral ID Status Reason Start Date Expiration Date V isits Requested Visits Authorized [id number] Authorized 09/20/2024 12/21/2025 1 1 * Outpatient (Routine) - Authorized Specialty Diagnoses / Procedures Referred By Contac t Referred To Contact Diagnoses Pain Chest Procedures ECG 12 Lead MO EKG 12 LEAD W I&R Susana Rowe M.D. [address] [place] [phone] Phone: tel: fax: [facility] Referral ID Status Reason Start Date Expiration Date V isits Requested Visits Authorized [id number] Authorized 09/20/2024 12/21/2025 1 1 * Outpatient (Routine) - Authorized Specialty Diagnoses / Procedures Referred By Contac t Referred To Contact Diagnoses Syncope And Collapse Procedures Vestibular rehabilitation therapy PT/OT Susana Rowe M.D. [address] [place] [phone] Phone: tel: fax: [facility] Referral ID Status Reason Start Date Expiration Date V isits Requested Visits Authorized [id number] Authorized 09/20/2024 12/21/2025 1 1 Reason for Visit * Outpatient (Routine) - Closed Specialty Diagnoses / Procedures Referred By Contac t Referred To Contact [facility] Diagnoses Chronic Pain Syndrome Susana Rowe M.D. [address] [place] [address] Phone: tel: fax: [facility] Referral ID Status Reason Start Date Expiration Date Visits Re quested Visits Authorized [id number] Closed 08/25/2024 02/24/2026 1 1 Encounter Details Date Type Department Care Team (Late st Contact Info) Description 09/20/2024 3:30 PM CDT Office Visit Division of Community Internal Medicine, [facility] in [place], [place] [address] [place] [phone] Susana Rowe M.D. [address] [place] [phone] Syncope And Collapse (Primary Dx); Paresthesias Feet; Morbid Obesity Body Mass Index 40.0-44.9 Adult (HCC); Pain Chest Social History Tobacco Use Types Packs/Day Years Used Date Smoking Tobacco: Never Passive Smoke Exposure: Past Smokeless Tobacco: Never Alcohol Use Standard Drinks/Week Comments Yes 2 (1 standard drink = 0.6 oz pur e alcohol) Humiliation, Afraid, Rape, and Kick questionnair e [...] you got the money to buy more. Sometimes true Within the past 12 months, t he food you bought just didn't last and you didn't have money to get more. Sometimes true 06/2024 PRAPARE - Transportation Answer Date Re corded In the past 12 months, has l ack of transportation kept you from medical appointments or from getting medications? No 06/2024 In the past 12 months, has l ack of transportation kept you from meetings, work, or from getting things needed for daily living? No 09/20/2024 [facility] Utilities Answer Date Recorded In the past 12 months has th e electric, gas, oil, or water company threatened to shut off services in your home? No 09/20/2024 Depression Answer Date Recor ded PHQ-9 Total Score (max 27) 6 04/19 Housing Stability Answer Date Recorded What is your living situation today? I have a [facility] place to live 09/20/2024 Education Answer Date Recorded What is the highest level of school you have completed or the highest degree you have received? GED or equivalent 01/2019 Comments No Sex and Gender Information Value Date Recorded Sex Assigned at Female 07/29/2017 9:59 AM CDT Legal Sex Female 3:46 PM VAMP SEAMER Gender Identity Female 09/22/2020 3:19 PM CDT Sexual Orientation Straight 07/29/2017 9: 59 AM CDT documented as of this encounter Last Filed Vital Signs Vital Sign Reading Time Taken Comments Blood Pressure 142/84 09/20/2024 3:05 PM CDT Pulse 93 09/20/2024 3:05 PM CDT Temperature - - Respiratory Rate - - Oxygen Saturation - - Inhaled Oxygen Concentration - - Weight 94 kg (207 lb 3.7 oz) 09/20/2024 3:05 PM CDT Height - - Body Mass Index 36.95 04/19/2024 9:43 AM VAMP SEAMER documented in this encounter Progress Notes * Susana Rowe M.D. - 09/20/2024 3:30 PM CDT SUPERVISED BY: Dr. Rodriguez. SUBJECTIVE CHIEF COMPLAINT/REASON FOR VISIT Esperanza Cole is a 64 y.o. female who presents for evaluation of multiple concerns. HISTORY OF PRESENT ILLNESS #1 Syncope And Collapse #2 Paresthesias Feet #3 Morbid Obesity Body Mass Index 40.0-44.9 Adult (HCC) #4 Pain Chest Esperanza Cole is a 64 y.o. female with a past medial history significant for chronic pain on opiods, chronic hypoxic respiratory failure on oxygen, migraines, rectal bleeding, anxiety, EUGENIA (noton CPAP), depression, panic disorder, restless leg syndrome (on carbidopa-levodopa) GERD, recurrentsyncope and falls, hyperlipidemia, hypertension, HFpEF, paroxysmal tachycardia secondary to supraventricular tachycardia and atrial tachycardia (status post ablation February 2020 and May 2020), [id number], pre-diabetes and polypharmacy presenting for follow-up. Today, she would like to discuss her falls and dizziness and paraesthesias. She additionally noted at the end of visit that she has had 5 days of chest pain. Please see below for problem base historyand plan. OBJECTIVE VITAL SIGNS BP 142/84 (BP Location: Left arm, Patient Position: Sitting, Cuff Size: Large) Pulse 93 Wt 94 kg LMP (LMP Unknown) BMI 36.95 kg/m?? PHYSICAL EXAMINATION General: Well-appearing, well-nourished female, sitting in exam chair, in no acute distress. Constitutional General: She is not in acute distress. Cardiovascular Rate and Rhythm: Normal rate and regular rhythm. Pulmonary Effort: Pulmonary effort is normal. Breath sounds: Normal breath sounds. Abdominal Palpations: Abdomen is soft. Musculoskeletal General: Normal range of motion. Comments: Bilateral pedal edema Normal proprioception of great toes. Intact pinprick. No sores or skin breakdown on foot exam Skin General: Skin is warm and dry. Neurological Mental Status: She is alert. ASSESSMENT / PLAN #1 Syncope And Collapse Overview: Timeline of symptoms Initial syncope events noted [...] discharge with follow-up EEG and brain MRI. [facility] (09/30/2022): No further episodes of syncope with significant reduction in dizziness after reduction in carvedilol, amlodipine, and amitriptyline. Plan to discontinue amitriptyline today. Encouraged to monitor her blood pressure at home. [facility] (02/03/2023): Since last visit, the patient [...] bloated as a proxy of volume overload. [facility] 03/12/2023: Had 3 additional syncopal episodes which were all preceded by standing up. She had trivial lightheadedness with each of these events. Agreeable to having autonomic screen performed. [facility] (04/20/2023) telephone visit: Additional episodes of syncope shortly after standing. One episode witnessed by neighbor and patient did not have recollection of event. Described with lightheadedness, dizziness, vision changes after taking several steps. [facility] (01/19/2024): Went 8 months without any episodes. Week prior to appointment, had 4 syncopal episodes. One episode involved fall with trauma to head and abdomen. [facility] (03/14/2024): On KHADAR, has another episode. Was in the bathroom and passed out without any prodromal symptoms or symptoms after. Hit her head on the sink and broke her glasses. No episodes since [facility] (09/20/2024): Since my last visit with her, she had one episode in June. Similar to previous episodes, after getting up in the morning she was in the bathroom when she unexpectedly lost consciousness with no proceeding symptoms. When waking up, she felt woozy without any nausea or vomiting. She had hit this seeing with her chin and I with significant bruising after. She had a mechanical fall 2 weeks ago after tripping; she hit her head she was seen locally in the ED. she was told her head CT was normal. No records are available on care everywhere. Previous Workup: - Some positive orthostatic blood [...] with no prodromal symptoms and recent orthostatics have been negative in clinic, and I continued to be concerned for an alternative etiology. Alternative differentials for syncope wouldinclude arrhythmia, seizure, and drop spells. Given the absence of incontinence, tongue biting, andtonic-clonic movement I continue to have low suspicion for seizure activity. Additionally, given the presence of injury with ankle fracture and recurrent head injury with falls, drop spells are less likely. She has had a prior normal Holter monitors, but episodes continued to happen intermittently. Assessment & Plan: Recommend [facility] cardiology evaluation to determine if she would be a candidate for a loop recorder asepisodes only occur about once every 6 months She continues to have safety measures in place at home Prior visit with Neurology was canceled; discussed returning to discuss if further EEG would be appropriate She does have chronic dizziness symptoms that responded well to meclizine in the emergency department. These do not appear to be associated with her loss of consciousness. I do think this warrants further evaluation, and I have referred her to the vestibular physical therapy department. Further considerations could include the postural dizziness clinic We continued to make strong progress in addressing polypharmacy and optimizing her neurologic and cardiovascular directed medications We need closer follow-up in clinic especially with her polypharmacy and complex medical conditions.I would like to see her back in clinic with me in 1 month Orders: - Vestibular rehabilitation therapy PT/OT; Future; Expected date: 09/20/2024 #2 Paresthesias Feet Overview: Lower extremity paresthesias developed spring 2021. June [...] Results Component Value Date HGBA1C 5.4 01/19/2024 [id number] 680 04/19/2024 TSH 1.4 06/04/2022 ELPIMPRESS 02/03/2023 No apparent monoclonal protein on serum electrophoresis. See Isotype. AST 15 01/19/2024 ALT <7 (L) 01/19/2024 ALKPHOS 118 (H) 01/19/2024 Assessment & Plan: She continues to have paresthesias with prior lab work in EMG unrevealing for etiology. She does have treated B12 deficiency. She has not had only minimal relief with her current dosage of Lyrica. Wehave not utilized any creams, and if affordable, triple cream may be an excellent option to help with her symptoms. #3 Morbid Obesity Body Mass Index 40.0-44.9 Adult (HCC) Overview: BMI > 40. Previously unable to see endocrinology/weight loss clinic due to Medicaid status. Wegovy covered by insurance and started 02/2024, but was stopped in April due to concerns higher dosage was contributing to dizziness. She tolerated lower dosage well Assessment & Plan: She would like to restart Wegovy for her medically complex obesity. We discussed today titration and monitoring her symptoms at lower dosages before titrating further Orders: - semaglutide (Wegovy) 0.5 mg/0.5 mL pen injector injection; Inject 0.5 mg under the skin every 7 (seven) days., Starting Thu09/20/2024, Normal - semaglutide (Wegovy) 1 mg/0.5 mL pen injector injection; Inject 1 mg under the skin every 7 (seven) days., Starting Thu09/20/2024, Normal - semaglutide (Wegovy) 0.25 mg/0.5 mL pen injector injection; Inject 0.25 mg under the skin every 7(seven) days., Starting Thu09/20/2024, Normal #4 Pain Chest Overview: 5 days prior to clinic visit, she developed constant ???squeezing?? chest pain under her left breast. While the pain is constant, it worsens with activity and improves with rest. Due to this she hasbeen mainly resting in her home over the past few days. After 3 days, the pain improved to only be intermittent; today the pain has significantly improved. She has no associated dyspnea, lightheadedness, cough, or fevers but she did have chills the first few days. No tenderness an area of pain. Assessment & Plan: She has had 5 days of chest pain with a no significant associated symptoms that has been improving over the past few days. She has a prior cardiac PET-CT stress test from 2021 that was negative for stress-induced ischemia. We discussed strong return precautions, including reasons to present to the emergency department especially if pain worsens or recurs. She does have prior troponins on file, she is agreeable to having a troponin level drawn. We will also obtain an ECG and a chest x-ray for further evaluation. If testing is unable to be done today and chest pain worsens, she will present to her local emergency department Orders: - ECG 12 Lead; Future; Expected date: 09/20/2024 - DX Chest AP or PA and Lateral 2 Views; Future; Expected date: 09/20/2024 - Troponin T, 5th Generation; Future; Expected date: 09/20/2024 - Basic Metabolic Panel; Future; Expected date: 09/20/2024 - CBC with Differential, Blood; Future; Expected date: 09/20/2024 - NT-Pro B-Type Natriuretic Peptide (BNP); Future; Expected date: 09/20/2024 Other orders - [facility] office visit (clinic) - meclizine (Antivert) 25 mg tablet; Take 1 tablet (25 mg total) by mouth 4 (four) times a day withmeals and bedtime for 7 days., Starting Thu09/20/2024, Until Thu09/27/2024, Normal - amitriptyline 2 % gabapentin 5 % ketamine 5 % in lipoderm; Apply topically 2 (two) times a day asneeded (Apply to feet for pain). Apply to feet, Starting Thu09/20/2024, Normal - [facility] office visit (clinic); Future; Expected date: 10/21/2024 GOALS FOR NEXT VISIT: Return with me to follow up on syncopal workup and chest pain. Will also needto readdress other chronic conditions, including HFpEF and chronic hypoxic respiratory failure. * Maylin Rodriguez M.D., M.S. - 09/20/2024 3:30 PM CDT ASSESSMENT / PLAN I have discussed the care of Esperanza Geovanna Cole with Dr. Agata Rowe M.D. and agree with the documentation dated 09/20/24. Briefly, the patient is a 64 yo female with multiple medical comorbidities who is here for further discussion of her spells and paresthesias of her feet. She also reports a few days of chest pain. Please see the resident note for additional details and recommendations. documented in this encounter Miscellaneous Notes * Assessment & Plan Note - Susana Rowe M.D. - 09/20/2024 7:02 PM CDT Associated Problem(s): Pain Chest She has had 5 days of chest pain with a no significant associated symptoms that has been improving over the past few days. She has a prior cardiac PET-CT stress test from 2021 that was negative for stress-induced ischemia. We discussed strong return precautions, including reasons to present to the emergency department especially if pain worsens or recurs. She does have prior troponins on file, she is agreeable to having a troponin level drawn. We will also obtain an ECG and a chest x-ray for further evaluation. If testing is unable to be done today and chest pain worsens, she will present to her local emergency department * Assessment & Plan Note - Susana Rowe M.D. - 09/20/2024 6:51 PM CDT Associated Problem(s): Syncope And Collapse Recommend [facility] cardiology evaluation to determine if she would be a candidate for a loop recorder asepisodes only occur about once every 6 months She continues to have safety measures in place at home Prior visit with Neurology was canceled; discussed returning to discuss if further EEG would be appropriate She does have chronic dizziness symptoms that responded well to meclizine in the emergency department. These do not appear to be associated with her loss of consciousness. I do think this warrants further evaluation, and I have referred her to the vestibular physical therapy department. Further considerations could include the postural dizziness clinic We continued to make strong progress in addressing polypharmacy and optimizing her neurologic and cardiovascular directed medications We need closer follow-up in clinic especially with her polypharmacy and complex medical conditions.I would like to see her back in clinic with me in 1 month * Assessment & Plan Note - Susana Rowe M.D. - 09/20/2024 6:45 PM CDT Associated Problem(s): Morbid Obesity Body Mass Index 40.0-44.9 Adult (HCC) She would like to restart Wegovy for her medically complex obesity. We discussed today titration and monitoring her symptoms at lower dosages before titrating further * Assessment & Plan Note - Susana Rowe M.D. - 09/20/2024 4:11 PM CDT Associated Problem(s): Paresthesias Feet She continues to have paresthesias with prior lab work in EMG unrevealing for etiology. She does have treated B12 deficiency. She has not had only minimal relief with her current dosage of Lyrica. Wehave not utilized any creams, and if affordable, triple cream may be an excellent option to help with her symptoms. documented in this encounter Plan of Treatment Scheduled Orders Name Type Priority Associated Diagnoses Order Schedule ECG 12 Lead ECG Routine Pain Chest Expected: 09/20/2024, Expires: 12/21/2025 DX Chest AP or PA and Lateral 2 Views Imaging RAD - Routine (most inpatients and all outpatients) Pain Chest Expected: 09/20/2024, Expires: 12/21/2025 Troponin T, 5th Generation Lab Routine Pain Chest Expected: 09/20/2024 (Approximate), Expires: 09/20/2025 Basic Metabolic Panel Lab Routine Pain Chest Expected: 09/20/2024, Expires: 12/21/2025 CBC with Differential, Blood Lab Routine Pain Chest Expected: 09/20/2024, Expires: 12/21/2025 NT-Pro B-Type Natriuretic Peptide (BNP) Lab Routine Pain Chest Expected: 09/20/2024 (Approximate), Expires: 09/20/2025 Scheduled Referrals Name Type Priority Associated Diagnoses Orde r Schedule [facility] office visit (clinic) Outpatient Referral Routine Expected: 10/21/2024, Expires: 12/21/2025 documented as of this encounter Visit Diagnoses Diagnosis Syncope And Collapse- Primary Paresthesias Feet Morbid Obesity Body Mass Index 40.0-44.9 Adult (HCC) Pain Chest documented in this encounter Additional Health Concerns Assessment Noted Time PHQ-9 Depression Total Score: 6 04/20/19 25 9:50 AM VAMP SEAMER documented as of this encounter Care Teams Hay Rake Operator Relationship Specialty Start Date End Date Susana Rowe M.D. [address] [place] [address] PCP - General Internal Medicine 08/21/23 documented as of this encounter
[2024-10-01] VITALS (26 sets, daily range): BP systolic 129–142; BP diastolic 67–82; PULSE 61–103; RESP 10–20; TEMP 36.3; O2SAT 87–96; BMI 36.7
--- OUTSIDE RECORDS SUMMARY | 2024-10-01 12:52 | XMS_ITS | Encounter Summary ---
Author Organization [facility] Address [address] [place] [phone] Care Team Providers Care Speech Assistant Name Role Phone Susana Rowe M.D. Primary Care Provider [phone] Encounter Details Date Type Department Care Team (Late st Contact Info) Description 09/21/2024 Clinical Communication Division of Community Internal Medicine, [facility], in [place], [place] [address] [place] [phone] Susana Rowe M.D. [address] [place] [phone] Social History Tobacco Use Types Packs/Day Years [...] things needed for daily living? No 09/20/2024 [facility] Utilities Answer Date Recorded In the past 12 months has e [employer], gas, oil, or water company threatened to shut off services in your home? No 09/20/2024 Depression Answer Date Recor ded PHQ-9 Total Score (max 27) 6 04/19 Housing Stability Answer Date Recorded What is your living situation today? I have a [facility] place to live 09/20/2024 Education Answer Date Recorded What is the highest level of school you have completed or the highest degree you have received? GED or equivalent 01/2019 Comments No Sex and Gender Information Value Date Recorded Sex Assigned at Female 07/29/2017 9:59 AM CDT Legal Sex Female 3:46 PM DICE TABLE PERSON Gender Identity Female 09/22/2020 3:19 PM CDT Sexual Orientation Straight 07/29/2017 9: 59 AM CDT documented as of this encounter Miscellaneous Notes * Telephone Encounter - Micha Jimenez R.N. - 09/28/2024 9:47 AM CDT Information Discussed Received an incoming call from patient returning our call. Nursing informed patient that we called her regarding her message; Pt has questions about the lab work that has been ordered, please call to discuss. Nursing informed patient that the labs that were ordered by are related to her visit for chest pain. Nursing offered to transfer patient to schedule the labs, but she declined. She said; I will first check my schedule then I will call back and schedule them. Nursing confirmed the patient has the call back number [phone]. The patient did not have any further questions. PLAN Disposition/Recommendation: patient to schedule appointment and will call Information/Education: patient/caller able to teach back Caller agreeable to plan of care: yes The following references were used: nursing clinical judgement documented in this encounter Plan of Treatment Not on file documented as of this encounter Visit Diagnoses Not on filedocumented in this encounter Additional Health Concerns Assessment Noted Time PHQ-9 Depression Total Score: 6 04/20/19 25 9:50 AM DICE TABLE PERSON documented as of this encounter Care Teams Speech Assistant Relationship Specialty Start Date End Date Susana Rowe M.D. [address] [place] [phone] PCP - General Internal Medicine 08/21/23 documented as of this encounter
--- OUTSIDE RECORDS SUMMARY | 2024-10-01 12:52 | XMS_ITS | Clinical Summary ---
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 Gender Identity Not on file Sexual Orientation [...] outside of [facility]), 02/19/2015 (Completed outside of [facility]), 12/31/2011 (Completed outside of [facility]), Additional history exists Colonoscopy through age 75 09/12/2020 09/12/2010, Lipids for age 45-75 10/17/2020 10/18/2015 (Completed outside of [facility]), 11/06/2010, 10/08/2010, Additional history exists BMI (ht [...] Routine 09/10/2010 1:40 PM CDT Screening mammogram PARTY PLAN DEMONSTRATOR THIN PREP PAP SCREEN IMAGED Routine 10/08/2009 2:27 PM CDT Screening for malignant neoplasm of the cervix from Last 3 Months or Most Recently Relevant to Health Maintenance Results * (ABNORMAL) LIPID PANEL W REFLEX MEASURED LDL (11/06/2010 9:12 AM CDT) CHOLESTEROL,TOTAL 132 110 - 199 mg/dL [facility] TRIGLYCERIDES 241(H) <150 mg/dL [facility] HDL CHOLESTEROL 45 >40 mg/dL [facility] CHOL/HDL RATIO 2.93 <4.51 [facility] LDL CHOLESTEROL 39 <131 mg/dL [facility] PATIENT STATUS Fasting [facility] Blood specimen (specimen) BLOOD SPECIMEN / Unknown 11/06/2010 9:12 AM CDT 11/06/2010 9:10 AM CDT us Luisa Harman CHEMISTRY Final R esult [facility] [address] [place] [address] * XR MAMMO BILAT SCREEN FFDM (09/10/2010 [...] (10/08/2009 2:27 PM CDT) CYTOLOGY CYTOPATHOLOGY REPORT [facility] Status: Final Status [id number] CLINICAL INFORMATION Last Date of LMP :09/16/2009 Last Pap Date :unknown Last Pap Result :NIL ABN [place]/Bx Past 5 YRS :None Hormone Usage :None Menstrual Status :Postmenopausal [place]/Bx done today :No Additional Information :None given HPV Request :HPV if ASCUS SPECIMEN SOURCE :Cervical/vaginal ThinPrep Vial, screening SPECIMEN ADEQUACY :Satisfactory for evaluation Endocervical component present. INTERPRETATION/RES ULT Negative for intraepithelial lesion or malignancy (NIL) Non-Neoplastic Findings Parakeratosis Cytology 1st Screener :sag Signed by : Kirti Godfrey M.D. Interpreted at [facility] This specimen was screened by [...] malignant lesions. COLLECTED:10/08/09 ACCESSIONED: 10/09/09 SIGNED: 10/16/09 [facility] PAP [place] CODE NIL [facility] Cervical/Vaginal (Cervical/Vagina l) 10/08/2009 2:27 PM CDT 10/08/2009 2:23 PM CDT Narrative [facility] - 10/16/2009 9:23 AM CDT Interpreted at [facility] us Luisa Harman PATHOLOGY/CYTOLOGY Ashlie l Result [facility] INTERNAL ZIP [id number] [address] from Last 3 Months or Most Recently Relevant to Health Maintenance Insurance [facility] Advance Directives * Full Code (Latest Code Status on File) Date Activated Date Inactivated Comments 05/01/2010 9:58 AM 05/01/2010 7:04 PM Care Teams It Risk Analyst Relationship Specialty Start Date End Date Pcp, No . PCP - General 12/16/22 Neymar Noyola MD T[facility] Obstetrics and Gynecology 02/21/11
--- OUTSIDE RECORDS SUMMARY | 2024-10-01 12:52 | XMS_ITS | Encounter Summary ---
Author Organization [facility] Address [address] [place] [address] Care Team Providers Care Window Glazier Helper Name Role Phone Susana Rowe M.D. Primary Care Provider Reason for Visit * Reason Comments Med Refill Encounter Details Date Type Department Care Team (Late st Contact Info) Description 09/15/2024 Refill Division of Community Internal Medicine, [facility], in [place], [place] [address] [place] [address] [phone] Susana Rowe M.D. [address] [place] [address] [phone] Med Refill Social History Tobacco Use Types [...] things needed for daily living? No 09/20/2024 [facility] Utilities Answer Date Recorded In the past 12 months has e [employer], gas, oil, or water [employer] threatened to shut off services in your home? No 09/20/2024 Depression Answer Date Recor ded PHQ-9 Total Score (max 27) 6 04/19 Housing Stability Answer Date Recorded What is your living situation today? I have a [facility] place to live 09/20/2024 Education Answer Date Recorded What is the highest level of school you have completed or the highest degree you have received? 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 Discrepancy; Patient taking Differently Primary Provider: Agata Rowe M.D. Requested Prescriptions Pending Prescriptions Disp Refills furosemide (Lasix) 40 mg tablet [Pharmacy Med Name: FUROSEMIDE 40 MG TABLET 40 Tablet] 90 tablet 2 Sig: TAKE 1 TABLET (40 MG TOTAL) BY MOUTH DAILY. documented in this encounter Plan of Treatment Not on file documented as of this encounter Visit Diagnoses Diagnosis Chronic Diastolic (Congestive) Heart Failure (HCC)- Primary documented in this encounter Additional Health Concerns Assessment Noted Time PHQ-9 Depression Total Score: 6 04/20/19 25 9:50 AM HOT BREAD BAKER documented as of this encounter Care Teams Window Glazier Helper Relationship Specialty Start Date End Date Susana Rowe M.D. [address] [place] [phone] PCP - General Internal Medicine 08/21/23 documented as of this encounter
--- OUTSIDE RECORDS SUMMARY | 2024-10-01 12:52 | XMS_ITS | Encounter Summary ---
Author Organization [facility] Address [address] [place] [address] Care Team Providers Care Editor & Co Founder Name Role Phone Susana Rowe M.D. Primary Care Provider Reason for Visit * Reason Onset Date Comments Med Refill 09/20/2024 Encounter Details Date Type Department Care Team (Late st Contact Info) Description 09/20/2024 Refill Division of Community Internal Medicine, [facility] in [place], [place] [address] [place] [address] [phone] Susana Rowe M.D. [address] [place] [address] [phone] Med Refill Social History Tobacco Use Types [...] ways by your partner or ex-partner? No 12 / Within the last year, have y ou [...] daily living? No 09/20/2024 [facility] Utilities Answer Date Recorded In the past 12 months has e [employer], gas, oil, or water [employer] threatened to shut off services in your home? No 09/20/2024 Depression Answer Date Recor ded PHQ-9 Total Score (max 27) 6 04/19 Housing Stability Answer Date Recorded What is your living situation today? I have a [facility] place to live 09/20/2024 Education Answer Date Recorded What is the highest level of school you have completed or the highest degree you have received? GED or equivalent 01/2019 Comments No Sex and Gender Information Value Date Recorded Sex Assigned at Female 07/29/2017 9:59 AM CDT Legal Sex Female 3:46 PM DEALERSHIP MANAGER Gender Identity Female 09/22/2020 3:19 PM CDT Sexual Orientation Straight 07/29/2017 9: 59 AM CDT documented as of this encounter Miscellaneous Notes * Telephone Encounter - Melody Elias L.P.N. - 09/23/2024 10:04 AM CDT Controlled substance renewal for oxycodone 5 mg: No nursing alert. Renewal is pended per the controlled substance prescribing plan located in synopsis Date last prescribed (First fill date if included in last Rx): 08/31/2024 (126) Last provider visit: 09/20/2024 (Every 6 months) Urine Drug Screen last resulted on: 08/06/2023; Next due: 08/05/2024 Screenings due: PEG, nursing will send when wrapping up Next provider visit due: expected: 10/21/2024. Order in place. Pt needs to schedule appointment Controlled substance agreement last reviewed/signed 01/19/2024 This prescription may be filled on 09/28/2024, and next renewal may be on or after 10/26/2024 * Telephone Encounter - Nano Pathak - 09/21/2024 7:31 AM CDT Needs Review: Med Refill Team [...] Total Score: 6 04/20/19 25 9:50 AM DEALERSHIP MANAGER documented as of this encounter Care Teams Editor & Co Founder Relationship Specialty Start Date End Date Susana Rowe M.D. [address] [place] [phone] PCP - General Internal Medicine 08/21/23 documented as of this encounter
--- OUTSIDE RECORDS SUMMARY | 2024-10-01 12:52 | XMS_ITS | Encounter Summary ---
Author Organization [facility] Address [address] [place] [address] Care Team Providers Care Air Traffic Instructor Name Role Phone Susana Rowe M.D. Primary Care Provider Encounter Details Date Type Department Care Team (Late st Contact Info) Description 02/03/2014 Historical Ophthalmology [facility] Dion Bridges O.D. [address] [place] [phone] Social History Tobacco Use Types Packs/Day Years Used Date Smoking Tobacco: Never Assessed Comments Unknown Sex and Gender Information Value Date Recorded Sex Assigned at Female 07/29/2017 9:59 AM CDT Legal Sex Female 3:46 PM ORE DRESSING ENGINEER Gender Identity Female 09/22/2020 3:19 PM CDT [...] right eye CDM Reports - EYESV Id: [id number] Status: Fnl documented in this encounter Plan of Treatment Not on file documented as of this encounter Visit Diagnoses Not on filedocumented in this encounter Additional Health Concerns Infection Onset Date Last Indicated Resolved Time COVID19 Pending 12/20/2019 12/20/2019 12/21/2019 8 :08 AM ORE DRESSING ENGINEER COVID19 Pending 02/24/2020 02/24/2020 02/24/2020 6 :13 PM ORE DRESSING ENGINEER COVID19 Pending 04/09/2020 04/09/2020 04/09/2020 9 :39 PM ORE DRESSING ENGINEER COVID19 Pending 05/26/2020 05/26/2020 05/26/2020 1 0:01 PM CDT COVID19 Pending 10/14/2022 10/14/2022 10/14/2022 3 :44 PM CDT COVID19 Pending 10/14/2022 10/14/2022 10/14/2022 6 :55 PM CDT COVID19 Pending 10/14/2022 10/14/2022 10/14/2022 8 :02 PM CDT Assessment Noted Time PHQ-9 Depression Total Score: 25 014 2:48 PM ORE DRESSING ENGINEER documented as of this encounter Care Teams Air Traffic Instructor Relationship Specialty Start Date End Date Susana Rowe M.D. [address] [place] [phone] PCP - General Internal Medicine 08/21/23 documented as of this encounter
--- OUTSIDE RECORDS SUMMARY | 2024-10-01 12:52 | XMS_ITS | Encounter Summary ---
Author Organization [facility] Address [address] [place] [address] Care Team Providers Care Domestic Travel Consultant Name Role Phone Susana Rowe M.D. Primary Care Provider [phone] Encounter Details Date Type Department Care Team (Late st Contact Info) Description 11/24/2011 Historical Ophthalmology [facility] Alin Burch O.D. [address] [place] [phone] Social History Tobacco Use Types Packs/Day Years Used Date Smoking Tobacco: Never Assessed Comments Unknown Sex and Gender Information Value Date Recorded Sex Assigned at Female 07/29/2017 9:59 AM CDT Legal Sex Female 3:46 PM CUTTER GRINDER Gender Identity Female 09/22/2020 3:19 PM CDT [...] right eye CDM Reports - EYEGEN Id: [id number] Status: Fnl documented in this encounter Plan of Treatment Not on file documented as of this encounter Visit Diagnoses Not on filedocumented in this encounter Additional Health Concerns Infection Onset Date Last Indicated Resolved Time COVID19 Pending 12/20/2019 12/20/2019 12/21/2019 8 :08 AM CUTTER GRINDER COVID19 Pending 02/24/2020 02/24/2020 02/24/2020 6 :13 PM CUTTER GRINDER COVID19 Pending 04/09/2020 04/09/2020 04/09/2020 9 :39 PM CUTTER GRINDER COVID19 Pending 05/26/2020 05/26/2020 05/26/2020 1 0:01 PM CDT COVID19 Pending 10/14/2022 10/14/2022 10/14/2022 3 :44 PM CDT COVID19 Pending 10/14/2022 10/14/2022 10/14/2022 6 :55 PM CDT COVID19 Pending 10/14/2022 10/14/2022 10/14/2022 8 :02 PM CDT Assessment Noted Time PHQ-9 Depression Total Score: 23 012 1:54 PM CDT documented as of this encounter Care Teams Domestic Travel Consultant Relationship Specialty Start Date End [place] [phone] PCP - General Internal Medicine 08/21/23 documented as of this encounter
--- OUTSIDE RECORDS SUMMARY | 2024-10-01 12:52 | XMS_ITS | Clinical Summary ---
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 Primary Care Provider Source Comments Patient records contain information from all sites at [facility]. For routine questions regarding patient records, call [phone] during business hours, M-F 8:00 AM - 5:00 PM Central Time. Record requests for emergency care only can be directed to [phone] at any time.[facility] Allergies Active Allergy Reactions Criticality Noted [...] beverage. 270 packet 3 01/26/20 24 Active memantine (Namenda) 10 mg tablet TAKE ONE TABLET (10MG) BY MOUTH TWICE A DAY 180 tablet 3 02/21/19 25 Active vitamin B-12 1,000 mcg tablet Take 1,000 mcg by mouth daily. 02/18/19 25 Active Vitamin D3 25 mcg (1,000 unit) capsule Take 25 mcg by mouth daily. 02/18/19 25 Active azelastine (Astepro) 205.5 mcg/spray (0.15 [...] DAILY. 30 tablet 4 05/17/19 25 Active tiZANidine (Zanaflex) 4 mg tablet [...] 5 9:51 AM CDT 08/18/19 25 Active sertraline (Zoloft) 100 mg tablet Take 2 tablets (200 mg total) by mouth daily. 90 tablet 3 5 4:18 PM CDT 08/26/19 25 Active QUEtiapine (SEROqueL) 200 mg tablet TAKE 1 TABLET (200 MG TOTAL) BY MOUTH AT BEDTIME. 30 tablet 5 11:58 AM CDT 09/17/19 25 Active furosemide (Lasix) 40 mg tabletIndicatio ns:Chronic Diastolic (Congestive) Heart Failure (HCC) Take 1 tablet (40 mg total) by mouth as needed (As needed for noticable weight gain or swelling) for up to 90 doses. 90 tablet 1 09/22/19 25 Active ketorolac (ToradoL) 10 mg tablet 09/09/19 25 Active amitriptyline 2 % gabapentin 5 % ketamine 5 % in lipoderm Apply topically 2 (two) times a day as needed (Apply to feet for pain). Apply to feet 60 g 09/21/19 25 Active semaglutide (Wegovy) 0.5 mg/0.5 mL pen injector injectionIndica tions:Morbid Obesity Body Mass Index 40.0-44.9 Adult (HCC) Inject 0.5 mg under the skin every 7 (seven) days. 2 mL 09/21/19 25 Active semaglutide (Wegovy) 1 mg/0.5 mL pen injector injectionIndica tions:Morbid Obesity Body Mass Index 40.0-44.9 Adult (HCC) Inject 1 mg under the skin every 7 (seven) days. 2 mL 09/21/19 25 Active semaglutide (Wegovy) 0.25 mg/0.5 mL pen injector injectionIndica tions:Morbid Obesity Body Mass Index 40.0-44.9 Adult (HCC) Inject 0.25 mg under the skin every 7 (seven) days. 2 mL 09/21/19 25 Active oxyCODONE (Roxicodone) 5 mg immediate release tabletIndicatio ns:Chronic Pain/Nonacute Pain Take 1.5 tablets (7.5 mg total) by mouth 3 (three) times a day as needed for pain Indication: Chronic Pain/Nonacute Pain. 126 tablet 9:33 AM CDT 09/29/19 Active tirzepatide (Zepbound) 2.5 mg/0.5 mL injection penIndications: Morbid Obesity Body Mass Index 40.0-44.9 Adult (HCC) Inject 2.5 mg under the skin every 7 (seven) days. 2 mL 02/14/20 24 2024 Discontinued tirzepatide (Zepbound) 5 mg/0.5 mL injection penIndications: Morbid Obesity Body Mass Index 40.0-44.9 Adult (HCC) Inject 5 mg under the skin every 7 (seven) days. 2 mL 02/14/202024 Discontinued tirzepatide (Zepbound) 7.5 mg/0.5 mL injection penIndications: Morbid Obesity Body Mass Index 40.0-44.9 Adult (HCC) Inject 7.5 mg under the skin every 7 (seven) days. 2 mL 02/14/20 24 2024 Discontinued semaglutide (Wegovy) 0.25 mg/0.5 mL pen injector injectionIndica tions:Morbid Obesity Body Mass Index 40.0-44.9 Adult (HCC) Inject 0.25 mg under the skin every 7 (seven) days. 2 mL 02/19/192024 Discontinued(R eorder) semaglutide (Wegovy) 0.5 mg/0.5 mL pen injector injectionIndica tions:Morbid Obesity Body Mass Index 40.0-44.9 Adult (HCC) Inject 0.5 mg under the skin every 7 (seven) days. 2 mL 02/19/192024 Discontinued(R eorder) semaglutide (Wegovy) 1 mg/0.5 mL pen injector injectionIndica tions:Morbid Obesity Body Mass Index 40.0-44.9 Adult (HCC) Inject 1 mg under the skin every 7 (seven) days. 2 mL 02/19/192024 Discontinued(R eorder) furosemide (Lasix) 40 mg tablet Take 1 tablet (40 mg total) by mouth daily. 90 tablet 1 03/14/19 25 2024 Discontinued vitamin B-12 1,000 mcg tablet Take 1 tablet by mouth daily. 03/22/19 25 2024 Discontinued Vitamin D3 25 mcg (1,000 unit) capsule Take 1 tablet by mouth daily. 03/22/19 25 2024 Discontinued QUEtiapine (SEROqueL) 200 mg tablet TAKE 1 TABLET (200 MG TOTAL) BY MOUTH AT BEDTIME. 30 tablet 3 12:19 PM CDT 05/21/19 25 2024 Discontinued oxyCODONE (Roxicodone) 5 mg immediate release tabletIndicatio ns:Chronic Pain/Nonacute Pain Take 1.5 tablets (7.5 mg total) by mouth 3 (three) times a day as needed for pain Indication: Chronic Pain/Nonacute Pain. 126 tablet 8:22 AM CDT 09/01/192024 Discontinued(R eorder) meclizine (Antivert) 25 mg tablet Take 1 tablet by mouth 4 (four) times a day with meals and bedtime. 09/10/19 25 2024 Discontinued(R eorder) meclizine (Antivert) 25 mg tablet Take 1 tablet (25 mg total) by mouth 4 (four) times a day with meals and bedtime for 7 days. 28 tablet 09/21/192024 Active Problems Problem Noted Date Diagnosed Date Pain Chest 09/20/2024 Overview (09/20/2024): 5 days prior to clinic visit, she developed constant s queezing chest pain under her left breast. While the pain is constant, it worsens with activity and improves with rest. Due to this she has been mainly resting in her home over the past few days. After 3 days, the pain improved to only be intermittent; today the pain has significantly improved. She has no associated dyspnea, lightheadedness, cough, or fevers but she did have chills the first few days. No tenderness an area of pain. Assessment & Plan (09/20/2024 7:02 PM CDT): She has had 5 days of chest [...] will present to her local emergency department Dizziness 04/19/2024 Overview (04/21/2024): Patient reports episodes [...] ears. Assessment & Plan (04/21/2024 10:21 AM ORCHESTRATOR): Symptoms sound consistent with orthostatic hypotension. Patient [...] buprenorphine Assessment & Plan (02/03/2023 9:58 PM ORCHESTRATOR): She continues to have polypharmacy and we [...] treat conservatively Syncope And Collapse 06/04/2022 Overview (09/20/2024): Timeline of symptoms Initial syncope events noted [...] sitting position. Never has occurred while driving. [facility] 09/18/22-09/22/2022: Cardiac monitoring without evidence of arrhythmia. Concern for orthostatic hypotension with weaning antihypertensives. Cardiology consult suspected polypharmacy as underlying etiology. Heart monitor discharge with follow-up EEG and brain MRI. [facility] (09/30/2022): No further episodes of syncope with significant reduction in dizziness after reduction in carvedilol, amlodipine, and amitriptyline. Plan to discontinue amitriptyline today. Encouraged to monitor her blood pressure at home. [facility] (02/03/2023): Since last visit, the patient [...] bloated as a proxy of volume overload. [facility] 03/12/2023: Had 3 additional syncopal episodes which were all preceded by standing up. She had trivial lightheadedness with each of these events. Agreeable to having autonomic screen performed. [facility] (04/20/2023) telephone visit: Additional episodes of syncope shortly after standing. One episode witnessed by neighbor and patient did not have recollection of event. Described with lightheadedness, dizziness, vision changes after taking several steps. [facility] (01/19/2024): Went 8 months without any episodes. Week prior to appointment, had 4 syncopal episodes. One episode involved fall with trauma to head and abdomen. [facility] (03/14/2024): On KHADAR, has another episode. Was in the bathroom and passed out without any prodromal symptoms or symptoms after. Hit her head on the sink and broke her glasses. No episodes since [facility] (09/20/2024): Since my last visit with her, [...] an alternative etiology. Alternative differentials for syncope would include arrhythmia, seizure, and drop spells. Given the absence of incontinence, tongue biting, and tonic-clonic movement I continue to have low suspicion for seizure activity. Additionally, given the presence of injury with ankle fracture and recurrent head injury with falls, drop spells are less likely. She has had a prior normal Holter monitors, but episodes continued to happen intermittently. Assessment & Plan (09/20/2024 6:58 PM CDT): Recommend [facility] cardiology evaluation to determine if she would be a candidate for a loop recorder as episodes only occur about once every 6 months [...] especially with her polypharmacy and complex medical conditions. I would like to see her back in clinic with me in 1 month Assessment & Plan (04/21/2024 10:12 AM ORCHESTRATOR): Patient was prescribed a Holter monitor at [...] to this, and says she will schedule [facility] cardiology return visit when able. Patient does have her neurology follow up appointment scheduled next month where they discuss need for EEG +/- other testing Assessment & Plan (03/14/2024 6:08 PM ORCHESTRATOR): Continue appropriate precautions; she does not take [...] polypharmacy Assessment & Plan (01/19/2024 1:58 PM ORCHESTRATOR): Neurologic exam reassuring. Gave return precautions for [...] pharmacology Assessment & Plan (04/20/2023 12:43 PM ORCHESTRATOR): Etiology of the patient's recurrent syncope is [...] I had directly admitted the patient to [facility] in September 2022 for further evaluation [...] will plan to discuss the case with [facility] Cardiology to determine whether or not an implantable manager monitoring x3 months would be a more appropriate [...] monitor Assessment & Plan (03/12/2023 5:25 PM ORCHESTRATOR): Anabell was agreeable to have any autonomic [...] will have completed when she returns to [place] next week. I will communicate with her [...] Thursday and continued headache since then, however [place] CT rule indicating that she does not need further CT imaging of her head at this time. Discussed that if her symptoms were to worsen, we would want to have her let us know and would schedule likely head CT at that time. She is agreeable with this plan. Assessment & Plan (02/03/2023 10:02 PM ORCHESTRATOR): More recently, the patient's symptoms are most [...] p.r.n. during hospitalization, she remained on a manager monitoring with no further episodes of syncope and [...] water. Assessment & Plan (04/22/2022 3:59 PM ORCHESTRATOR): I will do a generalized workup for [...] spray Assessment & Plan (04/21/2024 10:13 AM ORCHESTRATOR): Will trial Astepro nasal spray (prescription provided) Assessment & Plan (03/14/2024 6:04 PM ORCHESTRATOR): Offered returning to allergy clinic; she is not interested at this time Her current living environment is full of mold and dust, with little cleaning by the company running the building. Discussed this is likely contributing, as her symptoms started after moving into her current building. Information about dust mite and mold allergies provided Assessment & Plan (04/20/2023 12:46 PM ORCHESTRATOR): I have counseled the patient regarding the [...] daily Assessment & Plan (02/03/2023 9:59 PM ORCHESTRATOR): Due to her persistent concerns about chronic [...] consult Assessment & Plan (01/07/2022 10:19 AM ORCHESTRATOR): Please see globus sensation. Bleeding Rectal 11/15/2021 [...] resolved. Assessment & Plan (03/10/2022 4:16 PM ORCHESTRATOR): Today, she reports that her rectal bleeding [...] prep Assessment & Plan (01/07/2022 10:07 AM ORCHESTRATOR): Since her last visit, the patient has [...] Results Component Value Date HGBA1C 5.4 01/19/2024 [id number] 680 04/19/2024 TSH 1.4 06/04/2022 ELPIMPRESS 02/03/2023 No apparent monoclonal protein on serum electrophoresis. See Isotype. AST 15 01/19/2024 ALT <7 (L) 01/19/2024 ALKPHOS 118 (H) 01/19/2024 Assessment & Plan (09/20/2024 6:48 PM CDT): She continues to have paresthesias with prior lab work in EMG unrevealing for etiology. She does have treated B12 deficiency. She has not had only minimal relief with her current dosage of Lyrica. We have not utilized any creams, and if affordable, triple cream may be an excellent option to help with her symptoms. Assessment & Plan (04/21/2024 10:01 AM ORCHESTRATOR): Lab work and prior EMG has been [...] time. Assessment & Plan (03/14/2024 5:57 PM ORCHESTRATOR): Obtain outside health records of prior broken feet Plan for dedicated visit to discuss paraesthesias further. Limited foot exam without any skin breakdown or ulceration Assessment & Plan (01/19/2024 1:51 PM ORCHESTRATOR): Continue lyrica Continue lidocaine Discuss options such as capscain or triple cream for local pain control Assessment & Plan (03/10/2022 4:40 PM ORCHESTRATOR): Today, the patient's paresthesias in her feet are similar to baseline. Her primary concern is regarding the dysphagia and globus sensation. We will plan to follow up paresthesias in the future and plan to recheck her hemoglobin A1c to ensure absence of diabetes. Assessment & Plan (01/07/2022 10:11 AM ORCHESTRATOR): At this time, the paresthesias have persisted, [...] esophagus. Assessment & Plan (03/10/2022 4:31 PM ORCHESTRATOR): Today, we discussed the patient's finding of [...] symptoms Assessment & Plan (01/07/2022 10:09 AM ORCHESTRATOR): The patient was started on pantoprazole in June 2021 with rapid resolution of her heartburn symptoms. Her most recent EGD was in 2019 which demonstrated no evidence of gastritis at [...] 05/29/2020 Assessment & Plan (03/10/2022 4:46 PM ORCHESTRATOR): Per paroxysmal atrial tachycardia. Tachycardia Atrial Paroxysmal 02/28/2020 Overview (02/28/2020): Status post catheter ablation, February 2020 Supraventricular Tachycardia, Unspecified 2020 Overview (05/29/2020): Status post repeat catheter ablation for AVNRT on 05/29/[address] Torres Status post catheter ablation, February 2020 Assessment & Plan (03/10/2022 4:46 PM ORCHESTRATOR): The patient had Holter workup that demonstrated [...] 12/2019 Assessment & Plan (01/19/2024 1:45 PM ORCHESTRATOR): Monitor LFTs today Assessment & Plan (01/03/2020 3:10 PM ORCHESTRATOR): As above, weight loss may help with this. 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 Assessment & Plan (01/07/2022 10:13 AM ORCHESTRATOR): Today, the patient's ferritin was in the [...] Failure 11/2019 Overview (09/30/2022): Lasix 40mg QD M/W/F. Cardiac PET (12/03/2021): Normal perfusion imaging with [...] She is agreeable to supplementation. I prescribed 94222 units weekly for 8 weeks to be followed by 1000 units daily indefinitely Assessment & Plan (06/07/2020 4:40 PM CDT): Start Vitamin D 1720-0564 IU/Day. Likely these are fat soluble vitamin deficiencies due to her ongoing chronic diarrhea. Assessment & Plan (01/03/2020 3:10 PM ORCHESTRATOR): Will need to recheck with her next lab draws. I suspect this will improve with improvement of her diarrhea. Deficiency Vitamin B12 12/01/2018 Overview (01/19/2024): B12 07/2023 130. She stopped taking B12 supplements several months ago. Previous intrinsic factor antibody negative Assessment & Plan (01/19/2024 1:44 PM ORCHESTRATOR): Repeat Vitamin B12 levels May require injections going forward Assessment & Plan (03/12/2023 5:28 PM ORCHESTRATOR): Noted to have vitamin B12 deficiency despite [...] replacement. Assessment & Plan (01/03/2020 3:10 PM ORCHESTRATOR): Will need to recheck with her next [...] at least a year has been 9-10 Dickey 6 BM's per day. She occasionally sees some oily substances. Assessment & Plan (01/03/2020 3:11 PM ORCHESTRATOR): This is now greatly improved since I [...] apnea. Assessment & Plan (01/19/2024 2:02 PM ORCHESTRATOR): Sent updated DME O2 order Discussed EUGENIA; not interested in PAP going forward Assessment & Plan (02/03/2023 9:54 PM ORCHESTRATOR): Today, we discussed whether or not to [...] sleep. Assessment & Plan (03/10/2022 4:19 PM ORCHESTRATOR): Today, she reports she continues to use [...] study. 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 She is losing weight and has lost 9 pounds. Assessment & Plan (01/03/2020 3:09 PM ORCHESTRATOR): Planned to see Dr. 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 Kar Jones Tapering plan needed: no Monitoring Frequency of visits with PCP: 6 month Urine drug screening requested?: yes Urine screening frequency:12 month Other screening and frequency (e.g. PHQ-9, SHREE 7): Annually MNPMP review/documentation:yes Assessment & Plan (01/19/2024 1:52 PM ORCHESTRATOR): CSPP renewed ORT screening updated. TAPS 2 [...] feet Assessment & Plan (02/03/2023 9:50 PM ORCHESTRATOR): Earlier this year, the patient reported insufficient [...] 7.5 mg t.i.d. p.r.n. - re-register with [employer] [place] Assessment & Plan (03/10/2022 4:19 PM ORCHESTRATOR): Today, she reports pain 7-8/10 at all [...] follow up with the e-mail from the [facility]. Unfortunately, medical cannabis is quite expensive and [...] I provided a brief overview of the [place] medical cannabis program. I informed the patient [...] to advise and work with their primary [place] care provider. 7. I mentioned that this [...] medication. Assessment & Plan (01/03/2020 12:40 PM ORCHESTRATOR): Plans to see Dr. Torres January 2020. 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 Previously unable to see endocrinology/weight loss clinic due to Medicaid status. Racheley covered by insurance and started 02/2024, but was stopped in April due to concerns higher dosage was contributing to dizziness. She tolerated lower dosage well Assessment & Plan (09/20/2024 6:45 PM CDT): She would like to restart Wegovy for her medically complex obesity. We discussed today titration and monitoring her symptoms at lower dosages before titrating further Assessment & Plan (03/14/2024 5:56 PM ORCHESTRATOR): She has already lost about 8 pounds on low dose wegovy Continue appropriate wegovy dose as tolerated Nutrition consult Assessment & Plan (01/19/2024 1:43 PM ORCHESTRATOR): Will hold off on GLP1 today due to other changes in medicines. If other medications well tolerated, will plan to start Zep Bound. Assessment & Plan (02/03/2023 9:55 PM ORCHESTRATOR): At this time, she is doing her best to manage weight with diet and I have encouraged her to continue with her excellent progress towards maintaining a stable weight at this time. Assessment & Plan (03/10/2022 4:39 PM ORCHESTRATOR): Due to review of other comorbidities, we [...] 200mg Assessment & Plan (03/14/2024 6:05 PM ORCHESTRATOR): Since increased sertraline, her move has improved greatly. She has been on the 200mg for a few weeks Follow-up as planned with psychiatry Assessment & Plan (01/19/2024 2:03 PM ORCHESTRATOR): Appointment with psychiatry 02/23/2024 Last PHQ9 07/2023 [...] prazosin Assessment & Plan (03/10/2022 4:23 PM ORCHESTRATOR): Overall, the patient's depression appears to be at baseline with recent worsening of her PTSD. She has been in communication with her psychiatrist here at [facility] and has recently restarted the prazosin [...] of obesity hypoventilation/untreated EUGENIA. Recommended CBT at [facility]. Consider switch from sertraline to escitalopram. [...] not want to follow up with her [facility] psychiatrist. Assessment & Plan (02/03/2023 9:46 PM ORCHESTRATOR): Today we do not have an in-depth [...] the psychiatrist she had previously seen at [facility]. As such, I have encouraged her to seek care within the community using Psychology today as a means of finding a local provider which would be approved by her insurance. Plan: - continue current regimen which includes sertraline 200 mg and quetiapine 200 mg at bedtime - seek a community psychiatrist for further medication optimization Assessment & Plan (03/10/2022 4:20 PM ORCHESTRATOR): Today, the patient continues on Seroquel 100 [...] would not be able to drive to [facility] on a daily basis. Her insurance [...] due to syncopal episodes Workup: Most recent manager monitoring with PVC <1% and PAC 2.86%. 33 [...] 130s/80s Assessment & Plan (03/14/2024 5:54 PM ORCHESTRATOR): With our change at last visit increasing [...] spells) Assessment & Plan (01/19/2024 2:01 PM ORCHESTRATOR): She last saw [facility] cardiology 10/2022 and recommended to work on [...] tolerated. Assessment & Plan (03/12/2023 5:27 PM ORCHESTRATOR): Hypertensive on exam today. Unfortunately, given her [...] apnea. Assessment & Plan (02/03/2023 10:13 PM ORCHESTRATOR): Managing her hypertension has been extremely challenging [...] daily Assessment & Plan (03/10/2022 4:39 PM ORCHESTRATOR): Today, the patient's blood pressure is slightly [...] if she cannot do it here with [facility] she could consider seeing another physician closer to home to have this done as this is essential for treatment of her hypertension. Assessment & Plan (01/03/2020 12:39 PM ORCHESTRATOR): Her metoprolol is now at 200mg BID [...] the lumen proximally 50%. Overall normal esophagram. HEAD COACH (02/24/2022): Normal oropharyngeal swallow. Mildly prominent cricopharyngeus of questionable significance. 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 Date Type Department Care Team Description 09/21/2024 Clinical Communication Division of [facility] Internal Medicine, [place], [place] [address] [place] [address] Susana Rowe M.D. 09/20/2024 3:30 PM CDT Office Visit Division of [facility] Internal Medicine, [place], [place] [address] [place] [address] Susana Rowe M.D. Syncope And Collapse (Primary Dx); Paresthesias Feet; Morbid Obesity Body Mass Index 40.0-44.9 Adult (HCC); Pain Chest 09/20/2024 Refill Division of [facility] Internal Medicine, [place], [place] [address] [place] [address] Susana Rowe M.D. Med Refill 09/15/2024 Refill Division of [facility] Internal Medicine, [place], [place] [address] [place] [address] Susana Rowe M.D. Med Refill 08/22/2024 Refill Division of [facility] Internal [facility], in [place], [place] [address] [place] [address] Susana Rowe M.D. Med Refill 08/16/2024 Refill Division of [facility] Internal [facility], [place], [place] [address] [place] [address] Susana Rowe M.D. Med Refill 07/26/2024 Orders Only [facility]ST PCP [facility] Susana Rowe M.D. Deficiency Estrogen Post Menopausal 07/25/2024 Refill Division of [facility] Internal [facility], in [place], [place] [address] [place] [address] Susana Rowe M.D. Med Refill 07/18/2024 Refill Division of [facility] Internal [facility], in [place], [place] [address] [place] [address] Susana Rowe M.D. Med Refill 07/01/2024 Clinical Communication Division of [facility] Internal [facility], in [place], [place] [address] [place] [address] Susana Rowe M.D. PandaDoc Form (CHM) from Last 3 Months Immunizations Immunization Administration [...] Not Answered Alcohol Use Standard Drinks/Week Comments Yes 2 [...] things needed for daily living? No 09/20/2024 [facility] Utilities Answer Date Recorded In the past 12 months has th e electric, gas, oil, or water company threatened to shut off services in your home? No 09/20/2024 Depression Answer Date Recor ded PHQ-9 Total Score (max 27) 6 04/19 Housing Stability Answer Date Recorded What is your living situation today? I have a [facility] place to live 09/20/2024 Education Answer Date Recorded What is the highest level of school you have completed or the highest degree you have received? GED or equivalent 01/2019 Comments No Sex and Gender Information Value Date Recorded Sex Assigned at Female 07/29/2017 9:59 AM CDT Legal Sex Female 3:46 PM ORCHESTRATOR Gender Identity Female 09/22/2020 3:19 PM CDT Sexual Orientation Straight 07/29/2017 9: 59 AM CDT Last Filed Vital Signs Vital Sign Reading Time Taken Comments Blood Pressure 142/84 09/20/2024 3:05 PM CDT Pulse 93 09/20/2024 3:05 PM CDT Temperature 36.6 C (97.9 F) 09/22/2022 8:08 AM CDT Respiratory Rate 17 09/22/2022 8:08 AM CDT Oxygen Saturation 94% 10/14/2022 2:32 PM CDT Inhaled Oxygen Concentration - - Weight 94 kg (207 lb 3.7 oz) 09/20/2024 3:05 PM CDT Height 159.5 cm (5' 2.8) 04/19/2024 9:43 AM ORCHESTRATOR Body Mass Index 36.95 04/19/2024 9:43 AM ORCHESTRATOR Plan of Treatment Health Maintenance Due Date Last Done Comments Bone Density Scan (Osteoporosis Screen) 1959 CT Colonography 1959 Cologuard 1959 FIT 1959 ZZColonoscopy 10/12/2021 10/13/2011, 12/0 02/2009 (Performed elsewhere) COVID-19 Vaccine ( season) 2024 11/23/2023, 11/25/2022, 11/15/2021, Additional history exists Fall Risk Screen (Annual) 06/15/2024 Controlled Substance Monitoring (UDS) 08/05/2024 08/06/2023 Depression Monitoring (PHQ-9) 08/19/2024 04/19/2024 Mammogram 10/27/2024 08/28/2021, 07/17, 05/06/2018, Additional history exists Postponed from 08/28/2022 (Patient Refused) Influenza Vaccine (#1) 2024 , 12/09/2022, 11/12/2021, Additional history exists Office Visit for Blood Pressure Check / Re-check 12/21/2024 09/20/2024 PEG assessment for Opioid therapy 12/24/2024 09/23/2024 Controlled Substance Agreement 01/18/2025 01/19/2024, 02/04/2023 Creatinine [...] 04/19/2025 04/19/2024 Generalized Anxiety (SHREE-7) 04/19/2025 04/19/2024 Opioid Use Disorder (OUD) Screening 09/20/2025 09/20/2024 Lipid (Cholesterol) Screening 04/19/2029 04/19/2024, 12/03/2021, 07/04/2020, Additional history exists DTaP,Tdap,and Td Vaccines (4 - Td or Tdap) 10/24/2030 10/24/2020, 10/03/2011, 05/21/2007 10/13/2011, 1202/2009 (Performed elsewhere) Hepatitis C Screening Completed 01/05/2015 , 01/04/2014, 06/25/2013, Additional history exists Zoster Vaccines Completed 09/07/2017, 06/17, 04/29/2012 Hepatitis B Vaccines Completed 11/07/2019, 08/03/19 Pneumococcal vaccine (50+ years) Completed 08/05/2021, 01/27/2012 RSV vaccine - (32-36 weeks) or 60+ years Completed 11/14/2022 Opioid Risk Tool (ORT) Completed 01/19/2024 Depression Monitoring (PHQ-9 for quality tracking) Completed 04/19/2024 Colorectal Cancer Screening Discontinued IPV Vaccines Aged Out No longer eligi ble based on patient's age to complete this topic Medical Devices Implanted Type Area Door Repairer Bus Device Identifier Shelf Expiration Date Model / Serial / Lot Hardware E.G. Pins/Screws/Rosalio s Hardware e.g. pins/screws /rods Right: Ankle Hardware E.G. Pins/Screws/Rosalio s Hardware e.g. pins/screws /rods Right: Foot Trilogy-Screw 6.5x20 - Alvarez [id number] Implanted:Qty: 1 on 06/09/2011 Hardware e.g. pins/screws /rods [employer] Description:Device Manufactu rer - Rui. Device Status Text - [id number]. Guide Wire-Ball Tip 3 X 800 - Alvarez [id number] Implanted:Qty: 1 on 06/09/2011 Hardware e.g. pins/screws /rods Katharine Description:Device Manufactu rer - [place] [employer].. Device Status Text - HARDWARE- 96658. [facility] Data - [id number]. Trilogy-Screw 6.5x40 - Alvarez [id number] Implanted:Qty: 1 on 06/09/2011 Hardware e.g. pins/screws /rods [employer] Description:Device Manufactu rer - Rui. Device Status Text - HARDWARE-[id number]. [place] Screw 2 Canc 6.5 X 45 - Alvarez [id number] Implanted:Qty: 1 on 06/24/2013 Hardware e.g. pins/screws /rods [employer] Description:Device Manufactu rer - [employer]. Device Status Text - [id number]. [place] Screw 2 Canc 6.5 X 8 - Alvarez [id number] Implanted:Qty: 1 on 06/24/2013 Hardware e.g. pins/screws /rods [employer] Description:Device Manufactu rer - [employer]. Device Status Text - HARDWARE-[id number]. Stem Cloud 4x Std 140 - Alvarez [id number] Implanted:Qty: 1 on 06/09/2011 Hip Implant Other/Legacy - See Implant Description [employer] Description:Device Manufactu rer - [employer]. Body Location - Other. Left. Device Status Text - HIP [id number]. Dep. Head Prodigy 32 + 5.0 - Alvarez [id number] Implanted:Qty: 1 on 06/09/2011 Hip Implant Other/Legacy - See Implant Description [employer]CH Description:Device Manufactu rer - [employer]. Body Location - Other. Left. Device Status Text - HIP [id number]. Zim Insert Longevity 0 Deg 32x50 - Alvarez [id number] Implanted:Qty: 1 on 06/09/2011 Hip Implant Other/Legacy - See Implant Description [employer] Description:Device Manufactu rer - Rui. Body Location - Other. Left. Device Status Text - [id number] [id number]. Zim. Shell Tril W Holes 52 - Alvarez [id number] Implanted:Qty: 1 on 06/09/2011 Hip Implant Other/Legacy - See Implant Description [employer] Description:Device Manufactu rer - Uri. Body Location - Other. Left. Device Status Text - HIP [id number]. Delta-Head Ceramic 32mm +1 - Alvarez [id number] Implanted:Qty: 1 on 06/24/2013 Hip Implant Right: Other/Legacy - See Implant Description [employer] Description:Device Manufactu rer - [employer]. Body Location - Right. Device Status Text - HIP [id number]. [place] Liner Altrx Neut 32x50 - Alvarez [id number] Implanted:Qty: 1 on 06/24/2013 Hip Implant Right: Other/Legacy - See Implant Description [employer]CH Description:Device Manufactu rer - [employer]. Body Location - Right. Device Status Text - [id number] [id number]. [place] Shell Porocoat Lamont 50mm - Alvarez [id number] Implanted:Qty: 1 on 06/24/2013 Hip Implant Right: Other/Legacy - See Implant Description [email or web address] Description:Device Manufactu rer - [employer]. Body Location - Right. Device Status Text - HIP [id number]. Stem Cloud 4x Std 140 - Alvarez [id number] Implanted:Qty: 1 on 06/24/2013 Hip Implant Right: Other/Legacy - See Implant Description [employer] Description:Device Manufactu rer - [employer]. Body Location - Right. Device Status Text - HIP IMP-[id number]. Procedures Procedure Name Priority Date/Time Associated Diagnosis Comments LIPID PANEL, S Routine 04/19/2024 11:53 AM ORCHESTRATOR Hyperlipidemia HEMOGLOBIN A1C, B Routine 01/19/2024 12: 51 PM ORCHESTRATOR PreDiabetes BASIC METABOLIC PANEL, S/P Routine 01/19/2024 12:51 PM ORCHESTRATOR Elevated Creatinine BI BREAST SCREENING BILATERAL WITH TOMOSYNTHESIS RAD - Routine (most inpatients and all outpatients) 08/28/2021 12:20 PM CDT Screening Mammogram Breast Cancer HCV AB SCRN W/REFLEX TO HCV PCR, S Routine 01/05/2015 10:08 AM ORCHESTRATOR from Last 3 Months or Most Recently Relevant to Health Maintenance Results * (ABNORMAL) Lipid Panel (04/19/2024 11:53 AM ORCHESTRATOR) Triglycerides 229(H) mg/dL 04/19/2024 1:25 PM ORCHESTRATOR DTL Comment: ----REFERENCE VALUE---- Normal: <150 mg/dL Borderline High: 150-199 mg/dL High: 200-499 mg/dL Very High: > or =500 mg/dL Cholesterol, Total 166 mg/dL 2024 1:25 PM ORCHESTRATOR DTL Comment: ----REFERENCE VALUE---- Desirable: < 200 mg/dL Borderline High: 200 - 239 mg/dL High: > or = 240 mg/dL Cholesterol, LDL, Calculated 74 mg/dL 04/19/2024 1:25 PM ORCHESTRATOR DTL Comment: ----REFERENCE VALUE---- Desirable: <100 mg/dL Above Desirable: 100-129 mg/dL Borderline High: 130-159 mg/dL High: 160-189 mg/dL Very High: >=190 mg/dL ----ADDITIONAL INFORMATION---- LDL cholesterol calculated using the Coe/NIH equation. Cholesterol, HDL, S 55 >=50 mg/dL 04/19/2024 1:25 PM ORCHESTRATOR DTL Cholesterol, Non-HDL, Calculated 111 mg/dL 04/19/2024 1:25 PM ORCHESTRATOR DTL Comment: ----REFERENCE VALUE---- Desirable: <130 mg/dL Above Desirable: 130-159 mg/dL Borderline High: 160-189 mg/dL High: 190-219 mg/dL Very High: > or =220 mg/dL Fasting (8 HR or more) Yes 04/19/2024 11:53 AM ORCHESTRATOR DTL Blood (Blood, Venous) 04/19/2024 11:53 AM ORCHESTRATOR 04/19/2024 12:30 PM ORCHESTRATOR us Susana Rowe M.D. LAB BLOOD ADD-ON Final Resul t [facility] [address] [place] [address], [facility] [address] [place] [address] * Hemoglobin A1c (01/19/2024 12:51 PM ORCHESTRATOR) Hemoglobin A1c, B 5.4 4.0 - 5.6 % 01/19/2024 1:47 PM ORCHESTRATOR DTL Blood (Blood, Venous) 01/19/2024 12:51 PM ORCHESTRATOR 01/19/2024 1:04 PM ORCHESTRATOR Susana Rowe M.D. LAB BLOOD ADD-ON Final Resul t [facility] [address] [place] [address], [facility] DTL [facility] [address] [place] [address] * Basic Metabolic Panel (01/19/2024 12:51 PM ORCHESTRATOR) Potassium, S 3.9 3.6 - 5.2 mmol/L 01/19/2024 1:42 PM ORCHESTRATOR DTL Sodium, S 145 135 - 145 mmol/L 01/19/2024 1:42 PM ORCHESTRATOR DTL Chloride, S 105 98 - 107 mmol/L 01/19/2024 1:42 PM ORCHESTRATOR DTL Bicarbonate, S 26 22 - 29 mmol/L 01/19/2024 1:42 PM ORCHESTRATOR DTL Anion Gap 14 7 - 15 01/19/2024 1:42 PM ORCHESTRATOR DTL BUN (Blood Urea Nitrogen), S 14 6 - 21 mg/dL 01/19/2024 1:42 PM ORCHESTRATOR DTL Creatinine 0.78 0.59 - 1.04 mg/dL 01/19/2024 1:42 PM ORCHESTRATOR DTL Estimated GFR (eGFR) 85 >=60 mL/min/BSA 01/19/2024 1:42 PM ORCHESTRATOR DTL Comment: Estimated GFR calculated using the 2020 CKD_EPI creatinine equation. Calcium, Total, S 9.5 8.8 - 10.2 mg/dL 01/19/2024 1:42 PM ORCHESTRATOR DTL Glucose, S 101 70 - 140 mg/dL 01/19/2024 1:42 PM ORCHESTRATOR DTL Blood (Blood, Venous) 01/19/2024 12:51 PM ORCHESTRATOR 01/19/2024 1:14 PM ORCHESTRATOR Susana Rowe M.D. LAB BLOOD ADD-ON Final Resul t [facility] [address] [place] [address], [facility] DTL [facility] [address] [place] [address] * BI Breast Screening Bilateral with Tomosynthesis [...] to HCV PCR, S (01/05/2015 10:08 AM ORCHESTRATOR) HCV Ab Screen, S Negative Negative [facility] Comment:[id number] rat io is <1.00. 01/05/2015 10:0 8 AM ORCHESTRATOR 01/05/2015 10:08 AM ORCHESTRATOR us Jodie Quigley M.D. LAB MICROBIOLOGY - BLOOD OR DERABLES Final Result [facility] [address] [place], [place] [address] from Last 3 Months or Most Recently Relevant to Health Maintenance Insurance [employer] Advance Directives For more information, please contact: [phone] Documents on File Type Date Recorded Patient Strap Buckler Expl anation Advance Directives 02/27/2020 3:22 PM [...] First Alternate Health Care Agent Care Teams Paint Pourer Relationship Specialty Start Date End Date Susana Rowe M.D. [address] [place] [address] PCP - General Internal Medicine 08/21/23
--- OUTSIDE RECORDS SUMMARY | 2024-10-01 12:52 | XMS_ITS | Encounter Summary ---
Author Organization [facility] Address [address] [place] [address] Care Team Providers Care Orchard Hand Name Role Phone Susana Rowe M.D. Primary Care Provider Reason for Referral * Outpatient (Routine) - Closed Specialty Diagnoses / Procedures Referred By Pasquale t Referred To Contact Community Internal Medicine Diagnoses Chronic Pain Syndrome Susana Rowe M.D. [address] [place] [phone] Phone: tel: fax: [facility] Referral ID Status Reason Start Date Expiration Date Visits Re quested Visits Authorized [id number] Closed 08/25/2024 02/24/2026 1 1 Reason for Visit * Reason Onset Date Comments Med Refill 08/22/2024 Encounter Details Date Type Department Care Team (Late st Contact Info) Description 08/22/2024 Refill Division of Community Internal Medicine, [facility], in [place], [place] [address] [place] [phone] uSsana Rowe M.D. [address] [place] [phone] Med Refill Social History Tobacco Use Types Packs/Day Years Used Date Smoking Tobacco: Never Passive Smoke Exposure: Past Smokeless Tobacco: Never Alcohol Use Standard Drinks/Week Comments No 0 (1 standard drink = 0.6 oz pur e alcohol) [facility] Utilities Answer Date Recorded In the [...] your living situation today? I have a [facility] place to live 03/10/2023 Education Answer Date Recorded What is the highest level of school you have completed or the highest degree you have received? GED or equivalent 01/2019 Comments No Sex and Gender Information Value Date Recorded Sex Assigned at Female 07/29/2017 9:59 AM CDT Legal Sex Female 3:46 PM BOOK MENDER Gender Identity Female 09/22/2020 3:19 PM CDT [...] in this encounter Plan of Treatment Scheduled Referrals Name Type Priority Associated Diagnoses Orde r Schedule Community Internal Medicine office visit (clinic) Outpatient Referral Routine Chronic Pain Syndrome Expected: 10/20/2024, Expires: 11/24/2025 documented as of this encounter Visit Diagnoses Diagnosis Chronic Pain Syndrome documented in this encounter Additional Health Concerns Assessment Noted Time PHQ-9 Depression Total Score: 6 04/20/19 25 9:50 AM BOOK MENDER documented as of this encounter Care Teams Orchard Hand Relationship Specialty Start Date End Date Susana Rowe M.D. [address] [place] [address] PCP - General Internal Medicine 08/21/23 documented as of this encounter
--- OUTSIDE RECORDS SUMMARY | 2024-10-01 12:52 | XMS_ITS | Encounter Summary ---
Author Organization [facility] Address [address] [place] [address] Care Team Providers Care Milk Bottler Name Role Phone Susana Rowe M.D. Primary Care Provider Reason for Visit * Reason Comments Med Refill Encounter Details Date Type Department Care Team (Late st Contact Info) Description 08/16/2024 Refill Division of Community Internal Medicine, [facility], in [place], [place] [address] [place] [phone] Ssuana Rowe M.D. [address] [place] [phone] Med Refill Social History Tobacco Use Types Packs/Day Years Used Date Smoking Tobacco: Never Passive Smoke Exposure: Past Smokeless Tobacco: Never Alcohol Use Standard Drinks/Week Comments No 0 (1 standard drink = 0.6 oz pur e alcohol) [facility] Utilities Answer Date Recorded In the past 12 months has e [employer], gas, oil, or water [employer] threatened to shut off services in your [...] your living situation today? I have a [facility] place to live 03/10/2023 Education Answer Date Recorded What is the highest level of school you have completed or the highest degree you have received? GED or equivalent 01/2019 Comments No Sex and Gender Information Value Date Recorded Sex Assigned at Female 07/29/2017 9:59 AM CDT Legal Sex Female 3:46 PM WOOD HEEL FITTER MACHINE Gender Identity Female 09/22/2020 3:19 PM CDT Sexual Orientation Straight 07/29/2017 9: 59 AM CDT documented as of this encounter Plan of Treatment Not on file documented as of this encounter Visit Diagnoses Not on filedocumented in this encounter Additional Health Concerns Assessment Noted Time PHQ-9 Depression Total Score: 6 04/20/19 25 9:50 AM WOOD HEEL FITTER MACHINE documented as of this encounter Care Teams Milk Bottler Relationship Specialty Start Date End Date Susana Rowe M.D. JB: [phone] [address] [place] [phone] PCP - General Internal Medicine 08/21/23 documented as of this encounter
--- OUTSIDE RECORDS SUMMARY | 2024-10-01 12:52 | XMS_ITS | Encounter Summary ---
Author Organization [facility] Address [address] [place] [address] Care Team Providers Care [place] Upholsterer Name Role Phone Susana Rowe M.D. Primary Care Provider Encounter Details Date Type Department Care Team (Late st Contact Info) Description 01/31/2014 Historical Ophthalmology [facility] Dion Bridges O.D. [address] [place] [phone] Social History Tobacco Use Types Packs/Day Years Used Date Smoking Tobacco: Never Assessed Comments Unknown Sex and Gender Information Value Date Recorded Sex Assigned at Female 07/29/2017 9:59 AM CDT Legal Sex Female 3:46 PM COMMERCIAL LOAN UNDERWRITER Gender Identity Female 09/22/2020 3:19 PM CDT [...] right eye CDM Reports - EYEGEN Id: [id number] Status: Fnl documented in this encounter Plan of Treatment Not on file documented as of this encounter Visit Diagnoses Not on filedocumented in this encounter Additional Health Concerns Infection Onset Date Last Indicated Resolved Time COVID19 Pending 12/20/2019 12/20/2019 12/21/2019 8 :08 AM COMMERCIAL LOAN UNDERWRITER COVID19 Pending 02/24/2020 02/24/2020 02/24/2020 6 :13 PM COMMERCIAL LOAN UNDERWRITER COVID19 Pending 04/09/2020 04/09/2020 04/09/2020 9 :39 PM COMMERCIAL LOAN UNDERWRITER COVID19 Pending 05/26/2020 05/26/2020 05/26/2020 1 0:01 PM CDT COVID19 Pending 10/14/2022 10/14/2022 10/14/2022 3 :44 PM CDT COVID19 Pending 10/14/2022 10/14/2022 10/14/2022 6 :55 PM CDT COVID19 Pending 10/14/2022 10/14/2022 10/14/2022 8 :02 PM CDT Assessment Noted Time PHQ-9 Depression Total Score: 25 014 2:48 PM COMMERCIAL LOAN UNDERWRITER documented as of this encounter Care Teams [place] Upholsterer Relationship Specialty Start Date End Date Susana Rowe M.D. [address] [place] [phone] PCP - General Internal Medicine 08/21/23 documented as of this encounter
--- OUTSIDE RECORDS SUMMARY | 2024-10-01 12:52 | XMS_ITS | Encounter Summary ---
Author Organization [facility] Address [address] [place] [address] Care Team Providers Care Driller Multiple Spindle Name Role Phone Susana Rowe M.D. Primary Care Provider Encounter Details Date Type Department Care Team (Late st Contact Info) Description 03/26/2016 Historical Ophthalmology [facility] Beba Trotter O.D. [address] [place] [phone] Social History Tobacco Use Types Packs/Day Years Used Date Smoking Tobacco: Never Assessed Comments Unknown Sex and Gender Information Value Date Recorded Sex Assigned at Female 07/29/2017 9:59 AM CDT Legal Sex Female 3:46 PM CLINICAL STATISTICAL PROGRAMMER Gender Identity Female 09/22/2020 3:19 PM CDT [...] right eye CDM Reports - EYEGEN Id: [id number] Status: Fnl documented in this encounter Plan of Treatment Not on file documented as of this encounter Visit Diagnoses Not on filedocumented in this encounter Additional Health Concerns Infection Onset Date Last Indicated Resolved Time COVID19 Pending 12/20/2019 12/20/2019 12/21/2019 8 :08 AM CLINICAL STATISTICAL PROGRAMMER COVID19 Pending 02/24/2020 02/24/2020 02/24/2020 6 :13 PM CLINICAL STATISTICAL PROGRAMMER COVID19 Pending 04/09/2020 04/09/2020 04/09/2020 9 :39 PM CLINICAL STATISTICAL PROGRAMMER COVID19 Pending 05/26/2020 05/26/2020 05/26/2020 1 0:01 PM CDT COVID19 Pending 10/14/2022 10/14/2022 10/14/2022 3 :44 PM CDT COVID19 Pending 10/14/2022 10/14/2022 10/14/2022 6 :55 PM CDT COVID19 Pending 10/14/2022 10/14/2022 10/14/2022 8 :02 PM CDT Assessment Noted Time PHQ-9 Depression Total Score: 22 017 10:25 AM CLINICAL STATISTICAL PROGRAMMER documented as of this encounter Care Teams Driller Multiple Spindle Relationship Specialty Start Date End Date Susana Rowe M.D. [address] [place] [phone] PCP - General Internal Medicine 08/21/23 documented as of this encounter
--- NOTE | 2024-10-01 13:11 | ED.LOWEXIN ---
HPI - Extremity Injury (Lower) General Time Seen by Provider: 13:12 Date Seen: 10/01/24 Chief Complaint: Extremity Pain/Injury, Lower Stated Complaint: Black Outs/ Falling Time Seen by Provider: 10/01/24 13:11 Source: patient, family, RN notes reviewed and old records reviewed Mode of arrival: ambulatory Limitations: no limitations History of Present Illness HPI Narrative: Esperanza is a very pleasant 64-year-old female with multiple medical problems who comes here to the emergency room for evaluation regarding multiple falls and new injury of her head and right foot. Esperanza notes that for back to 2 years or so she has been having episodes of falling. She notes no prodromal symptoms in the vast majority of cases. A few weeks ago she had some mild vertigo and then fell but again usually it is just suddenly with no morning. She denies visual changes chest pain shortness of breath. This has been witnessed by a friend who stated that she was talking and then suddenly she was on the floor. She usually is out under 1 minute and when she awakens she is a little bit disoriented but certainly does not describe a postictal state. She has not had any incontinence. Her injuries have included fracture of the left lower extremity x2, right ankle fracture, and now today a she has a swollen right foot with pain. She also notes that she hit the back of her head and has a headache. She denies any neck pain at this time. In regards to her injuries today, she fell last night and found herself on the floor with her left leg in the air and her right foot wedged between the wall and of a piece of furniture. She has been unable to bear weight on her right foot since that time it is quite swollen. She is worried because she had surgery of her right ankle with hardware placement by orthopedics recently. She is not usually swollen on that foot. She does not know how long she may have been unconscious to. Again was not incontinent. Does also notes significant posterior headache. She describes the headache is vibrating in nature. She has not to take any extra medications she does take chronic pain medications with oxycodone. She is on carbidopa levodopa for restless leg syndrome. Over a year ago patient was switched from and previous antihypertensive to amlodipine. She noted that her symptoms seemed to improve for to 4-5 months but after the past few months it seems to be back to the routine of drop episodes occurring 3 to 4 times a week. Related Data Home Medications ?Medication ?Instructions ?Recorded ?Confirmed amlodipine 10 mg tablet 10 mg PO DAILY 06/05/22 10/01/24 carbidopa ER 50 mg-levodopa 200 mg 1 tab PO QPM 06/05/22 10/01/24 tablet,extended release cetirizine 10 mg tablet 10 mg PO DAILY PRN allergies 06/05/22 10/01/24 cholecalciferol (vitamin D3) 25 25 mcg PO DAILY 06/05/22 10/01/24 mcg (1,000 unit) tablet cyanocobalamin (vitamin B-12) 1,000 mcg PO DAILY 06/05/22 10/01/24 1,000 mcg tablet eszopiclone 3 mg tablet 3 mg PO QPM 06/05/22 10/01/24 famotidine 20 mg tablet 20 mg PO DAILY 06/05/22 06/16/24 ferrous sulfate 325 mg (65 mg 325 mg PO Q1D 06/05/22 06/16/24 iron) tablet (FeroSul) furosemide 40 mg tablet 40 mg PO DAILY PRN 06/05/22 10/01/24 ipratropium bromide 21 mcg (0.03 2 spray intranasal BID 06/05/22 10/01/24 %) nasal spray latanoprost 0.005 % eye drops 1 drp ophthalmic (eye) QPM 06/05/22 10/01/24 memantine 10 mg tablet 10 mg PO BID 06/05/22 10/01/24 oxycodone 5 mg tablet 7.5 mg PO Q6H PRN pain 06/05/22 10/01/24 pantoprazole 40 mg tablet,delayed 40 mg PO DAILY 06/05/22 06/16/24 release prazosin 2 mg capsule 2 mg PO QPM 06/05/22 06/16/24 quetiapine 100 mg tablet 100 mg PO HS 06/05/22 10/01/24 sennosides 8.6 mg-docusate sodium 1 tab-cap PO PRN 06/05/22 06/16/24 50 mg tablet (Stool Softener-Stimulant Laxative) sertraline 100 mg tablet 100 mg PO DAILY 06/05/22 10/01/24 simvastatin 20 mg tablet 20 mg PO QPM 06/05/22 10/01/24 tizanidine 4 mg tablet 4 mg PO Q8H PRN muscle spasm 06/05/22 10/01/24 azelastine 205.5 mcg (0.15 %) 2 spray intranasal BID 10/01/24 10/01/24 nasal spray (Astepro Allergy) dapagliflozin propanediol 10 mg 10 mg PO DAILY 10/01/24 10/01/24 tablet (Farxiga) Previous Rx's ?Medication ?Instructions ?Recorded pregabalin 50 mg capsule (Lyrica) 50 mg PO TID #90 caps 12/23/23 Allergies Allergy/AdvReac Type Severity Reaction Status Date / Time losartan Allergy Severe Angioedema Verified 06/16/24 16:00 duloxetine Allergy Mild Hives, Verified 06/16/24 16:00 Nausea/Vomiting latex Allergy Mild Rash Verified 06/16/24 16:00 lisinopril Allergy Mild Rash Verified 06/16/24 16:00 phenylephrine Allergy Mild Rash, Verified 06/16/24 16:00 Swelling pregabalin Allergy Mild Rash Verified 06/16/24 16:00 tropicamide Allergy Mild Rash, Verified 06/16/24 16:00 Swelling gabapentin AdvReac Mild GI Verified 06/16/24 16:00 Intolerance, Nausea/Vomiting prednisone AdvReac Mild Agitation Verified 06/16/24 16:00 Review of Systems Status of ROS: Reports: 10 or more systems reviewed and unremarkable except as noted in History and below Const: Reports: fatigue; Denies: fever or chills Eyes: Denies: change in vision or blurry vision ENMT: Denies: throat pain, neck pain or nasal congestion Cardio: Denies: chest pain, swelling of feet/ankles or shortness of breath with exertion Resp: Denies: shortness of breath or cough GI: Reports: nausea; Denies: abdominal pain or vomiting : Denies: painful urination or urinary frequency Musculo: Reports: extremity pain and extremity swelling; Denies: back pain or neck pain Neuro: Reports: headache; Denies: numbness in extremities Endo: Reports: fatigue PFSH PFS Medical History Frequent falls ?R29.6 - Repeated falls (ICD-10) Hypertensive heart disease ?I11.9 - Hypertensive heart disease without heart failure (ICD-10) SHREE (generalized anxiety disorder) ?F41.1 - Generalized anxiety disorder (ICD-10) PTSD (post-traumatic stress disorder) ?F43.10 - Post-traumatic stress disorder, unspecified (ICD-10) Depression, major, recurrent, moderate ?F33.1 - Major depressive disorder, recurrent, moderate (ICD-10) Morbid obesity ?E66.01 - Morbid (severe) obesity due to excess calories (ICD-10) Tachycardia, paroxysmal ?I47.9 - Paroxysmal tachycardia, unspecified (ICD-10) Chronic pain syndrome ?G89.4 - Chronic pain syndrome (ICD-10) Dependent personality disorder ?F60.7 - Dependent personality disorder (ICD-10) Panic disorder with agoraphobia ?F40.01 - Agoraphobia with panic disorder (ICD-10) EUGENIA (obstructive sleep apnea) ?G47.33 - Obstructive sleep apnea (adult) (pediatric) (ICD-10) Headache, chronic migraine without aura ?G43.709 - Chronic migraine without aura, not intractable, without status migrainosus (ICD-10) Chronic respiratory failure with hypoxia ?J96.11 - Chronic respiratory failure with hypoxia (ICD-10) History of falling ?Z91.81 - History of falling (ICD-10) Irritable bowel syndrome with diarrhea ?K58.0 - Irritable bowel syndrome with diarrhea (ICD-10) B12 deficiency ?E53.8 - Deficiency of other specified B group vitamins (ICD-10) Hypovitaminosis D ?E55.9 - Vitamin D deficiency, unspecified (ICD-10) Chronic diastolic (congestive) heart failure ?I50.32 - Chronic diastolic (congestive) heart failure (ICD-10) Restless leg syndrome ?G25.81 - Restless legs syndrome (ICD-10) Glaucoma ?H40.9 - Unspecified glaucoma (ICD-10) Nevus of choroid of right eye ?D31.31 - Benign neoplasm of right choroid (ICD-10) Corneal epithelial basement membrane dystrophy ?H18.529 - Epithelial (juvenile) corneal dystrophy, unspecified eye (ICD-10) Dermatochalasis of both eyelids ?H02.833 - Dermatochalasis of right eye, unspecified eyelid (ICD-10) ?H02.836 - Dermatochalasis of left eye, unspecified eyelid (ICD-10) Ptosis of eyelid, bilateral ?H02.403 - Unspecified ptosis of bilateral eyelids (ICD-10) Fatty liver ?K76.0 - Fatty (change of) liver, not elsewhere classified (ICD-10) Supraventricular tachycardia ?I47.1 - Supraventricular tachycardia (ICD-10) Atrial tachycardia, paroxysmal ?I47.1 - Supraventricular tachycardia (ICD-10) Typical atrial flutter ?I48.3 - Typical atrial flutter (ICD-10) Elevated serum creatinine ?R79.89 - Other specified abnormal findings of blood chemistry (ICD-10) Hyperlipidemia ?E78.5 - Hyperlipidemia, unspecified (ICD-10) GERD (gastroesophageal reflux disease) ?K21.9 - Gastro-esophageal reflux disease without esophagitis (ICD-10) Paresthesia of both feet ?R20.2 - Paresthesia of skin (ICD-10) Rectal bleed ?K62.5 - Hemorrhage of anus and rectum (ICD-10) Globus sensation ?R09.89 - Other specified symptoms and signs involving the circulatory and respiratory systems (ICD-10) Rhinitis, chronic ?J31.0 - Chronic rhinitis (ICD-10) Hyperhidrosis ?R61 - Generalized hyperhidrosis (ICD-10) Syncope and collapse ?R55 - Syncope and collapse (ICD-10) Chronic kidney disease, stage 3a ?N18.31 - Chronic kidney disease, stage 3a (ICD-10) Surgical History Status post open reduction with internal fixation (ORIF) of fracture of ankle (06/06/22) ?Z98.890 - Other specified postprocedural states (ICD-10) ?Z87.81 - Personal history of (healed) traumatic fracture (ICD-10) Social History Narrative: She lives at the [facility]. She lives alone. She does not have to climb stairs. She believes her facility has available wheelchair for her to use along with crutches or a walker to be nonweightbearing on her right lower extremity. She does not smoke. She does not drink alcohol. She occasionally uses cannabis. Code status is full. Her father is healthcare power of tax attorney. Highest level of school completed/degree received: high school graduate Smoking Status: Never smoker Do you use any of these nicotine containing products: None Second hand tobacco smoke exposure: No How often do you have a drink containing alcohol: monthly or less How many standard drinks containing alcohol do you have on a typical day: 1 or 2 AUDIT-C Alcohol total score: 1 Non-prescribed substance use: denies use Caffeine: No Do you think of yourself as: straight/heterosexual Gender Identity: female service: No Exam Narrative: Exam Narrative: Esperanza is alert and oriented. She is clearly frustrated at having to come to the hospital. EOM is full pupils equal round reactive. She has tenderness over the a simple area along with some mild swelling. She has face that is symmetrical mentation that is normal speech is normal. Heart with a tachycardic rate but normal rhythm. Lungs are clear. Palpation of ribcage without tenderness. No pain down thoracic or lumbar spine. Abdomen is soft nontender. She does show me evidence of a bruise on her right breast. She has bruises in various stages of healing some acute on her lower extremities and arms. Pelvis is stable. Palpation down knees stable. Her left foot is without discomfort. Her right foot shows significant edema on the dorsal surface. Tenderness noted across the entire foot. No obvious deformity of the ankle. She is noted to have CMS distally intact. Const: Vital Signs, click to edit/add: Vital Signs - 24 hr 10/01/24 12:52 10/01/24 14:06 10/01/24 14:30 Temperature 97.4 F L Pulse Rate Pulse Rate [Pulse Oximeter] 103 H Respiratory Rate 18 19 13 Blood Pressure [Ri ght Upper Arm] 139/82 Pulse Oximetry 91 Oxygen Delivery Me thod Room Air 10/01/24 15:00 10/01/24 15:15 10/01/24 15:30 Temperature Pulse Rate 86 83 Pulse Rate [Pulse Oximeter] Respiratory Rate 10 L 17 Blood Pressure [Ri ght Upper Arm] Pulse Oximetry 89 93 Oxygen Delivery Me thod 10/01/24 15:45 10/01/24 16:00 10/01/24 16:15 Temperature Pulse Rate 78 67 61 Pulse Rate [Pulse Oximeter] Respiratory Rate 11 L 19 20 Blood Pressure [Ri ght Upper Arm] Pulse Oximetry 90 87 L Oxygen Delivery Me thod 10/01/24 16:30 10/01/24 16:45 10/01/24 17:00 Temperature Pulse Rate 62 61 63 Pulse Rate [Pulse Oximeter] Respiratory Rate 19 18 16 Blood Pressure [Ri ght Upper Arm] Pulse Oximetry 89 89 88 Oxygen Delivery Me thod 10/01/24 17:15 10/01/24 17:30 10/01/24 17:45 Temperature Pulse Rate 64 68 Pulse Rate [Pulse Oximeter] Respiratory Rate 20 17 18 Blood Pressure [Ri ght Upper Arm] Pulse Oximetry 91 92 Oxygen Delivery Me thod 10/01/24 18:00 Temperature Pulse Rate Pulse Rate [Pulse Oximeter] Respiratory Rate 19 Blood Pressure [Ri ght Upper Arm] Pulse Oximetry Oxygen Delivery Me thod Documenting provider has reviewed patient's vital signs: yes Course Course ED Course: Differential diagnosis includes but is not limited to foot fracture cardiac arrhythmia, seizure disorder, Meiniers disease with drop episodes, electrolyte abnormality, UTI. Also would consider closed head injury concussion. CT of the head. At this time she has no localized neck tenderness, has full range of motion and is not under the influence. I do think I can rule out any underlying neck injury. She notes her pain is mainly in the back of the head. Will also check CBC, comprehensive, urinalysis, troponin. Will x-ray the right foot and ankle. Patient is in agreement. Reevaluation(s) Reevaluation #1: Unfortunately patient has fractures of the 3rd and 4th metatarsal as well as the proximal 5th toe. Currently awaiting other laboratory values. Ultimately, however do think that she needs to be transferred to [place] for workup as she has not been able to follow-up with cardiology. She is supposed to follow-up with neurology but they want her to follow up with Cardiology 1st and cardiology said they had no appointments. I think she needs consult from Cardiology Neurology as well as ENT and of course Orthopedics. Reevaluation #2: Patient received additional dose of pain medication Dilaudid 0.5 mg for discomfort. Consultations Consultation #1: As able to speak to Dr Albrecht, cardiology at [place]. At this time he was able to share previous CT angiograms which showed normal ventricular function no evidence of coronary artery disease. Also notes that an EEG has been done in the past and did not show any abnormalities. His plan at this time is to have somebody from his office call the patient on ThursdayOctober 03 to get her set up with a loop recorder. That would allow her to be seen by neurology for further evaluation. [facility] does not have plans to accept her in transfer tonight. Consultation #2: As [facility] was not accepting this patient in transfer I did consult with our own orthopedic team. They are not sure if she will need surgical treatment. Did suggest nonweightbearing status. Will switch her to a cam walker per their to suggestion. Patient should follow-up with orthopedics next week. Vital Signs Vital signs: Initial Vital Signs Temperature 97.4 F L 10/01/24 12:52 Temperature Source Temporal Artery Scan 10/01/24 12:52 Pulse Rate 103 H 10/01/24 12:52 Respiratory Rate 18 10/01/24 12:52 Blood Pressure 139/82 10/01/24 12:52 Blood Pressure Mean 101 10/01/24 12:52 Blood Pressure Position Sitting 10/01/24 12:52 Pulse Oximetry 91 10/01/24 12:52 Oxygen Delivery Method Room Air 10/01/24 12:52 Vital Signs Temperature 97.4 F L 10/01/24 12:52 Pulse Rate 103 H 10/01/24 12:52 Respiratory Rate 18 10/01/24 12:52 Blood Pressure 139/82 10/01/24 12:52 Pulse Oximetry 91 10/01/24 12:52 Oxygen Delivery Method Room Air 10/01/24 12:52 Temperature 97.4 F L 10/01/24 12:52 Pulse Rate 68 10/01/24 17:30 Respiratory Rate 19 10/01/24 18:00 Blood Pressure 139/82 10/01/24 12:52 Pulse Oximetry 92 10/01/24 17:30 Oxygen Delivery Method Room Air 10/01/24 12:52 Medications Administered Medications: Discontinued Medications Generic Name Dose Route Start Last Admin Trade Name Freq PRN Reason Stop Dose Admin Hydromorphone HCl 0.5 mg 10/01/24 18:37 10/01/24 18:46 Hydromorphone 0.5 Mg/0.5 Ml Inj IVP 10/01/24 18:38 0.5 mg ONCE ONE Administration Sodium Chloride 1,000 mls @ 1,000 mls/hr 10/01/24 14:20 10/01/24 16:00 0.9 % Sodium Chloride 1000 Ml IV 10/01/24 15:19 Infused .Q1H NANCI Infusion Morphine Sulfate 4 mg 10/01/24 14:20 10/01/24 15:11 Morphine 4 Mg/Ml Inj IVP 10/01/24 14:21 4 mg ONCE ONE Administration Ondansetron HCl 4 mg 10/01/24 14:20 10/01/24 15:11 Ondansetron 2 Mg/Ml Inj IVP 10/01/24 14:21 4 mg ONCE ONE Administration MDM - Extremity Injury (Lower) MDM Narrative Medical decision making narrative: 1. Right foot fracture-involving metatarsals of 3 for 5 and proximal phalanx of small toe. Patient is placed in a splint. Consulted with her ortho team. They are suggesting outpatient follow-up. Suggesting cam boot and nonweightbearing. I spoke to patient about the challenge of this but she states that she had the same expectations when she had a right ankle surgery. She notes that she has walkers wheelchairs at home and feels safe going home. She also notes that she has neighbors on either side of her who are very helpful. Pain control with morphine 4 mg that followed by [facility].. She has oxycodone at home as needed for pain. 2. Syncopal episodes-frequent falls almost like drop type attacks. Patient somewhat endorses dizziness a few weeks ago but she had no dizziness last night and usually this does not occur. In fact she usually has no warning. She has no chest pain or a. Witnesses to these episodes note no seizure-like activity. She is usually unresponsive for under a minute. No episodes of incontinence. I do feel strongly she has needs neurological consultation which she has attempted to do through [facility]. However Neurology Department has asked that she be seen by Cardiology 1st. Possibilities include seizure, cardiac arrhythmia, main ears disease. Does not seem like orthostatic hypotension as she does not have any prodromal symptoms. Was able to speak to hygiene assistant today who does have plans for implantable loop recorder. Patient will receive a phone call on ThursdayOctober 03 to have that set up. 3. History of AFib-sinus rhythm today and troponin is negative. I do not feel the need to do a 2nd troponin as her fall was last evening. Cardiology was notified by the patient and they told her that they did not have any appointments available. No evidence of arrhythmia on the manufacturing clerk today. 4. Closed head injury-patient has had multiple head injuries in the past few months from these spontaneous falls. Fortunately no evidence of intracranial bleed today. 5. Disposition- home at this time. Patient does feel comfortable going home. She is instructed to return for worsening symptoms. She has instructed to minimize any time that she may be walking as to minimize any loss of consciousness. Because this has been going on for 2 years patient does feel comfortable going home. Medical Records Attestation: I reviewed the patient's medical records. Lab Data Attestation: I reviewed the patient's lab results. Labs: Lab Results 10/01/24 10/01/24 Range/Units 13:37 14:10 WBC 9.82 (4.50-11.00) K/uL RBC 5.10 (4.00-5.20) m/uL Hgb 14.5 (12.0-16.0) gm/dL Hct 45.6 (33.0-51.0) % MCV 89 (80-100) fL MCH 28 (26-34) pg MCHC 32 (32-36) gm/dL RDW Coeff of Selina 14.7 (11.5-15.5) % Plt Count 240 (140-440) K/uL Neut % (Auto) 81.5 H (42.0-72.0) % Lymph % (Auto) 13.1 L (20-44) % Charles % (Auto) 4.8 (0.0-11.0) % Eos % (Auto) 0.2 (0.0-7.0) % Baso % (Auto) 0.2 (0.0-3.0) % Neut # (Auto) 8.00 H (1.7-7.0) K/uL Lymph # (Auto) 1.30 (0.90-2.90) K/uL Charles # (Auto) 0.50 (0.00-0.90) K/UL Eos # (Auto) 0.02 (0.00-0.50) K/uL Baso # (Auto) 0.02 (0.00-0.30) K/uL Abs Immat Gran (auto) 0.02 (0.00-0.30) K/uL Imm/Tot Granulo (auto) 0.2 % Sodium 146 (135-149) mmol/L Potassium 3.2 L (3.6-5.1) mmol/L Chloride 109 (96-114) mmol/L Carbon Dioxide 28 (20-32) mmol/L Anion Gap 9 (7-15) mEq/L BUN 20 (7-30) mg/dL Creatinine 1.1 (0.5-1.5) mg/dL Estimated Creat Clear 42.18 Estimated GFR 56 ml/min Glucose 94 (60-115) mg/dL Calcium 9.2 (8.4-10.6) mg/dL Total Bilirubin 0.3 (0.1-1.5) mg/dL AST 21 (12-35) U/L ALT 10 (4-35) U/L Alkaline Phosphatase 106 (40-150) U/L Total Protein 7.5 (6.0-8.3) g/dL Albumin 4.2 (3.3-5.0) g/dL Urine Color Dark yellow (Yellow) Urine Appearance Cloudy A (Clear) Urine pH 6.0 (5.0-8.5) Ur Specific [place] 1.025 (1.000-1.030) Urine Protein 1+ A (Negative) Urine Glucose (UA) 3+ A (Negative) Urine Ketones Trace A (Negative) Urine Blood Negative (Negative) Urine Nitrite Negative (Negative) Urine Bilirubin Negative (Negative) Urine Urobilinogen 0.2 (0.2-1.0) Ur Leukocyte Esterase Negative (Negative) Urine RBC 0-2 (0-2) Urine WBC 5-10 A (0-5) Ur Squamous Epith Cells Moderate A (None-Few) Urine Bacteria None (None) POC Troponin I 0.01 (0.01-0.04) ng/ml Imaging Data CT scan - head: Attestation: I have reviewed the pertinent imaging results. My impression: No obvious fractures or intracranial bleed Radiologist's impression: No acute intracranial hemorrhage. The brandt-white matter interface is preserved. The ventricles are normal in size. No abnormal extra-axial fluid collection is identified. Small right occipital scalp hematoma. No underlying calvarial fracture the globes are symmetric. The imaged paranasal sinuses and mastoid air cells are clear. IMPRESSION: 1. No acute intracranial hemorrhage. 2. Small right occipital scalp hematoma. No underlying calvarial fracture. Right foot x-ray: Attestation: I have reviewed the pertinent imaging results. My impression: Fractures of the 3rd 4th and 5th metatarsal. Also of the proximal phalanx 5th toe Radiologist's impression: Bone: Mildly displaced fractures are present in the 3rd and 4th distal metatarsals. There is a displaced intra-articular fracture along the medial base of the 5th proximal phalanx. ORIF of the medial and lateral malleoli are partially visualized. There is a suspected fracture along the medial base of the 5th middle phalanx. Stage 1 (mild) metatarsus primus varus hallux valgus deformity is present. The Hallux angle measures 18 degrees. No significant proliferative osseous changes are seen over the medial eminence of the 1st metatarsal head. Joint: The visualized hindfoot, midfoot, and forefoot joints are unremarkable in appearance. No significant ankle effusion is seen. Soft tissue: Unremarkable. No radiopaque foreign bodies are seen. IMPRESSIONS: 1. Mildly displaced fractures are present in the 3rd and 4th distal metatarsals. There is a displaced intra-articular fracture along the medial base of the 5th proximal phalanx. 2. There is a suspected fracture along the medial base of the 5th middle phalanx. Correlation with physical exam for focal tenderness in this region is recommended to exclude an acute fracture. Right ankle x-ray: Attestation: I have reviewed the pertinent imaging results. My impression: I do not note any obvious fracture Radiologist's impression: Bone: No acute fractures or aggressive bone lesions are identified. Intramedullary karlos fixation of the distal fibula and lateral malleolus partially visualized. Syndesmotic band repair with multiple suture buttons are noted. Fixation of the medial malleolus with 2 cannulated lag screws are present without change. A small calcaneal enthesophyte is present. Joint: The visualized hindfoot and midfoot joints are unremarkable in appearance. No significant ankle effusion is seen. Soft tissue: Unremarkable. No radiopaque foreign bodies are seen. IMPRESSION: 1. No acute osseous injuries or abnormalities are noted. ECG Data Attestation: I personally reviewed and interpreted this ECG as follows: ECG interpretation date: 10/01/24 Interpretation: EKG by my read shows sinus rhythm at a rate of 88. Nonspecific T-wave changes but otherwise no acute evidence of ischemia. Unchanged from previous. QT and AR intervals within normal limits. Discharge Plan Discharge Clinical Impression: Syncopal episodes Qualifiers: Syncope type: unspecified Qualified Code(s): R55 - Syncope and collapse CHI (closed head injury) Qualifiers: Encounter type: initial encounter Qualified Code(s): S09.90XA - Unspecified injury of head, initial encounter Foot fracture, right Qualifiers: Encounter type: initial encounter Fracture type: closed Qualified Code(s): S92.901A - Unspecified fracture of right foot, initial encounter for closed fracture Patient Disposition: Home, Self-Care Condition: Improved Additional Instructions: We will switch your splint to a cam boot. Orthopedics would like you to be nonweightbearing on that leg. It sounds like after our discussion you have great experience in avoiding any weight-bearing on your right leg. Please follow-up with orthopedics by calling their phone number for an appointment. The number is [phone]. You should expect a phone call from Cardiology at [place] on Thursday for scheduling of the implanting of the loop recorder. Minimize any time standing or in a situation where fainting would place you at risk for injury. Return to the emergency room if you need to an are not doing well. Prescriptions: No Action furosemide 40 mg tablet 40 mg PO DAILY PRN latanoprost 0.005 % drops 1 drp ophthalmic (eye) QPM cetirizine 10 mg tablet 10 mg PO DAILY PRN (Reason: allergies) tizanidine 4 mg tablet 4 mg PO Q8H PRN (Reason: muscle spasm) carbidopa-levodopa 50-200 mg tablet extended release 1 tab PO QPM sennosides-docusate sodium [Stool Softener-Stimulant Laxat] 8.6-50 mg tablet 1 tab-cap PO PRN sertraline 100 mg tablet 100 mg PO DAILY Patient Comments: take 2 tabs by mouth daily cyanocobalamin (vitamin B-12) 1,000 mcg tablet 1,000 mcg PO DAILY quetiapine 100 mg tablet 100 mg PO HS Patient Comments: take 3 tabs by mouth at bedtime famotidine 20 mg tablet 20 mg PO DAILY amlodipine 10 mg tablet 10 mg PO DAILY pantoprazole 40 mg tablet,delayed release (DR/EC) 40 mg PO DAILY simvastatin 20 mg tablet 20 mg PO QPM ferrous sulfate [FeroSul] 325 mg (65 mg iron) tablet 325 mg PO Q1D ipratropium bromide 21 mcg (0.03 %) spray,non-aerosol 2 spray INTRANASAL BID prazosin 2 mg capsule 2 mg PO QPM oxycodone 5 mg tablet 7.5 mg PO Q6H PRN (Reason: pain) memantine 10 mg tablet 10 mg PO BID eszopiclone 3 mg tablet 3 mg PO QPM cholecalciferol (vitamin D3) 25 mcg (1,000 unit) tablet 25 mcg PO DAILY azelastine [Astepro Allergy] 205.5 mcg (0.15 %) spray,non-aerosol 2 spray intranasal BID Rx Instructions: administer into each nostril dapagliflozin propanediol [Farxiga] 10 mg tablet 10 mg PO DAILY pregabalin [Lyrica] 50 mg capsule 50 mg PO TID Qty: 90 2RF Rx Instructions: Listed as a current allergy, however patient would like to retry this Rx. Take one capsule by mouth three times a day. Follow Up/Referrals: Provider,Not a Local [Primary Care Provider, Family Practice] Stand Alone Forms: [facility] Info Instructions
--- NOTE | 2024-10-01 13:37 | CRLHL7_ITS ---
For Patients: As a result of the Century Cures Act, medical imaging exams and procedure reports are released immediately into your electronic medical record. You may view this report before your referring provider. If you have questions, please contact your health care provider. INDICATION: Fall hit right foot, injury- fall and hit foot TECHNIQUE: Foot radiograph 2 views right COMPARISON: 12/24/2022 FINDINGS: Bone: Mildly displaced fractures are present in the 3rd and 4th distal metatarsals. There is a displaced intra-articular fracture along the medial base of the 5th proximal phalanx. ORIF of the medial and lateral malleoli are partially visualized. There is a suspected fracture along the medial base of the 5th middle phalanx. Stage 1 (mild) metatarsus primus varus hallux valgus deformity is present. The Hallux angle measures 18 degrees. No significant proliferative osseous changes are seen over the medial eminence of the 1st metatarsal head. Joint: The visualized hindfoot, midfoot, and forefoot joints are unremarkable in appearance. No significant ankle effusion is seen. Soft tissue: Unremarkable. No radiopaque foreign bodies are seen. IMPRESSIONS: 1. Mildly displaced fractures are present in the 3rd and 4th distal metatarsals. There is a displaced intra-articular fracture along the medial base of the 5th proximal phalanx. 2. There is a suspected fracture along the medial base of the 5th middle phalanx. Correlation with physical exam for focal tenderness in this region is recommended to exclude an acute fracture. Dictated by Ronen Ernst MD @ 10/01/2024 3:03:13 PM Dictated by: Ronen Ernst MD @ 10/01/2024 15:03:19 (Electronically Signed)
--- NOTE | 2024-10-01 13:37 | CRLHL7_ITS ---
For Patients: As a result of the Century Cures Act, medical imaging exams and procedure reports are released immediately into your electronic medical record. You may view this report before your referring provider. If you have questions, please contact your health care provider. INDICATION: Fall hit right foot, injury- fall and hit foot, fall hit right foot and ankle TECHNIQUE: Ankle radiograph 2 views right COMPARISON: 12/24/2022 FINDINGS: Bone: No acute fractures or aggressive bone lesions are identified. Intramedullary karlos fixation of the distal fibula and lateral malleolus partially visualized. Syndesmotic band repair with multiple suture buttons are noted. Fixation of the medial malleolus with 2 cannulated lag screws are present without change. A small calcaneal enthesophyte is present. Joint: The visualized hindfoot and midfoot joints are unremarkable in appearance. No significant ankle effusion is seen. Soft tissue: Unremarkable. No radiopaque foreign bodies are seen. IMPRESSION: 1. No acute osseous injuries or abnormalities are noted. Dictated by Ronen Ernst MD @ 10/01/2024 3:05:11 PM Dictated by: Ronen Ernst MD @ 10/01/2024 15:05:36 (Electronically Signed)
--- NOTE | 2024-10-01 13:37 | CRLHL7_ITS ---
For Patients: As a result of the Century Cures Act, medical imaging exams and procedure reports are released immediately into your electronic medical record. You may view this report before your referring provider. If you have questions, please contact your health care provider. INDICATION: Fall, posterior head trauma. TECHNIQUE: Noncontrast CT of the head with multiplanar reconstruction utilizing bone and soft tissue algorithms. COMPARISON: CT head dated 09/08/2024. FINDINGS: No acute intracranial hemorrhage. The brandt-white matter interface is preserved. The ventricles are normal in size. No abnormal extra-axial fluid collection is identified. Small right occipital scalp hematoma. No underlying calvarial fracture the globes are symmetric. The imaged paranasal sinuses and mastoid air cells are clear. IMPRESSION: 1. No acute intracranial hemorrhage. 2. Small right occipital scalp hematoma. No underlying calvarial fracture. Please note that all CT scans at this facility use dose modulation, iterative reconstruction, and/or weight-based dosing when appropriate to reduce radiation dose to as low as reasonably achievable. Dictated by Stef Flores MD @ 10/01/2024 3:08:43 PM (Electronically Signed)
--- OUTSIDE RECORDS SUMMARY | 2024-10-01 13:51 | XMS_ITS | CCD ---
Author Organization Unknown Care Team Providers Care Assisted Living Manager Name Role Phone Loan Funder, [place] Primary Care Provider Unava ilable Unavailable Chronic Care Management Unavaila ble Summary Purpose DataExchange Insurance Providers Payer name Policy type / Coverage type Covered constitution party ID Effective Begin Date Effective End Date [employer] Commercial [employer] [id number] Unknown Unkn own Family History Family History data not found Medication Administered No Medication Administered data Reason For Visit No Reason For Visit data
--- OUTSIDE RECORDS SUMMARY | 2024-10-01 13:52 | XMS_ITS | CCD ---
Author Organization Unknown Care Team Providers Care Supervisor Commissary Production Name Role Phone Mri Manager, [place] Primary Care Provider Unava ilable Unavailable Chronic Care Management Unavaila ble Summary Purpose DataExchange Insurance Providers Payer name Policy type / Coverage type Covered democrat ID Effective Begin Date Effective End Date [employer] Commercial Insurance [id number] Unknown Unkn own Family History Family History data not found Medication Administered No Medication Administered data Reason For Visit No Reason For Visit data
[2024-10-01 14:18] LABS: Hematocrit 45.6 % (33.0-51.0); Hemoglobin* 14.5 gm/dL (12.0-16.0); Immature Granulocytes Abs Auto 0.02 K/uL (0.00-0.30); Immature Granulocytes Pct Auto 0.2 %; Mean Corpuscular HGB Conc 32 gm/dL (32-36); Mean Corpuscular Hemoglobin 28 pg (26-34); Mean Corpuscular Volume 89 fL (80-100); RDW Coefficient of Variation % 14.7 % (11.5-15.5); Red Blood Count 5.10 m/uL (4.00-5.20); White Blood Count* 9.82 K/uL (4.50-11.00)
[2024-10-01 14:21] LABS: Lymphocytes Absolute Auto 1.30 K/uL (0.90-2.90); Slide Review Reflex No
[2024-10-01 14:29] LABS: Appearance Urine Cloudy (Clear)
[2024-10-01 14:31] LABS: Troponin, Point-of-Care* 0.01 ng/ml (0.01-0.04)
[2024-10-01 14:33] LABS: Albumin* 4.2 g/dL (3.3-5.0); Chloride* 109 mmol/L (96-114); Potassium* 3.2 mmol/L (3.6-5.1); Sodium* 146 mmol/L (135-149)
[2024-10-01 14:36] LABS: Alanine Aminotransferase* 10 U/L (4-35); Alkaline Phosphatase* 106 U/L (40-150); Anion Gap 9 mEq/L (7-15); Aspartate Amino Transferase* 21 U/L (12-35); Bilirubin Total* 0.3 mg/dL (0.1-1.5); Blood Urea Nitrogen* 20 mg/dL (7-30); Calcium* 9.2 mg/dL (8.4-10.6); Carbon Dioxide* 28 mmol/L (20-32); Creatinine* 1.1 mg/dL (0.5-1.5); Est. Creatinine Clearance* 42.18; Estimated Glomerular Filt Rate 56 ml/min; Glucose* 94 mg/dL (60-115); Total Protein* 7.5 g/dL (6.0-8.3)
--- OUTSIDE RECORDS SUMMARY | 2024-10-01 14:44 | XMS_ITS | CCD ---
Author Organization Unknown Care Team Providers Care Quality Control Lab Technician Name Role Phone Wheel Shop Supervisor, [place] Primary Care Provider Unava ilable Unavailable Chronic Care Management Unavaila ble Summary Purpose DataExchange Insurance Providers Payer name Policy type / Coverage type Covered green party ID Effective Begin Date Effective End Date [employer] [id number] Unknown Unkn own Family History Family History data not found Medication Administered No Medication Administered data Reason For Visit No Reason For Visit data
--- OUTSIDE RECORDS SUMMARY | 2024-10-01 14:44 | XMS_ITS | CCD ---
Author Organization Unknown Care Team Providers Care Administrative Receptionist Name Role Phone Ornament Stitcher, [place] Primary Care Provider Unava ilable Unavailable Chronic Care Management Unavaila ble Summary Purpose DataExchange Insurance Providers Payer name Policy type / Coverage type Covered democrat ID Effective Begin Date Effective End Date [employer] [id number] Unknown Unkn own Family History Family History data not found Medication Administered No Medication Administered data Reason For Visit No Reason For Visit data
[2024-10-01] MEDS: MORPHINE 4 MG/ML INJ IVP (15:11)
[2024-10-01] MEDS: ONDANSETRON 2 MG/ML inj 4 MG IVP (15:11)
--- NOTE | 2024-10-03 10:22 | ED.GENADULT ---
HPI - General Adult General Date Seen: 10/01/24 Chief complaint: Extremity Pain/Injury, Lower Stated complaint: Black Outs/ Falling Time Seen by Provider: 10/01/24 13:11 Source: patient, family, RN notes reviewed and old records reviewed Mode of arrival: ambulatory Limitations: no limitations History of Present Illness HPI narrative: This is an addendum to Dr. John's ER visit for this patient from 10/01. Urine culture came back this morning positive for pansensitive E coli. I contacted the patient at home. She is doing well. No fevers. Will send in a prescription for cephalexin 500 b.i.d. for 7 days. She will pick it up from [facility] in start on the antibiotic today. Questions answered Related Data Home Medications ?Medication ?Instructions ?Recorded ?Confirmed amlodipine 10 mg tablet 10 mg PO DAILY 06/05/22 10/01/24 carbidopa ER 50 mg-levodopa 200 mg 1 tab PO QPM 06/05/22 10/01/24 tablet,extended release cetirizine 10 mg tablet 10 mg PO DAILY PRN allergies 06/05/22 10/01/24 cholecalciferol (vitamin D3) 25 25 mcg PO DAILY 06/05/22 10/01/24 mcg (1,000 unit) tablet cyanocobalamin (vitamin B-12) 1,000 mcg PO DAILY 06/05/22 10/01/24 1,000 mcg tablet eszopiclone 3 mg tablet 3 mg PO QPM 06/05/22 10/01/24 famotidine 20 mg tablet 20 mg PO DAILY 06/05/22 06/16/24 ferrous sulfate 325 mg (65 mg 325 mg PO Q1D 06/05/22 06/16/24 iron) tablet (FeroSul) furosemide 40 mg tablet 40 mg PO DAILY PRN 06/05/22 10/01/24 ipratropium bromide 21 mcg (0.03 2 spray intranasal BID 06/05/22 10/01/24 %) nasal spray latanoprost 0.005 % eye drops 1 drp ophthalmic (eye) QPM 06/05/22 10/01/24 memantine 10 mg tablet 10 mg PO BID 06/05/22 10/01/24 oxycodone 5 mg tablet 7.5 mg PO Q6H PRN pain 06/05/22 10/01/24 pantoprazole 40 mg tablet,delayed 40 mg PO DAILY 06/05/22 06/16/24 release prazosin 2 mg capsule 2 mg PO QPM 06/05/22 06/16/24 quetiapine 100 mg tablet 100 mg PO HS 06/05/22 10/01/24 sennosides 8.6 mg-docusate sodium 1 tab-cap PO PRN 06/05/22 06/16/24 50 mg tablet (Stool Softener-Stimulant Laxative) sertraline 100 mg tablet 100 mg PO DAILY 06/05/22 10/01/24 simvastatin 20 mg tablet 20 mg PO QPM 06/05/22 10/01/24 tizanidine 4 mg tablet 4 mg PO Q8H PRN muscle spasm 06/05/22 10/01/24 azelastine 205.5 mcg (0.15 %) 2 spray intranasal BID 10/01/24 10/01/24 nasal spray (Astepro Allergy) dapagliflozin propanediol 10 mg 10 mg PO DAILY 10/01/24 10/01/24 tablet (Farxiga) Previous Rx's ?Medication ?Instructions ?Recorded pregabalin 50 mg capsule (Lyrica) 50 mg PO TID #90 caps 12/23/23 cephalexin 500 mg capsule 500 mg PO BID #14 caps 10/03/24 Allergies Allergy/AdvReac Type Severity Reaction Status Date / Time losartan Allergy Severe Angioedema Verified 06/16/24 16:00 duloxetine Allergy Mild Hives, Verified 06/16/24 16:00 Nausea/Vomiting latex Allergy Mild Rash Verified 06/16/24 16:00 lisinopril Allergy Mild Rash Verified 06/16/24 16:00 phenylephrine Allergy Mild Rash, Verified 06/16/24 16:00 Swelling pregabalin Allergy Mild Rash Verified 06/16/24 16:00 tropicamide Allergy Mild Rash, Verified 06/16/24 16:00 Swelling gabapentin AdvReac Mild GI Verified 06/16/24 16:00 Intolerance, Nausea/Vomiting prednisone AdvReac Mild Agitation Verified 06/16/24 16:00 [facility] Medical History Frequent falls ?R29.6 - Repeated falls (ICD-10) Hypertensive heart disease ?I11.9 - Hypertensive heart disease without heart failure (ICD-10) SHREE (generalized anxiety disorder) ?F41.1 - Generalized anxiety disorder (ICD-10) PTSD (post-traumatic stress disorder) ?F43.10 - Post-traumatic stress disorder, unspecified (ICD-10) Depression, major, recurrent, moderate ?F33.1 - Major depressive disorder, recurrent, moderate (ICD-10) Morbid obesity ?E66.01 - Morbid (severe) obesity due to excess calories (ICD-10) Tachycardia, paroxysmal ?I47.9 - Paroxysmal tachycardia, unspecified (ICD-10) Chronic pain syndrome ?G89.4 - Chronic pain syndrome (ICD-10) Dependent personality disorder ?F60.7 - Dependent personality disorder (ICD-10) Panic disorder with agoraphobia ?F40.01 - Agoraphobia with panic disorder (ICD-10) EUGENIA (obstructive sleep apnea) ?G47.33 - Obstructive sleep apnea (adult) (pediatric) (ICD-10) Headache, chronic migraine without aura ?G43.709 - Chronic migraine without aura, not intractable, without status migrainosus (ICD-10) Chronic respiratory failure with hypoxia ?J96.11 - Chronic respiratory failure with hypoxia (ICD-10) History of falling ?Z91.81 - History of falling (ICD-10) Irritable bowel syndrome with diarrhea ?K58.0 - Irritable bowel syndrome with diarrhea (ICD-10) B12 deficiency ?E53.8 - Deficiency of other specified B group vitamins (ICD-10) Hypovitaminosis D ?E55.9 - Vitamin D deficiency, unspecified (ICD-10) Chronic diastolic (congestive) heart failure ?I50.32 - Chronic diastolic (congestive) heart failure (ICD-10) Restless leg syndrome ?G25.81 - Restless legs syndrome (ICD-10) Glaucoma ?H40.9 - Unspecified glaucoma (ICD-10) Nevus of choroid of right eye ?D31.31 - Benign neoplasm of right choroid (ICD-10) Corneal epithelial basement membrane dystrophy ?H18.529 - Epithelial (juvenile) corneal dystrophy, unspecified eye (ICD-10) Dermatochalasis of both eyelids ?H02.833 - Dermatochalasis of right eye, unspecified eyelid (ICD-10) ?H02.836 - Dermatochalasis of left eye, unspecified eyelid (ICD-10) Ptosis of eyelid, bilateral ?H02.403 - Unspecified ptosis of bilateral eyelids (ICD-10) Fatty liver ?K76.0 - Fatty (change of) liver, not elsewhere classified (ICD-10) Supraventricular tachycardia ?I47.1 - Supraventricular tachycardia (ICD-10) Atrial tachycardia, paroxysmal ?I47.1 - Supraventricular tachycardia (ICD-10) Typical atrial flutter ?I48.3 - Typical atrial flutter (ICD-10) Elevated serum creatinine ?R79.89 - Other specified abnormal findings of blood chemistry (ICD-10) Hyperlipidemia ?E78.5 - Hyperlipidemia, unspecified (ICD-10) GERD (gastroesophageal reflux disease) ?K21.9 - Gastro-esophageal reflux disease without esophagitis (ICD-10) Paresthesia of both feet ?R20.2 - Paresthesia of skin (ICD-10) Rectal bleed ?K62.5 - Hemorrhage of anus and rectum (ICD-10) Globus sensation ?R09.89 - Other specified symptoms and signs involving the circulatory and respiratory systems (ICD-10) Rhinitis, chronic ?J31.0 - Chronic rhinitis (ICD-10) Hyperhidrosis ?R61 - Generalized hyperhidrosis (ICD-10) Syncope and collapse ?R55 - Syncope and collapse (ICD-10) Chronic kidney disease, stage 3a ?N18.31 - Chronic kidney disease, stage 3a (ICD-10) Surgical History Status post open reduction with internal fixation (ORIF) of fracture of ankle (06/06/22) ?Z98.890 - Other specified postprocedural states (ICD-10) ?Z87.81 - Personal history of (healed) traumatic fracture (ICD-10) Social History Narrative: She lives at the [facility]. She lives alone. She does not have to climb stairs. She believes her facility has available wheelchair for her to use along with crutches or a walker to be nonweightbearing on her right lower extremity. She does not smoke. She does not drink alcohol. She occasionally uses cannabis. Code status is full. Her father is healthcare power of national facilities manager. Highest level of school completed/degree received: high school graduate Smoking Status: Never smoker Do you use any of these nicotine containing products: None Second hand tobacco smoke exposure: No How often do you have a drink containing alcohol: monthly or less How many standard drinks containing alcohol do you have on a typical day: 1 or 2 AUDIT-C Alcohol total score: 1 Non-prescribed substance use: denies use Caffeine: No Do you think of yourself as: straight/heterosexual Gender Identity: female service: No Course Vital Signs Vital signs: Initial Vital Signs Temperature 97.4 F L 10/01/24 12:52 Temperature Source Temporal Artery Scan 10/01/24 12:52 Pulse Rate 103 H 10/01/24 12:52 Respiratory Rate 18 10/01/24 12:52 Blood Pressure 139/82 10/01/24 12:52 Blood Pressure Mean 101 10/01/24 12:52 Blood Pressure Position Sitting 10/01/24 12:52 Pulse Oximetry 91 10/01/24 12:52 Oxygen Delivery Method Room Air 10/01/24 12:52 Vital Signs Temperature 97.4 F L 10/01/24 12:52 Pulse Rate 103 H 10/01/24 12:52 Respiratory Rate 18 10/01/24 12:52 Blood Pressure 139/82 10/01/24 12:52 Pulse Oximetry 91 10/01/24 12:52 Oxygen Delivery Method Room Air 10/01/24 12:52 Temperature 97.4 F L 10/01/24 12:52 Pulse Rate 79 10/01/24 19:45 Respiratory Rate 15 10/01/24 19:45 Blood Pressure 142/79 H 10/01/24 19:31 Pulse Oximetry 90 10/01/24 19:45 Oxygen Delivery Method Room Air 10/01/24 12:52 Medications Administered Medications: Discontinued Medications Generic Name Dose Route Start Last Admin Trade Name Freq PRN Reason Stop Dose Admin Hydromorphone HCl 0.5 mg 10/01/24 18:37 10/01/24 18:46 Hydromorphone 0.5 Mg/0.5 Ml Inj IVP 10/01/24 18:38 0.5 mg ONCE ONE Administration Sodium Chloride 1,000 mls @ 1,000 mls/hr 10/01/24 14:20 10/01/24 16:00 0.9 % Sodium Chloride 1000 Ml IV 10/01/24 15:19 Infused .Q1H NANCI Infusion Morphine Sulfate 4 mg 10/01/24 14:20 10/01/24 15:11 Morphine 4 Mg/Ml Inj IVP 10/01/24 14:21 4 mg ONCE ONE Administration Ondansetron HCl 4 mg 10/01/24 14:20 10/01/24 15:11 Ondansetron 2 Mg/Ml Inj IVP 10/01/24 14:21 4 mg ONCE ONE Administration Medical Decision Making Lab Data Labs: Lab Results 10/01/24 10/01/24 Range/Units 13:37 14:10 WBC 9.82 (4.50-11.00) K/uL RBC 5.10 (4.00-5.20) m/uL Hgb 14.5 (12.0-16.0) gm/dL Hct 45.6 (33.0-51.0) % MCV 89 (80-100) fL MCH 28 (26-34) pg MCHC 32 (32-36) gm/dL RDW Coeff of Selina 14.7 (11.5-15.5) % Plt Count 240 (140-440) K/uL Neut % (Auto) 81.5 H (42.0-72.0) % Lymph % (Auto) 13.1 L (20-44) % [place] % (Auto) 4.8 (0.0-11.0) % Eos % (Auto) 0.2 (0.0-7.0) % Baso % (Auto) 0.2 (0.0-3.0) % Neut # (Auto) 8.00 H (1.7-7.0) K/uL Lymph # (Auto) 1.30 (0.90-2.90) K/uL [place] # (Auto) 0.50 (0.00-0.90) K/UL Eos # (Auto) 0.02 (0.00-0.50) K/uL Baso # (Auto) 0.02 (0.00-0.30) K/uL Abs Immat Gran (auto) 0.02 (0.00-0.30) K/uL Imm/Tot Granulo (auto) 0.2 % Sodium 146 (135-149) mmol/L Potassium 3.2 L (3.6-5.1) mmol/L Chloride 109 (96-114) mmol/L Carbon Dioxide 28 (20-32) mmol/L Anion Gap 9 (7-15) mEq/L BUN 20 (7-30) mg/dL Creatinine 1.1 (0.5-1.5) mg/dL Estimated Creat Clear 42.18 Estimated GFR 56 ml/min Glucose 94 (60-115) mg/dL Calcium 9.2 (8.4-10.6) mg/dL Total Bilirubin 0.3 (0.1-1.5) mg/dL AST 21 (12-35) U/L ALT 10 (4-35) U/L Alkaline Phosphatase 106 (40-150) U/L Total Protein 7.5 (6.0-8.3) g/dL Albumin 4.2 (3.3-5.0) g/dL Urine Color Dark yellow (Yellow) Urine Appearance Cloudy A (Clear) Urine pH 6.0 (5.0-8.5) Ur Specific [place] 1.025 (1.000-1.030) Urine Protein 1+ A (Negative) Urine Glucose (UA) 3+ A (Negative) Urine Ketones Trace A (Negative) Urine Blood Negative (Negative) Urine Nitrite Negative (Negative) Urine Bilirubin Negative (Negative) Urine Urobilinogen 0.2 (0.2-1.0) Ur Leukocyte Esterase Negative (Negative) Urine RBC 0-2 (0-2) Urine WBC 5-10 A (0-5) Ur Squamous Epith Cells Moderate A (None-Few) Urine Bacteria None (None) POC Troponin I 0.01 (0.01-0.04) ng/ml Discharge Plan Discharge Clinical Impression: Acute UTI Syncopal episodes Qualifiers: Syncope type: unspecified Qualified Code(s): R55 - Syncope and collapse CHI (closed head injury) Qualifiers: Encounter type: initial encounter Qualified Code(s): S09.90XA - Unspecified injury of head, initial encounter Foot fracture, right Qualifiers: Encounter type: initial encounter Fracture type: closed Qualified Code(s): S92.901A - Unspecified fracture of right foot, initial encounter for closed fracture Patient Disposition: Home, Self-Care Condition: Improved Additional Instructions: We will switch your splint to a cam boot. Orthopedics would like you to be nonweightbearing on that leg. It sounds like after our discussion you have great experience in avoiding any weight-bearing on your right leg. Please follow-up with orthopedics by calling their phone number for an appointment. The number is [phone]. You should expect a phone call from Cardiology at [place] on Thursday for scheduling of the implanting of the loop recorder. Minimize any time standing or in a situation where fainting would place you at risk for injury. Return to the emergency room if you need to an are not doing well. Prescriptions: New cephalexin 500 mg capsule 500 mg PO BID Qty: 14 0RF No Action furosemide 40 mg tablet 40 mg PO DAILY PRN latanoprost 0.005 % drops 1 drp ophthalmic (eye) QPM cetirizine 10 mg tablet 10 mg PO DAILY PRN (Reason: allergies) tizanidine 4 mg tablet 4 mg PO Q8H PRN (Reason: muscle spasm) carbidopa-levodopa 50-200 mg tablet extended release 1 tab PO QPM sennosides-docusate sodium [Stool Softener-Stimulant Laxat] 8.6-50 mg tablet 1 tab-cap PO PRN sertraline 100 mg tablet 100 mg PO DAILY Patient Comments: take 2 tabs by mouth daily cyanocobalamin (vitamin B-12) 1,000 mcg tablet 1,000 mcg PO DAILY quetiapine 100 mg tablet 100 mg PO HS Patient Comments: take 3 tabs by mouth at bedtime famotidine 20 mg tablet 20 mg PO DAILY amlodipine 10 mg tablet 10 mg PO DAILY pantoprazole 40 mg tablet,delayed release (DR/EC) 40 mg PO DAILY simvastatin 20 mg tablet 20 mg PO QPM ferrous sulfate [FeroSul] 325 mg (65 mg iron) tablet 325 mg PO Q1D ipratropium bromide 21 mcg (0.03 %) spray,non-aerosol 2 spray INTRANASAL BID prazosin 2 mg capsule 2 mg PO QPM oxycodone 5 mg tablet 7.5 mg PO Q6H PRN (Reason: pain) memantine 10 mg tablet 10 mg PO BID eszopiclone 3 mg tablet 3 mg PO QPM cholecalciferol (vitamin D3) 25 mcg (1,000 unit) tablet 25 mcg PO DAILY azelastine [Astepro Allergy] 205.5 mcg (0.15 %) spray,non-aerosol 2 spray intranasal BID Rx Instructions: administer into each nostril dapagliflozin propanediol [Farxiga] 10 mg tablet 10 mg PO DAILY pregabalin [Lyrica] 50 mg capsule 50 mg PO TID Qty: 90 2RF Rx Instructions: Listed as a current allergy, however patient would like to retry this Rx. Take one capsule by mouth three times a day. Follow Up/Referrals: Provider,Not a Local [Primary Care Provider, Family Practice] Stand Alone Forms: [facility] Info Instructions
== END 2024-10-01 20:11 | disposition home or self-care (01) ==
PROVIDERS: Emergency Provider Family Medicine
DX: R55 Syncope and collapse (principal); S09.90XA Unspecified injury of head, initial encounter; S92.331A Displaced fracture of third metatarsal bone, right foot, initial encounter for closed fracture; S92.341A Displaced fracture of fourth metatarsal bone, right foot, initial encounter for closed fracture; M25.571 Pain in right ankle and joints of right foot; R51.9 Headache, unspecified; G25.81 Restless legs syndrome; W19.XXXA Unspecified fall, initial encounter; Z86.79 Personal history of other diseases of the circulatory system; Z91.81 History of falling; Z79.899 Other long term (current) drug therapy
CPT/HCPCS: 36415; 70450; 73600; 73620; 80053; 81001; 84484; 85025; 87086; 93005; 96374; 96375; 99281; 99284; 99285; J1171; J2270; J2405; J7030

== ENCOUNTER 2024-10-19 06:10 | Day surgery (SDC) | payer OTHER, SELFPAY ==
[2024-10-19] VITALS (19 sets, daily range): BP systolic 125–189; BP diastolic 75–145; PULSE 66–80; RESP 16–18; TEMP 36.1–36.8; O2SAT 92–98; BMI 36.6
[2024-10-19] MEDS: LACTATED RINGERS 1000 ML 1,000 ML 100 ML IV ×2 (06:15→10:19)
[2024-10-19] MEDS: SODIUM CHLORIDE 0.9 % (FLUSH) 10 ML SYRINGE IVF (07:11)
[2024-10-19] MEDS: MIDAZOLAM HCL 1 MG/ML inj IVP (07:15)
--- NOTE | 2024-10-19 07:18 | W.PM.H&PU ---
History & Physical Update History & Physical Update H&P Reviewed and patient assessed: No changes noted
--- NOTE | 2024-10-19 07:19 | P.ORPRC_ITS ---
Procedure Note Date of procedure: 10/19/24 Procedure: PREOPERATIVE DIAGNOSIS: 1. Right 3rd metatarsal fracture 2. Right 4th metatarsal fracture 3. Right 5th proximal phalanx fracture POSTOPERATIVE DIAGNOSIS: 1. Right 3rd metatarsal fracture 2. Right 4th metatarsal fracture 3. Right 5th proximal phalanx fracture PROCEDURE: 1. Right 3rd and 4th metatarsal open reduction percutaneous pinning SURGEON: Pancho Mejia MD. TECHNICAL APPLICATIONS SPECIALIST: Julia Dickinson P.A.-C. - An personalized living assistant was critical for this case to aid in patient positioning, tissue retraction, limb manipulation/positioning, and closure. ANESTHESIA: Spinal anesthetic with popliteal nerve block IMPLANTS: 0.062 K-wires x2 TOURNIQUET: 69 minutes at 250 mmHg ESTIMATED BLOOD LOSS: 1 mL COMPLICATIONS: None PROVIDER OPERATED C-ARM: C-arm fluoroscopy operated by Dr. Lavon Mejia for assessment of fracture reduction and K-wire placement. One hundred ninety-one C-arm spot images were obtained. Fluoroscopy time was 2 minutes 38 seconds. INDICATIONS: The patient is a pleasant 64-year-old female who sustained disp laced fractures of the 3rd and 4th metatarsals, as well as an avulsion fracture from the base of the right 5th proximal phalanx. Due to the amount of displacement of the 3rd and 4th metatarsal. FINDINGS: Displaced, short oblique, distal 4th metatarsal shaft fracture. Displaced, comminuted, 3rd metatarsal shaft fracture. Minimally displaced avulsion fracture base of 5th proximal phalanx. DESCRIPTION OF PROCEDURE: Following a thorough discussion of risks, benefits, and alternatives to surgery, surgical consent was obtained and the operative was marked. A popliteal nerve block was been performed by anesthesia staff. The patient was then brought to the operating room and placed supine on the operating table. Spinal anesthesia was administered and patient was given IV Ancef preoperatively for prophylaxis. A tourniquet was then placed on the patient's right calf. The right lower extremity was then prepped and draped in usual sterile fashion. A surgical time-out was performed confirming patient identity, surgical procedure, and surgical site. Attention was 1st directed to the 4th metatarsal fracture. A 0.062 K-wire was inserted percutaneously in retrograde through the head of the 4th metatarsal. K-wire was advanced to the fracture site. Closed reduction was attempted, but reduction cannot be obtained in a closed manner. Decision was made to proceed with open reduction. A longitudinal incision measuring approximately 4-5 cm was made centered between the 3rd and 4th metatarsals. Blunt dissection was used to dissect down to the 4th metatarsal fracture site. Early callus formation was noted which was preventing fracture reduction. Fracture callus was removed, and the fracture was mobilized. Fracture site was then irrigated with normal saline. Once fracture was adequately mobilized, open reduction was performed. The K-wire was then advanced in a retrograde fashion across the fracture site through the intramedullary canal of the 4th metatarsal and into the base of the 4th metatarsal. Fluoroscopic imaging in AP, lateral, and oblique planes confirmed satisfactory fracture reduction and K-wire placement. Attention was then directed to the 3rd metatarsal fracture. Blunt dissection was used to dissect down to 3rd metatarsal fracture site. There is early callus formation at this fracture site which was also preventing fracture reduction. Fracture callus was removed, and the fracture was mobilized. Fracture site was then irrigated with normal saline. Once fracture was adequately mobilized, open reduction was performed. A 0.062 K-wire was then inserted percutaneously into the head of the 3rd metatarsal. K-wire was advanced in a retrograde fashion into the distal 3rd metatarsal fragment, across the fracture site and into the intramedullary canal of the proximal aspect of the 3rd metatarsal. Fluoroscopic imaging in AP, lateral, and oblique planes confirmed satisfactory fracture reduction and K-wire placement. K-wire was then advanced into the base of the 3rd metatarsal. Surgical wound was irrigated copious amounts of normal saline. K-wires were bent and cut. Jurgan balls were placed over the tips of the K- wires. And pin sites were dressed was Xeroform. Tourniquet was released. Total tourniquet time was 69 minutes. Hemostasis was achieved electrocautery. Skin incision was closed with 3-0 nylon simple interrupted sutures. Sterile dressings were applied followed by the application of a well-padded short-leg posterior splint. The patient was awoken from anesthesia and transferred the PACU in stable condition. PLAN: 1. Touchdown weight-bearing right lower extremity 2. Tylenol and oxycodone for pain control. Oral Dilaudid for breakthrough pain. 3. Ice and elevation for pain and swelling 4. Aspirin 81 mg b.i.d. for 4 weeks for DVT prophylaxis 5. Follow-up PA Scharping in the orthopedic clinic for wound check and suture removal in 10-14 days. 6. Follow-up with Dr. Mejia 4-5 weeks postoperatively for x-rays and possible pin removal.
--- NOTE | 2024-10-19 07:56 | P.NB_ITS ---
Nerve Block Nerve Block Time Seen by Provider: 07:35 Date Seen: 10/19/24 Type of block requested by surgeon for post-operative analgesia: popliteal Side: right Time out performed: Yes Verification of patient name: Yes Verification of date of : Yes Site marking: site marked Name of person performing procedure: James Continuous monitoring Was continuous monitoring of O2 sat, B/P, playground monitor, recorded every 15 minutes?: Yes Procedure Checklist: sterile prep, needles and gloves Ultrasound guided. Images saved: Yes Medications given in 5ml increments after negative aspiration: Marcaine %: 0.25 mL: 10 and Exparel mL: 10 Needle gauge: 22 Patient tolerated procedure well: Yes Additional comments: Needle noted adjacent to nerve Block Charges Block Charge (with Pro Fee): Sciatic Nerve Use of Ultrasound Machine for Block: Yes- US Guidance/pain block
--- NOTE | 2024-10-19 07:56 | P.ANES_ITS ---
Anesthesia Charges Start Date/Time Anesthesia Start Date: 10/19/24 Anesthesia Start Time: 07:38 Stop Date/Time Anesthesia Stop Date: 10/19/24 Anesthesia Stop Time: 09:53 Coding CPT Codes CPT Codes: ANESTH LOWER LEG BONE SURG - 20179 ([id number]) P4 - PT W/SEV SYS DIS THREAT LIFE, QK - QUALITY TESTER 2-4 CNCRNT ANES PROC, QX - EQUIPMENT COORDINATOR SVC W/ MD MED DIRECTION
--- NOTE | 2024-10-19 07:56 | W.ANESCHARGE ---
Anesthesia Charges Start Date/Time Anesthesia Start Date: 10/19/24 Anesthesia Start Time: 07:38 Stop Date/Time Anesthesia Stop Date: 10/19/24 Anesthesia Stop Time: 09:53 Coding CPT Codes CPT Codes: ANESTH LOWER LEG BONE SURG - 11510 ([id number]) P4 - PT W/SEV SYS DIS THREAT LIFE, QK - ACID RECOVERY OPERATOR 2-4 CNCRNT ANES PROC, QX - ABSTRACTER SVC W/ MD MED DIRECTION
--- NOTE | 2024-10-19 08:12 | SUR.OPER ---
PATIENT QUESTIONS ANSWERED SATISFACTORILY PREOPERATIVELY.? PATIENT BROUGHT TO OR #1 PER CART.? Patient positioned supine on OR #1 bed.? The perioperative?team supported arms bilaterally on arm boards.? Final approval of positioning by surgeon.
--- NOTE | 2024-10-19 09:55 | P.ANES_ITS ---
Anesthesia Charges Start Date/Time Anesthesia Start Date: 10/19/24 Anesthesia Start Time: 07:38 Stop Date/Time Anesthesia Stop Date: 10/19/24 Anesthesia Stop Time: 09:53 Coding CPT Codes CPT Codes: ANESTH LOWER LEG PROCEDURE - 26868 ([id number]) P4 - PT W/SEV SYS DIS THREAT LIFE, QK - MILK TRUCK DRIVER 2-4 CNCRNT ANES PROC, QX - BLAST HOLE DRILLER SVC W/ MD MED DIRECTION
--- NOTE | 2024-10-19 09:55 | W.ANESCHARGE ---
Anesthesia Charges Start Date/Time Anesthesia Start Date: 10/19/24 Anesthesia Start Time: 07:38 Stop Date/Time Anesthesia Stop Date: 10/19/24 Anesthesia Stop Time: 09:53 Coding CPT Codes CPT Codes: ANESTH LOWER LEG PROCEDURE - 60563 ([id number]) P4 - PT W/SEV SYS DIS THREAT LIFE, QK - DINING SERVER 2-4 CNCRNT ANES PROC, QX - ASSISTANT WAREHOUSE MANAGER SVC W/ MD MED DIRECTION
[2024-10-19] MEDS: OxyCODONE/APAP 5-325 TABLET PO (10:50)
[2024-10-19] MEDS: IBUPROFEN 200 MG TABLET 600 MG PO (11:56)
--- NOTE | 2024-10-19 11:56 | SUR.PHASEII ---
Patient still having stabbing pain in her two toes after the percocet and vistaril medications. Consulted with LYNDSEY Cunningham for Ibuprofen 600 mg given for additional pain management.
--- NOTE | 2024-10-19 12:05 | REH.PT ---
Verbal order from [facility] nurse received. Brought 4 WW and reviewed use and current mobility devices at home (has electric WC and 4WW and 2 WW)with patient and and patient reporting I am confident with how I get around and have done Non wt bearing before and my foot hurts too much to get up right now. Screen completed and patient declines further intervention and does not need further Hospital PT.
--- NOTE | 2024-10-19 12:33 | SUR.PHASEII ---
Patient discussed mobility with the physical therapist for home with a 4 legged walker with a seat and her electic scooter. She stated to the physical therapist she knows what to do and does not need any further instruction. She gets up to the commode with minimal help. She has friends to stay with her at home.
--- NOTE | 2024-10-19 13:06 | SUR.PHASEII ---
Patient still has pain in foot. Patient's pain level is at an 8 out of 10 at home daily. Ice pack and ibuprofen given after narcotic pain medication. Encouraged ice and elevation and tylenol and ibuprofen in addition to narcotic. Also instructed to watch maximum dosage allowed per day of Tylenol and Ibuprofen
== END 2024-10-19 13:09 | disposition home or self-care (01) ==
LOC: OR 06:11
PROVIDERS: Visit Provider Orthopaedic Surgery
PROC: (CPT 28485; principal; 2024-10-19 07:30)
DX: S92.331A Displaced fracture of third metatarsal bone, right foot, initial encounter for closed fracture (principal); S92.341A Displaced fracture of fourth metatarsal bone, right foot, initial encounter for closed fracture; S92.351A Displaced fracture of fifth metatarsal bone, right foot, initial encounter for closed fracture; G89.18 Other acute postprocedural pain
CPT/HCPCS: 28485 ×2; 01462; 01480; 64445; 73630; 76000; 76942; A9270; C1713; J0665; J0666; J0690; J1100; J1171; J2250; J2405; J2704; J3010; J3490; J7120

== ENCOUNTER 2025-01-13 11:35 | Emergency (ER) | payer OTHER, SELFPAY ==
--- OUTSIDE RECORDS SUMMARY | 2025-01-13 11:36 | XMS_ITS | Clinical Summary ---
Author Organization [employer] [facility] Address [address] [place] [id number] Care Team Providers Care Solderer Production Line Name Role Phone Neymar Noyola MD Unavailable [...] amLODIPine (NORVASC) 5 mg tablet 0 Active acetaminophen-ca ffeine-butalbita l [...] needed for Pain. 10 Tablet 1 Active Farxiga 10 mg tablet Take 10 mg by mouth. 5 Active Active Problems Problem Noted Date Diagnosed Date Prediabetes 01/19/2024 Polypharmacy 09/22/2022 Overview (10/12/2024): She has significant polypharmacy, that has likely contributed to her fall risk. Previous medication changes since 2022 due to polypharmacy: Discontinued amitriptyline Decreased SEROquel from 300mg to 200mg daily Discontinued prazosin Discontinued carvedilol Discontinued famotidine Decreased tizandine Potential options for further changes: Decrease SEROquel Switch to buprenorphine Syncope and collapse 06/04/2022 Overview (10/12/2024): Timeline of symptoms Initial syncope events noted [...] sitting position. Never has occurred while driving. [facility] 09/18/22-09/22/2022: Cardiac monitoring without evidence of arrhythmia. Concern for orthostatic hypotension with weaning antihypertensives. Cardiology consult suspected polypharmacy as underlying etiology. Heart monitor discharge with follow-up EEG and brain MRI. [facility] (09/30/2022): No further episodes of syncope with significant reduction in dizziness after reduction in carvedilol, amlodipine, and amitriptyline. Plan to discontinue amitriptyline today. Encouraged to monitor her blood pressure at home. [facility] (02/03/2023): Since last visit, the patient [...] bloated as a proxy of volume overload. [facility] 03/12/2023: Had 3 additional syncopal episodes which were all preceded by standing up. She had trivial lightheadedness with each of these events. Agreeable to having autonomic screen performed. [facility] (04/20/2023) telephone visit: Additional episodes of syncope shortly after standing. One episode witnessed by neighbor and patient did not have recollection of event. Described with lightheadedness, dizziness, vision changes after taking several steps. [facility] (01/19/2024): Went 8 months without any episodes. Week prior to appointment, had 4 syncopal episodes. One episode involved fall with trauma to head and abdomen. [facility] (03/14/2024): On KHADAR, has another episode. [...] monitors, but episodes continued to happen intermittently. Hyperlipidemia 08/08/2020 Overview (10/12/2024): Last T cholesterol 272 with LDL 148. On simvastatin, tolerating well. Typical atrial flutter 05/29/2020 Overview (10/12/2024): Status post ablation performed by Dr. Torres on 05/29/2020 Fatty liver 01/03/2020 Overview (10/12/2024): Diagnosed incidentally on ultrasound 12/2019 Chronic diastolic (congestive) heart failure 11/2019 Overview (10/12/2024): Lasix 40mg QD M/W/. Cardiac PET (12/03/2021): Normal perfusion imaging with LVEF 73%, no regional, and normal myocardial flow reserve TTE (09/19/2022): LVEF 64% with very small focal hypokinesis of uncertain significance with unchanged respirophasic septal shift likely due to increased respiratory effort, mildly enlarged RV with borderline and move large IVC with reduced inspiratory collapse. Heart failure with preserved ejection fraction 0 08/23/2019 Palpitations 08/23/2019 Atypical chest pain 08/23/2019 Chronic respiratory failure with hypoxia 019 Overview (10/12/2024): Requires oxygen at night and occasionally during day in home. Most likely multifactorial from heart disease, obesity, untreated sleep apnea. Chronic mixed headache syndrome 01/28/2018 Overview (10/12/2024): Remains on Memantine 10mg BID and Fioricet prn Previously, the patient was receiving regular Botox injections that were stopped when she was unable to attend her appointment as result of her ankle fracture in spring 2022. Headaches continue to be well controlled, but she would like to restart Botox injections to avoid recurrent migraines. Obstructive sleep apnea syndrome in adult 2017 Overview (10/12/2024): Not on CPAP or BiPAP due to inability to tolerate any type of mask. This is due to history of severe trauma. She is not interested in returning to sleep medicine for further discussion and not interested in repeating asleep titration study. Paroxysmal supraventricular tachycardia 12/17/19 17 Overview (10/12/2024): AV yoselin re-entrant tachycardia, status post catheter ablation, February 2019 and May 2020. Remains on metoprolol 100mg BID. Adjustment disorder with mixed anxiety and depre ssed mood 09/30/2011 S/P prosthetic total arthroplasty of the hip 05/2011 Pain medication agreement 04/27/2011 Overview (11/25/2024): Controlled substance contract signed 12/06/2010, see scanned document VANESSA MULLINS RN 04/27/2011 4:57 AM Diagnosis Code replaced due to regulatory update Spondylolisthesis of lumbar region 04/02/2011 Overview (04/02/2011): [...] complication, not stated as uncontrolled 05/21/2007 09/17/2009 Encounters Date Type Department Care Team Description 10/14/2024 4:00 PM CDT Orders Only [facility] [address] [place] [address] Lab, [place] [facility] 10/14/2024 Travel 10/13/2024 Telephone [facility] [address] [place] [address] Leslie Patel MD Lab (potassium) 10/13/2024 Telephone [facility] [address] [place] [address] Leslie Patel MD Lab from Last 3 Months Immunizations Immunization Administration Dates Next Due AMB [...] 5 06/07/2018 Social Connections Answer Date Recorded Do you often feel lonely or isolated from those around you? 0 10/12/2024 Financial Resource Strain Answer Date R ecorded Difficulty of Paying Living Expenses 3 10/12/2024 Difficulty of Paying Living Expenses Not on file 10/12/2024 Food Insecurity Answer Date Recorded Do you worry your food will run out before you are able to buy more? 1 10/12/2024 Transportation Needs Answer Date Record ed Does lack of transportation keep you from medica l appointments? 1 10/12/2024 Does lack of transportation keep you from work, meetings or getting things that you need? 1 10/12/2024 Housing Stability Answer Date Recorded What is your housing situation today? 1 10/12/2024 Utilities Answer Date Recorded Do you have trouble paying f or utilities (for example, heat, electricity, water, phone)? 1 10/12/2024 Comments No Sex and Gender Information Value Date Recorded Sex Assigned at Not on file Legal Sex Female 7:27 AM BABBITTER Gender Identity Not on file Sexual Orientation [...] Sign Reading Time Taken Comments Blood Pressure 157/83 10/12/2024 3:30 PM CDT Pulse 83 10/12/2024 3:30 PM CDT Temperature 37.6 C (99.6 F) 11/15/2020 12:56 PM CDT Respiratory Rate 20 09/20/2019 10:0 5 AM CDT Oxygen Saturation 95% 10/12/2024 3:30 PM CDT Inhaled Oxygen Concentration - - [...] C screening for ag e 18-79 06/15/1977 RSV vaccine for adults or (1 - Risk 50-74 years 1-dose series) 06/15/2009 Pneumococcal series for age 50+ (2 of 2 - PCV) 01/26/2013 01/27/2012 Pap test for age 21-65 10/17/2018 6 (Completed outside of [facility]), 10/08/2009 Mammogram for age 45-75 05/18/2019 05/18/19 19 (Completed outside of [facility]), 02/19/2015 (Completed outside of [facility]), 12/31/2011 (Completed outside of [facility]), Additional history exists Colonoscopy through age 75 09/12/2020 09/12/2010, Lipids for age 45-75 10/17/2020 10/18/2015 ([facility]), 11/06/2010, 10/08/2010, Additional history exists BMI (ht and wt on same day) for age 18+ 11/15/2021 11/15/2020, 09/26/2019, 08/23/2019, Additional history exists DEXA/DXA scan for age 65+ 06/15/2024 Medicare Wellness for age 65+ 06/15/2024 COVID-19 vaccine series ( season) 2024 11/23/2023, 11/25/2022, 11/15/2021, Additional history exists Influenza Vaccine (#1) 2024 9, 12/03/2017, 11/16/2017, Additional history exists Tetanus booster 10/24/2030 10/24/2020, 09/16, 05/21/2007 Zoster (shingles) series for age 50+ Completed 09/07/2017, 07/07/2017, 04/29/2012 Hepatitis B series for 19+ Completed 11/07/2019, Procedures Procedure Name Priority Date/Time Associated Diagnosis Comments POTASSIUM Routine 10/14/2024 3:48 PM CDT Hypokalemia LIPID PANEL W REFLEX MEASURED LDL Routine 11/06/2010 9:12 AM CDT Mixed hyperlipidemia XR MAMMO BILAT SCREEN FFDM (IA) Routine 09/10/2010 1:40 PM CDT Screening mammogram ENGINEERING MGR THIN PREP PAP SCREEN IMAGED Routine 10/08/2009 2:27 PM CDT Screening for malignant neoplasm of the cervix from Last 3 Months or Most Recently Relevant to Health Maintenance Results * POTASSIUM (10/14/2024 3:48 PM CDT) POTASSIUM 3.9 3.5 - 5.3 mmol/L 10/15/2024 4:16 AM CDT [facility] Blood BLOOD SPECIMEN / Unknown [facility] / Unknown 10/14/2024 3:48 PM CDT 10/14/2024 3:48 PM CDT us Leslie Patel MD CHEMISTRY Final Resul t Performing Organization Address City/Va Hospital/ZIP Co de Phone Number [facility] [place] [id number] [place] [address], [place] [phone] * (ABNORMAL) LIPID PANEL W REFLEX MEASURED LDL (11/06/2010 9:12 AM CDT) CHOLESTEROL,TOTAL 132 110 - 199 mg/dL [facility] TRIGLYCERIDES 241(H) <150 mg/dL [facility] HDL CHOLESTEROL 45 >40 mg/dL [facility] CHOL/HDL RATIO 2.93 <4.51 [facility] LDL CHOLESTEROL 39 <131 mg/dL [facility] PATIENT STATUS Fasting [facility] Blood specimen (specimen) BLOOD SPECIMEN / Unknown 11/06/2010 9:12 AM CDT 11/06/2010 9:10 AM CDT Luisa Harman CHEMISTRY Final R esult Performing Organization Address City/Va Hospital/[facility] Co de Phone Number [facility] [address] [place] [address] * XR MAMMO BILAT SCREEN FFDM (09/10/2010 [...] mass(es) within left breast. Procedure Note Adonay Scott, - 09/17/2010 XR MAMMO BILAT SCREEN FFDM [...] (10/08/2009 2:27 PM CDT) CYTOLOGY CYTOPATHOLOGY REPORT [facility] Status: Final Status [id number] CLINICAL INFORMATION Last Date of LMP :09/16/2009 Last Pap Date :unknown Last Pap Result :NIL ABN [place]/Bx Past 5 YRS :None Hormone Usage :None Menstrual Status :Postmenopausal [place]/Bx done today :No Additional Information :None given HPV Request :HPV if ASCUS SPECIMEN SOURCE :Cervical/vaginal ThinPrep Vial, screening SPECIMEN ADEQUACY :Satisfactory for evaluation Endocervical component present. INTERPRETATION/RES ULT Negative for intraepithelial lesion or malignancy (NIL) Non-Neoplastic Findings Parakeratosis Cytology 1st Screener :molly Signed by : Kirti Godfrey M.D. Interpreted at [facility] This specimen was screened by [...] malignant lesions. COLLECTED:10/08/09 ACCESSIONED: 10/09/09 SIGNED: 10/16/09 [facility] PAP [place] CODE NIL [facility] Cervical/Vaginal (Cervical/Vagina l) 10/08/2009 2:27 PM CDT 10/08/2009 2:23 PM CDT Narrative [facility] - 10/16/2009 9:23 AM CDT Interpreted at [facility] Luisa Harman PATHOLOGY/CYTOLOGY Ashlie l Result [facility] [place]NAL ZIP [id number] [place] [id number] from Last 3 Months or Most Recently Relevant to Health Maintenance Insurance [id number] Adam [facility] [place] [address] [facility] Advance Directives * Full Code (Latest Code Status on File) Date Activated Date Inactivated Comments 05/01/2010 9:58 AM 05/01/2010 7:04 PM Care Teams Solderer Production Line Relationship Specialty Start Date End Date Pcp, No . PCP - General 12/16/22 Neymar Noyola MD CLINICAL FELLOW Obstetrics and Gynecology 02/21/11
--- OUTSIDE RECORDS SUMMARY | 2025-01-13 11:36 | XMS_ITS | CCD ---
Author Organization Unknown Care Team Providers Care Hotel Guest Service Agent Name Role Phone Ship Painter Helper, [place] Primary Care Provider Unava ilable Unavailable Chronic Care Management Unavaila ble Summary Purpose DataExchange Insurance Providers Payer name Policy type / Coverage type Covered libertarian ID Effective Begin Date Effective End Date [employer] Commercial Insurance [id number] Unknown Unkn own Family History Family History data not found Medication Administered No Medication Administered data Medical Equipment No Medical Equipment data Assessments No Assessment data Reason For Visit No Reason For Visit data Review of Systems No Review of Systems data Physical Exam No Physical Exam data History of Present Illness No History of Present Illness data Advance Directives No Advance Directive data
--- OUTSIDE RECORDS SUMMARY | 2025-01-13 12:56 | XMS_ITS | CCD ---
Author Organization Unknown Care Team Providers Care Extract Operator Name Role Phone Bag Sorter, [place] Primary Care Provider Unava ilable Unavailable Chronic Care Management Unavaila ble Summary Purpose DataExchange Insurance Providers Payer name Policy type / Coverage type Covered green party ID Effective Begin Date Effective End Date [employer] Commercial Insurance [id number] Unknown Unkn own Family History Family History [...]
--- OUTSIDE RECORDS SUMMARY | 2025-01-13 12:56 | XMS_ITS | CCD ---
Author Organization Unknown Care Team Providers Care Spray Drier Name Role Phone Perinatal Educator, [place] Primary Care Provider Unava ilable Unavailable Chronic Care Management Unavaila ble Summary Purpose DataExchange Insurance Providers Payer name Policy type / Coverage type Covered green party ID Effective Begin Date Effective End Date [employer] Commercial Insurance [id number] Unknown Unkn own Family History Family History [...]
== END 2025-01-13 13:31 | disposition left against medical advice (07) ==
LOC: ED 12:54
DX: Z53.21 Procedure and treatment not carried out due to patient leaving prior to being seen by health care provider (principal)